=== PATIENT | male | born 1980 | race Caucasian/White ===

== ENCOUNTER 2018-03-14 05:25 | Inpatient (IN) | END 2018-03-17 17:30 | DRG 520 ==

== ENCOUNTER 2018-03-17 17:41 | Inpatient (IN) | END 2018-04-04 14:40 | disposition short-term general hospital (02) | DRG 560 ==

== ENCOUNTER 2018-04-04 14:40 | Inpatient (IN) | END 2018-04-10 18:50 | DRG 520 ==

== ENCOUNTER 2018-04-10 19:15 | Inpatient (IN) | END 2018-04-20 18:25 | disposition home health service (06) | DRG 945 ==

== ENCOUNTER 2018-11-21 05:24 | Inpatient (IN) | payer OTHER, MEDICAID ==
--- NOTE | 2018-11-16 09:45 | PREOPHP ---
DATE OF ADMISSION: 11/21/2018 REASON FOR ADMISSION: The patient is to have surgery with Dr. Jean Claude Gerardo on 11/21/2018. REASON FOR CONSULTATION: Consultation requested by Dr. Jean Claude Gerardo for medical evaluation and cl earance of a 38-year-old gentleman about to undergo surgery. Thank you, Dr. Gerardo, for allowing us to participate in care of this patient. HISTORY OF PRESENT ILLNESS: The patient is a 38-year-old gentleman, issues with his back is currentl y being admitted for correction of the above. The patient had a prior surgery at L5-S1 and currently will be admitted for recurrent L5-S1 as well as L4-L5 with probable fusion. In terms of his past me dical and surgical history, he had one prior surgery on his back as mentioned above. Other surgeries have included left shoulder surgery done for torn biceps and also had surgery on his left great toe for a fracture, which required pinning. He has had no medical hospitalizations, has had no other kush geries, has not broken any bones and he has been relatively healthy. MEDICATIONS: He currently takes the following medications; 1. Amlodipine 10 mg daily. 2. Benazepril 40 mg a day. 3. Gabapentin 600 mg b.i.d. 4. Tylenol with codeine and takes p.r.n. medications for pain and muscle issues. ALLERGIES: HE IS NOT ALLERGIC TO ANY MEDICATIONS. SOCIAL HISTORY: The patient is , has one daughter. He does not smoke or drink alcohol or co ffee, is employed and usually has no difficulty sleeping at night. FAMILY HISTORY: Father at age 57 of brain cancer. Mother is alive in her 60s, has had a mild s troke in the past. He is hypertensive. He has siblings who are in good health. There is a family h istory of hypertension and stroke as well as cancer. REVIEW OF SYSTEMS: HEENT: Denies any significant headaches. CARDIORESPIRATORY: Denies any chest pain or shortness of breath. GASTROINTESTINAL: No melena or hematemesis. GENITOURINARY: No urgency or frequency. MUSCULOSKELETAL: Positive for back pain. NEUROPSYCHIATRIC: Unremarkable. GENERAL HEALTH: As above. PHYSICAL EXAMINATION: VITAL SIGNS: The patient's blood pressure was 150/90, pulse was 76 and regular, respirations were 18 , temperature 98.4. Height 5 feet 11-3/4 inches, weight 256 pounds. GENERAL: The patient was noted to be a well-developed, well-nourished male, alert and cooperative, i n no apparent acute distress, oriented to time, place, and person. HEAD, EARS, EYES, NOSE AND THROAT: Head was atraumatic. Eyes: Pupils were equal, reactive to light and accommodation. Fundi were grossly benign. Tympanic membranes were unremarkable. Nose was nega tive. Mouth was unremarkable. Fair oral hygiene was present. NECK: Supple without any rigidity. Trachea was midline. Thyroid was within normal limits. Neck ve ins were flat. Carotid pulses were equal. No bruits were heard. BACK: Unremarkable, scar from prior surgery. CHEST: Symmetrical. BREASTS AND AXILLARY: Did not reveal any masses. LUNGS: Clear to percussion and auscultation. HEART: PMI was 5th intercostal space at midclavicular line. A regular sinus rhythm was noted. No s ignificant murmurs, rubs, or gallops being elicited. ABDOMEN: Soft, good bowel sounds were noted. No significant organomegaly, masses, or tenderness. GENITALIA: Normal male external genitalia. RECTAL AND PROSTATIC: Per PCP. EXTREMITIES: Did not reveal any clubbing, edema or cyanosis. Peripheral pulses were physiologic. SKIN: Moist and warm without any eruptions. No gross lymphadenopathy was noted. NEUROLOGIC: Grossly intact. IMPRESSION: 1. Lumbar disk disease L4-L5, L5-S1, possible spinal stenosis. 2. Hypertension. 3. Chronic pain syndrome. 4. Stable health. LABORATORY DATA: Review of laboratory and other data revealed the following: The patient's chemistr y panel including electrolytes, glucose, BUN, creatinine, calcium and uric acid were normal. Total p rotein was minimally elevated. Bulk of the elevation being an albumin, alkaline phosphatase and live r function tests were normal. Magnesium was slightly elevated at 2.4. CBC was normal, sed. rate min imally elevated at 33, normal white count. UA, PT, and PTT were normal as well as was his EKG. His c hest x-ray revealed no acute infiltrates nor were there any acute cardiopulmonary changes being noted . DISCUSSION: Dr. Gerardo, I see no contraindications to patient undergoing current proposed surgery under desired form of anesthesia. I feel he is a suitable candidate at this particular point in our community [facility] and will be more than happy to follow him with you during his stay at [facility]. Thank you again, Dr. Gerardo, for allowing us to participate in care of this patient. Dictated By: KEARA LUNA MD SS/NTS Conf#: [id number] DID#: [id number] CC: JEAN CLAUDE GERARDO MD;*EndCC*
[2018-11-16 11:43] VITALS: BMI 32.1
[~2018-11-21] VITALS: Ht 190.5 cm; Wt 115.5 kg
[2018-11-21] VITALS (27 sets, daily range): BP systolic 92–154; BP diastolic 40–89; PULSE 48–109; RESP 16–28; Ht 190.5 cm; Wt 115.5 kg
[~2018-11-21 05:24] MED LIST: ACET1TAB40 PO; AMLO-147 PO; BACL20TA PO; BENA40TA56 PO; GABA300C16 PO
[2018-11-21] MEDS ORDERED: LACTATED RINGER'S 1,000 ML IV* SCH (06:00)
[2018-11-21] MEDS ORDERED: CEFAZOLIN 2 GM/50 ML (PMX) 50 ML IVPB ONE (06:00)
[2018-11-21] MEDS ORDERED: BUPIVACAINE 0.5%/EPI (SDV) 30 ML INJ ONE (06:34)
[2018-11-21] MEDS ORDERED: THROMBIN (BOVINE) 5,000 UNIT VIAL TP ONE (06:34)
[2018-11-21] MEDS ORDERED: HEPARIN 1000 UNITS/ML 10 ML INJ ONE ×3 (06:34→09:31)
[2018-11-21] MEDS ORDERED: CEFAZOLIN 1 GM INJ ONE ×2 (06:34→07:01)
--- NOTE | 2018-11-21 06:56 | HPN ---
Date/Time of Note Date/Time of Note DATE: 11/21/18 TIME: 06:56 Interval H&P Admission Note Pt. seen H&P reviewed: No system changes FAVIOLA GREEN MD Nov 21, 2018 06:56
--- NOTE | 2018-11-21 06:57 | PREAC ---
Date/Time of Note Date/Time of Note DATE: 11/21/18 TIME: 06:55 Anesthesia Eval and Record Evaluation Time Pre-Procedure Interview DATE: 11/21/18 TIME: 06:55 Age 38 Sex male NPO: 8 hrs Preoperative diagnosis Lumbar Radiculopathy Planned procedure Lumbar Decompression and Fusion with instrumentation, L4-5, L5-S1 Past Medical History Past Medical History: Includes Cardio: HTN Pulm: Sleep Apnea, Home CPAP GI: Obesity Surgery & Anesthesia Issues No known issue Meds Anticoagulation: No Beta Alonso within 24 hr: No Reason Beta Alonso not given: Pt. not on B-Alonso Reported Medications Acetaminophen with Codeine (Acetaminophen-Cod #3 Tablet) 1 Each Tablet, 1 TAB PO Q6H, #7 TAB 11/16/18 Gabapentin* (Gabapentin*) 300 Mg Capsule, 300 MG PO BID, #60 CAP 11/16/18 Baclofen* (Baclofen*) 20 Mg Tablet, 20 MG PO TID, TAB 11/16/18 Benazepril Hcl* (Benazepril Hcl*) 40 Mg Tablet, 40 MG PO DAILY, #30 TAB 03/14/18 Amlodipine Besylate* (Amlodipine Besylate*) 10 Mg Tablet, 10 MG PO DAILY, #30 TAB 03/14/18 Discontinued Reported Medications Dhcodeine Bt/Acetaminophn/Caff (Trezix 16-320.5-30 mg Capsule) 1 Each Capsule, 1 EACH PO, CAP 03/14/18 Orphenadrine Citrate (Norflex) 100 Mg Tablet.sa, 100 MG PO BID, TAB.SA 03/14/18 Current Medications Lactated Ringer's 1,000 ml @ 0 mls/hr Q0M IV* ; Start 11/21/18 at 06:00; Stop 11/21/18 at 23:00 Meds reviewed: Yes Allergies Coded Allergies: No Known Allergy (Unverified , 11/21/18) Allergies Reviewed: Yes Labs/Studies Labs Reviewed: Reviewed by anesthesiologist test: N/A Studies: ECG (n/a), CXR (n/a) Pre-procedure Exam Last vitals Vital Signs Date Temp Pulse Resp B/P (MAP) Pulse Ox O2 O2 Flow FiO2 Time Delivery Rate 11/21/18 98.1 71 18 154/89 97 Room Air 06:17 (110) Airway: Adequate mouth opening, Adequate thyromental dist Mallampati: Mallampati II Teeth: Normal Lung: Normal Heart: Normal ASA Physical Status ASA physical status: 2 Emergency: None Planned Anesthetic General/MAC: ETT Planned Pain Management Parenteral pain med Pre-operative Attestations Prior to commencing anesthesia and surgery, the patient was re-evaluated, there was verification of: *The patient's identity *The results of appropriate recent lab work and preoperative vital signs *The above evaluation not changing prior to induction *Anesthetic plan, risk benefits, alternative and complications discussed with patient/family; questions answered; patient/family understands, accepts and wishes to proceed. LILY EAGLE MD Nov 21, 2018 06:57
[2018-11-21] MEDS ORDERED: DIPHENHYDRAMINE 25 MG CAP PO PRN (07:00)
[2018-11-21] MEDS ORDERED: NALOXONE (0.4 MG/ML) INJ IV PRN (07:00)
[2018-11-21] MEDS ORDERED: EPHEDrine SULFATE 50 MG/5 ML SYG ONE (07:00)
[2018-11-21] MEDS ORDERED: DIPHENHYDRAMINE 50 MG INJ IV PRN ×2 (07:00→08:00)
[2018-11-21] MEDS ORDERED: CEPASTAT LOZENGE MT PRN (07:00)
[2018-11-21] MEDS ORDERED: DESFLURANE 15 MIN ONE (07:00)
[2018-11-21] MEDS ORDERED: ACETAMINOPHEN 325 MG TAB PO PRN (07:00)
[2018-11-21] MEDS ORDERED: PROPOFOL 20 ML ONE ×2 (07:01→07:02)
[2018-11-21] MEDS ORDERED: ROCURONIUM 50 MG INJ ONE ×3 (07:01→09:23)
[2018-11-21] MEDS ORDERED: MIDAZOLAM 1 MG/ML 2 ML INJ ONE (07:01)
[2018-11-21] MEDS ORDERED: ONDANSETRON 4 MG INJ ONE ×2 (07:44→12:12)
[2018-11-21] MEDS ORDERED: METOCLOPRAMIDE 10 MG INJ ONE (07:45)
[2018-11-21] MEDS ORDERED: DEXAMETHASONE 4 MG/ML 5 ML INJ ONE (07:45)
[2018-11-21] MEDS ORDERED: PHENYLephrine (100 MCG/ML) 10ML SYG ONE (07:46)
[2018-11-21] MEDS ORDERED: hydrALAzine 20 MG INJ IV PRN (08:00)
[2018-11-21] MEDS ORDERED: HYDROmorphONE 1 MG/5 ML IV SYRINGE IV PRN ×3 (08:00)
[2018-11-21] MEDS: GABAPENTIN 300 MG CAP PO SCH ×3 (08:00→20:32)
[2018-11-21] MEDS ORDERED: FENTAnyl 50 MCG/ML VIAL IV PRN ×3 (08:00)
[2018-11-21] MEDS ORDERED: LABETALOL HCL 20MG INJ IV PRN (08:00)
[2018-11-21] MEDS ORDERED: EPHEDrine SULFATE 50 MG/5 ML SYG IV PRN (08:00)
[2018-11-21] MEDS ORDERED: MEPERIDINE 25 MG INJ IV PRN (08:00)
[2018-11-21] MEDS ORDERED: OXYCODONE/ACETAMINOPHEN (5/325) TAB PO PRN ×2 (08:00)
[2018-11-21] MEDS ORDERED: ONDANSETRON 4 MG INJ IV PRN (08:00)
[2018-11-21] MEDS ORDERED: METOCLOPRAMIDE 10 MG INJ IV PRN (08:00)
[2018-11-21] MEDS ORDERED: CA CHLORIDE 10% 10 ML SYRINGE ONE (08:01)
[2018-11-21] MEDS: SURGIFOAM POWDER 1 GM KIT ONE ×2 (08:02→08:06)
[2018-11-21] MEDS ORDERED: LABETALOL HCL 20MG INJ ONE (10:28)
[2018-11-21] MEDS ORDERED: GLYCOPYRROLATE 0.4 MG INJ ONE (12:11)
[2018-11-21] MEDS ORDERED: NEOSTIGMINE 3 MG/3 ML SYRINGE ONE (12:11)
--- NOTE | 2018-11-21 12:29 | SIPON ---
Date/Time of Note Date/Time of Note DATE: 11/21/18 TIME: 12:29 Operative Report Preoperative Diagnosis Lumbar disc disease and radiculopathy Postoperative Diagnosis Lumbar disc disease and radiculopathy Operation/Procedure Performed Lumbar fusion Surgeon see signature line assistant head cashier Fransisca Mccloud Anesthesia: general Estimated blood loss: 150 - 200 ml's Transfusion Required none Specimen Disc Grafts/Implants Cage and screws Complications none FAVIOLA GREEN MD Nov 21, 2018 12:29
--- NOTE | 2018-11-21 12:40 | PAC ---
Date/Time of Note Date/Time of Note DATE: 11/21/18 TIME: 12:40 Post-Anesthesia Notes Post-Anesthesia Note Last documented vital signs Vital Signs Date Temp Pulse Resp B/P (MAP) Pulse Ox O2 O2 Flow FiO2 Time Delivery Rate 11/21/18 98.1 71 18 154/89 97 Room Air 12:37 (110) Activity: WNL Respiratory function: WNL Cardiovascular function: WNL Mental status: Baseline Pain reasonably controlled: Yes Hydration appropriate: Yes Nausea/Vomiting absent: Yes LILY EAGLE MD Nov 21, 2018 12:40
--- NOTE | 2018-11-21 13:18 | CONS ---
Consult Date/Type/Reason Admit Date/Time Nov 21, 2018 at 05:24 Initial Consult Date 11/10/2018 Type of Consultation: internal medicine Reason for Consultation pre-op medical evaluation and clearance Requesting Provider: FAVIOLA GREEN MD Date/Time of Note DATE: 11/21/18 TIME: 13:13 Subjective in recovery room post op not feeling any pain still lethargic Objective Vitals Vital Signs Date Temp Pulse Resp B/P (MAP) Pulse Ox O2 O2 Flow FiO2 Time Delivery Rate 11/21/18 97.8 12:43 11/21/18 109 16 116/56 98 Mask 10.0 12:35 (76) Intake and Output 11/20/18 11/20/18 11/21/18 1414:59 22:59 06:59 IntakeIntake Total 3000 ml BalanceBalance 3000 ml Exam vital signs stable HEENT negative lungs clear heart regular rhythm Results/Medications Home Meds Reported Medications Acetaminophen with Codeine (Acetaminophen-Cod #3 Tablet) 1 Each Tablet, 1 TAB PO Q6H, #7 TAB 11/16/18 Gabapentin* (Gabapentin*) 300 Mg Capsule, 300 MG PO BID, #60 CAP 11/16/18 Baclofen* (Baclofen*) 20 Mg Tablet, 20 MG PO TID, TAB 11/16/18 Benazepril Hcl* (Benazepril Hcl*) 40 Mg Tablet, 40 MG PO DAILY, #30 TAB 03/14/18 Amlodipine Besylate* (Amlodipine Besylate*) 10 Mg Tablet, 10 MG PO DAILY, #30 TAB 03/14/18 Discontinued Reported Medications Dhcodeine Bt/Acetaminophn/Caff (Trezix 16-320.5-30 mg Capsule) 1 Each Capsule, 1 EACH PO, CAP 03/14/18 Orphenadrine Citrate (Norflex) 100 Mg Tablet.sa, 100 MG PO BID, TAB.SA 03/14/18 Medications Current Medications Lactated Ringer's 1,000 ml @ 0 mls/hr Q0M IV* ; Start 11/21/18 at 06:00; Stop 11/21/18 at 23:00 Potassium Chloride/Dextrose/ Sod Cl 1,000 ml @ 100 mls/hr Q10H IV ; Start 11/21/18 at 06:56 Acetaminophen/ Hydrocodone Bitart (Jasper (10/325)) 1 tab Q4H PRN PO .PAIN 1-5; Start 11/23/18 at 10:00 Acetaminophen/ Hydrocodone Bitart (Jasper (10)) 2 tab ONCE@0930 PO ; Start 11/23/18 at 09:30; Stop 11/23/18 at 13:00 Hydromorphone HCl (Dilaudid) 0.2 mg Q1H PRN IV .BREAKTHROUGH PAIN; Start 11/21/18 at 07:00 Cefazolin Sodium 50 ml @ 100 mls/hr Q8H IVPB ; Start 11/21/18 at 12:00; Stop 11/22/18 at 04:29 Ondansetron HCl (Zofran Inj) 4 mg Q6H PRN IV NAUSEA/VOMITING; Start 11/21/18 at 07:00 Bisacodyl (Dulcolax Supp) 10 mg DAILY PRN UT .CONSTIPATION; Start 11/21/18 at 07:00 Docusate Sodium (Colace) 100 mg BID PO ; Start 11/21/18 at 21:00 Pantoprazole (Protonix Iv) 40 mg DAILY@06 IV ; Start 11/22/18 at 06:00 Magnesium Hydroxide (Milk Of Mag) 30 ml HS PRN PO .CONSTIPATION/DYSPEPSIA; Start 11/21/18 at 07:00 Acetaminophen (Tylenol Tab) 650 mg Q4H PRN PO FARRIS OR TEMP GREATER THAN 101.3F; Start 11/21/18 at 07:00 Phenol (Cepastat Lozenge) 1 lozenge PRN PRN MT .SORE THROAT; Start 11/21/18 at 07:00 Diphenhydramine HCl (Benadryl) 25 mg Q6H PRN PO .ITCHING; Start 11/21/18 at 07:00 Diphenhydramine HCl (Benadryl) 25 mg Q6H PRN IV .ITCHING; Start 11/21/18 at 07:00 Naloxone HCl (Narcan) 0.2 mg Q2M PRN IV .RR 8 BREATHS/MIN OR LESS; Start 11/21/18 at 07:00 Hydromorphone HCl (Dilaudid TOOL ENGINE LATHE SET UP OPERATOR) TOOL ENGINE LATHE SET UP OPERATOR to be started in PACU Q4PCA IV ; Start 11/21/18 at 07:00; Status Future Hold Miscellaneous Information 1. Hold TOOL ENGINE LATHE SET UP OPERATOR at 1,000... TOOL ENGINE LATHE SET UP OPERATOR IV ; Start 11/21/18 at 07:00; Stop 11/23/18 at 12:00 Baclofen (Lioresal) 20 mg TID PO ; Start 11/21/18 at 21:00 Gabapentin (Neurontin) 300 mg BID WITH MEALS PO ; Start 11/21/18 at 08:00 Acetaminophen/ Hydrocodone Bitart (Jasper (10/325)) 2 tab Q4H PRN PO .PAIN 6-10; Start 11/23/18 at 10:00 Hydromorphone HCl (Dilaudid) 0.2 mg PACU PRN IV MILD PAIN 1-3; Start 11/21/18 at 08:00; Stop 11/21/18 at 15:00 Hydromorphone HCl (Dilaudid) 0.4 mg PACU PRN IV MOD PAIN 4-6 Last administered on 11/21/18at 12:49; Admin Dose 0.4 MG; Start 11/21/18 at 08:00; Stop 11/21/18 at 15:00 Hydromorphone HCl (Dilaudid) 0.6 mg PACU PRN IV SEVERE PAIN 7-10; Start 11/21/18 at 08:00; Stop 11/21/18 at 15:00 Fentanyl (Sublimaze) 25 mcg PACU ORDER PRN IV MILD PAIN 1-3; Start 11/21/18 at 08:00; Stop 11/21/18 at 15:00 Fentanyl (Sublimaze) 50 mcg PACU ORDER PRN IV MOD PAIN 4-6; Start 11/21/18 at 08:00; Stop 11/21/18 at 15:00 Fentanyl (Sublimaze) 75 mcg PACU ORDER PRN IV SEVERE PAIN 7-10; Start 11/21/18 at 08:00; Stop 11/21/18 at 15:00 Oxycodone/ Acetaminophen (Percocet (5/ 325)) 1 tab PACU ORDER PRN PO .PAIN 1-5; Start 11/21/18 at 08:00; Stop 11/21/18 at 15:00 Oxycodone/ Acetaminophen (Percocet (5/ 325)) 2 tab PACU ORDER PRN PO .PAIN 6-10; Start 11/21/18 at 08:00; Stop 11/21/18 at 15:00 Ondansetron HCl (Zofran Inj) 4 mg PACU ORDER PRN IV NAUSEA/VOMITING Last administered on 11/21/18at 12:56; Admin Dose 4 MG; Start 11/21/18 at 08:00; Stop 11/21/18 at 15:00 Metoclopramide HCl (Reglan) 10 mg PACU ORDER PRN IV NAUSEA/VOMITING; Start 11/21/18 at 08:00; Stop 11/21/18 at 15:00 Labetalol HCl (Labetalol) 5 mg PACU ORDER PRN IV HIGH BLOOD PRESSURE; Start 11/21/18 at 08:00; Stop 11/21/18 at 15:00 Hydralazine HCl (Apresoline) 5 mg PACU ORDER PRN IV HIGH BLOOD PRESSURE; Start 11/21/18 at 08:00; Stop 11/21/18 at 15:00 Ephedrine Sulfate 5 mg PACU ORDER PRN IV BLOOD PRESSURE SUPPORT; Start 11/21/18 at 08:00; Stop 11/21/18 at 15:00 Meperidine HCl (Demerol) 25 mg PACU ORDER PRN IV .RIGORS; Start 11/21/18 at 08:00; Stop 11/21/18 at 15:00 Diphenhydramine HCl (Benadryl) 25 mg PACU ORDER PRN IV .PRURITUS; Start 11/21/18 at 08:00; Stop 11/21/18 at 15:00 Albuterol (Proventil 0.083% (Neb)) 2.5 mg PACU ORDER PRN HHN .WHEEZING; Start 11/21/18 at 13:30; Stop 11/21/18 at 19:00 Levalbuterol (Xopenex Neb) 1.25 mg PACU ORDER PRN HHN .WHEEZING; Start 11/21/18 at 13:30; Stop 11/21/18 at 19:00 Assessment/Plan Hospital Course (Demo Recall) post-op in recovery room post lumbar spine surgery medically stable Assessment/Plan (Daily) plan will continue pre-op medications and follow with you [facility] MD Nov 21, 2018 13:18
[2018-11-21] MEDS: HYDROmorphONE 0.2 MG/ML PCA IV SCH (13:21)
[2018-11-21] MEDS ORDERED: ALBUTEROL 0.083% (NEB) 2.5 MG/3 ML AMP HHN PRN (13:30)
[2018-11-21] MEDS ORDERED: LEVALBUTEROL (NEB) 1.25 MG/0.5 ML AMP HHN PRN (13:30)
[2018-11-21] MEDS: D5W-0.45 NACL + KCL 20 MEQ 1,000 ML IV SCH ×2 (14:50→16:56)
[2018-11-21] MEDS: CEFAZOLIN 1 GM/50 ML (PMX) 50 ML IVPB SCH ×2 (15:52→20:33)
--- NOTE | 2018-11-21 16:16 | OPR ---
DATE OF OPERATION: 11/21/2018 PREOPERATIVE DIAGNOSES: 1. History of L4 to L5 microdiskectomy. 2. History of L5 to S1 microdiskectomy. 3. Persistent right lumbar radiculopathy with disk disease and stenosis at L4 to L5 and L5 to S1. POSTOPERATIVE DIAGNOSES: 1. History of L4 to L5 microdiskectomy. 2. History of L5 to S1 microdiskectomy. 3. Persistent right lumbar radiculopathy with disk disease and stenosis at L4 to L5 and L5 to S1. PROCEDURES: 1. Right L4 to L5 and L5 to S1 decompression with decompression of L4, L5, S1 nerve roots for stenosis. 2. Pedicle screw placement at L4, L5 and S1 bilaterally. 3. Neurolysis of right L5 and S1 nerve roots with use of microscope. 4. Transforaminal lumbar interbody fusion at L4 to L5 and L5 to S1. 5. Placement of intervertebral mechanical device at L4 to L5 and L5 to S1. 6. Posterolateral fusion at L4 to L5 and L5 to S1. 7. Use of autograft. 8. Use of allograft. 9. Use of C-arm fluoroscopy with interpretation without radiologist present. 10. Intraoperative neuromonitoring. 11. Use of operative microscope. IMPLANTS: 1. Nexxt Matrixx 10 x 10 x 30 mm cage at L4 to L5 and 8 x 10 x 30 mm cage at L5 to S1. 2. NeuroStructures Palladian pedicle screw 6.5 x 45 mm at L4 and L5 bilaterally and 7.5 x 45 mm S1 bilaterally. 3. Biosphere. PRIMARY SURGEON: Jean Claude Gerardo MD SENIOR VICE PRESIDENT & GENERAL COUNSEL: Fransisca Mccloud PA-C NEED FOR SAP DIRECTOR: During this spinal surgical procedure, my certified teacher assistant was used to retract and protect the spinal nerves and dural sac. My certified teacher assistant also employed the suction catheters to evacuate blood from the surgical field to improve visualization of the neural structures. The certified teacher assistant was medically necessary to facilitate the completion of the surgery in a safe and expeditious manner. State of [place] regulations, as well as hospital bylaws, preclude the use of non-licensed health care personnel, such as operating room technicians, to perform these functions. FINDINGS: Neuromonitoring at the start of the case revealed bilateral L2 amplitude down 30%, left L4 down 40%, right L4 down 60%, left L5 down 50%, right L5 down 60%, left S1 down 30%, right S1 down 60%. At the end of the case, nerve signals returned to normal. The patient had alteration of the field due to scar tissue. There is stenosis on the right, requiring a decompression. ESTIMATED BLOOD LOSS: 200 mL. DRAINS: One. SPECIMENS: L4 to L5 and L5 to S1 disk spaces. COMPLICATIONS OF PROCEDURES: None. ANESTHESIOLOGIST: Dion Infante MD TYPE OF ANESTHESIA: General. INDICATIONS FOR PROCEDURE: This is a 38-year-old gentleman who had previously undergone microdiskectomy at L4 to L5 and L5 to S1 on 2 separate occasions. He has persistent back and right leg pain with stenosis. He failed nonoperative measures; therefore, I recommended that he undergo the above procedure. Preoperatively, we discussed risks, benefits and alternatives. He understood and wished to proceed. DESCRIPTION OF PROCEDURE IN DETAIL: The patient was identified in the preoperative holding area, given Ancef antibiotic, taken to the operating room, where he was successfully placed under general anesthesia. Neuromonitoring leads were placed. Sequential compressive devices were applied. Baker catheter was introduced. Remote intraoperative neuromonitoring was performed by Dr. Shin from 6:00 until 12:00 p.m. to include SSEP, MEP and EMG performed by [employer]. The patient was placed on the operating table in prone position over a Mynor frame. All bony prominences were well padded. The injection site was then injected with Marcaine and epinephrine. Incision was then made from L4 to the sacrum. Incision was taken down to dorsal fascia which was incised with Bovie cautery. Scar tissue was encountered. I subperiosteally dissected the L4, L5 and S1 lamina on the left. I exposed on the right side as well, but significant scar tissue with alteration of the field. Overall, the alteration of the field and scar tissue added at least 1 hour to the procedure, particularly making the decompression more difficult. Once I had exposed the area, I placed bilateral pedicle screws at L4, L5 and S1 under C-arm guidance. Once the screws were in place, I took imaging and I was happy with placement of the hardware. I purposely placed the right L4 somewhat laterally as the anatomy of the screw was quite difficult and small and I did not want to breach this medially. I stimulated each of the screws and there was no evidence of cortical breach. Although I was concerned about this right L4 screw, I elected to leave it in place without trying to keep replacing it with the understanding that this may need to be removed in the future. Next, I brought the microscope in and on the right side, I performed a decompression and made a revision hemilaminotomy of L4 and a revision hemilaminectomy of L5. I decompressed the central canal as well as a right L4, L5 and S1 nerve roots. There is quite a bit of scar tissue encountered and therefore under the microscope, neurolysis was performed of the L5 and S1 nerve roots. Under the microscope, I made an annulotomy at the L5 to S1 level. I performed a radical diskectomy. I placed various trials and chose the appropriate graft height. I then took the titanium cage within which I placed allograft and I impacted intervertebral mechanical device into the L5 to S1 level to complete the transforaminal lumbar interbody fusion at this level. I then turned my attention to the L4 to L5 level. Similarly, I made an annulotomy followed by radical diskectomy. I placed various trials and chose the appropriate graft height. I then took the titanium cage within which I placed allograft and I impacted intervertebral mechanical device into the L4 to L5 level to complete the transforaminal lumbar interbody fusion at this level as well. I let down the Mynor frame. I then placed the appropriate size rods bilaterally after removing the microscope off the field. I placed the rods with set screws which I tightened per manufacture's specification. At this point, I took final AP and lateral images and I was happy with placement of hardware and alignment of the spine. The wound was then irrigated. Valsalva was performed and there was no leak of CSF. Hemostasis was achieved. I prepared the posterolateral gutters and the lamina of L4, L5 and S1. I took autograft and allograft and placed this over the lamina left at L4, L5 and S1. In the posterolateral gutters, I placed allograft at L4 to L5 and L5 to S1 for posterolateral fusion at L4 to L5 and L5 to S1. It should be noted that the decompression done at L4 to L5 and L5 to S1 was done in order to alleviate the stenosis with the complete facetectomies and beyond what was required in order to perform an interbody fusion. At this point, all nerve signals remained normal. I placed a deep subfascial drain. I injected PPP and thrombin over the dura for hemostatic purposes. I closed deep fascia with #1 Stratafix and #1 Vicryl sutures. I closed subcutaneous tissue with a 2-0 Vicryl stitch. A 4-0 Monocryl closure was then performed. Dermabond and sterile dressing was then applied. The patient was then awaked from anesthesia and taken to the recovery room in stable condition. Lap, sponge and instrument counts were correct x2. There were no apparent complications during the procedure. The patient will be admitted to the orthopedic [facility] for routine postoperative care to include pain control, neurovascular checks, antibiotics and physical therapy. Dictated By: JEAN CLAUDE GERARDO MD BB/AYLIN Conf#: [id number] DID#: [id number] CC: KEARA LUNA MD;*EndCC* MTDD
[2018-11-21] MEDS: DOCUSATE SODIUM 100 MG CAP PO SCH (20:32)
[2018-11-21] MEDS: BACLOFEN 10 MG TAB PO SCH (20:38)
[2018-11-21] MEDS: ZOLPIDEM 5 MG TAB PO PRN (22:11)
[2018-11-22 00:10] VITALS: BP 112/62; PULSE 52; RESP 17
[2018-11-22] MEDS: D5W-0.45 NACL + KCL 20 MEQ 1,000 ML IV SCH ×3 (01:02→21:28)
[2018-11-22] MEDS: CEFAZOLIN 1 GM/50 ML (PMX) 50 ML IVPB SCH (05:18)
[2018-11-22] MEDS ORDERED: PANTOPRAZOLE 40 MG INJ IV SCH (06:00)
[2018-11-22 07:59] VITALS: BP 140/83; PULSE 80; RESP 18
[2018-11-22] MEDS: GABAPENTIN 300 MG CAP PO SCH ×3 (09:00→21:06)
[2018-11-22] MEDS: DOCUSATE SODIUM 100 MG CAP PO SCH ×2 (09:08→21:06)
[2018-11-22] MEDS: BACLOFEN 10 MG TAB PO SCH ×3 (09:08→21:06)
[2018-11-22] MEDS: AMLODIPINE 10 MG TAB PO SCH (09:09)
[2018-11-22] MEDS: BENAZEPRIL 40 MG TAB PO SCH (09:09)
--- NOTE | 2018-11-22 09:48 | PN ---
Date/Time of Note Date/Time of Note DATE: 11/22/18 TIME: 09:47 Assessment/Plan Lines/Catheters IV Catheter Type (from Nrsg): Saline Lock Baker in Place (from Nrsg): Yes Assessment/Plan Assessment/Plan Postop day #1. The patient is doing very well. His right leg pain has resolved. We will continue with physical therapy and pain management. Subjective 24 Hr Interval Summary Complains of low back pain. Right leg pain resolved. Exam/Review of Systems Vital Signs Vitals Vital Signs Date Temp Pulse Resp B/P (MAP) Pulse Ox O2 O2 Flow FiO2 Time Delivery Rate 11/22/18 97.8 80 18 140/83 99 Room Air 07:59 (102) 11/22/18 2.0 06:26 11/21/18 30 20:37 Intake and Output 11/21/18 11/21/18 11/22/18 1515:00 23:00 07:00 IntakeIntake Total 100 ml 700 ml 1700 ml OutputOutput Total 1040 ml 20 ml 2550 ml BalanceBalance -940 ml 680 ml -850 ml Exam Free Text/Dictation Neuro intact Results Result Diagram: 11/22/18 0425 11/22/18 0425 FAVIOLA GREEN MD Nov 22, 2018 09:48
--- NOTE | 2018-11-22 10:07 | CONS ---
Consult Date/Type/Reason Admit Date/Time Nov 21, 2018 at 05:24 Initial Consult Date 11/10/2018 Type of Consultation: internal medicine Reason for Consultation post-op f/u and medical management Requesting Provider: FAVIOLA GREEN MD Date/Time of Note DATE: 11/22/18 TIME: 10:03 Subjective more comfortable today looking forwar to walking Objective Vitals Vital Signs Date Temp Pulse Resp B/P (MAP) Pulse Ox O2 O2 Flow FiO2 Time Delivery Rate 11/22/18 97.8 80 18 140/83 99 Room Air 07:59 (102) 11/22/18 2.0 06:26 11/21/18 30 20:37 Intake and Output 11/21/18 11/21/18 11/22/18 1515:00 23:00 07:00 IntakeIntake Total 100 ml 700 ml 1700 ml OutputOutput Total 1040 ml 20 ml 2550 ml BalanceBalance -940 ml 680 ml -850 ml Exam vital signs stable HEENT negative lungs clear heart regular rhythm Results/Medications Result Diagram: 11/22/18 0425 11/22/18 0425 Results 24 hrs Laboratory Tests Test 11/22/18 04:25 11/22/18 07:19 White Blood Count 15.1 #H Red Blood Count 4.14 L Hemoglobin 12.1 L Hematocrit 36.5 L Mean Corpuscular Volume 88.2 Mean Corpuscular Hemoglobin 29.2 Mean Corpuscular Hemoglobin Concent 33.2 Red Cell Distribution Width 12.8 Platelet Count 198 # Mean Platelet Volume 10.9 H Immature Granulocytes % 0.500 H Neutrophils % 84.0 H Lymphocytes % 8.6 L Monocytes % 6.7 Eosinophils % 0.1 Basophils % 0.1 Nucleated Red Blood Cells % 0.0 Immature Granulocytes # 0.070 H Neutrophils # 12.7 H Lymphocytes # 1.3 Monocytes # 1.0 H Eosinophils # 0.0 Basophils # 0.0 Nucleated Red Blood Cells # 0.0 Sodium Level 139 Potassium Level 3.9 Chloride Level 106 Carbon Dioxide Level 28 Anion Gap 5 Blood Urea Nitrogen 8 Creatinine 0.83 Est Glomerular Filtrat Rate mL/min > 60 Glucose Level 130 Calcium Level 8.9 Magnesium Level 2.0 Lab Scanned Report REFERENCE [facility] Home Meds Reported Medications Acetaminophen with Codeine (Acetaminophen-Cod #3 Tablet) 1 Each Tablet, 1 TAB PO Q6H, #7 TAB 3/28/19 Gabapentin* (Gabapentin*) 300 Mg Capsule, 300 MG PO BID, #60 CAP 11/16/18 Baclofen* (Baclofen*) 20 Mg Tablet, 20 MG PO TID, TAB 11/16/18 Benazepril Hcl* (Benazepril Hcl*) 40 Mg Tablet, 40 MG PO DAILY, #30 TAB 03/14/18 Amlodipine Besylate* (Amlodipine Besylate*) 10 Mg Tablet, 10 MG PO DAILY, #30 TAB 03/14/18 Discontinued Reported Medications Dhcodeine Bt/Acetaminophn/Caff (Trezix 16-320.5-30 mg Capsule) 1 Each Capsule, 1 EACH PO, CAP 03/14/18 Orphenadrine Citrate (Norflex) 100 Mg Tablet.sa, 100 MG PO BID, TAB.SA 03/14/18 Medications Current Medications Potassium Chloride/Dextrose/ Sod Cl 1,000 ml @ 100 mls/hr Q10H IV Last administered on 11/22/18at 01:02; Admin Dose 100 MLS/HR; Start 11/21/18 at 06:56 Acetaminophen/ Hydrocodone Bitart ([place] (10/325)) 1 tab Q4H PRN PO .PAIN 1-5; Start 11/23/18 at 10:00 Acetaminophen/ Hydrocodone Bitart ([place] (10/325)) 2 tab ONCE@0930 PO ; Start 11/23/18 at 09:30; Stop 11/23/18 at 13:00 Hydromorphone HCl (Dilaudid) 0.2 mg Q1H PRN IV .BREAKTHROUGH PAIN; Start 11/21/18 at 07:00 Ondansetron HCl (Zofran Inj) 4 mg Q6H PRN IV NAUSEA/VOMITING; Start 11/21/18 at 07:00 Bisacodyl (Dulcolax Supp) 10 mg DAILY PRN [place] .CONSTIPATION; Start 11/21/18 at 07:00 Docusate Sodium (Colace) 100 mg BID PO Last administered on 11/22/18at 09:08; Admin Dose 100 MG; Start 11/21/18 at 21:00 Pantoprazole (Protonix Iv) 40 mg DAILY@06 IV Last administered on 11/22/18at 05:18; Admin Dose 40 MG; Start 11/22/18 at 06:00 Magnesium Hydroxide (Milk Of Mag) 30 ml HS PRN PO .CONSTIPATION/DYSPEPSIA; Start 11/21/18 at 07:00 Acetaminophen (Tylenol Tab) 650 mg Q4H PRN PO FARRIS OR TEMP GREATER THAN 101.3F; Start 11/21/18 at 07:00 Phenol (Cepastat Lozenge) 1 lozenge PRN PRN [place] .SORE THROAT; Start 11/21/18 at 07:00 Diphenhydramine HCl (Benadryl) 25 mg Q6H PRN PO .ITCHING; Start 11/21/18 at 07:00 Diphenhydramine HCl (Benadryl) 25 mg Q6H PRN IV .ITCHING; Start 11/21/18 at 07:00 Naloxone HCl (Narcan) 0.2 mg Q2M PRN IV .RR 8 BREATHS/MIN OR LESS; Start 11/21/18 at 07:00 Hydromorphone HCl (Dilaudid BUSINESS INTELLIGENCE MANAGER) BUSINESS INTELLIGENCE MANAGER to be started in PACU Q4PCA IV Last administered on 11/21/18at 13:21; Admin Dose 6 MG; Start 11/21/18 at 07:00; Status Future Hold Miscellaneous Information 1. Hold BUSINESS INTELLIGENCE MANAGER at 1,000... BUSINESS INTELLIGENCE MANAGER IV ; Start 11/21/18 at 07:00; Stop 11/23/18 at 12:00 Baclofen (Lioresal) 20 mg TID PO Last administered on 11/22/18at 09:08; Admin Dose 20 MG; Start 11/21/18 at 21:00 Gabapentin (Neurontin) 300 mg BID WITH MEALS PO Last administered on 11/22/18at 09:08; Admin Dose 300 MG; Start 11/21/18 at 08:00 Acetaminophen/ Hydrocodone Bitart ([place] (10/325)) 2 tab Q4H PRN PO .PAIN 6-10; Start 11/23/18 at 10:00 Amlodipine Besylate (Norvasc) 10 mg DAILY PO Last administered on 11/22/18at 09:09; Admin Dose 10 MG; Start 11/22/18 at 09:00 Benazepril HCl (Lotensin) 40 mg DAILY PO Last administered on 11/22/18at 09:09; Admin Dose 40 MG; Start 11/22/18 at 09:00 Gabapentin (Neurontin) 300 mg BID PO Last administered on 11/21/18at 20:32; Admin Dose 300 MG; Start 11/21/18 at 21:00 Zolpidem Tartrate (Ambien) 5 mg HS PRN PO INSOMNIA Last administered on 11/21/18at 22:11; Admin Dose 5 MG; Start 11/21/18 at 22:00 Assessment/Plan Hospital Course (Demo Recall) post-op in recovery room post lumbar spine surgery medically stable Assessment/Plan (Daily) patient had issue with BiPap mask otherwise doing better today will follow thank you KEARA Zamorano MD Nov 22, 2018 10:07
[2018-11-22] MEDS: HYDROmorphONE 0.2 MG/ML PCA IV SCH ×2 (11:27→21:38)
[2018-11-22 13:34] VITALS: BP 134/83; PULSE 95; RESP 18
[2018-11-22 19:50] VITALS: BP 133/69; PULSE 99; RESP 20
[2018-11-22] MEDS: ZOLPIDEM 5 MG TAB PO PRN (21:05)
[2018-11-23 02:40] VITALS: BP 139/81; PULSE 105; RESP 20
[2018-11-23] MEDS: PANTOPRAZOLE (EC) 40 MG TAB PO SCH (06:00)
--- NOTE | 2018-11-23 07:52 | PN ---
Date/Time of Note Date/Time of Note DATE: 11/23/18 TIME: 07:51 Assessment/Plan Lines/Catheters IV Catheter Type (from Nrsg): Saline Lock Weeks in Place (from Nrsg): Yes Assessment/Plan Assessment/Plan patient continues to do well. 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 continue with PT. Subjective 24 Hr Interval Summary c/o back pain, improved leg pain Exam/Review of Systems Vital Signs Vitals Vital Signs Date Temp Pulse Resp B/P (MAP) Pulse Ox O2 O2 Flow FiO2 Time Delivery Rate 11/23/18 17 05:00 11/23/18 99.4 105 139/81 95 Room Air 02:40 (100) 11/22/18 2.0 20:05 11/21/18 30 20:37 Intake and Output 11/22/18 11/22/18 11/23/18 1515:00 23:00 07:00 IntakeIntake Total 1200 ml 1140 ml 450 ml OutputOutput Total 1995 ml 2740 ml BalanceBalance 1200 ml -855 ml -2290 ml Exam Free Text/Dictation nvi Results Result Diagram: 11/23/18 0427 11/23/18 0427 FAVIOLA GREEN MD Nov 23, 2018 07:52
--- NOTE | 2018-11-23 08:08 | CONS ---
Consult Date/Type/Reason Admit Date/Time Nov 21, 2018 at 05:24 Initial Consult Date 11/10/2018 Type of Consultation: internal medicine Reason for Consultation medical f/u Requesting Provider: FAVIOLA GREEN MD Date/Time of Note DATE: 11/23/18 TIME: 08:05 Subjective trouble with catheter and back pain at surgical site Objective Vitals Vital Signs Date Temp Pulse Resp B/P (MAP) Pulse Ox O2 O2 Flow FiO2 Time Delivery Rate 11/23/18 17 05:00 11/23/18 99.4 105 139/81 95 Room Air 02:40 (100) 11/22/18 2.0 20:05 11/21/18 30 20:37 Intake and Output 11/22/18 11/22/18 11/23/18 1515:00 23:00 07:00 IntakeIntake Total 1200 ml 1140 ml 450 ml OutputOutput Total 1995 ml 2740 ml BalanceBalance 1200 ml -855 ml -2290 ml Exam vital signs stable HEENT negative lungs clear heart regular rhythm Results/Medications Result Diagram: 11/23/18 0427 11/23/18 0427 Results 24 hrs Laboratory Tests Test 11/23/18 04:27 White Blood Count 12.3 H Red Blood Count 4.48 L Hemoglobin 12.8 L Hematocrit 39.1 L Mean Corpuscular Volume 87.3 Mean Corpuscular Hemoglobin 28.6 L Mean Corpuscular Hemoglobin Concent 32.7 Red Cell Distribution Width 12.7 Platelet Count 186 Mean Platelet Volume 11.3 H Immature Granulocytes % 0.600 H Neutrophils % 68.0 Lymphocytes % 20.1 Monocytes % 10.1 Eosinophils % 1.0 Basophils % 0.2 Nucleated Red Blood Cells % 0.0 Immature Granulocytes # 0.070 H Neutrophils # 8.3 H Lymphocytes # 2.5 Monocytes # 1.2 H Eosinophils # 0.1 Basophils # 0.0 Nucleated Red Blood Cells # 0.0 Sodium Level 137 Potassium Level 3.2 L Chloride Level 103 Carbon Dioxide Level 28 Anion Gap 6 Blood Urea Nitrogen 8 Creatinine 0.66 Est Glomerular Filtrat Rate mL/min > 60 Glucose Level 106 Calcium Level 8.3 L Magnesium Level 2.0 Home Meds Reported Medications Acetaminophen with Codeine (Acetaminophen-Cod #3 Tablet) 1 Each Tablet, 1 TAB PO Q6H, #7 TAB 11/16/18 Gabapentin* (Gabapentin*) 300 Mg Capsule, 300 MG PO BID, #60 CAP 11/16/18 Baclofen* (Baclofen*) 20 Mg Tablet, 20 MG PO TID, TAB 11/16/18 Benazepril Hcl* (Benazepril Hcl*) 40 Mg Tablet, 40 MG PO DAILY, #30 TAB 03/14/18 Amlodipine Besylate* (Amlodipine Besylate*) 10 Mg Tablet, 10 MG PO DAILY, #30 TAB 03/14/18 Discontinued Reported Medications Dhcodeine Bt/Acetaminophn/Caff (Trezix 16-320.5-30 mg Capsule) 1 Each Capsule, 1 EACH PO, CAP 03/14/18 Orphenadrine Citrate (Norflex) 100 Mg Tablet.sa, 100 MG PO BID, TAB.SA 03/14/18 Medications Current Medications Potassium Chloride/Dextrose/ Sod Cl 1,000 ml @ 100 mls/hr Q10H IV Last administered on 11/22/18at 12:01; Admin Dose 100 MLS/HR; Start 11/21/18 at 06:56 Acetaminophen/ Hydrocodone Bitart ([place] (10/325)) 1 tab Q4H PRN PO .PAIN 1-5; Start 11/23/18 at 10:00 Acetaminophen/ Hydrocodone Bitart ([place] (10/325)) 2 tab ONCE@0930 PO ; Start 11/23/18 at 09:30; Stop 11/23/18 at 13:00 Hydromorphone HCl (Dilaudid) 0.2 mg Q1H PRN IV .BREAKTHROUGH PAIN; Start 11/21/18 at 07:00 Ondansetron HCl (Zofran Inj) 4 mg Q6H PRN IV NAUSEA/VOMITING; Start 11/21/18 at 07:00 Bisacodyl (Dulcolax Supp) 10 mg DAILY PRN [place] .CONSTIPATION; Start 11/21/18 at 07:00 Docusate Sodium (Colace) 100 mg BID PO Last administered on 11/22/18at 21:06; Admin Dose 100 MG; Start 11/21/18 at 21:00 Magnesium Hydroxide (Milk Of Mag) 30 ml HS PRN PO .CONSTIPATION/DYSPEPSIA; Start 11/21/18 at 07:00 Acetaminophen (Tylenol Tab) 650 mg Q4H PRN PO FARRIS OR TEMP GREATER THAN 101.3F; Start 11/21/18 at 07:00 Phenol (Cepastat Lozenge) 1 lozenge PRN PRN [place] .SORE THROAT; Start 11/21/18 at 07:00 Diphenhydramine HCl (Benadryl) 25 mg Q6H PRN PO .ITCHING; Start 11/21/18 at 07:00 Diphenhydramine HCl (Benadryl) 25 mg Q6H PRN IV .ITCHING; Start 11/21/18 at 07:00 Naloxone HCl (Narcan) 0.2 mg Q2M PRN IV .RR 8 BREATHS/MIN OR LESS; Start 11/21/18 at 07:00 Hydromorphone HCl (Dilaudid MALLET AND DIE CUTTER) MALLET AND DIE CUTTER to be started in PACU Q4PCA IV Last administered on 11/22/18at 21:38; Admin Dose 6 MG; Start 11/21/18 at 07:00; Status Future Hold Miscellaneous Information 1. Hold MALLET AND DIE CUTTER at 1,000... MALLET AND DIE CUTTER IV ; Start 11/21/18 at 0 7:00; Stop 11/23/18 at 12:00 Baclofen (Lioresal) 20 mg TID PO Last administered on 11/22/18 21:06; Admin Dose 20 MG; Start 11/21/18 at 21:00 Acetaminophen/ Hydrocodone Bitart ([place] (10/325)) 2 tab Q4H PRN PO .PAIN 6-10; Start 11/23/18 at 10:00 Amlodipine Besylate (Norvasc) 10 mg DAILY PO Last administered on 11/22/18 09:09; Admin Dose 10 MG; Start 11/22/18 at 09:00 Benazepril HCl (Lotensin) 40 mg DAILY PO Last administered on 11/22/18 09:09; Admin Dose 40 MG; Start 11/22/18 at 09:00 Gabapentin (Neurontin) 300 mg BID PO Last administered on 11/22/18 21:06; Admin Dose 300 MG; Start 11/21/18 at 21:00 Zolpidem Tartrate (Ambien) 5 mg HS PRN PO INSOMNIA Last administered on 11/22/18 21:05; Admin Dose 5 MG; Start 11/21/18 at 22:00 Pantoprazole (Protonix Tab) 40 mg DAILY@06 PO Last administered on 11/23/18at 06:00; Admin Dose 40 MG; Start 11/23/18 at 06:00 Assessment/Plan Hospital Course (Demo Recall) post-op in recovery room post lumbar spine surgery medically stable Assessment/Plan (Daily) patient medically stable if any problems re urination would suggest urology consult KEARA LUNA MD Nov 23, 2018 08:08
[2018-11-23 09:00] VITALS: BP 135/89; PULSE 91; RESP 17
--- NOTE | 2018-11-23 09:18 | EN ---
Date/Time of Note Date/Time of Note DATE: 11/23/18 TIME: 09:15 Event Note Medicine Medicine Event Note COURT MANAGER called for presyncope Patient s/p back surgery. On dilaudid SHIP MATE. Was working with PT. On commode trying to pass urine. Became dizzy and diaphoretic. Put back in bed. On my arrival vital signs are normal. Only complaint is of back pain. EKG in NSR. AM labs are unremarkable. Says he was having a bit of difficulty passing urine. He does appear a bit somnulent likely from narcotics. I believe this was a vasovagal presyncope. Symptoms have resolved. No chest sympotms to suggest an ACS or SOB to suggest a PE. Will continue to monitor. Primary attending has been notified. Time: 20 minutes ANTONIO LE MD Nov 23, 2018 09:18
[2018-11-23] MEDS: D5W-0.45 NACL + KCL 20 MEQ 1,000 ML IV SCH ×3 (09:20→21:11)
[2018-11-23] MEDS ORDERED: HYDROCODONE/APAP (10/325) TAB PO SCH (09:30)
[2018-11-23] MEDS: BACLOFEN 10 MG TAB PO SCH ×3 (13:00→21:09)
--- NOTE | 2018-11-23 13:52 | QN ---
Documentation Comment patient had syncopal episode while on commode probable Vaso-Vagal response patient alert post event negative EKG and other studies. my exam approx. 1230 unremarkable. KEARA LUNA MD Nov 23, 2018 13:52
[2018-11-23] MEDS: AMLODIPINE 10 MG TAB PO SCH (14:22)
[2018-11-23] MEDS: BENAZEPRIL 40 MG TAB PO SCH (14:22)
[2018-11-23] MEDS: DOCUSATE SODIUM 100 MG CAP PO SCH ×2 (14:23→21:09)
[2018-11-23] MEDS: GABAPENTIN 300 MG CAP PO SCH ×2 (14:23→21:10)
[2018-11-23 14:37] VITALS: BP 146/84; PULSE 105; RESP 18
[2018-11-23] MEDS: HYDROCODONE/APAP (10/325) TAB PO PRN (18:26)
[2018-11-23 20:05] VITALS: BP 136/74; PULSE 111; RESP 20
[2018-11-24 01:24] VITALS: BP 132/71; PULSE 100; RESP 17
[2018-11-24] MEDS: HYDROCODONE/APAP (10/325) TAB PO PRN ×3 (04:14→12:42)
[2018-11-24] MEDS: D5W-0.45 NACL + KCL 20 MEQ 1,000 ML IV SCH (04:56)
[2018-11-24] MEDS: PANTOPRAZOLE (EC) 40 MG TAB PO SCH (06:00)
[2018-11-24] MEDS: MAGNESIUM HYDROXIDE 30ML CUP PO PRN (06:47)
[2018-11-24 07:34] VITALS: BP 124/68; PULSE 80; RESP 18
--- NOTE | 2018-11-24 07:57 | PN ---
Date/Time of Note Date/Time of Note DATE: 11/24/18 TIME: 07:57 Assessment/Plan Lines/Catheters IV Catheter Type (from Nrsg): Peripheral IV Baker in Place (from Nrsg): Yes Assessment/Plan Assessment/Plan Patient has low back pain as expected. He had a vasovagal episode yesterday and has recovered. We will transfer to acute rehab today. Subjective 24 Hr Interval Summary Complains of back pain Exam/Review of Systems Vital Signs Vitals Vital Signs Date Temp Pulse Resp B/P (MAP) Pulse Ox O2 O2 Flow FiO2 Time Delivery Rate 11/24/18 98.3 80 18 124/68 97 Room Air 07:34 (86) 11/23/18 2.0 23:34 11/21/18 30 20:37 Intake and Output 11/23/18 11/23/18 11/24/18 1515:00 23:00 07:00 IntakeIntake Total 1000 ml 850 ml OutputOutput Total 1250 ml 575 ml 1050 ml BalanceBalance -1250 ml 425 ml -200 ml Exam Free Text/Dictation Neuro intact Results Result Diagram: 11/24/18 0428 11/24/18 0428 FAVIOLA GREEN MD Nov 24, 2018 07:57
--- NOTE | 2018-11-24 08:05 | CONS ---
Consult Date/Type/Reason Admit Date/Time Nov 21, 2018 at 05:24 Initial Consult Date 11/10/2018 Type of Consultation: internal medicine Reason for Consultation post-op medical f/u Requesting Provider: FAVIOLA GREEN MD Date/Time of Note DATE: 11/24/18 TIME: 08:01 Subjective had trouble sleeping last night pain improving Objective Vitals Vital Signs Date Temp Pulse Resp B/P (MAP) Pulse Ox O2 O2 Flow FiO2 Time Delivery Rate 11/24/18 98.3 80 18 124/68 97 Room Air 07:34 (86) 11/23/18 2.0 23:34 11/21/18 30 20:37 Intake and Output 11/23/18 11/23/18 11/24/18 1515:00 23:00 07:00 IntakeIntake Total 1000 ml 850 ml OutputOutput Total 1250 ml 575 ml 1050 ml BalanceBalance -1250 ml 425 ml -200 ml Exam vital signs stable HEENT negative lungs clear heart regular rhythm Results/Medications Result Diagram: 11/24/18 0428 11/24/18 0428 Results 24 hrs Laboratory Tests Test 11/23/18 09:00 11/23/18 09:09 11/24/18 04:28 Bedside Glucose 144 Blood Gas Specimen Source Blood arterial Arterial Blood Date Drawn 11/23/2018 9:15:03 AM Arterial Blood pH 7.540 H (Temp corrected) Arterial Blood pCO2 30.5 L (Temp correct) Arterial Blood pO2 222.5 H (Temp corrected) Arterial Blood HCO3 25.5 Arterial Blood Base Excess 3.7 H Arterial Blood 99.5 H Oxygen Saturation Jose Francisco Test ACCEPTAB Arterial Blood Gas Left Radial Puncture Site Arterial 0.1 Blood Carboxyhemoglobin Arterial Blood Methemoglobin 0.1 Blood Gas A-a O2 Differential 179.0 H Oxyhemoglobin Percent 99.3 H Blood Gas Temperature 37.0 Blood Gas Modality MASK - SIMPLE FiO2 61.0 Blood Gas Notified Whom RR Blood Gas Notified Time 11/23/2018 9:26:55 AM White Blood Count 12.5 H Red Blood Count 4.48 L Hemoglobin 13.2 L Hematocrit 40.2 L Mean Corpuscular Volume 89.7 Mean Corpuscular Hemoglobin 29.5 Mean Corpuscular 32.8 Hemoglobin Concent Red Cell Distribution Width 12.8 Platelet Count 195 Mean Platelet Volume 11.4 H Immature Granulocytes % 0.600 H Neutrophils % 64.7 Lymphocytes % 23.3 Monocytes % 9.6 Eosinophils % 1.6 Basophils % 0.2 Nucleated Red Blood Cells % 0.0 Immature Granulocytes # 0.070 H Neutrophils # 8.1 H Lymphocytes # 2.9 Monocytes # 1.2 H Eosinophils # 0.2 Basophils # 0.0 Nucleated Red Blood Cells # 0.0 Sodium Level 141 Potassium Level 3.6 Chloride Level 103 Carbon Dioxide Level 34 H Anion Gap 4 L Blood Urea Nitrogen 11 Creatinine 0.80 Est Glomerular Filtrat > 60 Rate mL/min Glucose Level 107 Calcium Level 9.0 Magnesium Level 2.3 Home Meds Reported Medications Acetaminophen with Codeine (Acetaminophen-Cod #3 Tablet) 1 Each Tablet, 1 TAB PO Q6H, #7 TAB 11/16/18 Gabapentin* (Gabapentin*) 300 Mg Capsule, 300 MG PO BID, #60 CAP 11/16/18 Baclofen* (Baclofen*) 20 Mg Tablet, 20 MG PO TID, TAB 11/16/18 Benazepril Hcl* (Benazepril Hcl*) 40 Mg Tablet, 40 MG PO DAILY, #30 TAB 03/14/18 Amlodipine Besylate* (Amlodipine Besylate*) 10 Mg Tablet, 10 MG PO DAILY, #30 TAB 03/14/18 Medications Current Medications Potassium Chloride/Dextrose/ Sod Cl 1,000 ml @ 100 mls/hr Q10H IV Last administered on 11/23/18at 21:11; Admin Dose 100 MLS/HR; Start 11/21/18 at 06:56 Acetaminophen/ Hydrocodone Bitart ([place] (10/325)) 1 tab Q4H PRN PO .PAIN 1-5; Start 11/23/18 at 10:00 Hydromorphone HCl (Dilaudid) 0.2 mg Q1H PRN IV .BREAKTHROUGH PAIN; Start 11/21/18 at 07:00 Ondansetron HCl (Zofran Inj) 4 mg Q6H PRN IV NAUSEA/VOMITING; Start 11/21/18 at 07:00 Bisacodyl (Dulcolax Supp) 10 mg DAILY PRN [place] .CONSTIPATION; Start 11/21/18 at 07:00 Docusate Sodium (Colace) 100 mg BID PO Last administered on 11/23/18at 21:09; Admin Dose 100 MG; Start 11/21/18 at 21:00 Magnesium Hydroxide (Milk Of Mag) 30 ml HS PRN PO .CONSTIPATION/DYSPEPSIA Last administered on 11/24/18 06:47; Admin Dose 30 ML; Start 11/21/18 at 07:00 Acetaminophen (Tylenol Tab) 650 mg Q4H PRN PO FARRIS OR TEMP GREATER THAN 101.3F; Start 11/21/18 at 07:00 Phenol (Cepastat Lozenge) 1 lozenge PRN PRN [place] .SORE THROAT; Start 11/21/18 at 07:00 Diphenhydramine HCl (Benadryl) 25 mg Q6H PRN PO .ITCHING; Start 11/21/18 at 07:00 Diphenhydramine HCl (Benadryl) 25 mg Q6H PRN IV .ITCHING; Start 11/21/18 at 07:00 Naloxone HCl (Narcan) 0.2 mg Q2M PRN IV .RR 8 BREATHS/MIN OR LESS Last administered on 11/23/18 09:14; Admin Dose 0.2 MG; Start 11/21/18 at 07:00 Baclofen (Lioresal) 20 mg TID PO Last administered on 11/23/18 21:09; Admin Dose 20 MG; Start 11/21/18 at 21:00 Acetaminophen/ Hydrocodone Bitart ([place] (10/325)) 2 tab Q4H PRN PO .PAIN 6-10 Last administered on 11/24/18 04:14; Admin Dose 2 TAB; Start 11/23/18 at 10:00 Amlodipine Besylate (Norvasc) 10 mg DAILY PO Last administered on 11/23/18 14:22; Admin Dose 10 MG; Start 11/22/18 at 09:00 Benazepril HCl (Lotensin) 40 mg DAILY PO Last administered on 11/23/18 14:22; Admin Dose 40 MG; Start 11/22/18 at 09:00 Gabapentin (Neurontin) 300 mg BID PO Last administered on 11/23/18 21:10; Admin Dose 300 MG; Start 11/21/18 at 21:00 Zolpidem Tartrate (Ambien) 5 mg HS PRN PO INSOMNIA Last administered on 11/22/18 21:05; Admin Dose 5 MG; Start 11/21/18 at 22:00 Pantoprazole (Protonix Tab) 40 mg DAILY@06 PO Last administered on 11/24/18at 06:00; Admin Dose 40 MG; Start 11/23/18 at 06:00 Assessment/Plan Hospital Course (Demo Recall) post-op in recovery room post lumbar spine surgery medically stable Assessment/Plan (Daily) patient stable medically would be a good candidate for acute rehab thank you KEARA Zamorano MD Nov 24, 2018 08:05
[2018-11-24] MEDS: GABAPENTIN 300 MG CAP PO SCH ×2 (08:30→21:00)
[2018-11-24] MEDS: DOCUSATE SODIUM 100 MG CAP PO SCH ×2 (08:30→21:02)
[2018-11-24] MEDS: BACLOFEN 10 MG TAB PO SCH ×3 (08:32→21:02)
[2018-11-24] MEDS: BENAZEPRIL 40 MG TAB PO SCH (08:32)
[2018-11-24] MEDS: AMLODIPINE 10 MG TAB PO SCH (08:33)
[2018-11-24 14:49] VITALS: BP 139/79; PULSE 89; RESP 18
[2018-11-24] MEDS: ONDANSETRON 4 MG INJ IV PRN (15:22)
[2018-11-24 20:18] VITALS: BP 133/72; PULSE 85; RESP 20
[2018-11-25] MEDS: HYDROCODONE/APAP (10/325) TAB PO PRN ×4 (00:13→15:11)
[2018-11-25 02:45] VITALS: BP 142/82; PULSE 93; RESP 18
[2018-11-25] MEDS: PANTOPRAZOLE (EC) 40 MG TAB PO SCH (06:17)
[2018-11-25 07:33] VITALS: BP 128/71; PULSE 84; RESP 18
[2018-11-25] MEDS: GABAPENTIN 300 MG CAP PO SCH ×2 (10:00→21:00)
[2018-11-25] MEDS: DOCUSATE SODIUM 100 MG CAP PO SCH ×2 (10:00→20:32)
[2018-11-25] MEDS: BACLOFEN 10 MG TAB PO SCH ×3 (10:01→20:32)
[2018-11-25] MEDS: BENAZEPRIL 40 MG TAB PO SCH (10:01)
[2018-11-25] MEDS: AMLODIPINE 10 MG TAB PO SCH (10:02)
--- NOTE | 2018-11-25 10:41 | CONS ---
Assessment/Plan Assessment/Plan Problems: (1) Obstructive sleep apnea Status: Chronic Comment: CPAP O/N (2) Essential (primary) hypertension Status: Chronic Comment: BP controlled. Cont. amlodipine, benazepril (3) Vertigo Status: Acute Comment: Recurrence of significant vertigo following a syncopal episode during valsalva. Will add meclizine 25 mg tid and medrol 20 mg q8 and call neuro consult to eval pt. (4) Lumbar disc herniation Status: Resolved Comment: Per primary team (5) Status post lumbar spinal fusion Status: Acute Comment: Doing fair POD#4. Pain control fair. Cannot due full PT due to vertigo. Unable to be d/c'ed due to vertigo. Cont. treatment and eval of this. Consultation Date/Type/Reason Admit Date/Time Nov 21, 2018 at 05:24 Initial Consult Date 11/21/18 Type of Consult Medicine Reason for Consultation Medical Management Requesting Provider: FAVIOLA GREEN MD Date/Time of Note DATE: 11/25/18 TIME: 10:33 24 HR Interval Summary Constitutional: no complaints Detailed Summary Respiratory: no complaints Cardiovascular: no complaints Gastrointestinal: no complaints Genitourinary: no complaints Musculoskeletal: back pain (he considers this to be standard post-operative pain but it is severe) Neurologic: dizziness (veritiginous; vision "kicks to the left" when he tries to focus on a spot. Worse w/ standing. ) Exam/Review of Systems Exam Vitals VS - Last 72 Hours, by Label Date Temp Pulse Resp B/P (MAP) Pulse Ox O2 O2 Flow FiO2 Time Delivery Rate 11/25/18 98.0 84 18 128/71 99 Room Air 07:33 (90) 11/25/18 98.5 93 18 142/82 96 Room Air 02:45 (102) 11/24/18 Nasal 2.0 23:28 Cannula 11/24/18 98.3 85 20 133/72 95 Room Air 20:18 (92) 11/24/18 2.0 20:09 11/24/18 98.0 89 18 139/79 99 Room Air 14:49 (99) 11/24/18 98.3 80 18 124/68 97 Room Air 07:34 (86) 11/24/18 98.6 100 17 132/71 98 01:24 (91) 11/23/18 Nasal 2.0 23:34 Cannula 11/23/18 99.0 111 20 136/74 96 Room Air 20:05 (94) 11/23/18 99.7 105 18 146/84 99 14:37 (104) 11/23/18 17 11:20 11/23/18 96 09:30 11/23/18 17 09:00 11/23/18 91 17 135/89 99 Mask 09:00 (104) 11/23/18 Nasal 2.0 08:00 Cannula 11/23/18 17 05:00 11/23/18 99.4 105 20 139/81 95 Room Air 02:40 (100) 11/23/18 01:00 11/22/18 17 21:00 11/22/18 2.0 20:05 11/22/18 Nasal 3.0 20:00 Cannula 11/22/18 98.0 99 20 133/69 100 Room Air 19:50 (90) 11/22/18 20 18:34 11/22/18 98.3 95 18 134/83 98 Room Air 13:34 (100) Vital Signs Date Temp Pulse Resp B/P (MAP) Pulse Ox O2 O2 Flow FiO2 Time Delivery Rate 11/25/18 98.0 84 18 128/71 99 Room Air 07:33 (90) 11/24/18 2.0 23:28 11/21/18 30 20:37 Intake and Output 11/24/18 11/24/18 11/25/18 1515:00 23:00 07:00 IntakeIntake Total 1350 ml 1000 ml OutputOutput Total 1300 ml 1550 ml BalanceBalance 50 ml -550 ml Constitutional: alert, oriented, obese Psych: depression Respiratory: clear to auscultation, normal air movement Cardiovascular: regular rate and rhythm, nl pulses; No edema, No murmurs/extra sounds, No rub Gastrointestinal: soft, nl liver, spleen, non-tender, bowel sounds; No mass, No rebound or guarding Musculoskeletal: nl extremities to inspection Extremities: normal pulses; No cyanosis, No clubbing, No edema Neurological: GPS FIELD DATA COLLECTOR II-XII intact, nl mental status, nl speech, nl strength Results Result Diagram: 11/24/1842711/24/18427 Medications Medication Current Medications Acetaminophen/ Hydrocodone Bitart ([place] (10/325)) 1 tab Q4H PRN PO .PAIN 1-5; Start 11/23/18 at 10:00 Hydromorphone HCl (Dilaudid) 0.2 mg Q1H PRN IV .BREAKTHROUGH PAIN; Start 11/21/18 at 07:00 Ondansetron HCl (Zofran Inj) 4 mg Q6H PRN IV NAUSEA/VOMITING Last administered on 11/24/18 15:22; Admin Dose 4 MG; Start 11/21/18 at 07:00 Bisacodyl (Dulcolax Supp) 10 mg DAILY PRN [place] .CONSTIPATION; Start 11/21/18 at 07:00 Docusate Sodium (Colace) 100 mg BID PO Last administered on 11/25/18 10:00; Admin Dose 100 MG; Start 11/21/18 at 21:00 Magnesium Hydroxide (Milk Of Mag) 30 ml HS PRN PO .CONSTIPATION/DYSPEPSIA Last administered on 11/24/18 06:47; Admin Dose 30 ML; Start 11/21/18 at 07:00 Acetaminophen (Tylenol Tab) 650 mg Q4H PRN PO FARRIS OR TEMP GREATER THAN 101.3F; Start 11/21/18 at 07:00 Phenol (Cepastat Lozenge) 1 lozenge PRN PRN [place] .SORE THROAT; Start 11/21/18 at 07:00 Diphenhydramine HCl (Benadryl) 25 mg Q6H PRN PO .ITCHING; Start 11/21/18 at 07:00 Diphenhydramine HCl (Benadryl) 25 mg Q6H PRN IV .ITCHING; Start 11/21/18 at 07:00 Naloxone HCl (Narcan) 0.2 mg Q2M PRN IV .RR 8 BREATHS/MIN OR LESS Last administered on 11/23/18 09:14; Admin Dose 0.2 MG; Start 11/21/18 at 07:00 Baclofen (Lioresal) 20 mg TID PO Last administered on 11/25/18 10:01; Admin Dose 20 MG; Start 11/21/18 at 21:00 Acetaminophen/ Hydrocodone Bitart ([place] (325)) 2 tab Q4H PRN PO .PAIN 6-10 Last administered on 11/25/18 00:13; Admin Dose 2 TAB; Start 11/23/18 at 10:00 Amlodipine Besylate (Norvasc) 10 mg DAILY PO Last administered on 11/25/18at 10:02; Admin Dose 10 MG; Start 11/22/18 at 09:00 Benazepril HCl (Lotensin) 40 mg DAILY PO Last administered on 11/25/18at 10:01; Admin Dose 40 MG; Start 11/22/18 at 09:00 Gabapentin (Neurontin) 300 mg BID PO Last administered on 11/25/18at 10:00; Admin Dose 300 MG; Start 11/21/18 at 21:00 Zolpidem Tartrate (Ambien) 5 mg HS PRN PO INSOMNIA Last administered on 11/22/18at 21:05; Admin Dose 5 MG; Start 11/21/18 at 22:00 Pantoprazole (Protonix Tab) 40 mg DAILY@06 PO Last administered on 11/25/18at 0 6:17; Admin Dose 40 MG; Start 11/23/18 at 06:00 Meclizine HCl (Antivert) 25 mg TID PO ; Start 11/25/18 at 13:00; Status UNV Methylprednisolone Sodium Succinate (Solu-Medrol) 20 mg Q8 IV ; Start 11/25/18 at 14:00; Status UNV ELISA TOLEDO MD Nov 25, 2018 10:41
--- NOTE | 2018-11-25 12:14 | PN ---
Date/Time of Note Date/Time of Note DATE: 11/25/18 TIME: 12:13 Assessment/Plan Lines/Catheters IV Catheter Type (from Nrsg): Saline Lock Baker in Place (from Nrsg): Yes Assessment/Plan Assessment/Plan c/p back pain and nystagmus type symtoms when trying to concentrate. Dizzy upon standing. Sound like Vertigo. Neuro consult pending. Subjective 24 Hr Interval Summary c/o back pain and nustagmus Exam/Review of Systems Vital Signs Vitals Vital Signs Date Temp Pulse Resp B/P (MAP) Pulse Ox O2 O2 Flow FiO2 Time Delivery Rate 11/25/18 98.0 84 18 128/71 99 Room Air 07:33 (90) 11/24/18 2.0 23:28 11/21/18 30 20:37 Intake and Output 11/24/18 11/24/18 11/25/18 1515:00 23:00 07:00 IntakeIntake Total 1350 ml 1000 ml OutputOutput Total 1300 ml 1550 ml BalanceBalance 50 ml -550 ml Exam Free Text/Dictation LE neuro intact Results Result Diagram: 11/24/18 0428 11/24/18 0428 FAVIOLA GREEN MD Nov 25, 2018 12:14
[2018-11-25 14:00] VITALS: BP 135/72; PULSE 80; RESP 18
[2018-11-25] MEDS: MECLIZINE 25 MG TAB PO SCH ×2 (14:01→20:32)
[2018-11-25] MEDS: METHYLPREDNISOLONE 40 MG INJ IV SCH ×2 (14:03→22:20)
[2018-11-25] MEDS: MAGNESIUM HYDROXIDE 30ML CUP PO PRN (15:11)
[2018-11-25 19:58] VITALS: BP 148/75; PULSE 80; RESP 20
[2018-11-25] MEDS: BISACODYL 10 MG SUPP PR PRN (22:47)
[2018-11-26] MEDS: HYDROCODONE/APAP (10/325) TAB PO PRN ×4 (01:36→18:14)
[2018-11-26] MEDS: METHYLPREDNISOLONE 40 MG INJ IV SCH ×3 (06:00→21:44)
[2018-11-26] MEDS: PANTOPRAZOLE (EC) 40 MG TAB PO SCH (06:00)
[2018-11-26 07:29] VITALS: BP 131/69; PULSE 96; RESP 17
--- NOTE | 2018-11-26 07:40 | HKNOTE ---
DATE OF SERVICE: 11/21/2018 Patient is 38 years old. REFERRING PHYSICIAN: Dr. Reza. Thank you, Dr. Reza for asking me to see the patient with you. CHIEF COMPLAINT: Low back ache in which the patient has spine fusion at L4-5 and L5-S1. The patient mentioned to me in August 2018 he had a fall and he is back at his work followed by 2 surgeries of diskectomy in his lower back which was re- herniated again required fusion which he came here for Dr. Green. He did for him the surgery in which the patient has acute onset of dizzy spell today in which he said his eye with to his left side with visual difficulty. He mentioned it happened after urinary catheter. The patient mentioned that he did not have this feeling before and it was new to him. MEDICATIONS: Include: 1. Solu-Medrol 20 mg every 8 hours IV. V 2. Antivert 25 mg 3 times a day. 3. Tylenol No. 3 every 4 hours as needed. 4. [place] 10/325 mg 2 tablet every 4 hours as needed. 5. Protonix 40 mg once a day. 6. Norvasc 10 mg once a day. 7. Lotensin 40 mg once a day. 8. Ambien 5 mg once at night. 9. Colace 100 mg once a day. 10. Lotensin 20 mg once a day. 11. Neurontin 300 mg twice a day. 12. Dilaudid 0.2 mg q. 1 hour p.r.n. 13. Zofran 4 mg every 4 hours as needed. 14. Milk of magnesium 30 mg as needed. 15. Tylenol 650 mg every 4 hours. 16. Phenol 1 p.r.n. 17. Benadryl 25 mg every 6 hours as needed. 18. Narcan 0.2 mg q.2h. p.r.n. 19. Patient was on Baclofen 20 mg prior to admission. PHYSICAL EXAMINATION: GENERAL: Today, the patient is alert, awake, oriented, following simple commands. CRANIAL NERVES: Cranial nerve II: Pupils equal both sides, reactive to light. Cranial nerves III, IV and : Extraocular muscles are intact without nystagmus. Cranial nerve V: Equal sensation to face. Cranial nerve VII: Symmetrical face. Cranial nerve VIII: Equal hearing bilaterally. Cranial IX and X: Elevates palate. Cranial nerve XI: Elevates shoulder 5/5. Cranial nerve XII: With straight tongue. MOTOR: Bilateral upper extremity 5/5. Bilateral lower extremity 4/5 limited by low backache. Sensation equal for light touch and temperature. COORDINATION: [id number] test intact. HEART: Regular rate and rhythm. LUNGS: Equal breath sounds. ABDOMEN: Soft, relaxed, nondistended. No tenderness. ASSESSMENT AND PLAN: 1. The patient is 38 years old status post acute onset of dizzy spell after urinary catheter, possibility of underlying vasovagal attack. 2. The fact that the patient has a lot of pain medication as well as blood pressure medication with the possibility of hypotensive event with watershed infarction, versus space occupying lesion I am going to order for him MRI of his brain for more evaluation and treatment. 3. Possibility of underlying seizure secondary to medication he takes. I am going to follow up the patient with electroencephalogram for more evaluation and treatment. 4. Status post low back ache with lumbosacral fusion with 2 prior diskectomies. 5. Low back ache in which the patient on multiple pain medications and will try to wean off some of the pain medicine. 6. Paresthesia in which the patient is taking Neurontin 300 mg twice a day. 7. Low backache. We will follow up the patient with physical therapy for gait training and evaluation of his balance and to followup the patient with acute rehabilitation. Again, thank you, Dr. Reza for asking me to see the patient with you. Dictated By: DOT MCDANIELS MD NA/NTS Conf#: [id number] DID#: [id number] CC: FAVIOLA GREEN MD;*EndCC* MTDD
[2018-11-26] MEDS: MECLIZINE 25 MG TAB PO SCH ×3 (08:40→21:06)
[2018-11-26] MEDS: DOCUSATE SODIUM 100 MG CAP PO SCH ×2 (08:40→21:06)
[2018-11-26] MEDS: GABAPENTIN 300 MG CAP PO SCH ×2 (08:40→21:06)
[2018-11-26] MEDS: BACLOFEN 10 MG TAB PO SCH ×3 (08:40→21:05)
[2018-11-26] MEDS: AMLODIPINE 10 MG TAB PO SCH (08:41)
[2018-11-26] MEDS: BENAZEPRIL 40 MG TAB PO SCH (08:41)
--- NOTE | 2018-11-26 12:34 | CONS ---
Assessment/Plan Assessment/Plan Problems: (1) Vertigo Status: Acute Comment: Improved w/ meclizine and methylprednisolone. Appreciate neuro consult so will wait for MRI and EEG results. Cont. meclizine and likely will need Rx for prn basis on d/c. Likely d/c w/ steroid dose taper. (2) Obstructive sleep apnea Status: Chronic Comment: Cont. CPAP O/N (3) Essential (primary) hypertension Status: Chronic Comment: Cont. amlodipine and benazepril (4) Status post lumbar spinal fusion Status: Acute Comment: Doing ok POD#5. Now that vertigo improved and pt. can perform PT expect he will improve to point of being able to be d/c'ed in next 48 hours. Defer to PT and primary team as to when pt. will be ready for d/c. Consultation Date/Type/Reason Admit Date/Time Nov 21, 2018 at 05:24 Initial Consult Date 11/21/18 Type of Consult Medicine Reason for Consultation Medical Management Requesting Provider: FAVIOLA GREEN MD Date/Time of Note DATE: 11/26/18 TIME: 12:30 24 HR Interval Summary Constitutional: no complaints, improved (marked) Detailed Summary Respiratory: no complaints Cardiovascular: no complaints Gastrointestinal: no complaints Genitourinary: no complaints Musculoskeletal: no complaints Neurologic: dizziness (however, markedly improved w/ addition of methylpre dnisolone and meclizine. Pt. had brief dizziness on standing today but then it cleared and he was able to perform PT. ) Exam/Review of Systems Exam Vitals VS - Last 72 Hours, by Label Date Temp Pulse Resp B/P (MAP) Pulse Ox O2 O2 Flow FiO2 Time Delivery Rate 11/26/18 Nasal 2.0 08:00 Cannula 11/26/18 97.8 96 17 131/69 96 07:29 (89) 11/25/18 Nasal 2.0 22:12 Cannula 11/25/18 98.3 80 20 148/75 98 Room Air 19:58 (99) 11/25/18 97.8 80 18 135/72 98 Room Air 14:00 (93) 11/25/18 98.0 84 18 128/71 99 Room Air 07:33 (90) 11/25/18 98.5 93 18 142/82 96 Room Air 02:45 (102) 11/24/18 Nasal 2.0 23:28 Cannula 11/24/18 98.3 85 20 133/72 95 Room Air 20:18 (92) 11/24/18 2.0 20:09 11/24/18 98.0 89 18 139/79 99 Room Air 14:49 (99) 11/24/18 98.3 80 18 124/68 97 Room Air 07:34 (86) 11/24/18 98.6 100 17 132/71 98 01:24 (91) 11/23/18 Nasal 2.0 23:34 Cannula 11/23/18 99.0 111 20 136/74 96 Room Air 20:05 (94) 11/23/18 99.7 105 18 146/84 99 14:37 (104) Vital Signs Date Temp Pulse Resp B/P (MAP) Pulse Ox O2 O2 Flow FiO2 Time Delivery Rate 11/26/18 Nasal 2.0 08:00 Cannula 11/26/18 97.8 96 17 131/69 96 07:29 (89) Intake and Output 11/25/18 11/25/18 11/26/18 1515:00 23:00 07:00 IntakeIntake Total 700 ml 800 ml 480 ml OutputOutput Total 400 ml 450 ml 800 ml BalanceBalance 300 ml 350 ml -320 ml Constitutional: alert, oriented, obese Psych: no complaints, nl mood/affect Respiratory: clear to auscultation, normal air movement Cardiovascular: regular rate and rhythm, nl pulses; No edema, No murmurs/extra sounds, No rub Gastrointestinal: soft, nl liver, spleen, non-tender, bowel sounds; No mass, No rebound or guarding Musculoskeletal: nl extremities to inspection Extremities: normal pulses; No cyanosis, No clubbing, No edema Neurological: SWITCH OPERATOR II-XII intact, nl mental status, nl speech, nl strength Results Result Diagram: 11/24/188 11/24/18427 Medications Medication Current Medications Acetaminophen/ Hydrocodone Bitart ([place] ()) 1 tab Q4H PRN PO .PAIN 1-5 Last administered on 11/25/18at 15:11; Admin Dose 1 TAB; Start 11/23/18 at 10:00 Hydromorphone HCl (Dilaudid) 0.2 mg Q1H PRN IV .BREAKTHROUGH PAIN; Start 11/21/18 at 07:00 Ondansetron HCl (Zofran Inj) 4 mg Q6H PRN IV NAUSEA/VOMITING Last administered on 11/24/18 15:22; Admin Dose 4 MG; Start 11/21/18 at 07:00 Bisacodyl (Dulcolax Supp) 10 mg DAILY PRN [place] .CONSTIPATION Last administered on 11/25/18 22:47; Admin Dose 10 MG; Start 11/21/18 at 07:00 Docusate Sodium (Colace) 100 mg BID PO Last administered on 11/26/18 08:40; Admin Dose 100 MG; Start 11/21/18 at 21:00 Magnesium Hydroxide (Milk Of Mag) 30 ml HS PRN PO .CONSTIPATION/DYSPEPSIA Last administered on 11/25/18 15:11; Admin Dose 30 ML; Start 11/21/18 at 07:00 Acetaminophen (Tylenol Tab) 650 mg Q4H PRN PO FARRIS OR TEMP GREATER THAN 101.3F; Start 11/21/18 at 07:00 Phenol (Cepastat Lozenge) 1 lozenge PRN PRN [place] .SORE THROAT; Start 11/21/18 at 07:00 Diphenhydramine HCl (Benadryl) 25 mg Q6H PRN PO .ITCHING; Start 11/21/18 at 07:00 Diphenhydramine HCl (Benadryl) 25 mg Q6H PRN IV .ITCHING; Start 11/21/18 at 07:00 Naloxone HCl (Narcan) 0.2 mg Q2M PRN IV .RR 8 BREATHS/MIN OR LESS Last administered on 11/23/18 09:14; Admin Dose 0.2 MG; Start 11/21/18 at 07:00 Baclofen (Lioresal) 20 mg TID PO Last administered on 11/26/18 08:40; Admin Dose 20 MG; Start 11/21/18 at 21:00 Acetaminophen/ Hydrocodone Bitart ([place] (10/325)) 2 tab Q4H PRN PO .PAIN 6-10 Last administered on 11/26/18 08:48; Admin Dose 2 TAB; Start 11/23/18 at 10:00 Amlodipine Besylate (Norvasc) 10 mg DAILY PO Last administered on 11/26/18 08:41; Admin Dose 10 MG; Start 11/22/18 at 09:00 Benazepril HCl (Lotensin) 40 mg DAILY PO Last administered on 11/26/18 08:41; Admin Dose 40 MG; Start 11/22/18 at 09:00 Gabapentin (Neurontin) 300 mg BID PO Last administered on 11/26/18 08:40; Admin Dose 300 MG; Start 11/21/18 at 21:00 Zolpidem Tartrate (Ambien) 5 mg HS PRN PO INSOMNIA Last administered on 11/22/18 21:05; Admin Dose 5 MG; Start 11/21/18 at 22:00 Pantoprazole (Protonix Tab) 40 mg DAILY@06 PO Last administered on 11/26/18 06:00; Admin Dose 40 MG; Start 11/23/18 at 06:00 Meclizine HCl (Antivert) 25 mg TID PO Last administered on 11/26/18 08:40; Admin Dose 25 MG; Start 11/25/18 at 13:00 Methylprednisolone Sodium Succinate (Solu-Medrol) 20 mg Q8 IV Last administered on 11/26/18 06:00; Admin Dose 20 MG; Start 11/25/18 at 14:00 ELISA TOLEDO MD Nov 26, 2018 12:34
[2018-11-26 14:48] VITALS: BP 137/80; PULSE 111; RESP 18
--- NOTE | 2018-11-26 18:17 | CONS ---
DATE OF ADMISSION: 11/21/2018 DATE OF CONSULTATION: The patient is Dr. Reza's patient. Thank you for asking me to see the patient with you. HISTORY OF PRESENT ILLNESS: The patient is a 38-year-old male who had acute onset of dizzy spells after using his catheter. The patient with multiple medications for his low back ache, status post fusion at L4-L5 and L5-S1, which was done by Dr. Gerardo. The patient had previous history of diskectomy me in his lower back, and we did get a call about him by Dr. Reza for more evaluation and treatment. CURRENT MEDICATIONS: Includes: 1. Antivert 25 mg 3 times a day. 2. Solu-Medrol 20 mg every 8 hours. 3. Tylenol No. 3 four times a day as needed. 4. [place] 10/325 mg 2 tablets every 4 hours as needed. 5. Protonix 40 mg once a day. 6. Norvasc 10 mg once a day. 7. Lotensin 40 mg once a day. 8. Ambien 5 mg once a day. 9. Colace 100 mg once a day. 10. Neurontin 300 mg twice a day. 11. Dilaudid ____ mg every 4 hours as needed. 12. Zofran 4 mg every 4 hours. 13. Milk of Magnesium 30 mg once a day. 14. Tylenol 650 every 4 hours. 15. Benadryl 25 mg every 6 hours as needed. 16. Narcan 0.2 mg every 2 hours as needed. 17. The patient with Baclofen 20 mg once a day. PHYSICAL EXAMINATION: NEUROLOGIC: On exam today, the patient is alert, awake, oriented, following simple commands without difficulty. CRANIAL NERVES: Cranial nerve II: Pupils equal both sides, reactive to light. Cranial nerves III, IV and : Extraocular muscles are intact without nystagmus. Cranial nerve V: Equal sensation to face. Cranial nerve VII: Symmetrical face. Cranial nerve VIII: Equal hearing bilaterally. Cranial IX and X: Elevates palate. Cranial nerve XI: Elevates shoulder 5/5. Cranial nerve XII: With straight tongue. MOTOR: Bilateral upper extremities 5/5. Bilateral lower extremity is 4/5, limited by low back ache secondary to the fusion surgery he just had. SENSATION: Equal for light touch and temperature. COORDINATION: Kkmbga-kk-sdui test intact. HEART: Regular rate and rhythm. LUNGS: Equal breath sounds. ABDOMEN: Soft, relaxed, nondistended. No tenderness. ASSESSMENT AND PLAN: 1. The patient is 38 years old, status post acute onset of dizzy spell with the possibility of underlying vasovagal attack. 2. Possibility of underlying tuomer I am going to follow up the patient with MRI of his brain to evaluate for possible underlying intracranial lesion, and I will follow the patient with electroencephalogram. 3. Follow up the patient's electroencephalogram for possible seizure activity. It is still pending. I might start the patient on Keppra 500 mg for seizure prevention, as well as the Neurontin he takes 300 mg 3 times a day until I get the results of the electroencephalogram. 4. Status post lumbosacral fusion with 2 prior diskectomies and recent fusion. 5. Paresthesia. Continue the patient on Neurontin 300 mg 3 times a day, waiting for the results of MRI to see the reason. 6. Low back ache, in which the patient is followed by physical therapy and acute rehabilitation. Again, thank you, Dr. Reza, for asking me to see the patient with you. Dictated By: DOT MCDANIELS MD NA/NTS Conf#: [id number] DID#: [id number] CC: ELISA REZA MD; FAVIOLA GERARDO MD;*EndCC* MTDD
[2018-11-26 20:00] VITALS: BP 149/84; PULSE 92; RESP 19
[2018-11-26] MEDS: LEVETIRACETAM 500 MG TAB PO SCH (21:05)
[2018-11-27 02:00] VITALS: BP 142/73; PULSE 83; RESP 19
[2018-11-27] MEDS: HYDROCODONE/APAP (10/325) TAB PO PRN ×4 (02:36→20:37)
[2018-11-27] MEDS: PANTOPRAZOLE (EC) 40 MG TAB PO SCH (05:34)
[2018-11-27] MEDS: METHYLPREDNISOLONE 40 MG INJ IV SCH ×3 (05:34→23:59)
[2018-11-27 07:19] VITALS: BP 131/72; PULSE 86; RESP 18
--- NOTE | 2018-11-27 08:25 | CONS ---
Consult Date/Type/Reason Admit Date/Time Nov 21, 2018 at 05:24 Initial Consult Date 11/10/2018 Type of Consultation: internal medicine Reason for Consultation post-op medical f/u Requesting Provider: FAVIOLA GREEN MD Date/Time of Note DATE: 11/27/18 TIME: 08:20 Subjective sleepy awaiting results of MRI Objective Vitals Vital Signs Date Temp Pulse Resp B/P (MAP) Pulse Ox O2 O2 Flow FiO2 Time Delivery Rate 11/27/18 98.2 86 18 131/72 96 07:19 (91) 11/26/18 Nasal 2.0 08:00 Cannula Intake and Output 11/26/18 11/26/18 11/27/18 1515:00 23:00 07:00 IntakeIntake Total 650 ml 500 ml OutputOutput Total 1000 ml 700 ml BalanceBalance -350 ml -200 ml Exam vital signs stable HEENT negative lungs clear heart regular rhythm Results/Medications Result Diagram: 11/24/18 0428 11/24/18 042 Home Meds Reported Medications Acetaminophen with Codeine (Acetaminophen-Cod #3 Tablet) 1 Each Tablet, 1 TAB PO Q6H, #7 TAB 11/16/18 Gabapentin* (Gabapentin*) 300 Mg Capsule, 300 MG PO BID, #60 CAP 11/16/18 Baclofen* (Baclofen*) 20 Mg Tablet, 20 MG PO TID, TAB 11/16/18 Benazepril Hcl* (Benazepril Hcl*) 40 Mg Tablet, 40 MG PO DAILY, #30 TAB 03/14/18 Amlodipine Besylate* (Amlodipine Besylate*) 10 Mg Tablet, 10 MG PO DAILY, #30 TAB 03/14/18 Medications Current Medications Acetaminophen/ Hydrocodone Bitart ([place] (10/325)) 1 tab Q4H PRN PO .PAIN 1-5 Last administered on 11/27/18at 02:36; Admin Dose 1 TAB; Start 11/23/18 at 10:00 Hydromorphone HCl (Dilaudid) 0.2 mg Q1H PRN IV .BREAKTHROUGH PAIN; Start 11/21/18 at 07:00 Ondansetron HCl (Zofran Inj) 4 mg Q6H PRN IV NAUSEA/VOMITING Last administered on 11/24/18at 15:22; Admin Dose 4 MG; Start 11/21/18 at 07:00 Bisacodyl (Dulcolax Supp) 10 mg DAILY PRN [place] .CONSTIPATION Last administered on 11/25/18 22:47; Admin Dose 10 MG; Start 11/21/18 at 07:00 Docusate Sodium (Colace) 100 mg BID PO Last administered on 11/26/18 21:06; Adm in Dose 100 MG; Start 11/21/18 at 21:00 Magnesium Hydroxide (Milk Of Mag) 30 ml HS PRN PO .CONSTIPATION/DYSPEPSIA Last administered on 11/25/18 15:11; Admin Dose 30 ML; Start 11/21/18 at 07:00 Acetaminophen (Tylenol Tab) 650 mg Q4H PRN PO FARRIS OR TEMP GREATER THAN 101.3F; Start 11/21/18 at 07:00 Phenol (Cepastat Lozenge) 1 lozenge PRN PRN [place] .SORE THROAT; Start 11/21/18 at 07:00 Diphenhydramine HCl (Benadryl) 25 mg Q6H PRN PO .ITCHING; Start 11/21/18 at 07:00 Diphenhydramine HCl (Benadryl) 25 mg Q6H PRN IV .ITCHING; Start 11/21/18 at 07:00 Naloxone HCl (Narcan) 0.2 mg Q2M PRN IV .RR 8 BREATHS/MIN OR LESS Last administered on 11/23/18 09:14; Admin Dose 0.2 MG; Start 11/21/18 at 07:00 Baclofen (Lioresal) 20 mg TID PO Last administered on 11/26/18 21:05; Admin Dose 20 MG; Start 11/21/18 at 21:00 Acetaminophen/ Hydrocodone Bitart ([place] (10/325)) 2 tab Q4H PRN PO .PAIN 6-10 Last administered on 11/26/18 18:14; Admin Dose 2 TAB; Start 11/23/18 at 10:00 Amlodipine Besylate (Norvasc) 10 mg DAILY PO Last administered on 11/26/18 08:41; Admin Dose 10 MG; Start 11/22/18 at 09:00 Benazepril HCl (Lotensin) 40 mg DAILY PO Last administered on 11/26/18 08:41; Admin Dose 40 MG; Start 11/22/18 at 09:00 Gabapentin (Neurontin) 300 mg BID PO Last administered on 11/26/18 21:06; Admin Dose 300 MG; Start 11/21/18 at 21:00 Zolpidem Tartrate (Ambien) 5 mg HS PRN PO INSOMNIA Last administered on 11/22/18 t 21:05; Admin Dose 5 MG; Start 11/21/18 at 22:00 Pantoprazole (Protonix Tab) 40 mg DAILY@06 PO Last administered on 11/27/18 05:34; Admin Dose 40 MG; Start 11/23/18 at 06:00 Meclizine HCl (Antivert) 25 mg TID PO Last administered on 11/26/18 21:06; Admin Dose 25 MG; Start 11/25/18 at 13:00 Methylprednisolone Sodium Succinate (Solu-Medrol) 20 mg Q8 IV Last administered on 11/27/18 05:34; Admin Dose 20 MG; Start 11/25/18 at 14:00 Levetiracetam (Keppra) 500 mg BID PO Last administered on 11/26/18 21:05; Admin Dose 500 MG; Start 11/26/18 at 21:00 Imaging MRI shows leasion in left lateral ventrical non obstructing etiology ?? Assessment/Plan Hospital Course (Demo Recall) post-op in recovery room post lumbar spine surgery medically stable episodes of dizziness and brain fog etiology ?? Assessment/Plan (Daily) plan per neurology further Rx and other treatments await evaluation f/u KEARA LUNA MD Nov 27, 2018 08:25
[2018-11-27] MEDS: DOCUSATE SODIUM 100 MG CAP PO SCH ×3 (09:00→20:09)
[2018-11-27] MEDS: BACLOFEN 10 MG TAB PO SCH ×3 (09:11→20:09)
[2018-11-27] MEDS: GABAPENTIN 300 MG CAP PO SCH ×2 (09:11→20:09)
[2018-11-27] MEDS: LEVETIRACETAM 500 MG TAB PO SCH ×2 (09:11→20:09)
[2018-11-27] MEDS: MECLIZINE 25 MG TAB PO SCH ×3 (09:12→20:09)
[2018-11-27] MEDS: AMLODIPINE 10 MG TAB PO SCH (09:14)
[2018-11-27] MEDS: BENAZEPRIL 40 MG TAB PO SCH (09:14)
--- NOTE | 2018-11-27 13:58 | PN ---
Date/Time of Note Date/Time of Note DATE: 11/27/18 TIME: 13:56 Assessment/Plan Lines/Catheters IV Catheter Type (from [facility]): Peripheral IV Baker in Place (from [facility]): No Assessment/Plan Assessment/Plan s/p lumbar fusion contrast MRI brain reveals subependymoma vs. other neurologist consult today pending EEG pending not yet stable for d/c from neuro standpoint Subjective 24 Hr Interval Summary awaiting neuro consult Exam/Review of Systems Vital Signs Vitals Vital Signs Date Temp Pulse Resp B/P (MAP) Pulse Ox O2 O2 Flow FiO2 Time Delivery Rate 11/27/18 98.2 86 18 131/72 96 07:19 (91) 11/26/18 Nasal 2.0 08:00 Cannula Intake and Output 11/26/18 11/26/18 11/27/18 1515:00 23:00 07:00 IntakeIntake Total 650 ml 500 ml OutputOutput Total 1000 ml 700 ml BalanceBalance -350 ml -200 ml Exam Free Text/Dictation AOx3 NAD exam unchanged dressing c/d/i Results Result Diagram: 11/24/18 0428 11/24/18 0428 MAXI CHOUDHARY PA-C Nov 27, 2018 13:58
--- NOTE | 2018-11-27 16:51 | QN ---
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 I spoke with Dr. Gardner, neurosurgeon, by phone. The plan is to order an MRI of the cervical and thoracic spine with and without contrast to rule out any drop lesions. If the lesion is localized to the brain this could potentially be treated as an outpatient but I will speak with again once these MRI studies are completed and request a formal consult either as an inpatient or as an outpatient. FAVIOLA GREEN MD Nov 27, 2018 16:51
[2018-11-27 20:31] VITALS: BP 172/81; PULSE 107; RESP 20
[2018-11-27] MEDS ORDERED: LORAZEPAM 2 MG INJ IV ONE (21:00)
--- NOTE | 2018-11-27 21:10 | CONS ---
DATE OF ADMISSION: 11/21/2018 DATE OF CONSULTATION: HISTORY OF PRESENT ILLNESS: The patient is 38 years old status post dizzy spells, in which the patie nt had a recent surgery for fusion at L4 to L5 and L5 to S1. The patient's dizziness is continuous i n spite of the medication he has, in which I ordered for him MRI which shows some tumor which require d gadolinium, in which I ordered for him which shows tumor consistent with ependymoma, in which I roderick led Dr. Gerardo as well as to evaluate for neurosurgery biopsy as well as oncologist and I ordered for him spine MRI to see any metastasis. CURRENT MEDICATIONS: Include: 1. Antivert 25 mg 3 times a day. 2. Solu-Medrol 20 mg every 8 hours. 3. Tylenol No. 3 as needed. 4. [place] 10/325 mg every 4 hours as needed. 5. Protonix 40 mg once a day. 6. Norvasc 10 mg once daily. 7. Lipitor 40 mg once a day. 8. Ambien 5 mg once at night. 9. Colace 100 mg once a day. 10. Neurontin 300 mg once a day. 11. Dilaudid 0.2 mg every 4 hours as needed. 12. Zofran 4 mg every 4 hours. 13. Milk of Magnesia 30 mg once a day. 14. Tylenol 650 mg once a day. 15. Benadryl 25 mg once a day. 16. Narcan 0.2 mg as needed. 17. Baclofen 20 mg once a day. PHYSICAL EXAMINATION: GENERAL: Today, the patient is alert, awake, oriented, following simple commands. CRANIAL NERVES: Cranial nerve II: Pupils are equal on both sides, reactive to light. Cranial nerve s III, IV and : Extraocular muscles are intact without nystagmus. Cranial nerve V: Equal sensati on to face. Cranial nerve VII: Symmetrical face. Cranial nerve VIII: Equal hearing bilaterally. Cranial nerves IX and X: Elevates palate. Cranial nerve XI: Elevates shoulder 5/5. Cranial nerve XII: Straight tongue. MOTOR: Bilateral upper extremity 5/5, bilateral lower extremity 4+/5, limited by low backache. Sens ation is equal for light touch and temperature. COORDINATION: Sivmei-ss-odws test is intact. HEART: Regular rate and rhythm. LUNGS: Equal breath sounds. ABDOMEN: Soft, relaxed, nondistended. No tenderness. ASSESSMENT AND PLAN: 1. The patient is 38 years old status post dizzy spell. We will continue the patient on meclizine. 2. 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 We will follow up the patient with cervical spine and thoracic spine with and without contrast to see if any metastasis to the spinal cord. 3. We will follow up the patient with neurosurgery as well as oncologist. 4. Keep the patient under seizure precaution in the form of Keppra 500 mg twice a day as well as Lissy rontin 300 mg 3 times a day. 5. Status post lumbosacral fusion with 2 prior diskectomies. 6. Paresthesia. Keep the patient on Neurontin 300 mg 3 times a day. 7. Low backache, status post surgery. Follow up with the physical therapy and acute rehabilitation. Dictated By: DOT MCDANIELS MD NA/NTS Conf#: [id number] DID#: [id number] CC: FAVIOLA GERARDO MD;*EndCC*
[2018-11-28] MEDS: HYDROCODONE/APAP (10/325) TAB PO PRN ×6 (00:55→21:50)
[2018-11-28] MEDS: ZOLPIDEM 5 MG TAB PO PRN (01:34)
[2018-11-28 02:30] VITALS: BP 136/83; PULSE 84; RESP 18
[2018-11-28] MEDS: PANTOPRAZOLE (EC) 40 MG TAB PO SCH (05:03)
[2018-11-28] MEDS: METHYLPREDNISOLONE 40 MG INJ IV SCH ×3 (07:08→21:50)
[2018-11-28 08:03] VITALS: BP 121/62; PULSE 78; RESP 19
--- NOTE | 2018-11-28 08:04 | CONS ---
Consult Date/Type/Reason Admit Date/Time Nov 21, 2018 at 05:24 Initial Consult Date 11/10/2018 Type of Consultation: internal medicine Reason for Consultation medical f/u Requesting Provider: FAVIOLA GREEN MD Date/Time of Note DATE: 11/28/18 TIME: 07:59 Subjective sleepy this am but woke up Objective Vitals Vital Signs Date Temp Pulse Resp B/P (MAP) Pulse Ox O2 O2 Flow FiO2 Time Delivery Rate 11/28/18 97.4 84 18 136/83 97 02:30 (100) 11/26/18 Nasal 2.0 08:00 Cannula Intake and Output 11/27/18 11/27/18 11/28/18 1515:00 23:00 07:00 IntakeIntake Total 1040 ml 400 ml OutputOutput Total 300 ml 650 ml BalanceBalance -300 ml 1040 ml -250 ml Exam Vital signs stable HEENT grossly negative lungs clear heart regular rhythm Results/Medications Result Diagram: 11/24/18 04211/24/18 0428 Home Meds Reported Medications Acetaminophen with Codeine (Acetaminophen-Cod #3 Tablet) 1 Each Tablet, 1 TAB PO Q6H, #7 TAB 11/16/18 Gabapentin* (Gabapentin*) 300 Mg Capsule, 300 MG PO BID, #60 CAP 11/16/18 Baclofen* (Baclofen*) 20 Mg Tablet, 20 MG PO TID, TAB 11/16/18 Benazepril Hcl* (Benazepril Hcl*) 40 Mg Tablet, 40 MG PO DAILY, #30 TAB 03/14/18 Amlodipine Besylate* (Amlodipine Besylate*) 10 Mg Tablet, 10 MG PO DAILY, #30 TAB 03/14/18 Medications Current Medications Acetaminophen/ Hydrocodone Bitart ([place] (10/325)) 1 tab Q4H PRN PO .PAIN 1-5 Last administered on 11/27/18at 02:36; Admin Dose 1 TAB; Start 11/23/18 at 10:00 Hydromorphone HCl (Dilaudid) 0.2 mg Q1H PRN IV .BREAKTHROUGH PAIN; Start 11/21/18 at 07:00 Ondansetron HCl (Zofran Inj) 4 mg Q6H PRN IV NAUSEA/VOMITING Last administered on 11/24/18at 15:22; Admin Dose 4 MG; Start 11/21/18 at 07:00 Bisacodyl (Dulcolax Supp) 10 mg DAILY PRN [place] .CONSTIPATION Last administered on 11/25/18 22:47; Admin Dose 10 MG; Start 11/21/18 at 07:00 Docusate Sodium (Colace) 100 mg BID PO Last administered on 11/27/18 20:09; Admin Dose 100 MG; Start 11/21/18 at 21:00 Magnesium Hydroxide (Milk Of Mag) 30 ml HS PRN PO .CONSTIPATION/DYSPEPSIA Last administered on 11/25/18 15:11; Admin Dose 30 ML; Start 11/21/18 at 07:00 Acetaminophen (Tylenol Tab) 650 mg Q4H PRN PO FARRIS OR TEMP GREATER THAN 101.3F; Start 11/21/18 at 07:00 Phenol (Cepastat Lozenge) 1 lozenge PRN PRN [place] .SORE THROAT; Start 11/21/18 at 07:00 Diphenhydramine HCl (Benadryl) 25 mg Q6H PRN PO .ITCHING; Start 11/21/18 at 07:00 Diphenhydramine HCl (Benadryl) 25 mg Q6H PRN IV .ITCHING; Start 11/21/18 at 07:00 Naloxone HCl (Narcan) 0.2 mg Q2M PRN IV .RR 8 BREATHS/MIN OR LESS Last administered on 11/23/18 09:14; Admin Dose 0.2 MG; Start 11/21/18 at 07:00 Baclofen (Lioresal) 20 mg TID PO Last administered on 11/27/18 20:09; Admin Dose 20 MG; Start 11/21/18 at 21:00 Acetaminophen/ Hydrocodone Bitart ([place] (10/325)) 2 tab Q4H PRN PO .PAIN 6-10 Last administered on 11/28/18 05:03; Admin Dose 2 TAB; Start 11/23/18 at 10:00 Amlodipine Besylate (Norvasc) 10 mg DAILY PO Last administered on 11/27/18 09:14; Admin Dose 10 MG; Start 11/22/18 at 09:00 Benazepril HCl (Lotensin) 40 mg DAILY PO Last administered on 11/27/18 09:14; Admin Dose 40 MG; Start 11/22/18 at 09:00 Gabapentin (Neurontin) 300 mg BID PO Last administered on 11/27/18 20:09; Admin Dose 300 MG; Start 11/21/18 at 21:00 Zolpidem Tartrate (Ambien) 5 mg HS PRN PO INSOMNIA Last administered on 11/28 01:34; Admin Dose 5 MG; Start 11/21/18 at 22:00 Pantoprazole (Protonix Tab) 40 mg DAILY@06 PO Last administered on 11/28/18 05:03; Admin Dose 40 MG; Start 11/23/18 at 06:00 Meclizine HCl (Antivert) 25 mg TID PO Last administered on 11/27/18 20:09; Admin Dose 25 MG; Start 11/25/18 at 13:00 Methylprednisolone Sodium Succinate (Solu-Medrol) 20 mg Q8 IV Last administered on 11/28/18 07:08; Admin Dose 20 MG; Start 11/25/18 at 14:00 Levetiracetam (Keppra) 500 mg BID PO Last administered on 11/27/18 20:09; Admin Dose 500 MG; Start 11/26/18 at 21:00 Assessment/Plan Hospital Course (Demo Recall) post-op in recovery room post lumbar spine surgery medically stable episodes of dizziness and brain fog etiology ?? Assessment/Plan (Daily) neurology note appreciated consider Neurosurgical consultation further w/u in progress.will obtain non contyast CAT scan of chest. will discuss with KEARA Morel MD Nov 28, 2018 08:04
[2018-11-28] MEDS: BACLOFEN 10 MG TAB PO SCH ×3 (09:05→20:30)
[2018-11-28] MEDS: GABAPENTIN 300 MG CAP PO SCH ×2 (09:05→20:30)
[2018-11-28] MEDS: MECLIZINE 25 MG TAB PO SCH ×3 (09:06→20:30)
[2018-11-28] MEDS: DOCUSATE SODIUM 100 MG CAP PO SCH ×2 (09:06→20:30)
[2018-11-28] MEDS: LEVETIRACETAM 500 MG TAB PO SCH ×2 (09:06→20:30)
[2018-11-28] MEDS: AMLODIPINE 10 MG TAB PO SCH (09:08)
[2018-11-28] MEDS: BENAZEPRIL 40 MG TAB PO SCH (09:09)
--- NOTE | 2018-11-28 10:33 | PN ---
Date/Time of Note Date/Time of Note DATE: 11/28/18 TIME: 10:31 Assessment/Plan Lines/Catheters IV Catheter Type (from Nrsg): Peripheral IV Baker in Place (from Nrsg): No Assessment/Plan Assessment/Plan MRI of the cervical and thoracic spine did not show any ependymoma lesions. It appears that the lesion is isolated to the lateral ventricle. This can be managed as an outpatient and he will be provided with the phone number for a neurosurgeon, . At this point he is stable to be transferred to the acute rehab for further rehab prior to discharge to home. Subjective 24 Hr Interval Summary Reports back pain. Dizziness somewhat improved. Exam/Review of Systems Vital Signs Vitals Vital Signs Date Temp Pulse Resp B/P (MAP) Pulse Ox O2 O2 Flow FiO2 Time Delivery Rate 11/28/18 98.2 78 19 121/62 98 Room Air 08:03 (81) 11/26/18 2.0 08:00 Intake and Output 11/27/18 11/27/18 11/28/18 1515:00 23:00 07:00 IntakeIntake Total 1040 ml 400 ml OutputOutput Total 300 ml 650 ml BalanceBalance -300 ml 1040 ml -250 ml Exam Free Text/Dictation Lower extremity neuro intact Results Result Diagram: 11/24/18 0428 11/24/18 0428 FAVIOLA GREEN MD Nov 28, 2018 10:33
[2018-11-28] MEDS: ONDANSETRON 4 MG INJ IV PRN (11:18)
[2018-11-28 14:19] VITALS: BP 136/66; PULSE 72; RESP 18
[2018-11-28 20:38] VITALS: BP_SYST 161; PULSE 94; RESP 18
--- NOTE | 2018-11-28 23:16 | HKNOTE ---
DATE OF SERVICE: 11/28/2018 HISTORY OF PRESENT ILLNESS: The patient is a 38-year-old male who was admitted to the hospital for l ow backache status post lumbar surgery in which he has some dizziness, which I suspect has some brain lesion and ordered for him an MRI. The patient have a 17 x 7 mm, mildly lobulated heterogeneous sub ependymomal signal at the left lateral ventricular trigone with a possible subependymomal signal lesi on in which we ordered cervical and thoracic spine for him, which shows spondylosis, but no tumor is noted. The patient was followed by the primary admitting physician Dr. Gerardo who did the surgery for him. I ordered physical therapy for him and acute rehab for more continuation of his treatment in which the patient will up with the neurosurgeon per Dr. Gerardo Group. PHYSICAL EXAMINATION: GENERAL: The patient is alert, awake, oriented, following simple commands. CRANIAL NERVES: Cranial nerve II: Pupils equal on both sides, reactive to light. Cranial nerves II I, IV, and : Extraocular muscles are intact without nystagmus. Cranial nerve V: Equal sensation to face. Cranial nerve VII: Symmetrical face. Cranial nerve VIII: Equal hearing bilaterally. Coffee Roaster Helper nial nerve IX and X: Elevates palate. Cranial nerve XI: Elevates shoulder 5/5. Cranial nerve XII: With straight tongue. MOTOR: Moving both upper and lower extremities against gravity. Sensation, coordination and gait. Sensation equal for light touch and temperature. COORDINATION: Thhmje-tw-ewlc test intact. CARDIOVASCULAR: Regular rate and rhythm. LUNGS: Equal breath sounds. ABDOMEN: Soft, relaxed, nondistended, no tenderness. ASSESSMENT AND PLAN: The patient is 38 years old, status post dizzy spell with some impending moveme nt in the left lateral ventricle. Continue the patient with the same medication he takes. Follow up the patient with neurosurgeon as well as oncologist. Dr. Gerardo preferred him to choose a surgeo n to help him out as well as the oncologist. 1. Status post lumbosacral fusion with diskectomy in the past. 2. Underlying varices, to give the patient Neurontin 300 mg 3 times a day. 3. Low backache, status post surgical interference. The patient may go at the rehab facility. Dictated By: DOT RODRIGUEZ/NTS Conf#: [id number] [facility]#: [id number] CC: ELISA TOLEDO MD; ANGELA ORR MD; FAVIOLA GERARDO MD; KEARA LUNA MD;*End CC*
[2018-11-29] MEDS: HYDROCODONE/APAP (10/325) TAB PO PRN ×4 (02:21→20:11)
[2018-11-29] MEDS: ZOLPIDEM 5 MG TAB PO PRN (03:23)
[2018-11-29] MEDS: METHYLPREDNISOLONE 40 MG INJ IV SCH ×3 (06:45→22:34)
[2018-11-29] MEDS: PANTOPRAZOLE (EC) 40 MG TAB PO SCH (06:45)
[2018-11-29 07:42] VITALS: BP 138/71; PULSE 75; RESP 19
[2018-11-29] MEDS: HYDROmorphONE 0.5 MG/0.5 ML SYG IV PRN ×2 (08:02→15:43)
[2018-11-29] MEDS: BACLOFEN 10 MG TAB PO SCH ×3 (08:02→20:11)
[2018-11-29] MEDS: GABAPENTIN 300 MG CAP PO SCH ×2 (08:03→20:12)
[2018-11-29] MEDS: DOCUSATE SODIUM 100 MG CAP PO SCH ×2 (08:03→20:12)
[2018-11-29] MEDS: AMLODIPINE 10 MG TAB PO SCH (08:03)
[2018-11-29] MEDS: BENAZEPRIL 40 MG TAB PO SCH (08:03)
--- NOTE | 2018-11-29 09:03 | CONS ---
Consult Date/Type/Reason Admit Date/Time Nov 21, 2018 at 05:24 Initial Consult Date 11/10/2018 Type of Consultation: internal medicine Reason for Consultation medical f/u Requesting Provider: FAVIOLA GREEN MD Date/Time of Note DATE: 11/29/18 TIME: 08:58 Subjective had a better night Objective Vitals Vital Signs Date Temp Pulse Resp B/P (MAP) Pulse Ox O2 O2 Flow FiO2 Time Delivery Rate 11/29/18 98.0 75 19 138/71 91 Room Air 07:42 (93) 11/26/18 2.0 08:00 Intake and Output 11/28/18 11/28/18 11/29/18 1515:00 23:00 07:00 IntakeIntake Total 820 ml OutputOutput Total 725 ml BalanceBalance 820 ml -725 ml Exam vital signs stable HEENT negative lungs clear heart regular rhythm Results/Medications Result Diagram: 11/29/18 0434 11/29/18 0434 Results 24 hrs Laboratory Tests Test 11/29/18 04:34 White Blood Count 18.2 #H Red Blood Count 4.95 Hemoglobin 14.2 Hematocrit 43.4 Mean Corpuscular Volume 87.7 Mean Corpuscular Hemoglobin 28.7 L Mean Corpuscular Hemoglobin Concent 32.7 Red Cell Distribution Width 12.7 Platelet Count 392 # Mean Platelet Volume 10.3 Immature Granulocytes % 2.200 H Neutrophils % 79.8 H Lymphocytes % 9.7 L Monocytes % 8.0 Eosinophils % 0.0 Basophils % 0.3 Nucleated Red Blood Cells % 0.0 Immature Granulocytes # 0.400 H Neutrophils # 14.6 H Lymphocytes # 1.8 Monocytes # 1.5 H Eosinophils # 0.0 Basophils # 0.1 Nucleated Red Blood Cells # 0.0 Sodium Level 139 Potassium Level 4.2 Chloride Level 102 Carbon Dioxide Level 29 Anion Gap 8 Blood Urea Nitrogen 25 H Creatinine 0.81 Est Glomerular Filtrat Rate mL/min > 60 Glucose Level 131 Calcium Level 9.1 Total Bilirubin 0.1 L Direct Bilirubin 0.00 Indirect Bilirubin 0.1 Aspartate Amino Transf (AST/SGOT) 39 Alanine Aminotransferase (ALT/SGPT) 86 H Alkaline Phosphatase 82 Total Protein 7.1 Albumin 3.8 Globulin 3.30 H Albumin/Globulin Ratio 1.15 Home Meds Reported Medications Acetaminophen with Codeine (Acetaminophen-Cod #3 Tablet) 1 Each Tablet, 1 TAB PO Q6H, #7 TAB 11/16/18 Gabapentin* (Gabapentin*) 300 Mg Capsule, 300 MG PO BID, #60 CAP 11/16/18 Baclofen* (Baclofen*) 20 Mg Tablet, 20 MG PO TID, TAB 11/16/18 Benazepril Hcl* (Benazepril Hcl*) 40 Mg Tablet, 40 MG PO DAILY, #30 TAB 03/14/18 Amlodipine Besylate* (Amlodipine Besylate*) 10 Mg Tablet, 10 MG PO DAILY, #30 TAB 03/14/18 Medications Current Medications Acetaminophen/ Hydrocodone Bitart ([place] ()) 1 tab Q4H PRN PO .PAIN 1-5 Last administered on 11/27/18at 02:36; Admin Dose 1 TAB; Start 11/23/18 at 10:00 Hydromorphone HCl (Dilaudid) 0.2 mg Q1H PRN IV .BREAKTHROUGH PAIN Last administered on 11/29/18 08:02; Admin Dose 0.2 MG; Start 11/21/18 at 07:00 Ondansetron HCl (Zofran Inj) 4 mg Q6H PRN IV NAUSEA/VOMITING Last administered on 11/28/18at 11:18; Admin Dose 4 MG; Start 11/21/18 at 07:00 Bisacodyl (Dulcolax Supp) 10 mg DAILY PRN [place] .CONSTIPATION Last administered on 11/25/18 22:47; Admin Dose 10 MG; Start 11/21/18 at 07:00 Docusate Sodium (Colace) 100 mg BID PO Last administered on 11/29/18at 08:03; Admin Dose 100 MG; Start 11/21/18 at 21:00 Magnesium Hydroxide (Milk Of Mag) 30 ml HS PRN PO .CONSTIPATION/DYSPEPSIA Last administered on 11/25/18 15:11; Admin Dose 30 ML; Start 11/21/18 at 07:00 Acetaminophen (Tylenol Tab) 650 mg Q4H PRN PO [place]ARR[place] OR TEMP GREATER THAN 101.3F; Start 11/21/18 at 07:00 Phenol (Cepastat Lozenge) 1 lozenge PRN PRN [place] .SORE THROAT; Start 11/21/18 at 07:00 Diphenhydramine HCl (Benadryl) 25 mg Q6H PRN PO .ITCHING; Start 11/21/18 at 07:00 Diphenhydramine HCl (Benadryl) 25 mg Q6H PRN IV .ITCHING; Start 11/21/18 at 07:00 Naloxone HCl (Narcan) 0.2 mg Q2M PRN IV .RR 8 BREATHS/MIN OR LESS Last administered on 11/23/18 09:14; Admin Dose 0.2 MG; Start 11/21/18 at 07:00 Baclofen (Lioresal) 20 mg TID PO Last administered on 11/29/18 08:02; Admin Dose 20 MG; Start 11/21/18 at 21:00 Acetaminophen/ Hydrocodone Bitart ([place] ()) 2 tab Q4H PRN PO .PAIN 6-10 Last administered on 11/29/18 06:45; Admin Dose 2 TAB; Start 11/23/18 at 10:00 Amlodipine Besylate (Norvasc) 10 mg DAILY PO Last administered on 11/29/18 08:03; Admin Dose 10 MG; Start 11/22/18 at 09:00 Benazepril HCl (Lotensin) 40 mg DAILY PO Last administered on 11/29/18 08:03; Admin Dose 40 MG; Start 11/22/18 at 09:00 Gabapentin (Neurontin) 300 mg BID PO Last administered on 11/29/18 08:03; Ad min Dose 300 MG; Start 11/21/18 at 21:00 Zolpidem Tartrate (Ambien) 5 mg HS PRN PO INSOMNIA Last administered on 11/29/18 03:23; Admin Dose 5 MG; Start 11/21/18 at 22:00 Pantoprazole (Protonix Tab) 40 mg DAILY@06 PO Last administered on 11/29/18 06:45; Admin Dose 40 MG; Start 11/23/18 at 06:00 Meclizine HCl (Antivert) 25 mg TID PO Last administered on 11/28/18 20:30; Admin Dose 25 MG; Start 11/25/18 at 13:00 Methylprednisolone Sodium Succinate (Solu-Medrol) 20 mg Q8 IV Last administered on 11/29/18 06:45; Admin Dose 20 MG; Start 11/25/18 at 14:00 Levetiracetam (Keppra) 500 mg BID PO Last administered on 11/28/18at 20:30; Admin Dose 500 MG; Start 11/26/18 at 21:00 Assessment/Plan Hospital Course (Demo Recall) post-op in recovery room post lumbar spine surgery medically stable episodes of dizziness and brain fog etiology ?? Assessment/Plan (Daily) patient awaiting acute rehab evaluation. CAT scan lungs basically negative nodules have no suspicious characteristics. medically stable agree rest of neuro and other evaluation can be done in non acute setting thank you KEARA Zamorano MD Nov 29, 2018 09:03
[2018-11-29] MEDS: MECLIZINE 25 MG TAB PO SCH ×3 (09:58→20:12)
[2018-11-29] MEDS: LEVETIRACETAM 500 MG TAB PO SCH ×2 (09:59→20:11)
--- NOTE | 2018-11-29 11:46 | PN ---
Date/Time of Note Date/Time of Note DATE: 11/29/18 TIME: 11:45 Assessment/Plan Lines/Catheters IV Catheter Type (from Nrsg): Saline Lock Baker in Place (from Nrsg): No Assessment/Plan Assessment/Plan Patient continuing to improve but physical therapy saw him today and did not feel he was stable to go home and recommended that the patient go to acute rehab. We will wait for acute rehab to accept the patient again. Subjective 24 Hr Interval Summary Complains of back pain Exam/Review of Systems Vital Signs Vitals Vital Signs Date Temp Pulse Resp B/P (MAP) Pulse Ox O2 O2 Flow FiO2 Time Delivery Rate 11/29/18 98.0 75 19 138/71 91 Room Air 07:42 (93) 11/26/18 2.0 08:00 Intake and Output 11/28/18 11/28/18 11/29/18 1515:00 23:00 07:00 IntakeIntake Total 820 ml OutputOutput Total 725 ml BalanceBalance 820 ml -725 ml Exam Free Text/Dictation Neuro intact Results Result Diagram: 11/29/18 0434 11/29/18 0434 FAVIOLA GREEN MD Nov 29, 2018 11:46
[2018-11-29 15:23] VITALS: BP 144/87; PULSE 91; RESP 20
[2018-11-29] MEDS: ONDANSETRON 4 MG INJ IV PRN (15:43)
[2018-11-29 20:09] VITALS: BP 135/75; PULSE 77; RESP 20
[2018-11-30] MEDS: HYDROCODONE/APAP (10/325) TAB PO PRN ×4 (02:49→18:03)
[2018-11-30] MEDS: PANTOPRAZOLE (EC) 40 MG TAB PO SCH (05:39)
[2018-11-30] MEDS: METHYLPREDNISOLONE 40 MG INJ IV SCH ×3 (05:39→21:27)
--- NOTE | 2018-11-30 07:06 | CONS ---
DATE OF ADMISSION: 11/21/2018 DATE OF CONSULTATION: HISTORY OF PRESENT ILLNESS: The patient is 38 years old status post low backache, status post fusion surgery in which the patient had some dizzy spells. MRI shows ependymoma in which we recommend for him to see neurosurgeon as well as oncology. CURRENT MEDICATIONS: 1. Include Keppra 500 mg twice a day. 2. Solu-Medrol 20 mg every 8 hours. 3. Antivert 25 mg. 4. [place] 10/325 every 4 hours. 5. Protonix 40 mg once a day. 6. Norvasc 10 mg once a day. 7. Lotensin 40 mg once a day. 8. Ambien 5 mg once a day. 9. Colace 100 mg twice a day. 10. Neurontin 300 mg twice a day. 11. Dilaudid 0.2 mg every 1 hour. 12. Zofran 4 mg every 4 hours. 13. Benadryl 25 mg every 6 hours. PHYSICAL EXAMINATION: GENERAL: Today, the patient is alert, awake, can follow simple commands. CRANIAL NERVES: Cranial nerve II: Pupils equal on both sides, reactive to light. Cranial nerves II I, IV, and : Extraocular muscles are intact without nystagmus. Cranial nerve V: Equal sensation to face. Cranial nerve VII: Symmetrical face. Cranial nerve VIII: Equal hearing bilaterally. Power Plant Technician nial IX: Elevates palate. Cranial XI: Elevates shoulder 5/5. Cranial nerve XII: With straight to ngue. 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 Bilateral lower extremity is limited by low backache scored as 4/ 5. Sensation decreased for glove and sock area for light touch and temperature. COORDINATION: Dutsiy-pz-lnia test intact. HEART: Regular rate and rhythm. LUNGS: Equal breath sounds. ABDOMEN: Soft, relaxed, nondistended. No tenderness. ASSESSMENT AND PLAN: 1. The patient is 38 years old status post lumbosacral pain. 2. Status post fusion at the lumbosacral area, which is done by Dr. Gerardo followed by pain medic ation. Waiting for acute rehab. 3. 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 Follow up the patient with neurosurgery [facility] Dr. Gerardo as well as oncology service. 4. Keep the patient under physical therapy and rehabilitation from now and follow up the patient wit h the management of his brain tumor, he is still on cortisone. Again, thank you for asking me to see the patient with you. Dictated By: DOT RODRIGUEZ/AYLIN Conf#: [id number] DID#: [id number]
[2018-11-30 07:48] VITALS: BP 143/81; PULSE 74; RESP 18
--- NOTE | 2018-11-30 08:00 | DS ---
Date/Time of Note Date/Time of Note DATE: 11/30/18 TIME: 07:57 Discharge Summary Admission/Discharge Info Admit Date/Time Nov 21, 2018 at 05:24 Discharge Date/Time November 30 Discharge Diagnosis Status post lumbar surgery, brain ependymoma Patient Condition: Fair Procedures Lumbar fusion Hospital Course Patient was admitted to the [facility] after undergoing a lumbar fusion. Initially he was doing well and was being evaluated to go to acute rehab. He had an episode when he became dizzy. This improved but the following day he stated that when he would look at a distance to focus on a spot he would get nystagmus type symptoms. It appears to be vertigo however a neurology consult was obtained. He was prescribed medications which helped. To confirm no other causes a brain MRI was performed which ended up showing an ependymoma in the lateral ventricle. I then ordered an MRI of the cervical and the thoracic spine to make sure that there is no drop lesions. The ependymoma was localized just in the lateral ventricle and the rest of the spine was normal. I spoke with the neurosurgeon who stated that this can be treated as an outpatient. The patient was not accepted to acute rehab and the reason was that the emergency medical technician basic felt that he could be treated in a lower level of care. It was determined that the patient could go home. He is discharged to home with follow-up arranged with the undersigned. We will have the neurology consult make sure that he has the appropriate medications upon discharge. Home Meds Reported Medications Acetaminophen with Codeine (Acetaminophen-Cod #3 Tablet) 1 Each Tablet, 1 TAB PO Q6H, #7 TAB 11/16/18 Gabapentin* (Gabapentin*) 300 Mg Capsule, 300 MG PO BID, #60 CAP 11/16/18 Baclofen* (Baclofen*) 20 Mg Tablet, 20 MG PO TID, TAB 11/16/18 Benazepril Hcl* (Benazepril Hcl*) 40 Mg Tablet, 40 MG PO DAILY, #30 TAB 03/14/18 Amlodipine Besylate* (Amlodipine Besylate*) 10 Mg Tablet, 10 MG PO DAILY, #30 TAB 03/14/18 Primary Care Provider MD PETER Perry BABAK MD Nov 30, 2018 08:00
--- NOTE | 2018-11-30 08:04 | CONS ---
Consult Date/Type/Reason Admit Date/Time Nov 21, 2018 at 05:24 Initial Consult Date 11/10/2018 Type of Consultation: internal medicine Reason for Consultation medical f/u post-op Requesting Provider: FAVIOLA GREEN MD Date/Time of Note DATE: 11/30/18 TIME: 08:01 Subjective still getting dizzy and nauseated periodically Objective Vitals Vital Signs Date Temp Pulse Resp B/P (MAP) Pulse Ox O2 O2 Flow FiO2 Time Delivery Rate 11/30/18 98.0 74 18 143/81 96 Room Air 07:48 (101) 11/26/18 2.0 08:00 Intake and Output 11/29/18 11/29/18 11/30/18 1515:00 23:00 07:00 IntakeIntake Total 800 ml 400 ml 180 ml OutputOutput Total 300 ml 1500 ml 300 ml BalanceBalance 500 ml -1100 ml -120 ml Exam vital signs stable HEENT negative Lungs clear Heart regular rhythm Abdomen soft Results/Medications Result Diagram: 11/29/18 0434 11/29/18 0434 Home Meds Reported Medications Acetaminophen with Codeine (Acetaminophen-Cod #3 Tablet) 1 Each Tablet, 1 TAB PO Q6H, #7 TAB 11/16/18 Gabapentin* (Gabapentin*) 300 Mg Capsule, 300 MG PO BID, #60 CAP 11/16/18 Baclofen* (Baclofen*) 20 Mg Tablet, 20 MG PO TID, TAB 11/16/18 Benazepril Hcl* (Benazepril Hcl*) 40 Mg Tablet, 40 MG PO DAILY, #30 TAB 03/14/18 Amlodipine Besylate* (Amlodipine Besylate*) 10 Mg Tablet, 10 MG PO DAILY, #30 TAB 03/14/18 Medications Current Medications Acetaminophen/ Hydrocodone Bitart ([place] (10/325)) 1 tab Q4H PRN PO .PAIN 1-5 Last administered on 11/27/18at 02:36; Admin Dose 1 TAB; Start 11/23/18 at 10:00 Hydromorphone HCl (Dilaudid) 0.2 mg Q1H PRN IV .BREAKTHROUGH PAIN Last administered on 11/29/18at 15:43; Admin Dose 0.2 MG; Start 11/21/18 at 07:00 Ondansetron HCl (Zofran Inj) 4 mg Q6H PRN IV NAUSEA/VOMITING Last administered on 11/29/18 15:43; Admin Dose 4 MG; Start 11/21/18 at 07:00 Bisacodyl (Dulcolax Supp) 10 mg DAILY PRN [place] .CONSTIPATION Last administered on 11/25/18 22:47; Admin Dose 10 MG; Start 11/21/18 at 07:00 Docusate Sodium (Colace) 100 mg BID PO Last administered on 11/29/18 20:12; Admin Dose 100 MG; Start 11/21/18 at 21:00 Magnesium Hydroxide (Milk Of Mag) 30 ml HS PRN PO .CONSTIPATION/DYSPEPSIA Last administered on 11/25/18 15:11; Admin Dose 30 ML; Start 11/21/18 at 07:00 Acetaminophen (Tylenol Tab) 650 mg Q4H PRN PO FARRIS OR TEMP GREATER THAN 101.3F; Start 11/21/18 at 07:00 Phenol (Cepastat Lozenge) 1 lozenge PRN PRN [place] .SORE THROAT; Start 11/21/18 at 07:00 Diphenhydramine HCl (Benadryl) 25 mg Q6H PRN PO .ITCHING; Start 11/21/18 at 07:00 Diphenhydramine HCl (Benadryl) 25 mg Q6H PRN IV .ITCHING; Start 11/21/18 at 07:00 Naloxone HCl (Narcan) 0.2 mg Q2M PRN IV .RR 8 BREATHS/MIN OR LESS Last administered on 11/23/18 09:14; Admin Dose 0.2 MG; Start 11/21/18 at 07:00 Baclofen (Lioresal) 20 mg TID PO Last administered on 11/29/18 20:11; Admin Dose 20 MG; Start 11/21/18 at 21:00 Acetaminophen/ Hydrocodone Bitart ([place] (10/325)) 2 tab Q4H PRN PO .PAIN 6-10 Last administered on 11/30/18 02:49; Admin Dose 2 TAB; Start 11/23/18 at 10:00 Amlodipine Besylate (Norvasc) 10 mg DAILY PO Last administered on 11/29/18 08:03; Admin Dose 10 MG; Start 11/22/18 at 09:00 Benazepril HCl (Lotensin) 40 mg DAILY PO Last administered on 11/29/18 08:03; Admin Dose 40 MG; Start 11/22/18 at 09:00 Gabapentin (Neurontin) 300 mg BID PO Last administered on 11/29/18 20:12; Admin Dose 300 MG; Start 11/21/18 at 21:00 Zolpidem Tartrate (Ambien) 5 mg HS PRN PO INSOMNIA Last administered on 11/29/18 03:23; Admin Dose 5 MG; Start 11/21/18 at 22:00 Pantoprazole (Protonix Tab) 40 mg DAILY@06 PO Last administered on 11/30/18 05:39; Admin Dose 40 MG; Start 11/23/18 at 06:00 Meclizine HCl (Antivert) 25 mg TID PO Last administered on 11/29/18 20:12; Admin Dose 25 MG; Start 11/25/18 at 13:00 Methylprednisolone Sodium Succinate (Solu-Medrol) 20 mg Q8 IV Last administered on 11/30/18 05:39; Admin Dose 20 MG; Start 11/25/18 at 14:00 Levetiracetam (Keppra) 500 mg BID PO Last administered on 11/29/18 20:11; Admin Dose 500 MG; Start 11/26/18 at 21:00 Assessment/Plan Hospital Course (Demo Recall) post-op in recovery room post lumbar spine surgery medically stable episodes of dizziness and brain fog etiology ?? Assessment/Plan (Daily) patient awaiting acute rehab evaluation medically stable on steroids KEARA LUNA MD Nov 30, 2018 08:04
[2018-11-30] MEDS: GABAPENTIN 300 MG CAP PO SCH ×2 (08:25→20:33)
[2018-11-30] MEDS: DOCUSATE SODIUM 100 MG CAP PO SCH ×2 (08:25→20:33)
[2018-11-30] MEDS: LEVETIRACETAM 500 MG TAB PO SCH ×2 (08:25→20:33)
[2018-11-30] MEDS: MECLIZINE 25 MG TAB PO SCH ×3 (08:26→20:33)
[2018-11-30] MEDS: BACLOFEN 10 MG TAB PO SCH ×3 (08:27→20:33)
[2018-11-30] MEDS: AMLODIPINE 10 MG TAB PO SCH (08:27)
[2018-11-30] MEDS: BENAZEPRIL 40 MG TAB PO SCH (08:27)
--- NOTE | 2018-11-30 13:23 | RADRPT ---
Vent Rate: 98 bpm RR Interval: 0 msec NE Interval: 140 msec QRS Duration: 82 msec QT Interval: 336 msec QTC Interval: 428 msec P-R-T [place]: 41 - 3 - 49 degrees Normal sinus rhythm Normal ECG Electronically Signed By: Jerod Hemphill
[2018-11-30 16:41] VITALS: BP 138/74; PULSE 75; RESP 18
[2018-11-30 19:10] VITALS: BP 136/71; PULSE 82; RESP 20
[2018-11-30] MEDS: BISACODYL 10 MG SUPP PR PRN (20:32)
[2018-12-01] MEDS: HYDROCODONE/APAP (10/325) TAB PO PRN ×5 (00:06→23:50)
[2018-12-01 02:00] VITALS: BP 136/65; PULSE 74; RESP 20
[2018-12-01] MEDS: METHYLPREDNISOLONE 40 MG INJ IV SCH ×3 (05:26→21:38)
[2018-12-01] MEDS: PANTOPRAZOLE (EC) 40 MG TAB PO SCH (05:27)
--- NOTE | 2018-12-01 07:11 | CONS ---
DATE OF ADMISSION: 11/21/2018 DATE OF CONSULTATION: 11/30/2018 HISTORY OF PRESENT ILLNESS: The patient is a 38-year-old male who has fusion at his lower back in ich the patient still under pain medication. He cannot walk by himself. He needs a walker. He is f ollowed by physical therapist who told him he needs acute rehab. 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 The patient is still waiting for neurosurgery to evaluate him as well as oncology service to see what kind of malignancy the patient has, [facility]'s condition today. I recommended for the [facility] to have an evaluation by neurosurgeon and oncologist as well as rehab therapy and will continue the patient on a steroid as well as Keppra. The patient mentioned to me he could not walk by himself except with the assistance of the walker and he could not balance himself. He complained about jerk ing movement of his eyes. The patient is being followed by Dr. Gerardo, an orthopaedic surgeon as well as Dr. Lara, in which the medical staff and nursing staff today asked me about who is the neurosurgeon or who is the oncologist. 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 Moises daniels and Dr. Gerardo in which Dr. Gerardo asked me before that he is going to arrange a neurosu rgeon for the patient to see since Tuesday, but still the consult is pending. CURRENT MEDICATIONS: Include: 1. Keppra 500 mg twice a day. 2. Solu-Medrol 20 mg every 8 hours. 3. Antivert 25 mg 3 times a day. 4. [place] 10/325 mg every 4 hours as needed. 5. Protonix 40 mg once a day as needed. 6. Amlodipine 10 mg once a day. 7. Lotensin 40 mg once a day. 8. Ambien 5 mg once at night as needed. 9. Colace 100 mg twice a day as needed. 10. Baclofen 20 mg 3 times a day as needed. 11. Neurontin 300 mg 2 times a day. 12. Dilaudid 0.2 mg every 4 hours as needed. 13. Zofran 4 mg every 6 hours as needed. 14. Dulcolax 10 mg as needed. 15. Milk of magnesia 30 mg every 4 hours as needed. 16. Tylenol 650 mg every 4 hours as needed. 17. Benadryl 25 mg every 6 hours as needed. PHYSICAL EXAMINATION: GENERAL: Alert, awake and follows simple commands. CRANIAL NERVES: Cranial nerve II: Pupils equal on both sides, reactive to light. Cranial nerves II I, IV, and : Extraocular muscles intact. No nystagmus. Cranial nerve V: Equal sensation to face . Cranial nerve VII: Symmetrical face. Cranial nerve VIII: Equal hearing bilaterally. Cranial n erve IX and X: Elevated palate. Cranial nerve XI: Elevates shoulder 5/5. Cranial nerve XII: With straight tongue. 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 Bilateral lower extremity limited by low backache, 4+/5. Sensati on decreased for glove and sock area for light touch and temperature. COORDINATION: [id number] test intact. CARDIOVASCULAR: Regular rate and rhythm. LUNGS: Equal breath sounds. ABDOMEN: Soft, relaxed, nondistended. No tenderness. ASSESSMENT AND PLAN: 1. 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 The patient is awaiting neurosurger y and oncology consult for more evaluation and treatment and more recommendation. 2. Gait difficulty in which the patient might need a physical therapy and acute rehab. 3. Status post lumbosacral surgery. 4. Status post diskectomy and fusion on this admission, which the patient is still under severe pain with narcotic to help him out to cope with the pain. 5. Keep the patient under fall precaution for now. 6. Paresthesia. Keep the patient Neurontin 300 mg twice a day. 7. History of hypertension in which the patient is on Norvasc and Lotensin. 8. I counseled the patient about his condition and I answered all of his questions. I spoke to Dr. Gerardo as well as the nursing staff at [facility] about his condition. Again, thank you and I appreciate you consulted me. Dictated By: DOT RODRIGUEZ/AYLIN Conf#: [id number] DID#: [id number]
[2018-12-01 07:59] VITALS: BP 143/81; PULSE 72; RESP 18
--- NOTE | 2018-12-01 08:10 | CONS ---
Consult Date/Type/Reason Admit Date/Time Nov 21, 2018 at 05:24 Initial Consult Date 11/10/2018 Type of Consultation: internal medicine Reason for Consultation medical f/u Requesting Provider: FAVIOLA GREEN MD Date/Time of Note DATE: 12/01/18 TIME: 08:05 Subjective still getting dizzy Objective Vitals Vital Signs Date Temp Pulse Resp B/P (MAP) Pulse Ox O2 O2 Flow FiO2 Time Delivery Rate 12/01/18 98.1 72 18 143/81 94 07:59 (101) 12/01/18 Room Air 02:00 Intake and Output 11/30/18 11/30/18 12/01/18 1515:00 23:00 07:00 IntakeIntake Total 800 ml 650 ml OutputOutput Total 1550 ml 950 ml 600 ml BalanceBalance -750 ml -300 ml -600 ml Exam vital signs stable HEENT grossly negative lungs clear heart regular rhythm neuro per neurologist Results/Medications Result Diagram: 11/29/1843311/29/18433 Home Meds Reported Medications Acetaminophen with Codeine (Acetaminophen-Cod #3 Tablet) 1 Each Tablet, 1 TAB PO Q6H, #7 TAB 11/16/18 Gabapentin* (Gabapentin*) 300 Mg Capsule, 300 MG PO BID, #60 CAP 11/16/18 Baclofen* (Baclofen*) 20 Mg Tablet, 20 MG PO TID, TAB 11/16/18 Benazepril Hcl* (Benazepril Hcl*) 40 Mg Tablet, 40 MG PO DAILY, #30 TAB 03/14/18 Amlodipine Besylate* (Amlodipine Besylate*) 10 Mg Tablet, 10 MG PO DAILY, #30 TAB 03/14/18 Medications Current Medications Acetaminophen/ Hydrocodone Bitart ([place] (10/325)) 1 tab Q4H PRN PO .PAIN 1-5 L ast administered on 12/01/18at 05:27; Admin Dose 1 TAB; Start 11/23/18 at 10:00 Hydromorphone HCl (Dilaudid) 0.2 mg Q1H PRN IV .BREAKTHROUGH PAIN Last administered on 11/29/18at 15:43; Admin Dose 0.2 MG; Start 11/21/18 at 07:00 Ondansetron HCl (Zofran Inj) 4 mg Q6H PRN IV NAUSEA/VOMITING Last administered on 11/29/18 15:43; Admin Dose 4 MG; Start 11/21/18 at 07:00 Bisacodyl (Dulcolax Supp) 10 mg DAILY PRN [place] .CONSTIPATION Last administered on 11/30/18 20:32; Admin Dose 10 MG; Start 11/21/18 at 07:00 Docusate Sodium (Colace) 100 mg BID PO Last administered on 11/30/18 20:33; Admin Dose 100 MG; Start 11/21/18 at 21:00 Magnesium Hydroxide (Milk Of Mag) 30 ml HS PRN PO .CONSTIPATION/DYSPEPSIA Last administered on 11/25/18 15:11; Admin Dose 30 ML; Start 11/21/18 at 07:00 Acetaminophen (Tylenol Tab) 650 mg Q4H PRN PO FARRIS OR TEMP GREATER THAN 101.3F; Start 11/21/18 at 07:00 Phenol (Cepastat Lozenge) 1 lozenge PRN PRN MT .SORE THROAT; Start 11/21/18 at 07:00 Diphenhydramine HCl (Benadryl) 25 mg Q6H PRN PO .ITCHING; Start 11/21/18 at 07:00 Diphenhydramine HCl (Benadryl) 25 mg Q6H PRN IV .ITCHING; Start 11/21/18 at 07:00 Naloxone HCl (Narcan) 0.2 mg Q2M PRN IV .RR 8 BREATHS/MIN OR LESS Last administered on 11/23/18 09:14; Admin Dose 0.2 MG; Start 11/21/18 at 07:00 Baclofen (Lioresal) 20 mg TID PO Last administered on 11/30/18 20:33; Admin Dose 20 MG; Start 11/21/18 at 21:00 Acetaminophen/ Hydrocodone Bitart ([place] (10/325)) 2 tab Q4H PRN PO .PAIN 6-10 Last administered on 11/30/18 18:03; Admin Dose 2 TAB; Start 11/23/18 at 10:00 Amlodipine Besylate (Norvasc) 10 mg DAILY PO Last administered on 11/30/18 08:27; Admin Dose 10 MG; Start 11/22/18 at 09:00 Benazepril HCl (Lotensin) 40 mg DAILY PO Last administered on 11/30/18 08:27; Admin Dose 40 MG; Start 11/22/18 at 09:00 Gabapentin (Neurontin) 300 mg BID PO Last administered on 11/30/18 20:33; Admin Dose 300 MG; Start 11/21/18 at 21:00 Zolpidem Tartrate (Ambien) 5 mg HS PRN PO INSOMNIA Last administered on 11/29/18 03:23; Admin Dose 5 MG; Start 11/21/18 at 22:00 Pantoprazole (Protonix Tab) 40 mg DAILY@06 PO Last administered on 12/01/18 05:27; Admin Dose 40 MG; Start 11/23/18 at 06:00 Meclizine HCl (Antivert) 25 mg TID PO Last administered on 11/30/18 20:33; Admin Dose 25 MG; Start 11/25/18 at 13:00 Methylprednisolone Sodium Succinate (Solu-Medrol) 20 mg Q8 IV Last administered on 12/01/18 05:26; Admin Dose 20 MG; Start 11/25/18 at 14:00 Levetiracetam (Keppra) 500 mg BID PO Last administered on 11/30/18 20:33; Admin Dose 500 MG; Start 11/26/18 at 21:00 Assessment/Plan Hospital Course (Demo Recall) post-op in recovery room post lumbar spine surgery medically stable episodes of dizziness and brain fog etiology ?? Assessment/Plan (Daily) plan per neurologist oncology and neurosurgery consult requested patient symptomatic at this point in terms of ability to ambulate ??? 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 KEARA LUNA MD Dec 01, 2018 08:10
--- NOTE | 2018-12-01 08:27 | PN ---
Date/Time of Note Date/Time of Note DATE: 12/01/18 TIME: 08:23 Assessment/Plan Lines/Catheters IV Catheter Type (from Nrsg): Peripheral IV Baker in Place (from Nrsg): No Assessment/Plan Assessment/Plan POD #3 s/p fusion patient was NOT accepted to acute rehab from a surgical standpoint he is stable for D/C with follow up arranged and post-op rx given, may shower, do not need to cover incision, do not soak or scrub incision patient should continue to ambulate with fall precautions, continue pain control not yet cleared for D/C by neurologist for ependymoma - oncology and neurosurgery consultations pending Subjective 24 Hr Interval Summary patient is comfortable reports that dizziness is somewhat improved while on medication but still present ambulating with dizziness Exam/Review of Systems Vital Signs Vitals Vital Signs Date Temp Pulse Resp B/P (MAP) Pulse Ox O2 O2 Flow FiO2 Time Delivery Rate 12/01/18 98.1 72 18 143/81 94 07:59 (101) 12/01/18 Room Air 02:00 Intake and Output 11/30/18 11/30/18 12/01/18 1515:00 23:00 07:00 IntakeIntake Total 800 ml 650 ml OutputOutput Total 1550 ml 950 ml 600 ml BalanceBalance -750 ml -300 ml -600 ml Exam Free Text/Dictation ortho exam unchanged AOx3 incision c/d/i Results Result Diagram: 11/29/18 0434 11/29/18 0434 MAXI CHOUDHARY PA-C Dec 01, 2018 08:27
[2018-12-01] MEDS: DOCUSATE SODIUM 100 MG CAP PO SCH ×2 (09:41→21:38)
[2018-12-01] MEDS: BACLOFEN 10 MG TAB PO SCH ×3 (09:45→21:38)
[2018-12-01] MEDS: MECLIZINE 25 MG TAB PO SCH ×3 (09:46→21:38)
[2018-12-01] MEDS: LEVETIRACETAM 500 MG TAB PO SCH ×2 (09:46→21:37)
[2018-12-01] MEDS: BENAZEPRIL 40 MG TAB PO SCH (09:46)
[2018-12-01] MEDS: GABAPENTIN 300 MG CAP PO SCH ×2 (09:48→21:38)
[2018-12-01] MEDS: AMLODIPINE 10 MG TAB PO SCH (09:48)
[2018-12-01] MEDS: HYDROmorphONE 0.5 MG/0.5 ML SYG IV PRN ×2 (12:29→16:56)
[2018-12-01 14:05] VITALS: BP 141/78; PULSE 75; RESP 18
--- NOTE | 2018-12-01 15:28 | CONS ---
Assessment/Plan Assessment/Plan Hospital Course (Demo Recall) pleasant 38 yo who was s/p lumbar fusion surgery, became dizzy and w/u shows what looks like a localized ependymoma most of these types of tumors appear in young individuals prior to age 40 treatment is surgical resection adjuvant tx may consist of radiation at this point need tissue diagnosis to make definitive tx recommendation will cont to follow and await neurosurgery recs Consultation Date/Type/Reason Admit Date/Time Nov 21, 2018 at 05:24 Date/Time of Note DATE: 12/01/18 TIME: 15:28 38 yo admitted for lumbar spinal fusion. He was to be discharged but was having dizziness so MRI brain done: MRI brain showed: 17.6 x 3.3 mm dependable/some dependable mass posterior left lateral ventricle. 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 Other intraventricular lesions such as ependymoma, meningioma and choroid plexus lesion considered less likely. He has also had MRI Cervical and thoracic and lumbar spine showing no obvious leptomeningeal disease Neurosurgery was called and recommended outpt f/ He continues to be dizzy Constitutional: no complaints, improved Eyes: no complaints ENT: no complaints Respiratory: no complaints Cardiovascular: no complaints Gastrointestinal: no complaints Genitourinary: no complaints Neurologic: dizziness Psychological: no complaints, nl mood/affect Past Medical History Home Meds Reported Medications Acetaminophen with Codeine (Acetaminophen-Cod #3 Tablet) 1 Each Tablet, 1 TAB PO Q6H, #7 TAB 11/16/18 Gabapentin* (Gabapentin*) 300 Mg Capsule, 300 MG PO BID, #60 CAP 11/16/18 Baclofen* (Baclofen*) 20 Mg Tablet, 20 MG PO TID, TAB 11/16/18 Benazepril Hcl* (Benazepril Hcl*) 40 Mg Tablet, 40 MG PO DAILY, #30 TAB 03/14/18 Amlodipine Besylate* (Amlodipine Besylate*) 10 Mg Tablet, 10 MG PO DAILY, #30 TAB 03/14/18 Medications Current Medications Acetaminophen/ Hydrocodone Bitart ([place] (10/325)) 1 tab Q4H PRN PO .PAIN 1-5 Last administered on 12/01/18at 05:27; Admin Dose 1 TAB; Start 11/23/18 at 10:00 Hydromorphone HCl (Dilaudid) 0.2 mg Q1H PRN IV .BREAKTHROUGH PAIN Last administered on 12/01/18 12:29; Admin Dose 0.2 MG; Start 11/21/18 at 07:00 Ondansetron HCl (Zofran Inj) 4 mg Q6H PRN IV NAUSEA/VOMITING Last administered on 11/29/18 15:43; Admin Dose 4 MG; Start 11/21/18 at 07:00 Bisacodyl (Dulcolax Supp) 10 mg DAILY PRN [place] .CONSTIPATION Last administered on 11/30/18 20:32; Admin Dose 10 MG; Start 11/21/18 at 07:00 Docusate Sodium (Colace) 100 mg BID PO Last administered on 12/01/18 09:41; Admin Dose 100 MG; Start 11/21/18 at 21:00 Magnesium Hydroxide (Milk Of Mag) 30 ml HS PRN PO .CONSTIPATION/DYSPEPSIA Last administered on 11/25/18 15:11; Admin Dose 30 ML; Start 11/21/18 at 07:00 Acetaminophen (Tylenol Tab) 650 mg Q4H PRN PO FARRIS OR TEMP GREATER THAN 101.3F; Start 11/21/18 at 07:00 Phenol (Cepastat Lozenge) 1 lozenge PRN PRN MT .SORE THROAT; Start 11/21/18 at 07:00 Diphenhydramine HCl (Benadryl) 25 mg Q6H PRN PO .ITCHING; Start 11/21/18 at 07:00 Diphenhydramine HCl (Benadryl) 25 mg Q6H PRN IV .ITCHING; Start 11/21/18 at 07:00 Naloxone HCl (Narcan) 0.2 mg Q2M PRN IV .RR 8 BREATHS/MIN OR LESS Last administered on 11/23/18 09:14; Admin Dose 0.2 MG; Start 11/21/18 at 07:00 Baclofen (Lioresal) 20 mg TID PO Last administered on 12/01/18 13:53; Admin Dose 20 MG; Start 11/21/18 at 21:00 Acetaminophen/ Hydrocodone Bitart ([place] (10/325)) 2 tab Q4H PRN PO .PAIN 6-10 Last administered on 12/01/18 13:54; Admin Dose 2 TAB; Start 11/23/18 at 10:00 Amlodipine Besylate (Norvasc) 10 mg DAILY PO Last administered on 12/01/18 09:48; Admin Dose 10 MG; Start 11/22/18 at 09:00 Benazepril HCl (Lotensin) 40 mg DAILY PO Last administered on 12/01/18 09:46; Admin Dose 40 MG; Start 11/22/18 at 09:00 Gabapentin (Neurontin) 300 mg BID PO Last administered on 12/01/18 09:48; Admin Dose 300 MG; Start 11/21/18 at 21:00 Zolpidem Tartrate (Ambien) 5 mg HS PRN PO INSOMNIA Last administered on 11/29/18 at 03:23; Admin Dose 5 MG; Start 11/21/18 at 22:00 Pantoprazole (Protonix Tab) 40 mg DAILY@06 PO Last administered on 12/01/18 05:27; Admin Dose 40 MG; Start 11/23/18 at 06:00 Meclizine HCl (Antivert) 25 mg TID PO Last administered on 12/01/18 13:54; Admin Dose 25 MG; Start 11/25/18 at 13:00 Methylprednisolone Sodium Succinate (Solu-Medrol) 20 mg Q8 IV Last administered on 12/01/18 13:52; Admin Dose 20 MG; Start 11/25/18 at 14:00 Levetiracetam (Keppra) 500 mg BID PO Last administered on 12/01/18 09:46; Admin Dose 500 MG; Start 11/26/18 at 21:00 Allergies: Coded Allergies: melon (Verified Allergy, Mild, 12/01/18) NAUSEA/VOMINTING Past Surgical History Past Surgical Hx: other Social History Smoking Status: Never smoker Exam/Review of Systems Exam Vitals Vital Signs Date Temp Pulse Resp B/P (MAP) Pulse Ox O2 O2 Flow FiO2 Time Delivery Rate 12/01/18 98.0 75 18 141/78 95 14:05 (99) 12/01/18 Room Air 02:00 Intake and Output 11/30/18 11/30/18 12/01/18 1414:59 22:59 06:59 IntakeIntake Total 800 ml 650 ml OutputOutput Total 1550 ml 950 ml 600 ml BalanceBalance -750 ml -300 ml -600 ml Constitutional: alert, oriented, well developed, obese Psych: no complaints, nl mood/affect Eyes: nl conjunctiva, EOMI, nl lids, nl sclera, PERRL Neck: supple, non-tender Musculoskeletal: nl extremities to inspection, nl gait and stance Results Result Diagram: 11/29/1843311/29/18433 Medications Medication Current Medications Acetaminophen/ Hydrocodone Bitart ([place] ()) 1 tab Q4H PRN PO .PAIN 1-5 Last administered on 12/01/18 05:27; Admin Dose 1 TAB; Start 11/23/18 at 10:00 Hydromorphone HCl (Dilaudid) 0.2 mg Q1H PRN IV .BREAKTHROUGH PAIN Last administered on 12/01/18 12:29; Admin Dose 0.2 MG; Start 11/21/18 at 07:00 Ondansetron HCl (Zofran Inj) 4 mg Q6H PRN IV NAUSEA/VOMITING Last administered on 11/29/18 15:43; Admin Dose 4 MG; Start 11/21/18 at 07:00 Bisacodyl (Dulcolax Supp) 10 mg DAILY PRN [place] .CONSTIPATION Last administered on 11/30/18 20:32; Admin Dose 10 MG; Start 11/21/18 at 07:00 Docusate Sodium (Colace) 100 mg BID PO Last administered on 12/01/18 09:41; Admin Dose 100 MG; Start 11/21/18 at 21:00 Magnesium Hydroxide (Milk Of Mag) 30 ml HS PRN PO .CONSTIPATION/DYSPEPSIA Last administered on 11/25/18 15:11; Admin Dose 30 ML; Start 11/21/18 at 07:00 Acetaminophen (Tylenol Tab) 650 mg Q4H PRN PO FARRIS OR TEMP GREATER THAN 101.3F; Start 11/21/18 at 07:00 Phenol (Cepastat Lozenge) 1 lozenge PRN PRN [place] .SORE THROAT; Start 11/21/18 at 07:00 Diphenhydramine HCl (Benadryl) 25 mg Q6H PRN PO .ITCHING; Start 11/21/18 at 07:00 Diphenhydramine HCl (Benadryl) 25 mg Q6H PRN IV .ITCHING; Start 11/21/18 at 07:00 Naloxone HCl (Narcan) 0.2 mg Q2M PRN IV .RR 8 BREATHS/MIN OR LESS Last admi nistered on 11/23/18 09:14; Admin Dose 0.2 MG; Start 11/21/18 at 07:00 Baclofen (Lioresal) 20 mg TID PO Last administered on 12/01/18 13:53; Admin Dose 20 MG; Start 11/21/18 at 21:00 Acetaminophen/ Hydrocodone Bitart ([place] (10/325)) 2 tab Q4H PRN PO .PAIN 6-10 Last administered on 12/01/18 13:54; Admin Dose 2 TAB; Start 11/23/18 at 10:00 Amlodipine Besylate (Norvasc) 10 mg DAILY PO Last administered on 12/01/18 09:48; Admin Dose 10 MG; Start 11/22/18 at 09:00 Benazepril HCl (Lotensin) 40 mg DAILY PO Last administered on 12/01/18 09:46; Admin Dose 40 MG; Start 11/22/18 at 09:00 Gabapentin (Neurontin) 300 mg BID PO Last administered on 12/01/18 09:48; Admin Dose 300 MG; Start 11/21/18 at 21:00 Zolpidem Tartrate (Ambien) 5 mg HS PRN PO INSOMNIA Last administered on 11/29/18 03:23; Admin Dose 5 MG; Start 11/21/18 at 22:00 Pantoprazole (Protonix Tab) 40 mg DAILY@06 PO Last administered on 12/01/18 05:27; Admin Dose 40 MG; Start 11/23/18 at 06:00 Meclizine HCl (Antivert) 25 mg TID PO Last administered on 12/01/18 13:54; Admin Dose 25 MG; Start 11/25/18 at 13:00 Methylprednisolone Sodium Succinate (Solu-Medrol) 20 mg Q8 IV Last administered on 12/01/18 13:52; Admin Dose 20 MG; Start 11/25/18 at 14:00 Levetiracetam (Keppra) 500 mg BID PO Last administered on 12/01/18 09:46; Ad min Dose 500 MG; Start 11/26/18 at 21:00 FAYE TESFAYE Dec 01, 2018 15:28
[2018-12-01] MEDS ORDERED: KETOROLAC 30 MG INJ IV STA (17:49)
[2018-12-01 19:30] VITALS: BP 134/65; PULSE 76; RESP 18
[2018-12-02] VITALS (8 sets, daily range): BP systolic 133–185; BP diastolic 68–95; PULSE 85–118; RESP 17–25
[2018-12-02] MEDS: METHYLPREDNISOLONE 40 MG INJ IV SCH ×3 (06:48→22:00)
[2018-12-02] MEDS: PANTOPRAZOLE (EC) 40 MG TAB PO SCH (06:48)
[2018-12-02] MEDS: HYDROCODONE/APAP (10/325) TAB PO PRN ×4 (07:02→22:00)
[2018-12-02] MEDS: BISACODYL 10 MG SUPP PR PRN (07:07)
[2018-12-02] MEDS: HYDROmorphONE 0.5 MG/0.5 ML SYG IV PRN ×2 (08:34→14:29)
[2018-12-02] MEDS: MECLIZINE 25 MG TAB PO SCH ×3 (09:46→20:17)
[2018-12-02] MEDS: LEVETIRACETAM 500 MG TAB PO SCH ×2 (09:46→20:17)
[2018-12-02] MEDS: GABAPENTIN 300 MG CAP PO SCH ×2 (09:47→20:17)
[2018-12-02] MEDS: BENAZEPRIL 40 MG TAB PO SCH (09:48)
[2018-12-02] MEDS: BACLOFEN 10 MG TAB PO SCH ×3 (09:48→20:17)
[2018-12-02] MEDS: AMLODIPINE 10 MG TAB PO SCH (09:48)
[2018-12-02] MEDS: DOCUSATE SODIUM 100 MG CAP PO SCH ×2 (09:49→20:17)
--- NOTE | 2018-12-02 10:25 | HKNOTE ---
DATE OF SERVICE: 12/01/2018 HISTORY OF PRESENT ILLNESS: The patient is a 38-year-old male who was admitted to hospital with low back ache, status post lumbar fusion with two discectomies in the past. 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 The patient i s seen by Dr. Choe, oncologist. We appreciate the consult in which he recommends the patient to have a tissue biopsy and possible surgical resection and an adjacent radiation. PHYSICAL EXAMINATION: GENERAL: The patient is alert, awake, oriented, follows simple commands. CRANIAL NERVES: Cranial nerve II: Pupils equal on both sides, reactive to light. Cranial nerves II I, IV and : Extraocular muscles are intact without nystagmus. Cranial nerve V: Equal sensation t o face. Cranial nerve VII: Symmetrical face. Cranial nerve VIII: Equal hearing bilaterally. Cran ial IX and X: Elevates palate. Cranial nerve XI: Elevates shoulder 5/5. Cranial nerve XII: With straight tongue. MOTOR: Moving both upper and lower extremity. Sensation equal for light touch and temperature. COORDINATION: [id number] test intact. Gait with decreased balance using a walker. ASSESSMENT AND PLAN: 1. The patient is a 38-year-old male status post ependymoma in which awaiting neurosurgery for possi ble tissue biopsy. Consider resection versus plus/minus radiation therapy. 2. Gait difficulty. Follow up the patient with physical therapy and acute rehabilitation. 3. Status post lumbosacral fusion surgery, status post history of discectomy. 4. Keep the patient under fall precaution from now. 5. Paresthesia. Keep the patient on Neurontin 300 mg twice a day. 6. Keep the patient on seizure precaution in the form of Keppra 500 mg twice a day. 7. History of hypertension in which the patient is on Norvasc and Lotensin. Again, thank you for asking me to see the patient with you. Dictated By: DOT MCDANIELS MD NA/NTS Conf#: [id number] DID#: [id number] CC: FAVIOLA GREEN MD; DOT MCDANIELS MD;*EndCC*
--- NOTE | 2018-12-02 10:54 | PN ---
Date/Time of Note Date/Time of Note DATE: 12/02/18 TIME: 10:49 Assessment/Plan Lines/Catheters IV Catheter Type (from Nrsg): Saline Lock Baker in Place (from Nrsg): No Assessment/Plan Assessment/Plan POD #4 s/p lumbar fusion patient remains a fall risk due to dizziness and syncopal episodes - fall precautions necessary dizziness and syncopal episodes - unclear etiology i agree with PT's plan to continue with PT without pushing him too much i still feel that he would be a good candidate for acute rehab HTN management per Dr. Lara awaiting neurosurgery consult with Dr. Abdalla i didn't see Dr. Choe (oncology) note but patient states that he was seen late last night and oncology wants neurosx consult first Subjective 24 Hr Interval Summary patient c/o back pain, leg pain, leg numbness reports continuing dizziness states that he saw oncologist Dr. Choe who wants to await neurosurgery consult has not seen Dr. Abdalla yet Exam/Review of Systems Vital Signs Vitals Vital Signs Date Temp Pulse Resp B/P (MAP) Pulse Ox O2 O2 Flow FiO2 Time Delivery Rate 12/02/18 Nasal 3.0 09:13 Cannula 12/02/18 85 18 150/84 97 08:37 (106) 12/02/18 98.8 08:12 Intake and Output 12/01/18 12/01/18 12/02/18 1515:00 23:00 07:00 IntakeIntake Total 250 ml OutputOutput Total 600 ml 300 ml BalanceBalance -350 ml -300 ml Exam Free Text/Dictation exam unchanged HTN - max BP this morning 185/90 Results Result Diagram: 11/29/18 0434 11/29/18 0434 MAXI CHOUDHARY PA-C Dec 02, 2018 10:54
--- NOTE | 2018-12-02 15:20 | CONS ---
Assessment/Plan Assessment/Plan Problems: (1) Essential (primary) hypertension Status: Chronic Comment: Fair control but do not want to be too aggressive given patient's vertigo/lightheadedness and syncopal episodes. (2) Ependymoma Comment: Appreciate Oncology input. Awaiting Neurosurgical consultation. (3) Vertigo Status: Acute Comment: Etiology undetermined. (4) Status post lumbar spinal fusion Status: Resolved Comment: POD #4 post op and rehab management per Dr. Gerardo. Consultation Date/Type/Reason Admit Date/Time Nov 21, 2018 at 05:24 Initial Consult Date Type of Consult Internal Medicine Reason for Consultation Post op management of non surgical medical issues Requesting Provider: FAVIOLA GERARDO MD Date/Time of Note DATE: 12/02/18 TIME: 15:12 24 HR Interval Summary Free Text/Dictation Another episode of lightheadedness with near syncope. Exam/Review of Systems Exam Vitals Vital Signs Date Temp Pulse Resp B/P (MAP) Pulse Ox O2 O2 Flow FiO2 Time Delivery Rate 12/02/18 98.3 92 18 136/68 97 Room Air 15:06 (90) 12/02/18 3.0 09:13 Intake and Output 12/01/18 12/01/18 12/02/18 1414:59 22:59 06:59 IntakeIntake Total 250 ml OutputOutput Total 600 ml 300 ml BalanceBalance -350 ml -300 ml Constitutional: alert, oriented, obese Neck: supple Respiratory: clear to auscultation Cardiovascular: regular rate and rhythm Gastrointestinal: soft Musculoskeletal: nl extremities to inspection Results Result Diagram: 11/29/18 0434 11/29/18 0434 Medications Medication Current Medications Acetaminophen/ Hydrocodone Bitart ([place] (10/325)) 1 tab Q4H PRN PO .PAIN 1-5 Last administered on 12/01/18at 05:27; Admin Dose 1 TAB; Start 11/23/18 at 10:00 Hydromorphone HCl (Dilaudid) 0.2 mg Q1H PRN IV .BREAKTHROUGH PAIN Last adminis tered on 12/02/18at 14:29; Admin Dose 0.2 MG; Start 11/21/18 at 07:00 Ondansetron HCl (Zofran Inj) 4 mg Q6H PRN IV NAUSEA/VOMITING Last administered on 4/10/19at 15:43; Admin Dose 4 MG; Start 11/21/18 at 07:00 Bisacodyl (Dulcolax Supp) 10 mg DAILY PRN [place] .CONSTIPATION Last administered on 12/02/18 07:07; Admin Dose 10 MG; Start 11/21/18 at 07:00 Docusate Sodium (Colace) 100 mg BID PO Last administered on 12/02/18 09:49; Admin Dose 100 MG; Start 11/21/18 at 21:00 Magnesium Hydroxide (Milk Of Mag) 30 ml HS PRN PO .CONSTIPATION/DYSPEPSIA Last administered on 11/25/18 15:11; Admin Dose 30 ML; Start 11/21/18 at 07:00 Acetaminophen (Tylenol Tab) 650 mg Q4H PRN PO FARRIS OR TEMP GREATER THAN 101.3F; Start 11/21/18 at 07:00 Phenol (Cepastat Lozenge) 1 lozenge PRN PRN [place] .SORE THROAT; Start 11/21/18 at 07:00 Diphenhydramine HCl (Benadryl) 25 mg Q6H PRN PO .ITCHING; Start 11/21/18 at 07:00 Diphenhydramine HCl (Benadryl) 25 mg Q6H PRN IV .ITCHING; Start 11/21/18 at 07:00 Naloxone HCl (Narcan) 0.2 mg Q2M PRN IV .RR 8 BREATHS/MIN OR LESS Last administered on 11/23/18 09:14; Admin Dose 0.2 MG; Start 11/21/18 at 07:00 Baclofen (Lioresal) 20 mg TID PO Last administered on 12/02/18 13:56; Admin Dose 20 MG; Start 11/21/18 at 21:00 Acetaminophen/ Hydrocodone Bitart ([place] (10/325)) 2 tab Q4H PRN PO .PAIN 6-10 Last administered on 12/02/18 11:50; Admin Dose 2 TAB; Start 11/23/18 at 10:00 Amlodipine Besylate (Norvasc) 10 mg DAILY PO Last administered on 12/02/18 09:48; Admin Dose 10 MG; Start 11/22/18 at 09:00 Benazepril HCl (Lotensin) 40 mg DAILY PO Last administered on 12/02/18 09:48; Admin Dose 40 MG; Start 11/22/18 at 09:00 Gabapentin (Neurontin) 300 mg BID PO Last administered on 12/02/18 09:47; Admin Dose 300 MG; Start 11/21/18 at 21:00 Zolpidem Tartrate (Ambien) 5 mg HS PRN PO INSOMNIA Last administered on 11/29/18 03:23; Admin Dose 5 MG; Start 11/21/18 at 22:00 Pantoprazole (Protonix Tab) 40 mg DAILY@06 PO Last administered on 12/02/18 06:48; Admin Dose 40 MG; Start 11/23/18 at 06:00 Meclizine HCl (Antivert) 25 mg TID PO Last administered on 12/02/18 13:55; Admin Dose 25 MG; Start 11/25/18 at 13:00 Methylprednisolone Sodium Succinate (Solu-Medrol) 20 mg Q8 IV Last administered on 12/02/18 13:56; Admin Dose 20 MG; Start 11/25/18 at 14:00 Levetiracetam (Keppra) 500 mg BID PO Last administered on 12/02/18 09:46; Admin Dose 500 MG; Start 11/26/18 at 21:00 NICOLE HARDING MD Dec 02, 2018 15:20
--- NOTE | 2018-12-02 20:51 | CONS ---
Assessment/Plan Assessment/Plan Assessment/Plan MRI brain spectroscopy as out patient. RTC 2 weeks. Lower back management is deferred to Dr. Davis. Consultation Date/Type/Reason Admit Date/Time Nov 21, 2018 at 05:24 Type of Consult Neurosurgery Reason for Consultation Small subependymal lesion Requesting Provider: FAVIOLA GREEN MD Date/Time of Note DATE: 12/02/18 TIME: 20:46 Constitutional: no complaints Eyes: no complaints ENT: no complaints Respiratory: no complaints Cardiovascular: no complaints Gastrointestinal: no complaints Genitourinary: no complaints Musculoskeletal: back pain Skin: no complaints Neurologic: no complaints Exam/Review of Systems Exam Vitals Vital Signs Date Temp Pulse Resp B/P (MAP) Pulse Ox O2 O2 Flow FiO2 Time Delivery Rate 12/02/18 98.0 96 18 162/85 96 19:45 (110) 12/02/18 Room Air 15:06 12/02/18 3.0 09:13 Intake and Output 12/01/18 12/01/18 12/02/18 1515:00 23:00 07:00 IntakeIntake Total 250 ml OutputOutput Total 600 ml 300 ml BalanceBalance -350 ml -300 ml Constitutional: alert, oriented, well developed Head: normocephalic, atraumatic Eyes: EOMI Neck: supple, non-tender Respiratory: clear to auscultation Cardiovascular: regular rate and rhythm Gastrointestinal: soft Extremities: normal pulses Neurological: PROCESSOR SOLID PROPELLANT II-XII intact, nl mental status, nl speech, nl strength Results Result Diagram: 11/29/184 11/29/18 0434 Medications Medication Current Medications Acetaminophen/ Hydrocodone Bitart ([place] (10/325)) 1 tab Q4H PRN PO .PAIN 1-5 Last administered on 12/01/18at 05:27; Admin Dose 1 TAB; Start 11/23/18 at 10:00 Hydromorphone HCl (Dilaudid) 0.2 mg Q1H PRN IV .BREAKTHROUGH PAIN Last administered on 12/02/18at 14:29; Admin Dose 0.2 MG; Start 11/21/18 at 07:00 Ondansetron HCl (Zofran Inj) 4 mg Q6H PRN IV NAUSEA/VOMITING Last administered on 11/29/18at 15:43; Admin Dose 4 MG; Start 11/21/18 at 07:00 Bisacodyl (Dulcolax Supp) 10 mg DAILY PRN [place] .CONSTIPATION Last administered on 12/02/18 07:07; Admin Dose 10 MG; Start 11/21/18 at 07:00 Docusate Sodium (Colace) 100 mg BID PO Last administered on 12/02/18 20:17; Admin Dose 100 MG; Start 11/21/18 at 21:00 Magnesium Hydroxide (Milk Of Mag) 30 ml HS PRN PO .CONSTIPATION/DYSPEPSIA Last administered on 11/25/18 15:11; Admin Dose 30 ML; Start 11/21/18 at 07:00 Acetaminophen (Tylenol Tab) 650 mg Q4H PRN PO FARRIS OR TEMP GREATER THAN 101.3F; Start 11/21/18 at 07:00 Phenol (Cepastat Lozenge) 1 lozenge PRN PRN MT .SORE THROAT; Start 11/21/18 at 07:00 Diphenhydramine HCl (Benadryl) 25 mg Q6H PRN PO .ITCHING; Start 11/21/18 at 07:00 Diphenhydramine HCl (Benadryl) 25 mg Q6H PRN IV .ITCHING; Start 11/21/18 at 07:00 Naloxone HCl (Narcan) 0.2 mg Q2M PRN IV .RR 8 BREATHS/MIN OR LESS Last administered on 11/23/18 09:14; Admin Dose 0.2 MG; Start 11/21/18 at 07:00 Baclofen (Lioresal) 20 mg TID PO Last administered on 12/02/18 20:17; Admin Dose 20 MG; Start 11/21/18 at 21:00 Acetaminophen/ Hydrocodone Bitart ([place] (10/325)) 2 tab Q4H PRN PO .PAIN 6-10 Last administered on 12/02/18 17:57; Admin Dose 2 TAB; Start 11/23/18 at 10:00 Amlodipine Besylate (Norvasc) 10 mg DAILY PO Last administered on 12/02/18 09:48; Admin Dose 10 MG; Start 11/22/18 at 09:00 Benazepril HCl (Lotensin) 40 mg DAILY PO Last administered on 12/02/18 09:48; Admin Dose 40 MG; Start 11/22/18 at 09:00 Gabapentin (Neurontin) 300 mg BID PO Last administered on 12/02/18 20:17; Admin Dose 300 MG; Start 11/21/18 at 21:00 Zolpidem Tartrate (Ambien) 5 mg HS PRN PO INSOMNIA Last administered on 11/29/18 03:23; Admin Dose 5 MG; Start 11/21/18 at 22:00 Pantoprazole (Protonix Tab) 40 mg DAILY@06 PO Last administered on 12/02/18 06:48; Admin Dose 40 MG; Start 11/23/18 at 06:00 Meclizine HCl (Antivert) 25 mg TID PO Last administered on 12/02/18 20:17; Admin Dose 25 MG; Start 11/25/18 at 13:00 Methylprednisolone Sodium Succinate (Solu-Medrol) 20 mg Q8 IV Last administered on 12/02/18 13:56; Admin Dose 20 MG; Start 11/25/18 at 14:00 Levetiracetam (Keppra) 500 mg BID PO Last administered on 12/02/18 20:17; Admin Dose 500 MG; Start 11/26/18 at 21:00 Past Medical History Medical History: no pertinent history Home Meds Reported Medications Acetaminophen with Codeine (Acetaminophen-Cod #3 Tablet) 1 Each Tablet, 1 TAB PO Q6H, #7 TAB 11/16/18 Gabapentin* (Gabapentin*) 300 Mg Capsule, 300 MG PO BID, #60 CAP 11/16/18 Baclofen* (Baclofen*) 20 Mg Tablet, 20 MG PO TID, TAB 11/16/18 Benazepril Hcl* (Benazepril Hcl*) 40 Mg Tablet, 40 MG PO DAILY, #30 TAB 03/14/18 Amlodipine Besylate* (Amlodipine Besylate*) 10 Mg Tablet, 10 MG PO DAILY, #30 TAB 03/14/18 Medications Current Medications Acetaminophen/ Hydrocodone Bitart ([place] (10/325)) 1 tab Q4H PRN PO .PAIN 1-5 Last administered on 12/01/18 05:27; Admin Dose 1 TAB; Start 11/23/18 at 10:00 Hydromorphone HCl (Dilaudid) 0.2 mg Q1H PRN IV .BREAKTHROUGH PAIN Last administered on 12/02/18 14:29; Admin Dose 0.2 MG; Start 11/21/18 at 07:00 Ondansetron HCl (Zofran Inj) 4 mg Q6H PRN IV NAUSEA/VOMITING Last administered on 11/29/18 15:43; Admin Dose 4 MG; Start 11/21/18 at 07:00 Bisacodyl (Dulcolax Supp) 10 mg DAILY PRN [place] .CONSTIPATION Last administered on 12/02/18 07:07; Admin Dose 10 MG; Start 11/21/18 at 07:00 Docusate Sodium (Colace) 100 mg BID PO Last administered on 12/02/18 20:17; Admin Dose 100 MG; Start 11/21/18 at 21:00 Magnesium Hydroxide (Milk Of Mag) 30 ml HS PRN PO .CONSTIPATION/DYSPEPSIA Last administered on 11/25/18 15:11; Admin Dose 30 ML; Start 11/21/18 at 07:00 Acetaminophen (Tylenol Tab) 650 mg Q4H PRN PO FARRIS OR TEMP GREATER THAN 101.3F; Start 11/21/18 at 07:00 Phenol (Cepastat Lozenge) 1 lozenge PRN PRN MT .SORE THROAT; Start 11/21/18 at 07:00 Diphenhydramine HCl (Benadryl) 25 mg Q6H PRN PO .ITCHING; Start 11/21/18 at 07:00 Diphenhydramine HCl (Benadryl) 25 mg Q6H PRN IV .ITCHING; Start 11/21/18 at 07:00 Naloxone HCl (Narcan) 0.2 mg Q2M PRN IV .RR 8 BREATHS/MIN OR LESS Last administered on 11/23/18 09:14; Admin Dose 0.2 MG; Start 11/21/18 at 07:00 Baclofen (Lioresal) 20 mg TID PO Last administered on 12/02/18 20:17; Admin Dose 20 MG; Start 11/21/18 at 21:00 Acetaminophen/ Hydrocodone Bitart ([place] (10/325)) 2 tab Q4H PRN PO .PAIN 6-10 Last administered on 12/02/18 17:57; Admin Dose 2 TAB; Start 11/23/18 at 10:00 Amlodipine Besylate (Norvasc) 10 mg DAILY PO Last administered on 12/02/18 09:48; Admin Dose 10 MG; Start 11/22/18 at 09:00 Benazepril HCl (Lotensin) 40 mg DAILY PO Last administered on 12/02/18 09:48; Admin Dose 40 MG; Start 11/22/18 at 09:00 Gabapentin (Neurontin) 300 mg BID PO Last administered on 12/02/18 20:17; Admin Dose 300 MG; Start 11/21/18 at 21:00 Zolpidem Tartrate (Ambien) 5 mg HS PRN PO INSOMNIA Last administered on 11/29/18 03:23; Admin Dose 5 MG; Start 11/21/18 at 22:00 Pantoprazole (Protonix Tab) 40 mg DAILY@06 PO Last administered on 12/02/18 06:48; Admin Dose 40 MG; Start 11/23/18 at 06:00 Meclizine HCl (Antivert) 25 mg TID PO Last administered on 12/02/18 20:17; Admin Dose 25 MG; Start 11/25/18 at 13:00 Methylprednisolone Sodium Succinate (Solu-Medrol) 20 mg Q8 IV Last administered on 12/02/18 13:56; Admin Dose 20 MG; Start 11/25/18 at 14:00 Levetiracetam (Keppra) 500 mg BID PO Last administered on 12/02/18 20:17; Admin Dose 500 MG; Start 11/26/18 at 21:00 Allergies: Coded Allergies: melon (Verified Allergy, Mild, 12/01/18) NAUSEA/VOMINTING Past Surgical History Past Surgical Hx: other Social History Smoking Status: Never smoker SAVI SUTTON MD Dec 02, 2018 20:51
[2018-12-03] MEDS: HYDROCODONE/APAP (10/325) TAB PO PRN ×6 (01:58→23:07)
[2018-12-03 02:05] VITALS: BP 142/74; PULSE 80; RESP 18
--- NOTE | 2018-12-03 02:41 | HKNOTE ---
DATE OF SERVICE: The patient is 38 years old status post underlying brain tumor. EEG done using [employer] e lectrode system with photic stimulation. Bilateral occipital hemisphere view showed alpha wave 8 to 9 Hz, medium size, low amplitude, asymmetric bilateral. Photic stimulation done , no epileptifo rm discharge or seizure activity is recorded. IMPRESSION: This is normal electroencephalogram. Normal electroencephalogram does not exclude a cli nical history of seizure. Followup EEG may be needed if clinically indicated. Dictated By: DOT MCDANIELS MD NA/NTS Conf#: [id number] DID#: [id number] CC: FAVIOLA GREEN MD;*EndCC*
[2018-12-03] MEDS: PANTOPRAZOLE (EC) 40 MG TAB PO SCH (06:01)
[2018-12-03] MEDS: METHYLPREDNISOLONE 40 MG INJ IV SCH ×3 (06:01→21:35)
--- NOTE | 2018-12-03 06:01 | HKNOTE ---
DATE OF SERVICE: HISTORY OF PRESENT ILLNESS: The patient is a 38-year-old status post lumbosacral fusion with a new o nset of dizzy spell in which the patient had MRI shows ependymoma in which the patient seen by oncanneliese thurman and seen by neurosurgeon, Dr. Abdalla, who ordered for him MRI spectroscopy for more evaluation an d they recommended for him to do it within 2 weeks. PHYSICAL EXAMINATION: GENERAL: The patient is alert, awake, oriented, following simple commands. CRANIAL NERVES: Cranial nerve II: Pupils are equal on both sides, reactive to light. Cranial nerve s III, IV and : Extraocular muscles are intact without nystagmus. Cranial nerve V: Equal sensati on to face. Cranial nerve VII: Symmetrical face. Cranial nerve VIII: Equal hearing bilaterally. Cranial nerves IX and X: Cranial nerve IX and X: Elevates palate. Cranial nerve XI: Elevates shou lder 5/5. Cranial nerve XII: With straight tongue. MOTOR: Equal for both sides. Moving both upper and lower extremity against gravity. SENSATION: Equal for light touch and temperature. COORDINATION: Jyzjuo-hv-umjo test intact. Gait with decreased balance using assistant auditor to go the res troom. ASSESSMENT AND PLAN: 1. The patient is a 38-year-old status post ependymoma. Follow up the patient by neurosurgery, appr eciate the consult with Dr. Abdalla as well as Dr. Choe for oncologist and Dr. Gerardo from neuro surgery. 2. Gait difficulty. Follow up the patient with physical therapy and cute rehabilitation. 3. Status post lumbosacral fusion with a history of 2 diskectomy. 4. Keep the patient under fall precaution. 5. Paresthesia. Continue the patient Neurontin 300 mg twice a day. 6. Muscle spasm. Give the patient Baclofen as needed. 7. Keep the patient under seizure precaution. Give him Keppra 500 mg twice a day. 8. History of hypertension. Give the patient Norvasc and Lotensin. Dictated By: DOT MCDANIELS MD NA/NTS Conf#: [id number] DID#: [id number] CC: FAVIOLA GERARDO MD;*EndCC*
[2018-12-03] MEDS: HYDROmorphONE 0.5 MG/0.5 ML SYG IV PRN (07:40)
[2018-12-03 07:51] VITALS: BP 157/93; PULSE 66; RESP 18
[2018-12-03] MEDS: MECLIZINE 25 MG TAB PO SCH ×3 (09:28→21:35)
[2018-12-03] MEDS: GABAPENTIN 300 MG CAP PO SCH ×2 (09:28→21:35)
[2018-12-03] MEDS: LEVETIRACETAM 500 MG TAB PO SCH ×2 (09:28→21:35)
[2018-12-03] MEDS: BACLOFEN 10 MG TAB PO SCH ×3 (09:28→21:35)
[2018-12-03] MEDS: DOCUSATE SODIUM 100 MG CAP PO SCH ×2 (09:28→21:35)
[2018-12-03] MEDS: AMLODIPINE 10 MG TAB PO SCH (09:29)
[2018-12-03] MEDS: BENAZEPRIL 40 MG TAB PO SCH (09:29)
--- NOTE | 2018-12-03 11:53 | PN ---
Date/Time of Note Date/Time of Note DATE: 12/03/18 TIME: 11:49 Assessment/Plan Lines/Catheters IV C[facility]ter Type (from [facility]): Saline Lock Baker in Place (from Nrs): No Assessment/Plan Assessment/Plan POD #5 s/p lumbar fusion Dr. Abdalla / neurosurgery - MRI brain spectroscopy as out patient, to f/u as outpatient in [address] Choe / oncology - re-eval after neurosurgery consult pending Dr. Medina / neurology - re-eval after neurosurgery and oncology consults pending if oncology and neurology feel that he can be d/c and managed as an outpatient moving forward then he can be d/c from inpatient care PT continues to feel that patient requires ARU patient feels that he requires ARU due to fall risk due to continued dizziness and syncope i would recommend ARU as well - Christel to speak with ARU and case therapist to see if his case can be re-evaluated Subjective 24 Hr Interval Summary pt continues to have dizziness and syncopal episodes concerned that he is a fall risk concerned to be d/c home due to risk of injury as well as 's inability to assist him at this level of care required wishes to go to ARU Exam/Review of Systems Vital Signs Vitals Vital Signs Date Temp Pulse Resp B/P (MAP) Pulse Ox O2 O2 Flow FiO2 Time Delivery Rate 12/03/18 Nasal 08:00 Cannula 12/03/18 98.1 66 18 157/93 96 07:51 (114) 12/02/18 3.0 09:13 Intake and Output 12/02/18 12/02/18 12/03/18 1414:59 22:59 06:59 IntakeIntake Total 1500 ml 600 ml OutputOutput Total 800 ml 1250 ml BalanceBalance 700 ml -650 ml Exam Free Text/Dictation AOx3 comfortable exam unchanged MRI lumbar and CT lumbar reviewed - right L4 and L5 pedicle screws are lateral, cages appropriately placed Results Result Diagram: 11/29/18 0434 11/29/18 043 MAXI CHOUDHARY PA-C Dec 03, 2018 11:53
[2018-12-03 15:02] VITALS: BP 142/77; PULSE 86; RESP 19
--- NOTE | 2018-12-03 20:15 | CONS ---
Assessment/Plan Assessment/Plan Problems: (1) Vertigo Status: Acute Comment: PERSISTS. ETIOLOGY STILL UNDETERMINED (2) Essential (primary) hypertension Status: Chronic Comment: FAIR BP CONTROL. COULD BE BETTER, BUT GIVEN PATIENT'S DIZZINESS IN CREASING BLOOD PRESSURE CONTROL MAY WORSEN HIS SYMPTOMS. (3) Status post lumbar spinal fusion Status: Resolved Comment: POST OP MANAGEMENT, PAIN MANAGEMENT,& PHYSICAL THERAPY PER DR. BRENNAN (4) Ependymoma Comment: PER NEUROSURGERY W/U TO BE DONE AN OUTPATIENT. Consultation Date/Type/Reason Admit Date/Time Nov 21, 2018 at 05:24 Initial Consult Date Type of Consult Internal Medicine Requesting Provider: FAVIOLA GREEN MD Date/Time of Note DATE: 12/03/18 TIME: 20:09 24 HR Interval Summary Free Text/Dictation CONTINUES TO EXPERIENCE EPISODES OF LIGHTHEADEDNESS. NO SYNCOPAL EPISODES PAST 24 HOURS Exam/Review of Systems Exam Vitals Vital Signs Date Temp Pulse Resp B/P (MAP) Pulse Ox O2 O2 Flow FiO2 Time Delivery Rate 12/03/18 97.7 86 19 142/77 96 15:02 (98) 12/03/18 Nasal 08:00 Cannula 12/02/18 3.0 09:13 Intake and Output 12/02/18 12/02/18 12/03/18 1515:00 23:00 07:00 IntakeIntake Total 1500 ml 600 ml OutputOutput Total 800 ml 1250 ml BalanceBalance 700 ml -650 ml Constitutional: alert, oriented Respiratory: clear to auscultation Cardiovascular: regular rate and rhythm Results Result Diagram: 11/29/18 0434 11/29/18 0434 Medications Medication Current Medications Acetaminophen/ Hydrocodone Bitart ([place] (10/325)) 1 tab Q4H PRN PO .PAIN 1-5 Last administered on 12/01/18at 05:27; Admin Dose 1 TAB; Start 11/23/18 at 10:00 Hydromorphone HCl (Dilaudid) 0.2 mg Q1H PRN IV .BREAKTHROUGH PAIN Last administered on 12/03/18at 07:40; Admin Dose 0.2 MG; Start 11/21/18 at 07:00 Ondansetron HCl (Zofran Inj) 4 mg Q6H PRN IV NAUSEA/VOMITING Last administered on 11/29/18at 15:43; Admin Dose 4 MG; Start 11/21/18 at 07:00 Bisacodyl (Dulcolax Supp) 10 mg DAILY PRN [place] .CONSTIPATION Last administered on 12/02/18 07:07; Admin Dose 10 MG; Start 11/21/18 at 07:00 Docusate Sodium (Colace) 100 mg BID PO Last administered on 12/03/18 09:28; Admin Dose 100 MG; Start 11/21/18 at 21:00 Magnesium Hydroxide (Milk Of Mag) 30 ml HS PRN PO .CONSTIPATION/DYSPEPSIA Last administered on 11/25/18 15:11; Admin Dose 30 ML; Start 11/21/18 at 07:00 Acetaminophen (Tylenol Tab) 650 mg Q4H PRN PO FARRIS OR TEMP GREATER THAN 101.3F; Start 11/21/18 at 07:00 Phenol (Cepastat Lozenge) 1 lozenge PRN PRN MT .SORE THROAT; Start 11/21/18 at 07:00 Diphenhydramine HCl (Benadryl) 25 mg Q6H PRN PO .ITCHING; Start 11/21/18 at 07:00 Diphenhydramine HCl (Benadryl) 25 mg Q6H PRN IV .ITCHING; Start 11/21/18 at 07:00 Naloxone HCl (Narcan) 0.2 mg Q2M PRN IV .RR 8 BREATHS/MIN OR LESS Last administered on 11/23/18 09:14; Admin Dose 0.2 MG; Start 11/21/18 at 07:00 Baclofen (Lioresal) 20 mg TID PO Last administered on 12/03/18 13:14; Admin Dose 20 MG; Start 11/21/18 at 21:00 Acetaminophen/ Hydrocodone Bitart ([place] (10/325)) 2 tab Q4H PRN PO .PAIN 6-10 Last administered on 12/03/18 18:38; Admin Dose 2 TAB; Start 11/23/18 at 10:00 Amlodipine Besylate (Norvasc) 10 mg DAILY PO Last administered on 12/03/18 09:29; Admin Dose 10 MG; Start 11/22/18 at 09:00 Benazepril HCl (Lotensin) 40 mg DAILY PO Last administered on 12/03/18 09:29; Admin Dose 40 MG; Start 11/22/18 at 09:00 Gabapentin (Neurontin) 300 mg BID PO Last administered on 12/03/18 09:28; Admin Dose 300 MG; Start 11/21/18 at 21:00 Zolpidem Tartrate (Ambien) 5 mg HS PRN PO INSOMNIA Last administered on 11/29/18 03:23; Admin Dose 5 MG; Start 11/21/18 at 22:00 Pantoprazole (Protonix Tab) 40 mg DAILY@06 PO Last administered on 12/03/18 06:01; Admin Dose 40 MG; Start 11/23/18 at 06:00 Meclizine HCl (Antivert) 25 mg TID PO Last administered on 12/03/18 13:14; Admin Dose 25 MG; Start 11/25/18 at 13:00 Methylprednisolone Sodium Succinate (Solu-Medrol) 20 mg Q8 IV Last administered on 12/03/18 14:46; Admin Dose 20 MG; Start 11/25/18 at 14:00 Levetiracetam (Keppra) 500 mg BID PO Last administered on 12/03/18 09:28; Admin Dose 500 MG; Start 11/26/18 at 21:00 NICOLE HARDING MD Dec 03, 2018 20:15
[2018-12-03 20:27] VITALS: BP 148/79; PULSE 85; RESP 18
[2018-12-03] MEDS: BISACODYL 10 MG SUPP PR PRN (21:35)
[2018-12-04] VITALS (8 sets, daily range): BP systolic 126–175; BP diastolic 73–89; PULSE 74–124; RESP 18–19
[2018-12-04] MEDS: HYDROCODONE/APAP (10/325) TAB PO PRN ×5 (03:21→22:49)
[2018-12-04] MEDS ORDERED: ATENOLOL 50 MG TAB PO ONE (05:30)
[2018-12-04] MEDS ORDERED: LORAZEPAM 1 MG TAB PO ONE (05:30)
[2018-12-04] MEDS: METHYLPREDNISOLONE 40 MG INJ IV SCH ×3 (05:37→21:35)
[2018-12-04] MEDS: PANTOPRAZOLE (EC) 40 MG TAB PO SCH (05:37)
--- NOTE | 2018-12-04 07:06 | CONS ---
DATE OF ADMISSION: 11/21/2018 DATE OF CONSULTATION: HISTORY OF PRESENT ILLNESS: The patient is 38-year-old, status post lumbosacral pain with two discec lópez in the past followed by fusion done by Dr. 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 PHYSICAL EXAMINATION: GENERAL: On exam today, the patient is alert, awake, oriented, following simple commands without dif ficulty. CRANIAL NERVES: Cranial nerve II: Pupils equal both sides, reactive to light. Cranial nerves III, IV, and : Extraocular muscles intact. No nystagmus. Cranial nerve V: Equal sensation to face. Cranial nerve VII: Symmetrical face. Cranial nerve VIII: Equal hearing bilaterally. Cranial nerve X: Elevates palate. Cranial nerve XI: Elevates shoulder 5/5. Cranial nerve XII: Straight tongue . MOTOR: Moving both upper extremities without difficulty. Lower extremity limited by low backache. Gait with employee relations assistant because of the low back ache with decrease in his balance, in which the patient s een by physical therapist. SENSATION: Equal for light touch and temperature. COORDINATION: [id number] test intact. ASSESSMENT AND PLAN: 1. 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 2. Gait difficulty in which the patient has decreased balance ____ by physical therapist and the pat ient might need acute rehabilitation according to the physical therapy evaluation. 3. Status post lumbosacral fusion and two discectomy me in the past. 4. Keep the patient under fall precautions for now. 5. Keep the patient under seizure precaution. Give him Keppra 500 mg twice a day. 6. Underlying paresthesia. Keep the patient on Neurontin 300 mg twice a day. 7. Muscle spasm in which the patient is to take Baclofen as needed. 8. History of hypertension. Keep the blood pressure on Norvasc and Lotensin. Again, thank you for asking me to see the patient with you. Dictated By: DOT RODRIGUEZ/NTS Conf#: [id number] [facility]#: [id number]
--- NOTE | 2018-12-04 08:12 | CONS ---
Consult Date/Type/Reason Admit Date/Time Nov 21, 2018 at 05:24 Initial Consult Date 11/10/2018 Type of Consultation: internal medicine Reason for Consultation medical f/u Requesting Provider: FAVIOLA GREEN MD Date/Time of Note DATE: 12/04/18 TIME: 08:06 Subjective still feeling dizzy at times did walk a little yesterday Objective Vitals Vital Signs Date Temp Pulse Resp B/P (MAP) Pulse Ox O2 O2 Flow FiO2 Time Delivery Rate 12/04/18 98.9 80 18 162/86 96 07:41 (111) 12/04/18 Nasal 06:49 Cannula 12/02/18 3.0 09:13 Intake and Output 12/03/18 12/03/18 12/04/18 1515:00 23:00 07:00 IntakeIntake Total 400 ml OutputOutput Total 300 ml 750 ml 550 ml BalanceBalance 100 ml -750 ml -550 ml Exam vital signs stable HEENT grossly negative lungs clear heart regular rhythm Results/Medications Home Meds Reported Medications Acetaminophen with Codeine (Acetaminophen-Cod #3 Tablet) 1 Each Tablet, 1 TAB PO Q6H, #7 TAB 11/16/18 Gabapentin* (Gabapentin*) 300 Mg Capsule, 300 MG PO BID, #60 CAP 11/16/18 Baclofen* (Baclofen*) 20 Mg Tablet, 20 MG PO TID, TAB 11/16/18 Benazepril Hcl* (Benazepril Hcl*) 40 Mg Tablet, 40 MG PO DAILY, #30 TAB 03/14/18 Amlodipine Besylate* (Amlodipine Besylate*) 10 Mg Tablet, 10 MG PO DAILY, #30 TAB 03/14/18 Medications Current Medications Acetaminophen/ Hydrocodone Bitart ([place] (10/325)) 1 tab Q4H PRN PO .PAIN 1-5 Last administered on 12/01/18at 05:27; Admin Dose 1 TAB; Start 11/23/18 at 10:00 Hydromorphone HCl (Dilaudid) 0.2 mg Q1H PRN IV .BREAKTHROUGH PAIN Last administered on 12/03/18at 07:40; Admin Dose 0.2 MG; Start 11/21/18 at 07:00 Ondansetron HCl (Zofran Inj) 4 mg Q6H PRN IV NAUSEA/VOMITING Last administered on 4/10/19at 15:43; Admin Dose 4 MG; Start 11/21/18 at 07:00 Bisacodyl (Dulcolax Supp) 10 mg DAILY PRN [place] .CONSTIPATION Last administered on 12/03/18 21:35; Admin Dose 10 MG; Start 11/21/18 at 07:00 Docusate Sodium (Colace) 100 mg BID PO Last administered on 12/03/18 21:35; Admin Dose 100 MG; Start 11/21/18 at 21:00 Magnesium Hydroxide (Milk Of Mag) 30 ml HS PRN PO .CONSTIPATION/DYSPEPSIA Last administered on 11/25/18 15:11; Admin Dose 30 ML; Start 11/21/18 at 07:00 Acetaminophen (Tylenol Tab) 650 mg Q4H PRN PO FARRIS OR TEMP GREATER THAN 101.3F; Start 11/21/18 at 07:00 Phenol (Cepastat Lozenge) 1 lozenge PRN PRN [place] .SORE THROAT; Start 11/21/18 at 07:00 Diphenhydramine HCl (Benadryl) 25 mg Q6H PRN PO .ITCHING; Start 11/21/18 at 07:00 Diphenhydramine HCl (Benadryl) 25 mg Q6H PRN IV .ITCHING; Start 11/21/18 at 07:00 Naloxone HCl (Narcan) 0.2 mg Q2M PRN IV .RR 8 BREATHS/MIN OR LESS Last administered on 11/23/18 09:14; Admin Dose 0.2 MG; Start 11/21/18 at 07:00 Baclofen (Lioresal) 20 mg TID PO Last administered on 12/03/18 21:35; Admin Dose 20 MG; Start 11/21/18 at 21:00 Acetaminophen/ Hydrocodone Bitart ([place] (10/325)) 2 tab Q4H PRN PO .PAIN 6-10 Last administered on 12/04/18 03:21; Admin Dose 2 TAB; Start 11/23/18 at 10:00 Amlodipine Besylate (Norvasc) 10 mg DAILY PO Last administered on 12/03/18 09:29; Admin Dose 10 MG; Start 11/22/18 at 09:00 Benazepril HCl (Lotensin) 40 mg DAILY PO Last administered on 12/03/18 09:29; Admin Dose 40 MG; Start 11/22/18 at 09:00 Gabapentin (Neurontin) 300 mg BID PO Last administered on 12/03/18 21:35; Admin Dose 300 MG; Start 11/21/18 at 21:00 Zolpidem Tartrate (Ambien) 5 mg HS PRN PO INSOMNIA Last administered on 11/29/18 03:23; Admin Dose 5 MG; Start 11/21/18 at 22:00 Pantoprazole (Protonix Tab) 40 mg DAILY@06 PO Last administered on 12/04/18 05:37; Admin Dose 40 MG; Start 11/23/18 at 06:00 Meclizine HCl (Antivert) 25 mg TID PO Last administered on 12/03/18 21:35; Admin Dose 25 MG; Start 11/25/18 at 13:00 Methylprednisolone Sodium Succinate (Solu-Medrol) 20 mg Q8 IV Last administered on 12/04/18 05:37; Admin Dose 20 MG; Start 11/25/18 at 14:00 Levetiracetam (Keppra) 500 mg BID PO Last administered on 12/03/18 21:35; Admin Dose 500 MG; Start 11/26/18 at 21:00 Assessment/Plan Hospital Course (Demo Recall) post-op in recovery room post lumbar spine surgery medically stable episodes of dizziness and brain fog etiology ?? Assessment/Plan (Daily) patient awaiting acute rehab evaluation and transfer patient in need of additional intensive physical therapy to be safe when he is discharged.SOD STRIPPER lesion can be evaluated later as outpatient per Neurosurgery and Neurology .medically stable at this point although situation is weighing on him. Cont'd Hospitalization Reason: not safe for home discharge yet. KEARA LUNA MD Dec 04, 2018 08:12
[2018-12-04] MEDS: BACLOFEN 10 MG TAB PO SCH ×3 (08:47→21:34)
[2018-12-04] MEDS: LEVETIRACETAM 500 MG TAB PO SCH ×2 (08:47→21:34)
[2018-12-04] MEDS: DOCUSATE SODIUM 100 MG CAP PO SCH ×2 (08:47→21:34)
[2018-12-04] MEDS: MECLIZINE 25 MG TAB PO SCH ×3 (08:47→21:34)
[2018-12-04] MEDS: GABAPENTIN 300 MG CAP PO SCH ×2 (08:48→21:34)
[2018-12-04] MEDS: BENAZEPRIL 40 MG TAB PO SCH (08:48)
[2018-12-04] MEDS: AMLODIPINE 10 MG TAB PO SCH (08:49)
[2018-12-04] MEDS: HYDROmorphONE 0.5 MG/0.5 ML SYG IV PRN ×2 (12:43→14:13)
--- NOTE | 2018-12-04 15:02 | PN ---
Date/Time of Note Date/Time of Note DATE: 12/04/18 TIME: 15:00 Assessment/Plan Lines/Catheters IV Catheter Type (from [facility]): Saline Lock Baker in Place (from [facility]): No Assessment/Plan Chief Complaint/Hosp Course Patient was admitted to the orthopedic [facility]jas after undergoing a lumbar fusion. Initially he was doing well and was being evaluated to go to acute rehab. He had an episode when he became dizzy. This improved but the following day he stated that when he would look at a distance to focus on a spot he would get nystagmus type symptoms. It appears to be vertigo however a neurology consult was obtained. He was prescribed medications which helped. To confirm no other causes a brain MRI was performed which ended up showing an ependymoma in the l ateral ventricle. I then ordered an MRI of the cervical and the thoracic spine to make sure that there is no drop lesions. The ependymoma was localized just in the lateral ventricle and the rest of the spine was normal. I spoke with the neurosurgeon who stated that this can be treated as an outpatient. The patient was not accepted to acute rehab and the reason was that the district medical examiner felt that he could be treated in a lower level of care. It was determined that the patient could go home. He is discharged to home with follow-up arranged with the undersigned. We will have the neurology consult make sure that he has the appropriate medications upon discharge. Assessment/Plan The patient continues to have dizziness with difficulty with visual concentration. It is not clear what the cause of this is. The neurosurgeon stated that his ependymoma can be worked up as an outpatient. This still does not explain his dizziness which I feel requires further workup. The patient is having right leg pain. I reviewed an MRI and a CT scan and I am concerned about the screw placement on the right side where he is symptomatic. I have recommended taking him to the operating room to remove these pedicle screws and possibly re-instrument at these levels or leave the screws out. Hopefully this will help with his right leg symptoms but this is not the cause of his dizzin ess. Once he undergoes surgery then I recommend that he be reassessed for the acute rehab unit. Subjective 24 Hr Interval Summary Complains of dizziness and right leg pain Exam/Review of Systems Vital Signs Vitals Vital Signs Date Temp Pulse Resp B/P (MAP) Pulse Ox O2 O2 Flow FiO2 Time Delivery Rate 12/04/18 97.5 14:25 12/04/18 74 18 126/78 96 14:20 (94) 12/04/18 Nasal 06:49 Cannula 12/02/18 3.0 09:13 Intake and Output 12/03/18 12/03/18 12/04/18 1515:00 23:00 07:00 IntakeIntake Total 400 ml OutputOutput Total 300 ml 750 ml 550 ml BalanceBalance 100 ml -750 ml -550 ml Exam Free Text/Dictation Right great toe weakness FAVIOLA GREEN MD Dec 04, 2018 15:02
--- NOTE | 2018-12-04 17:06 | PREAC ---
Date/Time of Note Date/Time of Note DATE: 12/04/18 TIME: 17:05 Anesthesia Eval and Record Evaluation Time Pre-Procedure Interview DATE: 12/04/18 TIME: 17:05 Age 38 Sex male NPO: 8 hrs Preoperative diagnosis post lumbosacral pain Planned procedure REMOVAL OF RIGHT LUMBAR L4-5, L5-S1 pedicles Past Medical History Past Medical History: Includes Cardio: HTN Pulm: Sleep Apnea GI: Obesity Surgery & Anesthesia Issues No known issue Meds Anticoagulation: No Beta Alonso within 24 hr: No Reason Beta Alonso not given: Pt. not on B-Alonso Reported Medications Acetaminophen with Codeine (Acetaminophen-Cod #3 Tablet) 1 Each Tablet, 1 TAB PO Q6H, #7 TAB 11/16/18 Gabapentin* (Gabapentin*) 300 Mg Capsule, 300 MG PO BID, #60 CAP 11/16/18 Baclofen* (Baclofen*) 20 Mg Tablet, 20 MG PO TID, TAB 11/16/18 Benazepril Hcl* (Benazepril Hcl*) 40 Mg Tablet, 40 MG PO DAILY, #30 TAB 03/14/18 Amlodipine Besylate* (Amlodipine Besylate*) 10 Mg Tablet, 10 MG PO DAILY, #30 TAB 03/14/18 Current Medications Acetaminophen/ Hydrocodone Bitart ([place] (10/325)) 1 tab Q4H PRN PO .PAIN 1-5 Last administered on 12/01/18at 05:27; Admin Dose 1 TAB; Start 11/23/18 at 10:00 Hydromorphone HCl (Dilaudid) 0.2 mg Q1H PRN IV .BREAKTHROUGH PAIN Last administered on 12/04/18at 14:13; Admin Dose 0.2 MG; Start 11/21/18 at 07:00 Ondansetron HCl (Zofran Inj) 4 mg Q6H PRN IV NAUSEA/VOMITING Last administered on 11/29/18at 15:43; Admin Dose 4 MG; Start 11/21/18 at 07:00 Bisacodyl (Dulcolax Supp) 10 mg DAILY PRN [place] .CONSTIPATION Last administered on 12/03/18at 21:35; Admin Dose 10 MG; Start 11/21/18 at 07:00 Docusate Sodium (Colace) 100 mg BID PO Last administered on 12/04/18at 08:47; Admin Dose 100 MG; Start 11/21/18 at 21:00 Magnesium Hydroxide (Milk Of Mag) 30 ml HS PRN PO .CONSTIPATION/DYSPEPSIA Last administered on 11/25/18 15:11; Admin Dose 30 ML; Start 11/21/18 at 07:00 Acetaminophen (Tylenol Tab) 650 mg Q4H PRN PO FARRIS OR TEMP GREATER THAN 101.3F; Start 11/21/18 at 07:00 Phenol (Cepastat Lozenge) 1 lozenge PRN PRN [place] .SORE THROAT; Start 11/21/18 at 07:00 Diphenhydramine HCl (Benadryl) 25 mg Q6H PRN PO .ITCHING; Start 11/21/18 at 07:00 Diphenhydramine HCl (Benadryl) 25 mg Q6H PRN IV .ITCHING; Start 11/21/18 at 07:00 Naloxone HCl (Narcan) 0.2 mg Q2M PRN IV .RR 8 BREATHS/MIN OR LESS Last administered on 11/23/18 09:14; Admin Dose 0.2 MG; Start 11/21/18 at 07:00 Baclofen (Lioresal) 20 mg TID PO Last administered on 12/04/18 12:43; Admin Dose 20 MG; Start 11/21/18 at 21:00 Acetaminophen/ Hydrocodone Bitart ([place] (10/325)) 2 tab Q4H PRN PO .PAIN 6-10 Last administered on 12/04/18 14:01; Admin Dose 2 TAB; Start 11/23/18 at 10:00 Amlodipine Besylate (Norvasc) 10 mg DAILY PO Last administered on 12/04/18 08:49; Admin Dose 10 MG; Start 11/22/18 at 09:00 Benazepril HCl (Lotensin) 40 mg DAILY PO Last administered on 12/04/18 08:48; Admin Dose 40 MG; Start 11/22/18 at 09:00 Gabapentin (Neurontin) 300 mg BID PO Last administered on 12/04/18 08:48; Admi n Dose 300 MG; Start 11/21/18 at 21:00 Zolpidem Tartrate (Ambien) 5 mg HS PRN PO INSOMNIA Last administered on 11/29/18 03:23; Admin Dose 5 MG; Start 11/21/18 at 22:00 Pantoprazole (Protonix Tab) 40 mg DAILY@06 PO Last administered on 12/04/18at 05:37; Admin Dose 40 MG; Start 11/23/18 at 06:00 Meclizine HCl (Antivert) 25 mg TID PO Last administered on 12/04/18at 12:43; Admin Dose 25 MG; Start 11/25/18 at 13:00 Methylprednisolone Sodium Succinate (Solu-Medrol) 20 mg Q8 IV Last administered on 12/04/18at 14:02; Admin Dose 20 MG; Start 11/25/18 at 14:00 Levetiracetam (Keppra) 500 mg BID PO Last administered on 12/04/18at 08:47; Admin Dose 500 MG; Start 11/26/18 at 21:00 Meds reviewed: Yes Allergies Coded Allergies: melon (Verified Allergy, Mild, 12/01/18) NAUSEA/VOMINTING Allergies Reviewed: Yes Labs/Studies Labs Reviewed: Reviewed by anesthesiologist test: N/A Pre-procedure Exam Last vitals Vital Signs Date Temp Pulse Resp B/P (MAP) Pulse Ox O2 O2 Flow FiO2 Time Delivery Rate 12/04/18 97.5 14:25 12/04/18 74 18 126/78 96 14:20 (94) 12/04/18 Nasal 06:49 Cannula 12/02/18 3.0 09:13 Airway: Adequate mouth opening Mallampati: Mallampati II Teeth: Normal Lung: Normal Heart: Normal ASA Physical Status ASA physical status: 2 Emergency: None Planned Anesthetic General/MAC: ETT Pre-operative Attestations Prior to commencing anesthesia and surgery, the patient was re-evaluated, there was verification of: *The patient's identity *The results of appropriate recent lab work and preoperative vital signs *The above evaluation not changing prior to induction *Anesthetic plan, risk benefits, alternative and complications discussed with patient/family; questions answered; patient/family understands, accepts and wishes to proceed. SHOBHA CASTILLO Dec 04, 2018 17:06
[2018-12-04] MEDS: BISACODYL 10 MG SUPP PR PRN (23:56)
--- NOTE | 2018-12-04 23:58 | CONS ---
DATE OF ADMISSION: 11/21/2018 DATE OF CONSULTATION: HISTORY OF PRESENT ILLNESS: The patient is a 38-year-old male status post acute dizzy spell which MR I showed the patient have ependymoma. Neurosurgery consult as well as oncologic consult was initiate d; however, the patient still has a low backache with gait difficulty in which Dr. Gerardo wants to adjust his screws in his lower back. Acute rehab consult still pending. CURRENT MEDICATIONS: Include: 1. Dilaudid as needed. 2. Keppra 500 mg twice a day. 3. Solu-Medrol 20 mg every 8 hours. 4. Antivert 25 mg 3 times a day. 5. Endeavor 1 tablet every 4 hours. 6. Norvasc 10 mg once a day. 7. Lotensin 40 mg once a day. 8. Ambien 5 mg once at night. 9. Colace 100 mg twice a day as needed. 10. Neurontin 300 mg twice a day. 11. Zofran 4 mg every 6 hours as needed. 12. Tylenol 650 mg every 4 hours as needed. PHYSICAL EXAMINATION: GENERAL: On exam today, the patient is alert, awake, following simple commands. CRANIAL NERVES: Cranial nerve II: Pupils equal on both sides, reactive to light. Cranial nerves II I, IV and : Extraocular muscles are intact without nystagmus. Cranial nerve V: Equal sensation t o face. Cranial nerve VII: Symmetrical face. Cranial nerve VIII: Equal hearing bilaterally. Cran ial nerve IX and X: Elevates palate. Cranial nerve XI: Elevates shoulder 5/5. Cranial nerve XII: With straight tongue. MOTOR: Moving both upper and extremity 5/5, bilateral lower extremity 4+/5, limited by low backache. Gait with infertility medical assistant. CARDIOVASCULAR: Regular rate and rhythm. LUNGS: Equal breath sounds. ABDOMEN: Soft, relaxed, nondistended. No tenderness. ASSESSMENT AND PLAN: 1. The patient is a 38-year-old male status post low back ache in which the patient might have a pro cedure with Dr. Gerardo to adjust his screws. 2. Underlying ependymoma in which the patient is followed by neurosurgery for they might order for h im a SPECT scan. 3. Keep the patient under seizure precaution in the form of Keppra 500 mg twice a day. 4. Underlying paresthesia. Continue the patient Neurontin 300 mg 3 times a day. 5. Muscle spasm. Give the patient Baclofen as needed. 6. History of hypertension. Give the patient Norvasc and Lotensin. 7. The patient going to the procedure for screw adjustment for the fusion surgery . Again, thank you for asking me to see the patient with you. Dictated By: DOT MCDANIELS MD NA/NTS Conf#: [id number] DID#: [id number] CC: FAVIOLA GERARDO MD;*End*
[2018-12-05] VITALS (18 sets, daily range): BP systolic 133–154; BP diastolic 59–88; PULSE 62–88; RESP 12–26
[2018-12-05] MEDS ORDERED: HYDROmorphONE 0.2 MG/ML PCA IV SCH
[2018-12-05] MEDS: PANTOPRAZOLE 40 MG INJ IV SCH (05:39)
[2018-12-05] MEDS: METHYLPREDNISOLONE 40 MG INJ IV SCH ×3 (05:39→20:43)
--- NOTE | 2018-12-05 08:07 | CONS ---
Consult Date/Type/Reason Admit Date/Time Nov 21, 2018 at 05:24 Initial Consult Date 11/10/2018 Type of Consultation: internal medicine Reason for Consultation medical f/u Requesting Provider: FAVIOLA GREEN MD Date/Time of Note DATE: 12/05/18 TIME: 08:03 Subjective having surgery today Objective Vitals Vital Signs Date Temp Pulse Resp B/P (MAP) Pulse Ox O2 O2 Flow FiO2 Time Delivery Rate 12/05/18 97.7 62 18 154/81 94 07:55 (105) 12/05/18 Room Air 02:05 12/02/18 3.0 09:13 Intake and Output 12/04/18 12/04/18 12/05/18 1515:00 23:00 07:00 OutputOutput Total 500 ml BalanceBalance -500 ml Exam Vital signs stable HEENT negative lungs clear heart regular rhythm Results/Medications Result Diagram: 12/04/18 1827 Results 24 hrs Laboratory Tests Test 12/04/18 18:27 Sodium Level 138 Potassium Level 4.8 Chloride Level 103 Carbon Dioxide Level 27 Anion Gap 8 Blood Urea Nitrogen 26 H Creatinine 0.75 Est Glomerular Filtrat Rate mL/min > 60 Glucose Level 131 Calcium Level 8.6 Home Meds Reported Medications Acetaminophen with Codeine (Acetaminophen-Cod #3 Tablet) 1 Each Tablet, 1 TAB PO Q6H, #7 TAB 11/16/18 Gabapentin* (Gabapentin*) 300 Mg Capsule, 300 MG PO BID, #60 CAP 11/16/18 Baclofen* (Baclofen*) 20 Mg Tablet, 20 MG PO TID, TAB 11/16/18 Benazepril Hcl* (Benazepril Hcl*) 40 Mg Tablet, 40 MG PO DAILY, #30 TAB 03/14/18 Amlodipine Besylate* (Amlodipine Besylate*) 10 Mg Tablet, 10 MG PO DAILY, #30 TAB 03/14/18 Medications Current Medications Acetaminophen/ Hydrocodone Bitart ([place] (10/325)) 1 tab Q4H PRN PO .PAIN 1-5 Last administered on 12/01/18at 05:27; Admin Dose 1 TAB; Start 11/23/18 at 10:00; Status Hold Hydromorphone HCl (Dilaudid) 0.2 mg Q1H PRN IV .BREAKTHROUGH PAIN Last administered on 12/04/18at 14:13; Admin Dose 0.2 MG; Start 11/21/18 at 07:00 Ondansetron HCl (Zofran Inj) 4 mg Q6H PRN IV NAUSEA/VOMITING Last administered on 11/29/18 15:43; Admin Dose 4 MG; Start 11/21/18 at 07:00 Bisacodyl (Dulcolax Supp) 10 mg DAILY PRN [place] .CONSTIPATION Last administered on 12/04/18 23:56; Admin Dose 10 MG; Start 11/21/18 at 07:00 Docusate Sodium (Colace) 100 mg BID PO Last administered on 12/04/18 21:34; Admin Dose 100 MG; Start 11/21/18 at 21:00 Magnesium Hydroxide (Milk Of Mag) 30 ml HS PRN PO .CONSTIPATION/DYSPEPSIA Last administered on 11/25/18 15:11; Admin Dose 30 ML; Start 11/21/18 at 07:00 Acetaminophen (Tylenol Tab) 650 mg Q4H PRN PO FARRIS OR TEMP GREATER THAN 101.3F; Start 11/21/18 at 07:00 Phenol (Cepastat Lozenge) 1 lozenge PRN PRN [place] .SORE THROAT; Start 11/21/18 at 07:00 Diphenhydramine HCl (Benadryl) 25 mg Q6H PRN PO .ITCHING; Start 11/21/18 at 07:00 Diphenhydramine HCl (Benadryl) 25 mg Q6H PRN IV .ITCHING; Start 11/21/18 at 07:00 Naloxone HCl (Narcan) 0.2 mg Q2M PRN IV .RR 8 BREATHS/MIN OR LESS Last administered on 11/23/18 09:14; Admin Dose 0.2 MG; Start 11/21/18 at 07:00 Baclofen (Lioresal) 20 mg TID PO Last administered on 12/04/18 21:34; Admin Dose 20 MG; Start 11/21/18 at 21:00 Acetaminophen/ Hydrocodone Bitart ([place] (10/325)) 2 tab Q4H PRN PO .PAIN 6-10 Last administered on 12/04/18 22:49; Admin Dose 2 TAB; Start 11/23/18 at 10:00; Status Hold Amlodipine Besylate (Norvasc) 10 mg DAILY PO Last administered on 12/04/18 08:49; Admin Dose 10 MG; Start 11/22/18 at 09:00 Benazepril HCl (Lotensin) 40 mg DAILY PO Last administered on 12/04/18 08:48; Admin Dose 40 MG; Start 11/22/18 at 09:00 Gabapentin (Neurontin) 300 mg BID PO Last administered on 12/04/18 21:34; Admin Dose 300 MG; Start 11/21/18 at 21:00 Zolpidem Tartrate (Ambien) 5 mg HS PRN PO INSOMNIA Last administered on 11/29/18 03:23; Admin Dose 5 MG; Start 11/21/18 at 22:00 Meclizine HCl (Antivert) 25 mg TID PO Last administered on 12/04/18 21:34; Admin Dose 25 MG; Start 11/25/18 at 13:00 Methylprednisolone Sodium Succinate (Solu-Medrol) 20 mg Q8 IV Last administered on 12/05/18 05:39; Admin Dose 20 MG; Start 11/25/18 at 14:00 Levetiracetam (Keppra) 500 mg BID PO Last administered on 12/04/18 21:34; Admin Dose 500 MG; Start 11/26/18 at 21:00 Hydromorphone HCl (Dilaudid STREET SWEEPER) 0 MG/HR CONTINUOUS RATE ... Q4PCA IV Last administered on 12/05/18 01:21; Admin Dose 6 MG; Start 12/05/18 at 00:00 Pantoprazole (Protonix Iv) 40 mg DAILY@06 IV Last administered on 12/05/18 05:39; Admin Dose 40 MG; Start 12/05/18 at 06:00 Assessment/Plan Hospital Course (Demo Recall) post-op in recovery room post lumbar spine surgery medically stable episodes of dizziness and brain fog etiology ?? Assessment/Plan (Daily) patient schedule for surgery for removal and replacement of hardware apparently out of place possibly causing increased pain medically stable KEARA LUNA MD Dec 05, 2018 08:07
[2018-12-05] MEDS: LEVETIRACETAM 500 MG TAB PO SCH ×2 (08:12→20:43)
[2018-12-05] MEDS: BACLOFEN 10 MG TAB PO SCH ×3 (08:12→20:43)
[2018-12-05] MEDS: GABAPENTIN 300 MG CAP PO SCH ×2 (08:12→20:43)
[2018-12-05] MEDS: AMLODIPINE 10 MG TAB PO SCH (08:13)
[2018-12-05] MEDS: BENAZEPRIL 40 MG TAB PO SCH (08:13)
[2018-12-05] MEDS: MECLIZINE 25 MG TAB PO SCH ×3 (08:20→20:43)
[2018-12-05] MEDS: DOCUSATE SODIUM 100 MG CAP PO SCH ×2 (08:20→20:43)
--- NOTE | 2018-12-05 09:06 | PN ---
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 2g ancef urologic surgeon to OR as ordered yesterday Subjective 24 Hr Interval Summary c/o dizziness c/o radiating pain down right leg Exam/Review of Systems Vital Signs Vitals Vital Signs Date Temp Pulse Resp B/P (MAP) Pulse Ox O2 O2 Flow FiO2 Time Delivery Rate 12/05/18 18 08:00 12/05/18 97.7 62 154/81 94 07:55 (105) 12/05/18 Room Air 02:05 12/02/18 3.0 09:13 Intake and Output 12/04/18 12/04/18 12/05/18 1414:59 22:59 06:59 OutputOutput Total 500 ml BalanceBalance -500 ml Exam Free Text/Dictation AOx3 NAD vitals reviewed exam unchanged Results Result Diagram: 12/04/18 1827 MAXI CHOUDHARY PA-C Dec 05, 2018 09:06
[2018-12-05] MEDS ORDERED: THROMBIN (BOVINE) 5,000 UNIT VIAL TP ONE (14:20)
[2018-12-05] MEDS ORDERED: SURGIFOAM POWDER 1 GM KIT ONE (14:20)
[2018-12-05] MEDS ORDERED: POLYMYXIN/BACITRACIN 1L IRRIG ONE ×2 (14:20→14:48)
[2018-12-05] MEDS ORDERED: BUPIVACAINE 0.25%/EPI (SDV) 30 ML INJ ONE (14:20)
--- NOTE | 2018-12-05 15:11 | PREAC ---
Date/Time of Note Date/Time of Note DATE: 12/05/18 TIME: 15:07 Anesthesia Eval and Record Evaluation Time Pre-Procedure Interview DATE: 12/05/18 TIME: 15:07 Age 38 Sex male NPO: 8 hrs Preoperative diagnosis LUMBAR DISC DISEASE, PREVIOUS INSTRUMENTATION Planned procedure REMOVAL SCREW L4-L5 AND L5-S1 WITH REINSTRUMENTATION FUSION L4-S1 Past Medical History Past Medical History: Includes Cardio: HTN Pulm: Sleep Apnea GI: Obesity Surgery & Anesthesia Issues No known issue Meds Anticoagulation: No Beta Alonso within 24 hr: No Reason Beta Alonso not given: Pt. not on B-Alonso Reported Medications Acetaminophen with Codeine (Acetaminophen-Cod #3 Tablet) 1 Each Tablet, 1 TAB PO Q6H, #7 TAB 11/16/18 Gabapentin* (Gabapentin*) 300 Mg Capsule, 300 MG PO BID, #60 CAP 11/16/18 Baclofen* (Baclofen*) 20 Mg Tablet, 20 MG PO TID, TAB 11/16/18 Benazepril Hcl* (Benazepril Hcl*) 40 Mg Tablet, 40 MG PO DAILY, #30 TAB 03/14/18 Amlodipine Besylate* (Amlodipine Besylate*) 10 Mg Tablet, 10 MG PO DAILY, #30 TAB 03/14/18 Current Medications Acetaminophen/ Hydrocodone Bitart ([place] (10/325)) 1 tab Q4H PRN PO .PAIN 1-5 Last administered on 12/01/18at 05:27; Admin Dose 1 TAB; Start 11/23/18 at 10:00; Status Hold Hydromorphone HCl (Dilaudid) 0.2 mg Q1H PRN IV .BREAKTHROUGH PAIN Last admi nistered on 12/04/18at 14:13; Admin Dose 0.2 MG; Start 11/21/18 at 07:00 Ondansetron HCl (Zofran Inj) 4 mg Q6H PRN IV NAUSEA/VOMITING Last administered on 11/29/18at 15:43; Admin Dose 4 MG; Start 11/21/18 at 07:00 Bisacodyl (Dulcolax Supp) 10 mg DAILY PRN [place] .CONSTIPATION Last administered on 12/04/18at 23:56; Admin Dose 10 MG; Start 11/21/18 at 07:00 Docusate Sodium (Colace) 100 mg BID PO Last administered on 12/04/18 21:34; Admin Dose 100 MG; Start 11/21/18 at 21:00 Magnesium Hydroxide (Milk Of Mag) 30 ml HS PRN PO .CONSTIPATION/DYSPEPSIA Last administered on 11/25/18 15:11; Admin Dose 30 ML; Start 11/21/18 at 07:00 Acetaminophen (Tylenol Tab) 650 mg Q4H PRN PO FARRIS OR TEMP GREATER THAN 101.3F; Start 11/21/18 at 07:00 Phenol (Cepastat Lozenge) 1 lozenge PRN PRN [place] .SORE THROAT; Start 11/21/18 at 07:00 Diphenhydramine HCl (Benadryl) 25 mg Q6H PRN PO .ITCHING; Start 11/21/18 at 07:00 Diphenhydramine HCl (Benadryl) 25 mg Q6H PRN IV .ITCHING; Start 11/21/18 at 07:00 Naloxone HCl (Narcan) 0.2 mg Q2M PRN IV .RR 8 BREATHS/MIN OR LESS Last administered on 11/23/18 09:14; Admin Dose 0.2 MG; Start 11/21/18 at 07:00 Baclofen (Lioresal) 20 mg TID PO Last administered on 12/05/18 08:12; Admin Do se 20 MG; Start 11/21/18 at 21:00 Acetaminophen/ Hydrocodone Bitart ([place] (10/325)) 2 tab Q4H PRN PO .PAIN 6-10 Last administered on 12/04/18 22:49; Admin Dose 2 TAB; Start 11/23/18 at 10:00; Status Hold Amlodipine Besylate (Norvasc) 10 mg DAILY PO Last administered on 12/05/18 08:13; Admin Dose 10 MG; Start 11/22/18 at 09:00 Benazepril HCl (Lotensin) 40 mg DAILY PO Last administered on 12/05/18 08:13; Admin Dose 40 MG; Start 11/22/18 at 09:00 Gabapentin (Neurontin) 300 mg BID PO Last administered on 12/05/18 08:12; Admin Dose 300 MG; Start 11/21/18 at 21:00 Zolpidem Tartrate (Ambien) 5 mg HS PRN PO INSOMNIA Last administered on 11/29/18 03:23; Admin Dose 5 MG; Start 11/21/18 at 22:00 Meclizine HCl (Antivert) 25 mg TID PO Last administered on 12/05/18 08:20; Admin Dose 25 MG; Start 11/25/18 at 13:00 Methylprednisolone Sodium Succinate (Solu-Medrol) 20 mg Q8 IV Last administered on 12/05/18 05:39; Admin Dose 20 MG; Start 11/25/18 at 14:00 Levetiracetam (Keppra) 500 mg BID PO Last administered on 12/05/18 08:12; Admin Dose 500 MG; Start 11/26/18 at 21:00 Hydromorphone HCl (Dilaudid CLINICAL EDUCATION SPECIALIST) 0 MG/HR CONTINUOUS RATE ... Q4PCA IV Last administered on 12/05/18 01:21; Admin Dose 6 MG; Start 12/05/18 at 00:00 Pantoprazole (Protonix Iv) 40 mg DAILY@06 IV Last administered on 12/05/18 05:39; Admin Dose 40 MG; Start 12/05/18 at 06:00 Meds reviewed: Yes Allergies Coded Allergies: melon (Verified Allergy, Mild, 12/01/18) NAUSEA/VOMINTING Allergies Reviewed: Yes Labs/Studies Labs Reviewed: Reviewed by anesthesiologist Result Diagram: 12/04/18 1827 Laboratory Tests 12/04/18 18:27 test: N/A Studies: ECG Pre-procedure Exam Last vitals Vital Signs Date Temp Pulse Resp B/P (MAP) Pulse Ox O2 O2 Flow FiO2 Time Delivery Rate 12/05/18 98.4 64 18 135/88 96 14:05 (104) 12/05/18 Room Air 02:05 12/02/18 3.0 09:13 Airway: Adequate mouth opening, Adequate thyromental dist Mallampati: Mallampati II Teeth: Normal Lung: Normal Heart: Normal ASA Physical Status ASA physical status: 2 Emergency: None Planned Anesthetic General/MAC: ETT Planned Pain Management Parenteral pain med Pre-operative Attestations Prior to commencing anesthesia and surgery, the patient was re-evaluated, there was verification of: *The patient's identity *The results of appropriate recent lab work and preoperative vital signs *The above evaluation not changing prior to induction *Anesthetic plan, risk benefits, alternative and complications discussed with patient/family; questions answered; patient/family understands, accepts and wishes to proceed. NADIRA NESBITT Dec 05, 2018 15:11
[2018-12-05] MEDS ORDERED: PROPOFOL 20 ML ONE (15:16)
--- NOTE | 2018-12-05 15:51 | HPN ---
Date/Time of Note Date/Time of Note DATE: 12/05/18 TIME: 15:51 Interval H&P Admission Note Pt. seen H&P reviewed: No system changes MAXI CHOUDHARY PA-C Dec 05, 2018 15:51
[2018-12-05] MEDS: D5W-0.45 NACL + KCL 20 MEQ 1,000 ML IV SCH ×2 (15:58→20:36)
[2018-12-05] MEDS ORDERED: DIPHENHYDRAMINE 25 MG CAP PO PRN (16:00)
[2018-12-05] MEDS ORDERED: CEPASTAT LOZENGE MT PRN (16:00)
[2018-12-05] MEDS ORDERED: DIPHENHYDRAMINE 50 MG INJ IV PRN ×2 (16:00→18:30)
[2018-12-05] MEDS ORDERED: NALOXONE (0.4 MG/ML) INJ IV PRN (16:00)
[2018-12-05] MEDS ORDERED: ROCURONIUM 50 MG INJ ONE (16:25)
[2018-12-05] MEDS ORDERED: LIDOCAINE 2% (SDV) 5 ML INJ ONE (16:26)
[2018-12-05] MEDS ORDERED: CEFAZOLIN 1 GM INJ ONE (16:26)
[2018-12-05] MEDS ORDERED: morphine 10 MG INJ ONE (16:26)
[2018-12-05] MEDS ORDERED: BUPIVACAINE 0.25% (MPF) 30 ML INJ ONE (17:26)
[2018-12-05] MEDS ORDERED: DEXAMETHASONE 4 MG/ML 5 ML INJ ONE (17:30)
[2018-12-05] MEDS ORDERED: ONDANSETRON 4 MG INJ ONE (17:30)
[2018-12-05] MEDS ORDERED: SUGAMMADEX SODIUM 200 MG/2 ML VIAL IV ONE (17:50)
--- NOTE | 2018-12-05 18:09 | SIPON ---
Date/Time of Note Date/Time of Note DATE: 12/05/18 TIME: 18:08 Operative Report Preoperative Diagnosis RETAINED PAINFUL HARDWARE ON THE RIGHT Postoperative Diagnosis RETAINED PAINFUL HARDWARE ON THE RIGHT Operation/Procedure Performed REMOVAL AND RE-INSTRUMENTATION L4-S1 ON THE RIGHT Surgeon see signature line post production assistant KENRICK Anesthesia: general Estimated blood loss: 10 - 50 ml's Transfusion Required none Specimen HARDWARE Grafts/Implants none Complications none FAVIOLA GREEN MD Dec 05, 2018 18:09
--- NOTE | 2018-12-05 18:18 | PAC ---
Date/Time of Note Date/Time of Note DATE: 12/05/18 TIME: 18:18 Post-Anesthesia Notes Post-Anesthesia Note Last documented vital signs Vital Signs Date Temp Pulse Resp B/P (MAP) Pulse Ox O2 O2 Flow FiO2 Time Delivery Rate 12/05/18 98.4 64 18 135/88 96 1812 (104) 12/05/18 Room Air 02:05 12/02/18 3.0 09:13 Activity: WNL Respiratory function: WNL Cardiovascular function: WNL Mental status: Baseline Pain reasonably controlled: Yes Hydration appropriate: Yes Nausea/Vomiting absent: Yes NADIRA NESBITT Dec 05, 2018 18:18
[2018-12-05] MEDS ORDERED: HYDROmorphONE 1 MG/5 ML IV SYRINGE IV ONE (18:22)
[2018-12-05] MEDS: HYDROmorphONE 0.2 MG/ML PCA IV SCH (18:25)
[2018-12-05] MEDS ORDERED: hydrALAzine 20 MG INJ IV PRN (18:30)
[2018-12-05] MEDS ORDERED: ONDANSETRON 4 MG INJ IV PRN (18:30)
[2018-12-05] MEDS ORDERED: ALBUTEROL 0.083% (NEB) 2.5 MG/3 ML AMP HHN PRN (18:30)
[2018-12-05] MEDS ORDERED: HYDROmorphONE 1 MG/5 ML IV SYRINGE IV PRN ×3 (18:30)
[2018-12-05] MEDS ORDERED: MEPERIDINE 25 MG INJ IV PRN (18:30)
[2018-12-05] MEDS ORDERED: KETOROLAC 30 MG INJ IV PRN (18:30)
[2018-12-05] MEDS ORDERED: EPHEDrine SULFATE 50 MG/5 ML SYG IV PRN (18:30)
[2018-12-05] MEDS ORDERED: METOCLOPRAMIDE 10 MG INJ IV PRN (18:30)
[2018-12-05] MEDS ORDERED: LABETALOL HCL 20MG INJ IV PRN (18:30)
[2018-12-05] MEDS: CEFAZOLIN 1 GM/50 ML (PMX) 50 ML IVPB SCH ×2 (18:43→23:42)
--- NOTE | 2018-12-05 19:16 | OPR ---
DATE OF OPERATION: 12/05/2018 PREOPERATIVE DIAGNOSES: Retained painful pedicle screws on the right at L4, L5 and S1 with radiculopathy. POSTOPERATIVE DIAGNOSES: Retained painful pedicle screws on the right at L4, L5 and S1 with radiculopathy. PROCEDURES: 1. Removal of right L4, L5 and S1 pedicle screws. 2. Placement of new right L4, L5 and S1 pedicle screws with new trajectory. 3. Use of C-arm fluoroscopy with interpretation without radiologist present. 4. Intraoperative neuromonitoring. IMPLANTS: Neurostructure [place] pedicle screws 6.5 x 40 mm at L4 on the right, 7.5 x 40 mm at L5 on the right, 8.5 x 40 mm S1 on the right. PRIMARY SURGEON: Jean Claude Gerardo MD RECREATIONAL THERAPY TECHNICIAN: Fransisca Mccloud PA-C NEED FOR STRUCTURED CABLING TECHNICIAN: During this spinal surgical procedure, my night assistant was used to retract and protect the spinal nerves and dural sac. My night assistant also employed the suction catheters to evacuate blood from the surgical field to improve visualization of the neural structures. The night assistant was medically necessary to facilitate the completion of the surgery in a safe and expeditious manner. State of [place] regulations, as well as hospital bylaws, preclude the use of non-licensed health care personnel, such as operating room technicians, to perform these functions. FINDINGS: Neuromonitoring at start and end of the case were normal, but there was some irritation of the L5 nerve root on the right which improved after reinstrumentation. ESTIMATED BLOOD LOSS: Less than 30 mL. DRAINS: None. SPECIMENS REMOVED: Hardware was sent to pathology. COMPLICATIONS OF PROCEDURES: None. ANESTHESIOLOGIST: Dr. Fleming TYPE OF ANESTHESIA: General. INDICATIONS FOR PROCEDURE: This is a 38-year-old gentleman who had previously undergone instrumented fusion. The screws on the right side were causing pain and slightly laterally placed and therefore it was recommended to remove them and replace the screws. The risks and benefits of surgery were discussed with the patient preoperatively and he wished to proceed. DESCRIPTION OF PROCEDURE IN DETAIL: The patient was identified in the holding area, given Ancef antibiotic, taken to the operating room, where he was successfully placed under general anesthesia. Neuromonitoring were placed. Sequential devices were applied. Remote intraoperative neuromonitoring was performed by Dr. Shin surgery from 14:44 until 17:47 to include SSEP, MEP and EMG performed by [employer]. The patient was placed in the operative table in prone position over a Mynor frame. All bony prominences were well padded. The back was then prepped and draped in usual sterile fashion. I injected Marcaine and epinephrine. I utilized the patient's previous skin incision. I took this down to dorsal fascia. I then went laterally to the right and made a separate fascial incision and finger dissected through the muscles onto the pedicle screws of L4, L5 and S1. I placed self-retaining retractors and removed the set screws followed by removal of the jaimee and followed by removal of the L4, L5 and S1 pedicles. I then under C-arm visualization to confirm the trajectories and placed new pedicle screws at L4, L5 and S1 on the right with sizes as noted above. I stimulated each of the screws and there was no evidence of cortical breach. I took AP and lateral images and I was happy with placement of the hardware. I placed a jaimee with set screws and tightened the set screws per security sme's specifications. I then irrigated the wound and closed the wound in layers with #1 Vicryl, 2-0 Vicryl and 4-0 Monocryl sutures. Dermabond was then applied followed by sterile dressings. The patient was then awakened from anesthesia and taken to the recovery room in stable condition. Lap, sponge and needle counts were correct x2. There were no apparent complications during the procedure. The patient was admitted to the orthopedic [facility]jas for routine postoperative care to include pain control, neurovascular checks, antibiotics and physical therapy. Dictated By: JEAN CLAUDE SINGH/AYLIN Conf#: [id number] DID#: [id number] CC: DOT MCDANIELS MD;*EndCC* MTDD
[2018-12-05] MEDS ORDERED: DOCUSATE SODIUM 100 MG CAP PO ONE (21:30)
[2018-12-06 00:30] VITALS: BP 145/84; PULSE 100; RESP 20
[2018-12-06] MEDS: ZOLPIDEM 5 MG TAB PO PRN (01:30)
[2018-12-06] MEDS: HYDROmorphONE 0.5 MG/0.5 ML SYG IV PRN (03:25)
--- NOTE | 2018-12-06 03:29 | CONS ---
DATE OF ADMISSION: 11/21/2018 DATE OF CONSULTATION: HISTORY OF PRESENT ILLNESS: The patient is 38 years old status post low backache, lumbosacral radicu lopathy, in which the patient is status post surgical fusion done by Dr. Gerardo in which screws sh ifted in which need to have removal of medical screws at L4, L5, S1 at right side and placement of th e new right L4, L5, S1 pedicle screws with new trajectory using fluoroscopy and intraoperative monito r. PHYSICAL EXAMINATION: GENERAL: The patient is alert, awake, oriented, following simple commands. CRANIAL NERVES: Cranial nerve II: Pupils are equal both sides, reactive to light. Cranial nerves I II, IV and : Extraocular muscles are intact. Cranial nerve V and VII: Intact corneal reflex. Cr anial nerves VIII: Equal hearing bilaterally. Cranial IX and X: Elevates palate. Cranial nerve XI : Elevates shoulder 5/5. Cranial nerve XII: With straight tongue. MOTOR: Moving both upper extremities against gravity without difficulty. Bilateral lower extremity is limited by the low backache and the surgery interference. ASSESSMENT AND PLAN: 1. The patient is 38 years old male status post lumbosacral radiculopathy with adjustment of his scr ews in his lower back. 2. 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 3. The patient has a gait difficulty. Follow up the patient with physical therapy and occupational therapy will be ordered for him as well as acute rehab for continuation of his treatment. 4. Keep the patient under seizure precaution and keep him on Keppra 500 mg twice a day. 5. Underlying paraesthesias secondary radiculopathy. Continue the patient on Neurontin 300 mg 3 dionisio es a day. 6. Status post muscle spasm in which the patient is under baclofen. Again thank you, Dr. Gerardo, for asking me to see the patient with you. Dictated By: DOT MCDANIELS MD NA/NTS Conf#: [id number] DID#: [id number] CC: FAVIOLA GERARDO MD;*EndCC*
[2018-12-06] MEDS: HYDROmorphONE 0.2 MG/ML PCA IV SCH ×2 (04:22→15:28)
[2018-12-06] MEDS: PANTOPRAZOLE 40 MG INJ IV SCH (06:09)
[2018-12-06] MEDS: METHYLPREDNISOLONE 40 MG INJ IV SCH ×3 (06:09→21:16)
[2018-12-06] MEDS: CEFAZOLIN 1 GM/50 ML (PMX) 50 ML IVPB SCH (08:03)
[2018-12-06] MEDS: LEVETIRACETAM 500 MG TAB PO SCH ×2 (08:03→21:14)
[2018-12-06] MEDS: GABAPENTIN 300 MG CAP PO SCH ×2 (08:03→21:14)
[2018-12-06] MEDS: AMLODIPINE 10 MG TAB PO SCH (08:04)
[2018-12-06] MEDS: BENAZEPRIL 40 MG TAB PO SCH (08:04)
[2018-12-06 08:05] VITALS: BP 154/80; PULSE 89; RESP 20
[2018-12-06] MEDS: BACLOFEN 10 MG TAB PO SCH ×3 (08:05→21:15)
[2018-12-06] MEDS: MECLIZINE 25 MG TAB PO SCH ×3 (08:05→21:14)
--- NOTE | 2018-12-06 08:20 | CONS ---
Consult Date/Type/Reason Admit Date/Time Nov 21, 2018 at 05:24 Initial Consult Date 11/10/2018 Type of Consultation: internal medicine Reason for Consultation medical f/u post-op Requesting Provider: FAVIOLA GREEN MD Date/Time of Note DATE: 12/06/18 TIME: 08:16 Subjective complaining of back pain post-op Objective Vitals Vital Signs Date Temp Pulse Resp B/P (MAP) Pulse Ox O2 O2 Flow FiO2 Time Delivery Rate 12/06/18 98.4 89 20 154/80 96 Room Air 08:05 (104) 12/02/18 3.0 09:13 Intake and Output 12/05/18 12/05/18 12/06/18 1515:00 23:00 07:00 IntakeIntake Total 2260 ml 1650 ml OutputOutput Total 320 ml 1500 ml BalanceBalance 1940 ml 150 ml Exam vital signs stable HEENT negative lungs clear heart regular rhythm Results/Medications Result Diagram: 12/06/180 12/06/18 0440 Results 24 hrs Laboratory Tests Test 12/06/18 04:40 White Blood Count 19.9 H Red Blood Count 4.84 Hemoglobin 14.0 Hematocrit 42.7 Mean Corpuscular Volume 88.2 Mean Corpuscular Hemoglobin 28.9 L Mean Corpuscular Hemoglobin Concent 32.8 Red Cell Distribution Width 13.2 Platelet Count 329 Mean Platelet Volume 10.3 Immature Granulocytes % 2.000 H Neutrophils % 86.2 H Lymphocytes % 5.4 L Monocytes % 6.1 Eosinophils % 0.0 Basophils % 0.3 Nucleated Red Blood Cells % 0.0 Immature Granulocytes # 0.390 H Neutrophils # 17.2 H Lymphocytes # 1.1 Monocytes # 1.2 H Eosinophils # 0.0 Basophils # 0.1 Nucleated Red Blood Cells # 0.0 Sodium Level 138 Potassium Level 4.4 Chloride Level 103 Carbon Dioxide Level 24 Anion Gap 11 Blood Urea Nitrogen 30 H Creatinine 0.66 Est Glomerular Filtrat Rate mL/min > 60 Glucose Level 144 Calcium Level 8.6 Magnesium Level 2.3 Home Meds Reported Medications Acetaminophen with Codeine (Acetaminophen-Cod #3 Tablet) 1 Each Tablet, 1 TAB PO Q6H, #7 TAB 11/16/18 Gabapentin* (Gabapentin*) 300 Mg Capsule, 300 MG PO BID, #60 CAP 11/16/18 Baclofen* (Baclofen*) 20 Mg Tablet, 20 MG PO TID, TAB 11/16/18 Benazepril Hcl* (Benazepril Hcl*) 40 Mg Tablet, 40 MG PO DAILY, #30 TAB 03/14/18 Amlodipine Besylate* (Amlodipine Besylate*) 10 Mg Tablet, 10 MG PO DAILY, #30 TAB 03/14/18 Medications Current Medications Amlodipine Besylate (Norvasc) 10 mg DAILY PO Last administered on 12/06/18at 08:04; Admin Dose 10 MG; Start 11/22/18 at 09:00 Benazepril HCl (Lotensin) 40 mg DAILY PO Last administered on 12/06/18at 08:04; Admin Dose 40 MG; Start 11/22/18 at 09:00 Gabapentin (Neurontin) 300 mg BID PO Last administered on 12/06/18at 08:03; Admin Dose 300 MG; Start 11/21/18 at 21:00 Zolpidem Tartrate (Ambien) 5 mg HS PRN PO INSOMNIA Last administered on 12/06/18at 01:30; Admin Dose 5 MG; Start 11/21/18 at 22:00 Meclizine HCl (Antivert) 25 mg TID PO Last administered on 12/06/18at 08:05; Admin Dose 25 MG; Start 11/25/18 at 13:00 Methylprednisolone Sodium Succinate (Solu-Medrol) 20 mg Q8 IV Last administered on 12/06/18at 06:09; Admin Dose 20 MG; Start 11/25/18 at 14:00 Levetiracetam (Keppra) 500 mg BID PO Last administered on 12/06/18at 08:03; Admin Dose 500 MG; Start 11/26/18 at 21:00 Pantoprazole (Protonix Iv) 40 mg DAILY@06 IV Last administered on 12/06/18at 06:09; Admin Dose 40 MG; Start 12/05/18 at 06:00 Potassium Chloride/Dextrose/ Sod Cl 1,000 ml @ 100 mls/hr Q10H IV Last administered on 12/05/18at 20:36; Admin Dose 100 MLS/HR; Start 12/05/18 at 15:58 Acetaminophen/ Hydrocodone Bitart ([place] (10/325)) 1 tab Q4H PRN PO .PAIN 1-5; Start 12/05/18 at 16:00 Acetaminophen/ Hydrocodone Bitart ([place] (10/)) 2 tab Q4H PRN PO .PAIN 6-10; Start 12/05/18 at 16:00 Hydromorphone HCl (Dilaudid) 0.2 mg Q1H PRN IV .BREAKTHROUGH PAIN Last administered on 12/06/18at 03:25; Admin Dose 0.2 MG; Start 12/05/18 at 16:00 Cefazolin Sodium 50 ml @ 100 mls/hr Q8H IVPB Last administered on 12/06/18at 08:03; Admin Dose 100 MLS/HR; Start 12/05/18 at 16:00; Stop 12/06/18 at 08:29 Ondansetron HCl (Zofran Inj) 4 mg Q6H PRN IV NAUSEA/VOMITING; Start 12/05/18 at 16:00 Bisacodyl (Dulcolax Supp) 10 mg DAILY PRN [place] .CONSTIPATION; Start 12/05/18 at 16:00 Docusate Sodium (Colace) 100 mg BID PO Last administered on 12/05/18at 20:43; Admin Dose 100 MG; Start 12/05/18 at 21:00 Al Hydrox/Mg Hydrox/Simethicone (Mag-Al Plus) 15 ml Q6H PRN PO .CONSTIPATION/DYSPEPSIA; Start 12/05/18 at 16:00 Acetaminophen (Tylenol Tab) 650 mg Q4H PRN PO FARRIS OR TEMP GREATER THAN 101.3F; Start 12/05/18 at 16:00 Phenol (Cepastat Lozenge) 1 lozenge PRN PRN MT .SORE THROAT; Start 12/05/18 at 16:00 Diphenhydramine HCl (Benadryl) 25 mg Q6H PRN PO .ITCHING; Start 12/05/18 at 16:00 Diphenhydramine HCl (Benadryl) 25 mg Q6H PRN IV .ITCHING; Start 12/05/18 at 16:00 Naloxone HCl (Narcan) 0.2 mg Q2M PRN IV .RR 8 BREATHS/MIN OR LESS; Start 12/05/18 at 16:00 Hydromorphone HCl (Dilaudid CORPORATE WELLNESS COORDINATOR) CORPORATE WELLNESS COORDINATOR to be started in PACU Q4PCA IV Last administered on 12/06/18at 04:22; Admin Dose 6 MG; Start 12/05/18 at 16:00 Miscellaneous Information 1. Hold CORPORATE WELLNESS COORDINATOR at 1,000... CORPORATE WELLNESS COORDINATOR IV ; Start 12/05/18 at 16:00 Baclofen (Lioresal) 20 mg TID PO Last administered on 12/06/18at 08:05; Admin Dose 20 MG; Start 12/05/18 at 21:00 Assessment/Plan Hospital Course (Demo Recall) post-op in recovery room post lumbar spine surgery medically stable episodes of dizziness and brain fog etiology ?? complaining of back pain post 2nd procedure Assessment/Plan (Daily) per will try to get into acute rehab.Further neuro W/u on hold till patient stabilizes with his back KEARA LUNA MD Dec 06, 2018 08:20
[2018-12-06] MEDS: DOCUSATE SODIUM 100 MG CAP PO SCH ×2 (10:52→21:14)
[2018-12-06] MEDS: D5W-0.45 NACL + KCL 20 MEQ 1,000 ML IV SCH ×2 (10:52→21:58)
--- NOTE | 2018-12-06 12:56 | PN ---
Date/Time of Note Date/Time of Note DATE: 12/06/18 TIME: 12:55 Assessment/Plan Lines/Catheters IV Catheter Type (from [facility]): Peripheral IV Baker in Place (from [facility]): No Assessment/Plan Chief Complaint/Hosp Course Patient was admitted to the orthopedic [facility] after undergoing a lumbar fusion. Initially he was doing well and was being evaluated to go to acute rehab. He had an episode when he became dizzy. This improved but the following day he stated that when he would look at a distance to focus on a spot he would get nystagmus type symptoms. It appears to be vertigo however a neurology consult was obtained. He was prescribed medications which helped. To confirm no other causes a brain MRI was performed which ended up showing an ependymoma in the lat eral ventricle. I then ordered an MRI of the cervical and the thoracic spine to make sure that there is no drop lesions. The ependymoma was localized just in the lateral ventricle and the rest of the spine was normal. I spoke with the neurosurgeon who stated that this can be treated as an outpatient. The patient was not accepted to acute rehab and the reason was that the medical staff director felt that he could be treated in a lower level of care. It was determined that the patient could go home. He is discharged to home with follow-up arranged with the undersigned. We will have the neurology consult make sure that he has the appropriate medications upon discharge. Assessment/Plan Patient's right leg pain significantly improved after hardware exchange. It is still not clear why he has the fogginess and dizziness. Will request acute rehab consultation again. Subjective 24 Hr Interval Summary Right leg pain improved after hardware revision Exam/Review of Systems Vital Signs Vitals Vital Signs Date Temp Pulse Resp B/P (MAP) Pulse Ox O2 O2 Flow FiO2 Time Delivery Rate 12/06/18 18 09:00 12/06/18 98.4 89 154/80 96 Room Air 08:05 (104) 12/02/18 3.0 09:13 Intake and Output 12/05/18 12/05/18 12/06/18 1515:00 23:00 07:00 IntakeIntake Total 2260 ml 1650 ml OutputOutput Total 320 ml 1500 ml BalanceBalance 1940 ml 150 ml Exam Free Text/Dictation Mild right EHL weakness Results Result Diagram: 12/06/18 0440 12/06/18 0440 FAVIOLA GREEN MD Dec 06, 2018 12:56
[2018-12-06 15:03] VITALS: BP 130/77; PULSE 104; RESP 18
--- NOTE | 2018-12-06 17:17 | CONS ---
Assessment/Plan Assessment/Plan Assessment/Plan (Daily) Onychocryptosis L hallux Pain in limb L Lumbar stenosis s/p lumbar fusion Chronic pain syndrome HTN Plan Discussed with the patient that due to the recurring ingrown toe nails and continuous pain, a partial nail avulsion was recommended. Patient was amenable to the procedure. Consent was obtained and performed medial border left hallux partial nail avulsion. The area was locally prepared for local anesthesia, which was administered to the left hallux. A tourniquet was applied to the left hallux, and the left hallux was prepped in sterile fashion. Once successful anesthesia was obtained. The medial border of the left hallux nail plate was freed from the nail bed and using a nail nipper a partial nail avulsion was performed. The offending nail was removed using a hemostat. Remnant spicules were removed along with hyperkeratotic tissue. Copious irrigation was used and triple antibiotic ointment was applied to the toe with dry sterile dressings. Patient will keep dressings clean dry and intact. Reinforce if strikethrough drainage is noted. Consultation Date/Type/Reason Admit Date/Time Nov 21, 2018 at 05:24 Date/Time of Note DATE: 12/06/18 TIME: 17:12 Hx of Present Illness 38 y/o M patient who was admitted to the hospital for lumbar spinal fusion presents to the floor with complaint of left great toe nail that's ingrowing and causing pain. Patient states in the past he had trimmed the nail himself but due to his recent surgery he has difficulty bending and reaching the toe nail. Patient states he's had recurring ingrown toe nails in the past and has always managed them himself. Patient denies constitutional symptoms. ROS negative except for HPI Past Medical History 1. Lumbar disk disease L4-L5, L5-S1, possible spinal stenosis. 2. Hypertension. 3. Chronic pain syndrome. Home Meds Reported Medications Acetaminophen with Codeine (Acetaminophen-Cod #3 Tablet) 1 Each Tablet, 1 TAB PO Q6H, #7 TAB 11/16/18 Gabapentin* (Gabapentin*) 300 Mg Capsule, 300 MG PO BID, #60 CAP 11/16/18 Baclofen* (Baclofen*) 20 Mg Tablet, 20 MG PO TID, TAB 11/16/18 Benazepril Hcl* (Benazepril Hcl*) 40 Mg Tablet, 40 MG PO DAILY, #30 TAB 03/14/18 Amlodipine Besylate* (Amlodipine Besylate*) 10 Mg Tablet, 10 MG PO DAILY, #30 TAB 03/14/18 Medications Current Medications Amlodipine Besylate (Norvasc) 10 mg DAILY PO Last administered on 12/06/18 08:04; Admin Dose 10 MG; Start 11/22/18 at 09:00 Benazepril HCl (Lotensin) 40 mg DAILY PO Last administered on 12/06/18 08:04; Admin Dose 40 MG; Start 11/22/18 at 09:00 Gabapentin (Neurontin) 300 mg BID PO Last administered on 12/06/18 08:03; Admin Dose 300 MG; Start 11/21/18 at 21:00 Zolpidem Tartrate (Ambien) 5 mg HS PRN PO INSOMNIA Last administered on 12/06/18 01:30; Admin Dose 5 MG; Start 11/21/18 at 22:00 Meclizine HCl (Antivert) 25 mg TID PO Last administered on 12/06/18 14:46; Admin Dose 25 MG; Start 11/25/18 at 13:00 Methylprednisolone Sodium Succinate (Solu-Medrol) 20 mg Q8 IV Last administered on 12/06/18 14:39; Admin Dose 20 MG; Start 11/25/18 at 14:00 Levetiracetam (Keppra) 500 mg BID PO Last administered on 12/06/18 08:03; Admin Dose 500 MG; Start 11/26/18 at 21:00 Pantoprazole (Protonix Iv) 40 mg DAILY@06 IV Last administered on 12/06/18 06:09; Admin Dose 40 MG; Start 12/05/18 at 06:00 Potassium Chloride/Dextrose/ Sod Cl 1,000 ml @ 100 mls/hr Q10H IV Last administered on 12/06/18 10:52; Admin Dose 100 MLS/HR; Start 12/05/18 at 15:58 Acetaminophen/ Hydrocodone Bitart (Alfred (10/325)) 1 tab Q4H PRN PO .PAIN 1-5; Start 12/05/18 at 16:00 Acetaminophen/ Hydrocodone Bitart ([place]fred (10/325)) 2 tab Q4H PRN PO .PAIN 6-10; Start 12/05/18 at 16:00 Hydromorphone HCl (Dilaudid) 0.2 mg Q1H PRN IV .BREAKTHROUGH PAIN Last administered on 12/06/18at 03:25; Admin Dose 0.2 MG; Start 12/05/18 at 16:00 Ondansetron HCl (Zofran Inj) 4 mg Q6H PRN IV NAUSEA/VOMITING; Start 12/05/18 at 16:00 Bisacodyl (Dulcolax Supp) 10 mg DAILY PRN [place] .CONSTIPATION; Start 12/05/18 at 16:00 Docusate Sodium (Colace) 100 mg BID PO Last administered on 12/06/18at 10:52; Admin Dose 100 MG; Start 12/05/18 at 21:00 Al Hydrox/Mg Hydrox/Simethicone (Mag-Al Plus) 15 ml Q6H PRN PO .CONSTIPATION/DYSPEPSIA; Start 12/05/18 at 16:00 Acetaminophen (Tylenol Tab) 650 mg Q4H PRN PO FARRIS OR TEMP GREATER THAN 101.3F; Start 12/05/18 at 16:00 Phenol (Cepastat Lozenge) 1 lozenge PRN PRN [place] .SORE THROAT; Start 12/05/18 at 16:00 Diphenhydramine HCl (Benadryl) 25 mg Q6H PRN PO .ITCHING; Start 12/05/18 at 16:00 Diphenhydramine HCl (Benadryl) 25 mg Q6H PRN IV .ITCHING; Start 12/05/18 at 16:00 Naloxone HCl (Narcan) 0.2 mg Q2M PRN IV .RR 8 BREATHS/MIN OR LESS; Start 12/05/18 at 16:00 Hydromorphone HCl (Dilaudid ARMATURE WINDER REPAIR) ARMATURE WINDER REPAIR to be started in PACU Q4PCA IV Last administered on 12/06/18at 15:28; Admin Dose 6 MG; Start 12/05/18 at 16:00 Miscellaneous Information 1. Hold ARMATURE WINDER REPAIR at 1,000... ARMATURE WINDER REPAIR IV ; Start 12/05/18 at 16:00 Baclofen (Lioresal) 20 mg TID PO Last administered on 12/06/18at 14:39; Admin Dose 20 MG; Start 12/05/18 at 21:00 Polyethylene Glycol (Miralax) 17 gm DAILY PRN PO constipation; Start 12/06/18 at 15:30 Allergies: Coded Allergies: melon (Verified Allergy, Mild, 12/01/18) NAUSEA/VOMINTING Past Surgical History lumbar fusion Past Surgical Hx: other Social History Smoking Status: Never smoker Exam/Review of Systems Exam Vitals Vital Signs Date Temp Pulse Resp B/P (MAP) Pulse Ox O2 O2 Flow FiO2 Time Delivery Rate 12/06/18 97.6 104 18 130/77 97 Room Air 15:03 (94) 12/02/18 3.0 09:13 Intake and Output 12/05/18 12/05/18 12/06/18 1515:00 23:00 07:00 IntakeIntake Total 2260 ml 1650 ml OutputOutput Total 320 ml 1500 ml BalanceBalance 1940 ml 150 ml Exam DP/PT pulses palpable Protective sensations intact pain to the medial border of the left hallux, there is an incurvated nail appreciated with no signs of erythema or drainage Muscle strength 5/5 in all compartments of the foot Skin temperature gradient warm to warm from proximal leg to distal foot. Results Result Diagram: 12/06/18 0440 12/06/18 0440 Results 24hrs Laboratory Tests Test 12/06/18 04:40 White Blood Count 19.9 H Red Blood Count 4.84 Hemoglobin 14.0 Hematocrit 42.7 Mean Corpuscular Volume 88.2 Mean Corpuscular Hemoglobin 28.9 L Mean Corpuscular Hemoglobin Concent 32.8 Red Cell Distribution Width 13.2 Platelet Count 329 Mean Platelet Volume 10.3 Immature Granulocytes % 2.000 H Neutrophils % 86.2 H Lymphocytes % 5.4 L Monocytes % 6.1 Eosinophils % 0.0 Basophils % 0.3 Nucleated Red Blood Cells % 0.0 Immature Granulocytes # 0.390 H Neutrophils # 17.2 H Lymphocytes # 1.1 Monocytes # 1.2 H Eosinophils # 0.0 Basophils # 0.1 Nucleated Red Blood Cells # 0.0 Sodium Level 138 Potassium Level 4.4 Chloride Level 103 Carbon Dioxide Level 24 Anion Gap 11 Blood Urea Nitrogen 30 H Creatinine 0.66 Est Glomerular Filtrat Rate mL/min > 60 Glucose Level 144 Calcium Level 8.6 Magnesium Level 2.3 Medications Medication Current Medications Amlodipine Besylate (Norvasc) 10 mg DAILY PO Last administered on 12/06/18at 08:04; Admin Dose 10 MG; Start 11/22/18 at 09:00 Benazepril HCl (Lotensin) 40 mg DAILY PO Last administered on 12/06/18 08:04; Admin Dose 40 MG; Start 11/22/18 at 09:00 Gabapentin (Neurontin) 300 mg BID PO Last administered on 12/06/18 08:03; Adm in Dose 300 MG; Start 11/21/18 at 21:00 Zolpidem Tartrate (Ambien) 5 mg HS PRN PO INSOMNIA Last administered on 12/06/18 01:30; Admin Dose 5 MG; Start 11/21/18 at 22:00 Meclizine HCl (Antivert) 25 mg TID PO Last administered on 12/06/18 14:46; Admin Dose 25 MG; Start 11/25/18 at 13:00 Methylprednisolone Sodium Succinate (Solu-Medrol) 20 mg Q8 IV Last administered on 12/06/18 14:39; Admin Dose 20 MG; Start 11/25/18 at 14:00 Levetiracetam (Keppra) 500 mg BID PO Last administered on 12/06/18 08:03; Admin Dose 500 MG; Start 11/26/18 at 21:00 Pantoprazole (Protonix Iv) 40 mg DAILY@06 IV Last administered on 12/06/18 06:09; Admin Dose 40 MG; Start 12/05/18 at 06:00 Potassium Chloride/Dextrose/ Sod Cl 1,000 ml @ 100 mls/hr Q10H IV Last administered on 12/06/18 10:52; Admin Dose 100 MLS/HR; Start 12/05/18 at 15:58 Acetaminophen/ Hydrocodone Bitart (Alfred (10/325)) 1 tab Q4H PRN PO .PAIN 1-5; Start 12/05/18 at 16:00 Acetaminophen/ Hydrocodone Bitart ([place]fred (10/325)) 2 tab Q4H PRN PO .PAIN 6-10; Start 12/05/18 at 16:00 Hydromorphone HCl (Dilaudid) 0.2 mg Q1H PRN IV .BREAKTHROUGH PAIN Last administered on 12/06/18 03:25; Admin Dose 0.2 MG; Start 12/05/18 at 16:00 Ondansetron HCl (Zofran Inj) 4 mg Q6H PRN IV NAUSEA/VOMITING; Start 12/05/18 at 16:00 Bisacodyl (Dulcolax Supp) 10 mg DAILY PRN [place] .CONSTIPATION; Start 12/05/18 at 16:00 Docusate Sodium (Colace) 100 mg BID PO Last administered on 12/06/18at 10:52; Admin Dose 100 MG; Start 12/05/18 at 21:00 Al Hydrox/Mg Hydrox/Simethicone (Mag-Al Plus) 15 ml Q6H PRN PO .CONSTIPATION/DYSPEPSIA; Start 12/05/18 at 16:00 Acetaminophen (Tylenol Tab) 650 mg Q4H PRN PO FARRIS OR TEMP GREATER THAN 101.3F; Start 12/05/18 at 16:00 Phenol (Cepastat Lozenge) 1 lozenge PRN PRN [place] .SORE THROAT; Start 12/05/18 at 16:00 Diphenhydramine HCl (Benadryl) 25 mg Q6H PRN PO .ITCHING; Start 12/05/18 at 16:00 Diphenhydramine HCl (Benadryl) 25 mg Q6H PRN IV .ITCHING; Start 12/05/18 at 16:00 Naloxone HCl (Narcan) 0.2 mg Q2M PRN IV .RR 8 BREATHS/MIN OR LESS; Start 12/05/18 at 16:00 Hydromorphone HCl (Dilaudid ARMATURE WINDER REPAIR) ARMATURE WINDER REPAIR to be started in PACU Q4PCA IV Last administered on 12/06/18at 15:28; Admin Dose 6 MG; Start 12/05/18 at 16:00 Miscellaneous Information 1. Hold ARMATURE WINDER REPAIR at 1,000... ARMATURE WINDER REPAIR IV ; Start 12/05/18 at 16:00 Baclofen (Lioresal) 20 mg TID PO Last administered on 12/06/18at 14:39; Admin Dose 20 MG; Start 12/05/18 at 21:00 Polyethylene Glycol (Miralax) 17 gm DAILY PRN PO constipation; Start 12/06/18 at 15:30 SHEILA MALIN DPZurdo Dec 06, 2018 17:17
[2018-12-06] MEDS ORDERED: LIDOCAINE 1% (MPF) 30 ML INJ INJ PRN (17:30)
[2018-12-06] MEDS ORDERED: NEOMYC/POLYMYX/BACIT 30 GM OINT TOP ONE (17:30)
[2018-12-06] MEDS: POLYETHYLENE GLYCOL 17 GM PACKET PO PRN (18:35)
[2018-12-06] MEDS: HYDROCODONE/APAP (10/325) TAB PO PRN (19:58)
[2018-12-06 20:06] VITALS: BP 152/83; PULSE 96; RESP 20
[2018-12-07] MEDS: HYDROCODONE/APAP (10/325) TAB PO PRN ×6 (00:56→21:34)
[2018-12-07 02:00] VITALS: BP 148/80; PULSE 95; RESP 20
[2018-12-07] MEDS: PANTOPRAZOLE 40 MG INJ IV SCH (05:12)
[2018-12-07] MEDS: HYDROmorphONE 0.5 MG/0.5 ML SYG IV PRN ×2 (07:18→14:54)
[2018-12-07 07:29] VITALS: BP 168/80; PULSE 70; RESP 18
--- NOTE | 2018-12-07 07:56 | PN ---
Date/Time of Note Date/Time of Note DATE: 12/07/18 TIME: 07:54 Assessment/Plan Lines/Catheters IV Catheter Type (from Nrsg): Peripheral IV Baker in Place (from Nrsg): No Assessment/Plan Assessment/Plan patient continues to report low back pain. The physical therapist feel he is a good candidate for acute rehab. the patient has dizziness and the neurologist also feels that it would be safer for him to go to acute rehab. Will wait to hear if he is accepted to acute rehab. Subjective 24 Hr Interval Summary patient slept on ice and now reports low back pain but states that it was the first night he was able to sleep Exam/Review of Systems Vital Signs Vitals Vital Signs Date Temp Pulse Resp B/P (MAP) Pulse Ox O2 O2 Flow FiO2 Time Delivery Rate 12/07/18 98.3 70 18 168/80 99 Room Air 07:29 (109) Intake and Output 12/06/18 12/06/18 12/07/18 1515:00 23:00 07:00 IntakeIntake Total 660 ml 635 ml OutputOutput Total 850 ml 675 ml 450 ml BalanceBalance -190 ml -40 ml -450 ml Exam Free Text/Dictation Moveri inc d/c/i Results Result Diagram: 12/07/18 0446 12/07/18 0446 FAVIOLA GREEN MD Dec 07, 2018 07:56
[2018-12-07] MEDS: MECLIZINE 25 MG TAB PO SCH ×3 (09:20→20:33)
[2018-12-07] MEDS: DOCUSATE SODIUM 100 MG CAP PO SCH ×2 (09:21→20:32)
[2018-12-07] MEDS: GABAPENTIN 300 MG CAP PO SCH ×2 (09:24→20:34)
[2018-12-07] MEDS: BACLOFEN 10 MG TAB PO SCH ×3 (09:24→20:33)
[2018-12-07] MEDS: BENAZEPRIL 40 MG TAB PO SCH (09:25)
[2018-12-07] MEDS: LEVETIRACETAM 500 MG TAB PO SCH ×2 (09:25→20:33)
[2018-12-07] MEDS: AMLODIPINE 10 MG TAB PO SCH (09:25)
[2018-12-07] MEDS: POLYETHYLENE GLYCOL 17 GM PACKET PO PRN (09:25)
[2018-12-07] MEDS: METHYLPREDNISOLONE 40 MG INJ IV SCH ×2 (09:27→20:31)
--- NOTE | 2018-12-07 10:05 | CONS ---
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 No intervention at this time. (2) Obstructive sleep apnea Status: Chronic Comment: Cont. CPAP O/N (3) Essential (primary) hypertension Status: Chronic Comment: BP OOC on amlodipine/benazepril. Will add triamterene-HCTZ. (4) Vertigo Status: Acute Comment: Markedly improved. Will wean medrol. Was 20 mg IV q8. Will decrease 10 mg IV q12. Cont. to wean until off. Cont. meclizine (5) Lumbar disc herniation Status: Resolved Comment: Now s/p second surgery. Pt. will need ongoing PT and rehab per primary team. (6) Status post lumbar spinal fusion Status: Resolved Comment: POD#2 from second pedicle screw surgery. Needs ongoing PT. Likely needs to go to ARU or outside rehab facility. Consultation Date/Type/Reason Admit Date/Time Nov 21, 2018 at 05:24 Initial Consult Date 11/21/18 Type of Consult Medicine Reason for Consultation Medical Management Requesting Provider: FAVIOLA GREEN MD Date/Time of Note DATE: 12/07/18 TIME: 09:58 24 HR Interval Summary Constitutional: no complaints, improved Detailed Summary Respiratory: no complaints Cardiovascular: no complaints Gastrointestinal: no complaints Genitourinary: no complaints Musculoskeletal: back pain (s/p second pedical screw placement, POD#2. (+) pain. Difficult to get out of bed.), bone/joint pain (L great toe pain s/p removal of part of toenail for ingrown) Neurologic: dizziness (markedly improved w/ meclizine and medrol) Exam/Review of Systems Exam Vitals VS - Last 72 Hours, by Label Date Temp Pulse Resp B/P (MAP) Pulse Ox O2 O2 Flow FiO2 Time Delivery Rate 12/07/18 98.3 70 18 168/80 99 Room Air 07:29 (109) 12/07/18 98.6 95 20 148/80 97 Room Air 02:00 (102) 12/06/18 98.7 96 20 152/83 96 Room Air 20:06 (106) 12/06/18 18 19:00 12/06/18 18 15:28 12/06/18 97.6 104 18 130/77 97 Room Air 15:03 (94) 12/06/18 18 09:00 12/06/18 98.4 89 20 154/80 96 Room Air 08:05 (104) 12/06/18 18 05:00 12/06/18 20 01:10 12/06/18 98.6 100 20 145/84 97 Room Air 00:30 (104) 12/05/18 98.4 75 19 144/71 99 Room Air 22:30 (95) 12/05/18 98.3 80 19 140/69 98 Room Air 21:30 (92) 12/05/18 98.1 74 17 149/87 98 Room Air 21:00 (107) 12/05/18 17 21:00 12/05/18 98.0 70 18 141/85 99 Room Air 20:30 (103) 12/05/18 98.0 70 18 144/88 99 Room Air 20:15 (106) 12/05/18 98.3 68 18 136/80 100 Room Air 19:59 (98) 12/05/18 82 22 139/59 98 Room Air 19:36 (85) 12/05/18 18 19:04 12/05/18 80 14 140/64 97 Room Air 18:56 (89) 12/05/18 85 13 144/77 97 Room Air 18:51 (99) 12/05/18 68 12 133/64 94 Room Air 18:46 (87) 12/05/18 78 16 138/66 98 Room Air 18:40 (90) 12/05/18 86 24 140/71 97 Room Air 18:34 (94) 12/05/18 84 26 140/69 98 Room Air 18:29 (92) 12/05/18 84 21 138/72 98 Mask 18:24 (94) 12/05/18 98.8 18:22 12/05/18 98.8 88 19 140/67 100 Mask 18:19 (91) 12/05/18 98.4 64 18 135/88 96 14:05 (104) 12/05/18 18 12:00 12/05/18 18 09:00 12/05/18 18 08:00 12/05/18 97.7 62 18 154/81 94 07:55 (105) 12/05/18 18 05:00 12/05/18 98.2 77 18 146/71 95 Room Air 02:05 (96) 12/04/18 97.4 75 18 143/73 93 20:05 (96) 12/04/18 97.5 14:25 12/04/18 74 18 126/78 96 14:20 (94) 12/04/18 87 18 136/78 96 10:05 (97) Vital Signs Date Temp Pulse Resp B/P (MAP) Pulse Ox O2 O2 Flow FiO2 Time Delivery Rate 12/07/18 98.3 70 18 168/80 99 Room Air 07:29 (109) Intake and Output 12/06/18 12/06/18 12/07/18 1515:00 23:00 07:00 IntakeIntake Total 660 ml 635 ml OutputOutput Total 850 ml 675 ml 450 ml BalanceBalance -190 ml -40 ml -450 ml Constitutional: alert, oriented, obese Psych: no complaints, nl mood/affect Respiratory: clear to auscultation, normal air movement Cardiovascular: regular rate and rhythm, nl pulses; No edema, No murmurs/extra sounds, No rub Gastrointestinal: soft, nl liver, spleen, non-tender, bowel sounds; No mass, No rebound or guarding Musculoskeletal: No nl extremities to inspection (L great toe wrapped) Extremities: normal pulses; No cyanosis, No clubbing, No edema Neurological: MECHANICAL INSPECTOR II-XII intact, nl mental status, nl speech, nl strength Results Result Diagram: 12/07/186 12/07/18445 Results 24hrs Laboratory Tests Test 12/07/18 04:46 White Blood Count 16.3 H Red Blood Count 4.59 L Hemoglobin 13.3 L Hematocrit 40.3 L Mean Corpuscular Volume 87.8 Mean Corpuscular Hemoglobin 29.0 Mean Corpuscular Hemoglobin Concent 33.0 Red Cell Distribution Width 13.2 Platelet Count 294 Mean Platelet Volume 10.5 H Immature Granulocytes % 2.000 H Neutrophils % 76.8 Lymphocytes % 9.2 L Monocytes % 11.7 H Eosinophils % 0.1 Basophils % 0.2 Nucleated Red Blood Cells % 0.0 Immature Granulocytes # 0.320 H Neutrophils # 12.5 H Lymphocytes # 1.5 Monocytes # 1.9 H Eosinophils # 0.0 Basophils # 0.0 Nucleated Red Blood Cells # 0.0 Sodium Level 138 Potassium Level 4.4 Chloride Level 105 Carbon Dioxide Level 29 Anion Gap 4 L Blood Urea Nitrogen 23 H Creatinine 0.63 Est Glomerular Filtrat Rate mL/min > 60 Glucose Level 129 Calcium Level 8.8 Magnesium Level 2.3 Medications Medication Current Medications Amlodipine Besylate (Norvasc) 10 mg DAILY PO Last administered on 12/07/18 09:25; Admin Dose 10 MG; Start 11/22/18 at 09:00 Benazepril HCl (Lotensin) 40 mg DAILY PO Last administered on 12/07/18 09:25; Admin Dose 40 MG; Start 11/22/18 at 09:00 Gabapentin (Neurontin) 300 mg BID PO Last administered on 12/07/18 09:24; Admin Dose 300 MG; Start 11/21/18 at 21:00 Zolpidem Tartrate (Ambien) 5 mg HS PRN PO INSOMNIA Last administered on 12/06/18 01:30; Admin Dose 5 MG; Start 11/21/18 at 22:00 Meclizine HCl (Antivert) 25 mg TID PO Last administered on 12/07/18 09:20; Admin Dose 25 MG; Start 11/25/18 at 13:00 Levetiracetam (Keppra) 500 mg BID PO Last administered on 12/07/18 09:25; Admin Dose 500 MG; Start 11/26/18 at 21:00 Pantoprazole (Protonix Iv) 40 mg DAILY@06 IV Last administered on 12/07/18 05:12; Admin Dose 40 MG; Start 12/05/18 at 06:00 Acetaminophen/ Hydrocodone Bitart ([place] (10/325)) 1 tab Q4H PRN PO .PAIN 1-5; Start 12/05/18 at 16:00 Acetaminophen/ Hydrocodone Bitart ([place] (10/325)) 2 tab Q4H PRN PO .PAIN 6-10 Last administered on 12/07/18 09:24; Admin Dose 2 TAB; Start 12/05/18 at 16:00 Hydromorphone HCl (Dilaudid) 0.2 mg Q1H PRN IV .BREAKTHROUGH PAIN Last administered on 12/07/18 07:18; Admin Dose 0.2 MG; Start 12/05/18 at 16:00 Ondansetron HCl (Zofran Inj) 4 mg Q6H PRN IV NAUSEA/VOMITING; Start 12/05/18 at 16:00 Bisacodyl (Dulcolax Supp) [address] .CONSTIPATION; Start 12/05/18 at 16:00 Docusate Sodium (Colace) 100 mg BID PO Last administered on 12/07/18at 09:21; Admin Dose 100 MG; Start 12/05/18 at 21:00 Al Hydrox/Mg Hydrox/Simethicone (Mag-Al Plus) 15 ml Q6H PRN PO .CONSTI PATION/DYSPEPSIA; Start 12/05/18 at 16:00 Acetaminophen (Tylenol Tab) 650 mg Q4H PRN PO FARRIS OR TEMP GREATER THAN 101.3F; Start 12/05/18 at 16:00 Phenol (Cepastat Lozenge) 1 lozenge PRN PRN [place] .SORE THROAT; Start 12/05/18 at 16:00 Diphenhydramine HCl (Benadryl) 25 mg Q6H PRN PO .ITCHING; Start 12/05/18 at 16:00 Diphenhydramine HCl (Benadryl) 25 mg Q6H PRN IV .ITCHING; Start 12/05/18 at 16:00 Naloxone HCl (Narcan) 0.2 mg Q2M PRN IV .RR 8 BREATHS/MIN OR LESS; Start 12/05/18 at 16:00 Miscellaneous Information 1. Hold SOLDERING MACHINE TENDER at 1,000... SOLDERING MACHINE TENDER IV ; Start 12/05/18 at 16:00 Baclofen (Lioresal) 20 mg TID PO Last administered on 12/07/18at 09:24; Admin Dose 20 MG; Start 12/05/18 at 21:00 Polyethylene Glycol (Miralax) 17 gm DAILY PRN PO constipation Last administered on 12/07/18at 09:25; Admin Dose 17 GM; Start 12/06/18 at 15:30 Lidocaine (Xylocaine 1% (Mpf)) 30 ml ONCE PRN INJ pain Last administered on 12/06/18at 18:01; Admin Dose 30 ML; Start 12/06/18 at 17:30 Methylprednisolone Sodium Succinate (Solu-Medrol) 10 mg Q12 IV Last administered on 12/07/18at 09:27; Admin Dose 10 MG; Start 12/06/18 at 21:00 ELISA TOLEDO MD Dec 07, 2018 10:05
[2018-12-07] MEDS: BISACODYL 10 MG SUPP PR PRN (13:41)
[2018-12-07] MEDS ORDERED: TRIAMTERENE/HCTZ (37.5-25) CAP PO SCH (15:00)
[2018-12-07 15:47] VITALS: BP 151/74; PULSE 102; RESP 18
[2018-12-07] MEDS ORDERED: KETOROLAC 30 MG INJ IV STA (16:35)
[2018-12-07] MEDS ORDERED: TRIAMTERENE/HCTZ (37.5/25) TAB PO SCH (17:51)
[2018-12-07] MEDS: TRIAMTERENE/HCTZ (37.5/25) TAB PO SCH (17:58)
[2018-12-07 20:00] VITALS: BP 138/78; PULSE 99; RESP 18
--- NOTE | 2018-12-07 21:29 | HKNOTE ---
DATE OF SERVICE: 12/07/2018 HISTORY OF PRESENT ILLNESS: The patient is 38 years old male, status post lumbosacral radiculopathy, low back ache, status post 3 surgeries in the past in the form of Disectomy twice, fusion then adjust maintenance of his hardware in his lower back. The patient has acute dizzy spell in which I evaluated him and ordered for him MRI, showed the patient has ependymoma. The patient followed by oncologist as well as neurosurgery consult in which the patient evaluated for acute rehab and to follow up with neurosurgery as well as oncology. PHYSICAL EXAMINATION: GENERAL: The patient is alert, awake, oriented, follow simple commands. CRANIAL NERVES: Cranial nerve II: Pupils equal on both sides, reactive to light. Cranial nerves III, IV and : Extraocular muscles are intact without nystagmus. Cranial nerve V: Equal sensation to face. Cranial nerve VII: Symmetrical face. Cranial nerve VIII: Decreased equal hearing bilaterally. Cranial nerve IX and X: Elevates palate. Cranial nerve XI: Elevates shoulder 5/5. Cranial nerve XII: With straight tongue. MOTOR: Moving both upper extremities without difficulty. Lower extremity with pain in his lower back. Sensation equal on both sides for light touch and temperature. COORDINATION: [id number] test intact. HEART: Regular rate and rhythm. LUNGS: Equal breath sounds. ABDOMEN: Soft, relaxed, nondistended, no tenderness. ASSESSMENT AND PLAN: 1. The patient is 38 years old status post ependymoma. We will follow up the patient with neurosurgery for more evaluation and treatment with the possible SPECT scan versus biopsy. The patient is seen also by oncologist. MRI of his spine showed no metastasis. 2. Status post low back ache, in which the patient have surgical adjustment of his hardware in his back after the fusion surgery. 3. Gait difficulty secondary to low back ache in which the patient is followed up by physical therapy, which we recommend for him an acute rehab with the patient is still waiting for approval. 4. Keep the patient under seizure precaution in the form of Keppra 500 mg twice a day. 5. Underlying paresthesia in which probably secondary to radiculopathy. Continue the patient Neurontin 300 mg 3 times a day as needed. 6. Underlying muscle spasm. Follow up the patient with muscle relaxant as needed. He is off since the surgery. Again, thank you for asking me to see the patient with you. Dictated By: DOT MCDANIELS MD NA/NTS Conf#: [id number] DID#: [id number] CC: DOT MCDANIELS MD; FAVIOLA GREEN MD;*EndCC* MTDD
[2018-12-07] MEDS: ZOLPIDEM 5 MG TAB PO PRN (23:27)
[2018-12-08 02:30] VITALS: BP 159/81; PULSE 94; RESP 18
[2018-12-08] MEDS: HYDROCODONE/APAP (10/325) TAB PO PRN ×5 (02:39→23:21)
[2018-12-08] MEDS: PANTOPRAZOLE (EC) 40 MG TAB PO SCH (05:39)
--- NOTE | 2018-12-08 08:20 | PN ---
Date/Time of Note Date/Time of Note DATE: 12/08/18 TIME: 08:16 Assessment/Plan Lines/Catheters IV Catheter Type (from Nrsg): Saline Lock Baker in Place (from Nrsg): No Assessment/Plan Assessment/Plan s/p lumbar fusion L4-S1 with subsequent replacement of right-sided pedicle screws L4-S1 [facility] ARU denied CM working on transfer to ARU at other facility patient has not yet been walking since surgery - continue PT/ambulate, fall precautions patient underwent procedure for left ingrown toe with DPM HTN - meds to be adjusted per Dr. Reza Subjective 24 Hr Interval Summary notes improvement in right leg pain but still has numbness had a pain attack during BM on commode yesterday reports right low back spasms Exam/Review of Systems Vital Signs Vitals Vital Signs Date Temp Pulse Resp B/P (MAP) Pulse Ox O2 O2 Flow FiO2 Time Delivery Rate 12/08/18 98.0 94 18 159/81 98 02:30 (107) 12/07/18 Room Air 15:47 Intake and Output 12/07/18 12/07/18 12/08/18 1515:00 23:00 07:00 IntakeIntake Total 400 ml 200 ml 250 ml OutputOutput Total 500 ml 400 ml 500 ml BalanceBalance -100 ml -200 ml -250 ml Exam Free Text/Dictation AOx3 comfortable exam unchanged incision c/d/i Results Result Diagram: 12/07/18 0446 12/07/18 0446 MAXI CHOUDHARY PA-C Dec 08, 2018 08:20
[2018-12-08] MEDS: AMLODIPINE 10 MG TAB PO SCH (09:08)
[2018-12-08] MEDS: LEVETIRACETAM 500 MG TAB PO SCH ×2 (09:08→20:35)
[2018-12-08] MEDS: GABAPENTIN 300 MG CAP PO SCH ×2 (09:08→20:36)
[2018-12-08] MEDS: DOCUSATE SODIUM 100 MG CAP PO SCH ×2 (09:08→20:36)
[2018-12-08] MEDS: MECLIZINE 25 MG TAB PO SCH ×3 (09:08→20:36)
[2018-12-08] MEDS: BACLOFEN 10 MG TAB PO SCH ×3 (09:08→20:36)
[2018-12-08] MEDS: TRIAMTERENE/HCTZ (37.5/25) TAB PO SCH (09:09)
[2018-12-08] MEDS: METHYLPREDNISOLONE 40 MG INJ IV SCH ×2 (09:09→20:36)
[2018-12-08] MEDS: BENAZEPRIL 40 MG TAB PO SCH (09:09)
[2018-12-08 14:09] VITALS: BP 138/74; PULSE 110; RESP 18
--- NOTE | 2018-12-08 17:31 | CONS ---
Assessment/Plan Assessment/Plan Problems: (1) Vertigo Status: Acute Comment: Pt. continues to have some vertigo but improved since steroid and meclizine therapy. Will cont. to wean solu-medrol until d/c'ed next week (2) Essential (primary) hypertension Status: Chronic Comment: Added triamterene-HCTZ yesterday as amlodipine and benazepril were ineffective. BP improved today. Will monitor and titrate meds. (3) Obstructive sleep apnea Status: Chronic Comment: Cont. CPAP O/N (4) Status post lumbar spinal fusion Status: Resolved Comment: Pt. wants to shower but needs to be cleared by PT for this. At high risk of falls. Progressing slowly. Attempting to transfer to a rehab facility but case management does not anticipate an acceptance before next week. Pt. will remain for the next 96 hours minimum. In that time cont. PT and pain control. Consultation Date/Type/Reason Admit Date/Time Nov 21, 2018 at 05:24 Initial Consult Date 11/21/18 Type of Consult Medicine Reason for Consultation Medical Management Requesting Provider: FAVIOLA GREEN MD Date/Time of Note DATE: 12/08/18 TIME: 17:25 24 HR Interval Summary Constitutional: no complaints, improved Detailed Summary Respiratory: no complaints Cardiovascular: no complaints Gastrointestinal: no complaints Genitourinary: no complaints Musculoskeletal: back pain (wants to shower but has not been cleared by PT) Neurologic: no complaints Exam/Review of Systems Exam Vitals VS - Last 72 Hours, by Label Date Temp Pulse Resp B/P (MAP) Pulse Ox O2 O2 Flow FiO2 Time Delivery Rate 12/08/18 98.3 110 18 138/74 93 Room Air 14:09 (95) 12/08/18 98.0 94 18 159/81 98 02:30 (107) 12/07/18 98.3 99 18 138/78 90 20:00 (98) 12/07/18 98.3 102 18 151/74 99 Room Air 15:47 (99) 12/07/18 98.3 70 18 168/80 99 Room Air 07:29 (109) 12/07/18 98.6 95 20 148/80 97 Room Air 02:00 (102) 12/06/18 98.7 96 20 152/83 96 Room Air 20:06 (106) 12/06/18 18 19:00 12/06/18 18 15:28 12/06/18 97.6 104 18 130/77 97 Room Air 15:03 (94) 12/06/18 18 09:00 12/06/18 98.4 89 20 154/80 96 Room Air 08:05 (104) 12/06/18 18 05:00 12/06/18 20 01:10 12/06/18 98.6 100 20 145/84 97 Room Air 00:30 (104) 12/05/18 98.4 75 19 144/71 99 Room Air 22:30 (95) 12/05/18 98.3 80 19 140/69 98 Room Air 21:30 (92) 12/05/18 98.1 74 17 149/87 98 Room Air 21:00 (107) 12/05/18 17 21:00 12/05/18 98.0 70 18 141/85 99 Room Air 20:30 (103) 12/05/18 98.0 70 18 144/88 99 Room Air 20:15 (106) 12/05/18 98.3 68 18 136/80 100 Room Air 19:59 (98) 12/05/18 82 22 139/59 98 Room Air 19:36 (85) 12/05/18 18 19:04 12/05/18 80 14 140/64 97 Room Air 18:56 (89) 12/05/18 85 13 144/77 97 Room Air 18:51 (99) 12/05/18 68 12 133/64 94 Room Air 18:46 (87) 12/05/18 78 16 138/66 98 Room Air 18:40 (90) 12/05/18 86 24 140/71 97 Room Air 18:34 (94) 12/05/18 84 26 140/69 98 Room Air 18:29 (92) 12/05/18 84 21 138/72 98 Mask 18:24 (94) 12/05/18 98.8 18:22 12/05/18 98.8 88 19 140/67 100 Mask 18:19 (91) Vital Signs Date Temp Pulse Resp B/P (MAP) Pulse Ox O2 O2 Flow FiO2 Time Delivery Rate 12/08/18 98.3 110 18 138/74 93 Room Air 14:09 (95) Intake and Output 12/07/18 12/07/18 12/08/18 1515:00 23:00 07:00 IntakeIntake Total 400 ml 200 ml 250 ml OutputOutput Total 500 ml 400 ml 500 ml BalanceBalance -100 ml -200 ml -250 ml Constitutional: alert, oriented, obese Psych: no complaints, nl mood/affect Respiratory: clear to auscultation, normal air movement Cardiovascular: regular rate and rhythm, nl pulses; No edema, No murmurs/extra sounds, No rub Gastrointestinal: soft, nl liver, spleen, non-tender, bowel sounds; No mass, No rebound or guarding Musculoskeletal: nl extremities to inspection Extremities: normal pulses; No cyanosis, No clubbing, No edema Neurological: CARRY ALL DRIVER II-XII intact, nl mental status, nl speech, nl strength Results Result Diagram: 12/08/18 1012 12/08/18 1012 Results 24hrs Laboratory Tests Test 12/08/18 10:12 White Blood Count 14.5 H Red Blood Count 5.18 Hemoglobin 14.8 Hematocrit 45.9 Mean Corpuscular Volume 88.6 Mean Corpuscular Hemoglobin 28.6 L Mean Corpuscular Hemoglobin Concent 32.2 Red Cell Distribution Width 13.4 Platelet Count 300 Mean Platelet Volume 10.0 Immature Granulocytes % 2.000 H Neutrophils % 70.6 Lymphocytes % 19.8 Monocytes % 7.2 Eosinophils % 0.2 Basophils % 0.2 Nucleated Red Blood Cells % 0.0 Immature Granulocytes # 0.290 H Neutrophils # 10.2 H Lymphocytes # 2.9 Monocytes # 1.0 H Eosinophils # 0.0 Basophils # 0.0 Nucleated Red Blood Cells # 0.0 Sodium Level 137 Potassium Level 4.1 Chloride Level 96 L Carbon Dioxide Level 33 H Anion Gap 8 Blood Urea Nitrogen 24 H Creatinine 0.73 Est Glomerular Filtrat Rate mL/min > 60 Glucose Level 127 Calcium Level 9.1 Magnesium Level 2.2 Medications Medication Current Medications Amlodipine Besylate (Norvasc) 10 mg DAILY PO Last administered on 12/08/18at 09:08; Admin Dose 10 MG; Start 11/22/18 at 09:00 Benazepril HCl (Lotensin) 40 mg DAILY PO Last administered on 12/08/18at 09:09; Admin Dose 40 MG; Start 11/22/18 at 09:00 Gabapentin (Neurontin) 300 mg BID PO Last administered on 12/08/18at 09:08; Admin Dose 300 MG; Start 11/21/18 at 21:00 Zolpidem Tartrate (Ambien) 5 mg HS PRN PO INSOMNIA Last administered on 12/07/18 23:27; Admin Dose 5 MG; Start 11/21/18 at 22:00 Meclizine HCl (Antivert) 25 mg TID PO Last administered on 12/08/18 13:14; Admin Dose 25 MG; Start 11/25/18 at 13:00 Levetiracetam (Keppra) 500 mg BID PO Last administered on 12/08/18 09:08; Admin Dose 500 MG; Start 11/26/18 at 21:00 Acetaminophen/ Hydrocodone Bitart ([place] (10/325)) 1 tab Q4H PRN PO .PAIN 1-5; Start 12/05/18 at 16:00 Acetaminophen/ Hydrocodone Bitart ([place] (10/325)) 2 tab Q4H PRN PO .PAIN 6-10 Last administered on 12/08/18 13:14; Admin Dose 2 TAB; Start 12/05/18 at 16:00 Hydromorphone HCl (Dilaudid) 0.2 mg Q1H PRN IV .BREAKTHROUGH PAIN Last administered on 12/07/18 14:54; Admin Dose 0.2 MG; Start 12/05/18 at 16:00 Ondansetron HCl (Zofran Inj) 4 mg Q6H PRN IV NAUSEA/VOMITING; Start 12/05/18 at 16:00 Bisacodyl (Dulcolax Supp) 10 mg DAILY PRN [place] .CONSTIPATION Last administered on 12/07/18 13:41; Admin Dose 10 MG; Start 12/05/18 at 16:00 Docusate Sodium (Colace) 100 mg BID PO Last administered on 12/08/18 09:08; Admin Dose 100 MG; Start 12/05/18 at 21:00 Al Hydrox/Mg Hydrox/Simethicone (Mag-Al Plus) 15 ml Q6H PRN PO .CONSTIPATION/DYSPEPSIA; Start 12/05/18 at 16:00 Acetaminophen (Tylenol Tab) 650 mg Q4H PRN PO FARRIS OR TEMP GREATER THAN 101.3F; Start 12/05/18 at 16:00 Phenol (Cepastat Lozenge) 1 lozenge PRN PRN [place] .SORE THROAT; Start 12/05/18 at 16:00 Diphenhydramine HCl (Benadryl) 25 mg Q6H PRN PO .ITCHING; Start 12/05/18 at 16:00 Diphenhydramine HCl (Benadryl) 25 mg Q6H PRN IV .ITCHING; Start 12/05/18 at 16:00 Naloxone HCl (Narcan) 0.2 mg Q2M PRN IV .RR 8 BREATHS/MIN OR LESS; Start 12/05/18 at 16:00 Miscellaneous Information 1. Hold IMAGING CLERK at 1,000... IMAGING CLERK IV ; Start 12/05/18 at 16:00 Baclofen (Lioresal) 20 mg TID PO Last administered on 12/08/18 13:14; Admin Dose 20 MG; Start 12/05/18 at 21:00 Polyethylene Glycol (Miralax) 17 gm DAILY PRN PO constipation Last administered on 12/07/18 09:25; Admin Dose 17 GM; Start 12/06/18 at 15:30 Lidocaine (Xylocaine 1% (Mpf)) 30 ml ONCE PRN INJ pain Last administered on 12/06/18 18:01; Admin Dose 30 ML; Start 12/06/18 at 17:30 Methylprednisolone Sodium Succinate (Solu-Medrol) 10 mg Q12 IV Last administered on 12/08/18 09:09; Admin Dose 10 MG; Start 12/06/18 at 21:00 Triamterene/HCTZ (Maxzide-25) 1 tab DAILY PO Last administered on 12/08/18 09:09; Admin Dose 1 TAB; Start 12/07/18 at 17:55 Pantoprazole (Protonix Tab) 40 mg DAILY@06 PO Last administered on 12/08/18 05:39; Admin Dose 40 MG; Start 12/08/18 at 06:00 ELISA TOLEDO MD Dec 08, 2018 17:31
--- NOTE | 2018-12-08 19:57 | CONS ---
Assessment/Plan Assessment/Plan Assessment/Plan (Daily) Onychocryptosis L hallux Pain in limb L Lumbar stenosis s/p lumbar fusion Chronic pain syndrome HTN Plan Dressings were changed to the left hallux partial nail avulsion site and site was irrigated copiously with saline. Educated patient on s/s of infection. Patient may weight bear as tolerated and may participate with physical therapy scheduled sessions. Encouraged patient to keep hallux dressing sites clean dry and intact. Consultation Date/Type/Reason Admit Date/Time Nov 21, 2018 at 05:24 Initial Consult Date Requesting Provider: FAVIOLA GREEN MD Date/Time of Note DATE: 12/08/18 TIME: 19:57 24 HR Interval Summary Free Text/Dictation No acute changes overnight. Exam/Review of Systems Exam Vitals Vital Signs Date Temp Pulse Resp B/P (MAP) Pulse Ox O2 O2 Flow FiO2 Time Delivery Rate 12/08/18 98.3 110 18 138/74 93 Room Air 14:09 (95) Intake and Output 12/07/18 12/07/18 12/08/18 1515:00 23:00 07:00 IntakeIntake Total 400 ml 200 ml 250 ml OutputOutput Total 500 ml 400 ml 500 ml BalanceBalance -100 ml -200 ml -250 ml Exam DP/PT pulses palpable Protective sensations intact No pain to the medial border of the left hallux, no purulence or erythema to the partially avulsed nail site. Skin temperature gradient warm to warm from proximal leg to distal foot. Results Result Diagram: 12/08/18 1012 12/08/18 1012 Results 24hrs Laboratory Tests Test 12/08/18 10:12 White Blood Count 14.5 H Red Blood Count 5.18 Hemoglobin 14.8 Hematocrit 45.9 Mean Corpuscular Volume 88.6 Mean Corpuscular Hemoglobin 28.6 L Mean Corpuscular Hemoglobin Concent 32.2 Red Cell Distribution Width 13.4 Platelet Count 300 Mean Platelet Volume 10.0 Immature Granulocytes % 2.000 H Neutrophils % 70.6 Lymphocytes % 19.8 Monocytes % 7.2 Eosinophils % 0.2 Basophils % 0.2 Nucleated Red Blood Cells % 0.0 Immature Granulocytes # 0.290 H Neutrophils # 10.2 H Lymphocytes # 2.9 Monocytes # 1.0 H Eosinophils # 0.0 Basophils # 0.0 Nucleated Red Blood Cells # 0.0 Sodium Level 137 Potassium Level 4.1 Chloride Level 96 L Carbon Dioxide Level 33 H Anion Gap 8 Blood Urea Nitrogen 24 H Creatinine 0.73 Est Glomerular Filtrat Rate mL/min > 60 Glucose Level 127 Calcium Level 9.1 Magnesium Level 2.2 Medications Medication Current Medications Amlodipine Besylate (Norvasc) 10 mg DAILY PO Last administered on 12/08/18 09:08; Admin Dose 10 MG; Start 11/22/18 at 09:00 Benazepril HCl (Lotensin) 40 mg DAILY PO Last administered on 12/08/18 09:09; Admin Dose 40 MG; Start 11/22/18 at 09:00 Gabapentin (Neurontin) 300 mg BID PO Last administered on 12/08/18 09:08; Admin Dose 300 MG; Start 11/21/18 at 21:00 Zolpidem Tartrate (Ambien) 5 mg HS PRN PO INSOMNIA Last administered on 12/07/18 23:27; Admin Dose 5 MG; Start 11/21/18 at 22:00 Meclizine HCl (Antivert) 25 mg TID PO Last administered on 12/08/18 13:14; Admin Dose 25 MG; Start 11/25/18 at 13:00 Levetiracetam (Keppra) 500 mg BID PO Last administered on 12/08/18 09:08; Admin Dose 500 MG; Start 11/26/18 at 21:00 Acetaminophen/ Hydrocodone Bitart ([place] (10/325)) 1 tab Q4H PRN PO .PAIN 1-5; Start 12/05/18 at 16:00 Acetaminophen/ Hydrocodone Bitart ([place] (10/325)) 2 tab Q4H PRN PO .PAIN 6-10 Last administered on 12/08/18 17:27; Admin Dose 2 TAB; Start 12/05/18 at 16:00 Hydromorphone HCl (Dilaudid) 0.2 mg Q1H PRN IV .BREAKTHROUGH PAIN Last administered on 12/07/18 14:54; Admin Dose 0.2 MG; Start 12/05/18 at 16:00 Ondansetron HCl (Zofran Inj) 4 mg Q6H PRN IV NAUSEA/VOMITING; Start 12/05/18 at 16:00 Bisacodyl (Dulcolax Supp) 10 mg DAILY PRN [place] .CONSTIPATION Last administered on 12/07/18at 13:41; Admin Dose 10 MG; Start 12/05/18 at 16:00 Docusate Sodium (Colace) 100 mg BID PO Last administered on 12/08/18 09:08; Ad min Dose 100 MG; Start 12/05/18 at 21:00 Al Hydrox/Mg Hydrox/Simethicone (Mag-Al Plus) 15 ml Q6H PRN PO .CONSTIPATION/DYSPEPSIA; Start 12/05/18 at 16:00 Acetaminophen (Tylenol Tab) 650 mg Q4H PRN PO FARRIS OR TEMP GREATER THAN 101.3F; Start 12/05/18 at 16:00 Phenol (Cepastat Lozenge) 1 lozenge PRN PRN [place] .SORE THROAT; Start 12/05/18 at 16:00 Diphenhydramine HCl (Benadryl) 25 mg Q6H PRN PO .ITCHING; Start 12/05/18 at 16:00 Diphenhydramine HCl (Benadryl) 25 mg Q6H PRN IV .ITCHING; Start 12/05/18 at 16:00 Naloxone HCl (Narcan) 0.2 mg Q2M PRN IV .RR 8 BREATHS/MIN OR LESS; Start 12/05/18 at 16:00 Miscellaneous Information 1. Hold RENEWABLE ENERGY TRADER at 1,000... RENEWABLE ENERGY TRADER IV ; Start 12/05/18 at 16:00 Baclofen (Lioresal) 20 mg TID PO Last administered on 12/08/18at 13:14; Admin Dose 20 MG; Start 12/05/18 at 21:00 Polyethylene Glycol (Miralax) 17 gm DAILY PRN PO constipation Last administered on 12/07/18 09:25; Admin Dose 17 GM; Start 12/06/18 at 15:30 Lidocaine (Xylocaine 1% (Mpf)) 30 ml ONCE PRN INJ pain Last administered on 12/06/18at 18:01; Admin Dose 30 ML; Start 12/06/18 at 17:30 Methylprednisolone Sodium Succinate (Solu-Medrol) 10 mg Q12 IV Last administered on 12/08/18 09:09; Admin Dose 10 MG; Start 12/06/18 at 21:00 Triamterene/HCTZ (Maxzide-25) 1 tab DAILY PO Last administered on 12/08/18at 09: 09; Admin Dose 1 TAB; Start 12/07/18 at 17:55 Pantoprazole (Protonix Tab) 40 mg DAILY@06 PO Last administered on 12/08/18at 05:39; Admin Dose 40 MG; Start 12/08/18 at 06:00 SHEILA MALIN DPM Dec 08, 2018 19:57
[2018-12-08 20:34] VITALS: BP 134/93; PULSE 114; RESP 18
[2018-12-09 02:39] VITALS: BP 136/84; PULSE 95; RESP 18
[2018-12-09] MEDS: HYDROCODONE/APAP (10/325) TAB PO PRN ×4 (05:12→21:21)
[2018-12-09] MEDS: PANTOPRAZOLE (EC) 40 MG TAB PO SCH (05:13)
[2018-12-09] MEDS: HYDROmorphONE 0.5 MG/0.5 ML SYG IV PRN ×3 (07:24→16:08)
--- NOTE | 2018-12-09 08:15 | PN ---
Date/Time of Note Date/Time of Note DATE: 12/09/18 TIME: 08:13 Assessment/Plan Lines/Catheters IV Catheter Type (from Nrsg): Saline Lock Baker in Place (from Nrsg): No Assessment/Plan Assessment/Plan s/p L4-S1 fusion with subsequent replacement of right pedicle screws L4-S1 ambulate with fall precautions i will defer to 4w nursing to determine whether we can safely accomodate patient's request to shower awaiting to see if he is accepted to ARU - notes say CM at other facilities not to return until tuesday-tuesday at the earliest Subjective 24 Hr Interval Summary patient motivated to ambulate but concerned for pain attacks wants a shower has difficulty toileting without pain attacks understands that we are awaiting CM at other ARU facilities - Tuesday at the earliest Exam/Review of Systems Vital Signs Vitals Vital Signs Date Temp Pulse Resp B/P (MAP) Pulse Ox O2 O2 Flow FiO2 Time Delivery Rate 12/09/18 98.1 95 18 136/84 96 02:39 (101) 12/08/18 Room Air 14:09 Intake and Output 12/08/18 12/08/18 12/09/18 1414:59 22:59 06:59 IntakeIntake Total 480 ml 1200 ml OutputOutput Total 670 ml 1020 ml 1300 ml BalanceBalance -190 ml 180 ml -1300 ml Exam Free Text/Dictation exam unchanged incision c/d/i [id number] comfortable Results Result Diagram: 12/08/18 1012 12/08/18 1012 MAXI CHOUDHARY PA-C Dec 09, 2018 08:15
[2018-12-09 08:22] VITALS: BP 185/99; PULSE 111; RESP 18
[2018-12-09] MEDS: GABAPENTIN 300 MG CAP PO SCH ×2 (09:22→21:17)
[2018-12-09] MEDS: LEVETIRACETAM 500 MG TAB PO SCH ×2 (09:22→21:14)
[2018-12-09] MEDS: DOCUSATE SODIUM 100 MG CAP PO SCH ×2 (09:22→21:13)
[2018-12-09] MEDS: MECLIZINE 25 MG TAB PO SCH ×3 (09:22→21:17)
[2018-12-09] MEDS: AMLODIPINE 10 MG TAB PO SCH (09:23)
[2018-12-09] MEDS: BENAZEPRIL 40 MG TAB PO SCH (09:23)
[2018-12-09] MEDS: TRIAMTERENE/HCTZ (37.5/25) TAB PO SCH (09:23)
[2018-12-09] MEDS: BACLOFEN 10 MG TAB PO SCH ×3 (09:23→21:17)
[2018-12-09] MEDS: METHYLPREDNISOLONE 40 MG INJ IV SCH (09:24)
[2018-12-09] MEDS: BISACODYL 10 MG SUPP PR PRN (12:21)
--- NOTE | 2018-12-09 13:59 | CONS ---
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 - Other intraventricular lesions such as ependymoma, meningioma and choroid plexus lesion considered less likely. # MRI Cervical and thoracic and lumbar spine shows no obvious leptomeningeal disease # Acute Dizziness -Neurosurgery was called and recommended outpt f/U Patient has concerns 2/2 to his diagnoses. Will ask caseworker/respite worker to discuss with patient regarding his concerns. Consultation Date/Type/Reason Admit Date/Time Nov 21, 2018 at 05:24 Initial Consult Date Type of Consult oncology Reason for Consultation Brain Mass Requesting Provider: FAVIOLA GREEN MD Date/Time of Note DATE: 12/09/18 TIME: 13:55 24 HR Interval Summary Free Text/Dictation -resting in bed; seem comfortable - c/o dizziness earlier when he was trying to get up and to stand up- none at present. No fall/injury reported - no new issues reported by staff Detailed Summary Eyes: other (visual changes-cant focus his eyes at sanme time.) Respiratory: no complaints Cardiovascular: no complaints Gastrointestinal: no complaints Genitourinary: no complaints Musculoskeletal: back pain Skin: no complaints Neurologic: dizziness Endocrine: no complaints Lymphatic: no complaints Psychological: nl mood/affect Immunologic: no complaints Exam/Review of Systems Exam Vitals Vital Signs Date Temp Pulse Resp B/P (MAP) Pulse Ox O2 O2 Flow FiO2 Time Delivery Rate 12/09/18 99.0 111 18 185/99 96 Room Air 08:22 (127) Intake and Output 12/08/18 12/08/18 12/09/18 1515:00 23:00 07:00 IntakeIntake Total 480 ml 1200 ml OutputOutput Total 670 ml 1020 ml 1300 ml BalanceBalance -190 ml 180 ml -1300 ml Constitutional: alert, well developed Psych: nl mood/affect Eyes: nl lids, nl sclera ENMT: nl external ears & nose Neck: non-tender Respiratory: clear to auscultation Cardiovascular: nl pulses, other (s1s2) Gastrointestinal: soft, non-tender Musculoskeletal: nl extremities to inspection Extremities: normal pulses Neurological: nl speech, other (alert/responsive) Skin: nl turgor Lymph: nontender Results Result Diagram: 12/08/18 1012 12/08/18 1012 Medications Medication Current Medications Amlodipine Besylate (Norvasc) 10 mg DAILY PO Last administered on 12/09/18 09:23; Admin Dose 10 MG; Start 11/22/18 at 09:00 Benazepril HCl (Lotensin) 40 mg DAILY PO Last administered on 12/09/18 09:23; Admin Dose 40 MG; Start 11/22/18 at 09:00 Gabapentin (Neurontin) 300 mg BID PO Last administered on 12/09/18 09:22; Admin Dose 300 MG; Start 11/21/18 at 21:00 Zolpidem Tartrate (Ambien) 5 mg HS PRN PO INSOMNIA Last administered on 12/07/18 23:27; Admin Dose 5 MG; Start 11/21/18 at 22:00 Meclizine HCl (Antivert) 25 mg TID PO Last administered on 12/09/18 12:21; Admin Dose 25 MG; Start 11/25/18 at 13:00 Levetiracetam (Keppra) 500 mg BID PO Last administered on 12/09/18 09:22; Admin Dose 500 MG; Start 11/26/18 at 21:00 Acetaminophen/ Hydrocodone Bitart ([place] (10/325)) 1 tab Q4H PRN PO .PAIN 1-5; Start 12/05/18 at 16:00 Acetaminophen/ Hydrocodone Bitart ([place] (10/325)) 2 tab Q4H PRN PO .PAIN 6-10 Last administered on 12/09/18 13:48; Admin Dose 2 TAB; Start 12/05/18 at 16:00 Hydromorphone HCl (Dilaudid) 0.2 mg Q1H PRN IV .BREAKTHROUGH PAIN Last administered on 12/09/18 12:21; Admin Dose 0.2 MG; Start 12/05/18 at 16:00 Ondansetron HCl (Zofran Inj) 4 mg Q6H PRN IV NAUSEA/VOMITING; Start 12/05/18 at 16:00 Bisacodyl (Dulcolax Supp) 10 mg DAILY PRN [place] .CONSTIPATION Last administered on 12/09/18at 12:21; Admin Dose 10 MG; Start 12/05/18 at 16:00 Docusate Sodium (Colace) 100 mg BID PO Last administered on 12/09/18at 09:22; Admin Dose 100 MG; Start 12/05/18 at 21:00 Al Hydrox/Mg Hydrox/Simethicone (Mag-Al Plus) 15 ml Q6H PRN PO .CONSTIPAT ION/DYSPEPSIA; Start 12/05/18 at 16:00 Acetaminophen (Tylenol Tab) 650 mg Q4H PRN PO FARRIS OR TEMP GREATER THAN 101.3F; Start 12/05/18 at 16:00 Phenol (Cepastat Lozenge) 1 lozenge PRN PRN [place] .SORE THROAT; Start 12/05/18 at 16:00 Diphenhydramine HCl (Benadryl) 25 mg Q6H PRN PO .ITCHING; Start 12/05/18 at 16:00 Diphenhydramine HCl (Benadryl) 25 mg Q6H PRN IV .ITCHING Last administered on 12/09/18at 01:55; Admin Dose 25 MG; Start 12/05/18 at 16:00 Naloxone HCl (Narcan) 0.2 mg Q2M PRN IV .RR 8 BREATHS/MIN OR LESS; Start 12/05/18 at 16:00 Miscellaneous Information 1. Hold INFORMATION TECHNOLOGY ASSISTANT at 1,000... INFORMATION TECHNOLOGY ASSISTANT IV ; Start 12/05/18 at 16:00 Baclofen (Lioresal) 20 mg TID PO Last administered on 12/09/18at 12:21; Admin Dose 20 MG; Start 12/05/18 at 21:00 Polyethylene Glycol (Miralax) 17 gm DAILY PRN PO constipation Last administered on 12/07/18at 09:25; Admin Dose 17 GM; Start 12/06/18 at 15:30 Lidocaine (Xylocaine 1% (Mpf)) 30 ml ONCE PRN INJ pain Last administered on 12/06/18at 18:01; Admin Dose 30 ML; Start 12/06/18 at 17:30 Methylprednisolone Sodium Succinate (Solu-Medrol) 10 mg Q12 IV Last administered on 12/09/18at 09:24; Admin Dose 10 MG; Start 12/06/18 at 21:00 Triamterene/HCTZ (Maxzide-25) 1 tab DAILY PO Last administered on 12/09/18 09:23; Admin Dose 1 TAB; Start 12/07/18 at 17:55 Pantoprazole (Protonix Tab) 40 mg DAILY@06 PO Last administered on 12/09/18at 05:13; Admin Dose 40 MG; Start 12/08/18 at 06:00 DARIAN PEOPLES Dec 09, 2018 13:59
--- NOTE | 2018-12-09 14:01 | CONS ---
Assessment/Plan Assessment/Plan Hospital Course (Demo Recall) Essential Hypertension -BP remains high on Triamterene/HCTZ, amlodipine and benazepril -will start hydralazine 50mg po BID -monitor BP Vertigo -Improved, will taper solumedrol from 10mg IV Q12H to daily -continue meclizine Obstructive sleep apnea -continue CPAP at night s/p lumbar spinal fusion -progressing with PT slowly -continue pain control Consultation Date/Type/Reason Admit Date/Time Nov 21, 2018 at 05:24 Initial Consult Date Requesting Provider: FAVIOLA GREEN MD Date/Time of Note DATE: 12/09/18 TIME: 13:51 24 HR Interval Summary Free Text/Dictation Patient seen and examined at bedside. No acute events overnight. He is passing gas and pain is under control. But aggressive of PT limited by sedation due to pain control. He stated that his vertigo is under control with solumedrol and meclizine. Exam/Review of Systems Exam Vitals Vital Signs Date Temp Pulse Resp B/P (MAP) Pulse Ox O2 O2 Flow FiO2 Time Delivery Rate 12/09/18 99.0 111 18 185/99 96 Room Air 08:22 (127) Intake and Output 12/08/18 12/08/18 12/09/18 1515:00 23:00 07:00 IntakeIntake Total 480 ml 1200 ml OutputOutput Total 670 ml 1020 ml 1300 ml BalanceBalance -190 ml 180 ml -1300 ml Exam General: Comfortable in appearance, not in acute distress. Skin appropriate for ethnicity Eye: Extraocular movements are intact, Normal conjunctiva. HENT: Normocephalic, atraumatic. Respiratory: Respirations are non-labored, Breath sounds are equal, Symmetrical chest wall expansion. Cardiovascular: S1, S2. No murmur. No LE edema Gastrointestinal: Soft, Non-tender, Non-distended, Normal bowel sounds. Integumentary: Warm to touch. Neurologic: Alert, Oriented. Cognition and Speech: Speech clear and coherent, Functional cognition intact. Psychiatric: Cooperative, Appropriate mood & affect. Results Result Diagram: 12/08/18 1012 12/08/18 1012 Medications Medication Current Medications Amlodipine Besylate (Norvasc) 10 mg DAILY PO Last administered on 12/09/18at 09:23; Admin Dose 10 MG; Start 11/22/18 at 09:00 Benazepril HCl (Lotensin) 40 mg DAILY PO Last administered on 12/09/18 09:23; Admin Dose 40 MG; Start 11/22/18 at 09:00 Gabapentin (Neurontin) 300 mg BID PO Last administered on 12/09/18 09:22; Admin Dose 300 MG; Start 11/21/18 at 21:00 Zolpidem Tartrate (Ambien) 5 mg HS PRN PO INSOMNIA Last administered on 12/07/18 23:27; Admin Dose 5 MG; Start 11/21/18 at 22:00 Meclizine HCl (Antivert) 25 mg TID PO Last administered on 12/09/18 12:21; Admin Dose 25 MG; Start 11/25/18 at 13:00 Levetiracetam (Keppra) 500 mg BID PO Last administered on 12/09/18 09:22; Admin Dose 500 MG; Start 11/26/18 at 21:00 Acetaminophen/ Hydrocodone Bitart ([place] (10/325)) 1 tab Q4H PRN PO .PAIN 1-5; Start 12/05/18 at 16:00 Acetaminophen/ Hydrocodone Bitart ([place] (10/325)) 2 tab Q4H PRN PO .PAIN 6-10 Last administered on 12/09/18 13:48; Admin Dose 2 TAB; Start 12/05/18 at 16:00 Hydromorphone HCl (Dilaudid) 0.2 mg Q1H PRN IV .BREAKTHROUGH PAIN Last administered on 12/09/18 12:21; Admin Dose 0.2 MG; Start 12/05/18 at 16:00 Ondansetron HCl (Zofran Inj) 4 mg Q6H PRN IV NAUSEA/VOMITING; Start 12/05/18 at 16:00 Bisacodyl (Dulcolax Supp) 10 mg DAILY PRN SD .CONSTIPATION Last administered on 12/09/18 12:21; Admin Dose 10 MG; Start 12/05/18 at 16:00 Docusate Sodium (Colace) 100 mg BID PO Last administered on 12/09/18 09:22; Admin Dose 100 MG; Start 12/05/18 at 21:00 Al Hydrox/Mg Hydrox/Simethicone (Mag-Al Plus) 15 ml Q6H PRN PO .CONSTIPATION/DYSPEPSIA; Start 12/05/18 at 16:00 Acetaminophen (Tylenol Tab) 650 mg Q4H PRN PO FARRIS OR TEMP GREATER THAN 101.3F; Start 12/05/18 at 16:00 Phenol (Cepastat Lozenge) 1 lozenge PRN PRN MT .SORE THROAT; Start 12/05/18 at 16:00 Diphenhydramine HCl (Benadryl) 25 mg Q6H PRN PO .ITCHING; Start 12/05/18 at 16:00 Diphenhydramine HCl (Benadryl) 25 mg Q6H PRN IV .ITCHING Last administered on 12/09/18at 01:55; Admin Dose 25 MG; Start 12/05/18 at 16:00 Naloxone HCl (Narcan) 0.2 mg Q2M PRN IV .RR 8 BREATHS/MIN OR LESS; Start 12/05/18 at 16:00 Miscellaneous Information 1. Hold BOTANY TEACHER at 1,000... BOTANY TEACHER IV ; Start 12/05/18 at 1 6:00 Baclofen (Lioresal) 20 mg TID PO Last administered on 12/09/18at 12:21; Admin Dose 20 MG; Start 12/05/18 at 21:00 Polyethylene Glycol (Miralax) 17 gm DAILY PRN PO constipation Last administered on 12/07/18at 09:25; Admin Dose 17 GM; Start 12/06/18 at 15:30 Lidocaine (Xylocaine 1% (Mpf)) 30 ml ONCE PRN INJ pain Last administered on 12/06/18at 18:01; Admin Dose 30 ML; Start 12/06/18 at 17:30 Methylprednisolone Sodium Succinate (Solu-Medrol) 10 mg Q12 IV Last administered on 12/09/18at 09:24; Admin Dose 10 MG; Start 12/06/18 at 21:00 Triamterene/HCTZ (Maxzide-25) 1 tab DAILY PO Last administered on 12/09/18at 09:23; Admin Dose 1 TAB; Start 12/07/18 at 17:55 Pantoprazole (Protonix Tab) 40 mg DAILY@06 PO Last administered on 12/09/18at 05:13; Admin Dose 40 MG; Start 4/19/19 at 06:00 MAYI PAL MD Dec 09, 2018 14:01
[2018-12-09 14:22] VITALS: BP 120/78; RESP 18
[2018-12-09 20:00] VITALS: BP 127/73; PULSE 119; RESP 18
--- NOTE | 2018-12-09 21:30 | HKNOTE ---
DATE OF SERVICE: 12/09/2018 HISTORY OF PRESENT ILLNESS: The patient is a 38-year-old status post low back ache, two surgery of discectomy, followed by fusion surgery and adjustment of his hardware, moving his screws. 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 The patient is on meclizine as well as steroid, awaiting for rehab facility for continuation of his treatment as well as to follow with neurosurgery. CURRENT MEDICATIONS: 1. Protonix 40 mg once a day. 2. Solu-Medrol 10 mg q.12h. 3. Lidocaine 30 mL once p.r.n. 4. Colace 100 mg twice a day. 5. Baclofen 20 mg 3 times a day. 6. [place] 10/325 mg every 4 hours as needed. 7. Zofran 4 mg every 6 hours. 8. Dulcolax 10 mg p.r.n. 9. Tylenol 650 mg every 4 hours as needed. 10. Benadryl 25 mg every 4 hours as needed. 11. Keppra 500 mg twice a day. 12. Meclizine 25 mg 3 times a day. 13. Norvasc 10 mg once a day. 14. Lotensin 40 mg once a day. 15. Ambien 5 mg once at night as needed. 16. Gabapentin 300 mg twice a day. 17. Maxzide 25 mg once a day. 18. Dilaudid 0.2 mg q. 1 hour as needed. PHYSICAL EXAMINATION: NEUROLOGIC: The patient is alert, awake, oriented, following simple commands. CRANIAL NERVES: Cranial nerve II: Pupils equal on both sides, reactive to light. Cranial nerves III, IV, and : Extraocular muscles intact. Cranial V: Equal sensation to face. Cranial nerve VII: Symmetrical face. Cranial nerve VIII: equal hearing bilaterally. Cranial nerve IX and X: Elevates palate. Cranial nerve XI: Elevates shoulder 5/5. Cranial nerve XII: With straight tongue. MOTOR: Bilateral upper extremity 5/5, bilateral lower extremity is 4/5 limited by the low backache. GAIT: Gait with a walker and assist. COORDINATION: Yiwkaj-uw-yzme test intact. CARDIOVASCULAR: Regular rate and rhythm. LUNGS: Equal breath sounds. ABDOMEN: Soft, relaxed, nondistended. No tenderness. IMPRESSION AND PLAN: 1. 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 2. Status post low back ache in which the patient has multiple surgeries in his back with pain treatment. 3. Muscle spasm. Continue the patient on Baclofen as needed. 4. Paresthesia. Continue the patient on Neurontin 300 mg twice a day. 5. Seizure precaution and increase Keppra to 750 mg twice a day. 6. The patient is awaiting acute rehabilitation. Thank you for asking me to see the patient with you. Dictated By: DOT MCDANIELS MD NA/NTS Conf#: [id number] DID#: [id number] CC: DOT MCDANIELS MD; FAVIOLA GREEN MD;*EndCC* MTDD
[2018-12-10 02:04] VITALS: BP 153/81; PULSE 108; RESP 20
[2018-12-10] MEDS: HYDROCODONE/APAP (10/325) TAB PO PRN ×6 (02:20→22:25)
[2018-12-10] MEDS: PANTOPRAZOLE (EC) 40 MG TAB PO SCH (05:35)
[2018-12-10 07:00] VITALS: BP 110/72; PULSE 88; RESP 18
[2018-12-10] MEDS: MECLIZINE 25 MG TAB PO SCH ×3 (09:12→22:13)
[2018-12-10] MEDS: AMLODIPINE 10 MG TAB PO SCH (09:12)
[2018-12-10] MEDS: LEVETIRACETAM 500 MG TAB PO SCH ×2 (09:13→22:13)
[2018-12-10] MEDS: BENAZEPRIL 40 MG TAB PO SCH (09:13)
[2018-12-10] MEDS: DOCUSATE SODIUM 100 MG CAP PO SCH ×2 (09:13→22:13)
[2018-12-10] MEDS: TRIAMTERENE/HCTZ (37.5/25) TAB PO SCH (09:13)
[2018-12-10] MEDS: BACLOFEN 10 MG TAB PO SCH ×3 (09:13→22:12)
[2018-12-10] MEDS: GABAPENTIN 300 MG CAP PO SCH ×2 (09:13→22:13)
[2018-12-10] MEDS: METHYLPREDNISOLONE 40 MG INJ IV SCH (09:16)
--- NOTE | 2018-12-10 12:12 | PN ---
Date/Time of Note Date/Time of Note DATE: 12/10/18 TIME: 12:10 Assessment/Plan Lines/Catheters IV Catheter Type (from Nrsg): Peripheral IV Baker in Place (from Nrsg): No Assessment/Plan Assessment/Plan improved leg pain but still has occasional discomfort with cold sensation. Complains of persistent dizziness. Unclear etiology of dizziness. will defer to neurology and internal medicine. possible positional hypotension. Subjective 24 Hr Interval Summary improved leg pain but still has occasional discomfort with cold sensation. Complains of persistent dizziness. Exam/Review of Systems Vital Signs Vitals Vital Signs Date Temp Pulse Resp B/P (MAP) Pulse Ox O2 O2 Flow FiO2 Time Delivery Rate 12/10/18 97.9 88 18 110/72 97 Room Air 07:00 (85) Intake and Output 12/09/18 12/09/18 12/10/18 1515:00 23:00 07:00 IntakeIntake Total 1100 ml 400 ml 400 ml OutputOutput Total 1300 ml 500 ml 350 ml BalanceBalance -200 ml -100 ml 50 ml Exam Free Text/Dictation LE strength and pulses intact Results Result Diagram: 12/08/18 1012 12/08/18 1012 FAVIOLA GREEN MD Dec 10, 2018 12:12
--- NOTE | 2018-12-10 13:58 | CONS ---
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 - Other intraventricular lesions such as ependymoma, meningioma and choroid plexus lesion considered less likely. # MRI Cervical and thoracic and lumbar spine shows no obvious leptomeningeal disease # Acute Dizziness -Neurosurgery was called and recommended outpt f/U Patient has concerns 2/2 to his diagnoses. Will ask case aide/sawmill or timber yard worker to discuss with patient regarding his concerns. Consultation Date/Type/Reason Admit Date/Time Nov 21, 2018 at 05:24 Initial Consult Date Type of Consult oncology Reason for Consultation BRAIN MASS Requesting Provider: FAVIOLA GREEN MD Date/Time of Note DATE: 12/10/18 TIME: 13:58 24 HR Interval Summary Free Text/Dictation -resting in bed; seem comfortable - c/o dizziness today when he was trying to get up and to stand up- none at present. No fall/injury reported - feels better now - family at bed side - no new issues reported overnight by staff Detailed Summary Eyes: no complaints ENT: no complaints Respiratory: no complaints Cardiovascular: no complaints Gastrointestinal: no complaints Genitourinary: no complaints Musculoskeletal: back pain Skin: no complaints Neurologic: no complaints, dizziness Endocrine: no complaints Lymphatic: no complaints Psychological: no complaints Immunologic: no complaints Exam/Review of Systems Exam Vitals Vital Signs Date Temp Pulse Resp B/P (MAP) Pulse Ox O2 O2 Flow FiO2 Time Delivery Rate 12/10/18 97.9 88 18 110/72 97 Room Air 07:00 (85) Intake and Output 12/09/18 12/09/18 12/10/18 1515:00 23:00 07:00 IntakeIntake Total 1100 ml 400 ml 400 ml OutputOutput Total 1300 ml 500 ml 350 ml BalanceBalance -200 ml -100 ml 50 ml Constitutional: alert Psych: no complaints Eyes: nl lids, nl sclera ENMT: nl external ears & nose Neck: non-tender Respiratory: clear to auscultation Cardiovascular: nl pulses, other (s1s2) Gastrointestinal: soft Musculoskeletal: nl extremities to inspection Extremities: normal pulses Neurological: nl mental status, nl speech, other (s/p lumbar fusion surgery) Lymph: nontender Results Result Diagram: 12/08/18 1012 12/08/18 1012 Medications Medication Current Medications Amlodipine Besylate (Norvasc) 10 mg DAILY PO Last administered on 12/10/18 09:12; Admin Dose 10 MG; Start 11/22/18 at 09:00 Benazepril HCl (Lotensin) 40 mg DAILY PO Last administered on 12/10/18 09:13; Admin Dose 40 MG; Start 11/22/18 at 09:00 Gabapentin (Neurontin) 300 mg BID PO Last administered on 12/10/18 09:13; Admin Dose 300 MG; Start 11/21/18 at 21:00 Zolpidem Tartrate (Ambien) 5 mg HS PRN PO INSOMNIA Last administered on 12/07/18 23:27; Admin Dose 5 MG; Start 11/21/18 at 22:00 Meclizine HCl (Antivert) 25 mg TID PO Last administered on 12/10/18 13:50; Admin Dose 25 MG; Start 11/25/18 at 13:00 Levetiracetam (Keppra) 500 mg BID PO Last administered on 12/10/18 09:13; Admin Dose 500 MG; Start 11/26/18 at 21:00 Acetaminophen/ Hydrocodone Bitart ([place] (10/325)) 1 tab Q4H PRN PO .PAIN 1-5; Start 12/05/18 at 16:00 Acetaminophen/ Hydrocodone Bitart ([place] (10/325)) 2 tab Q4H PRN PO .PAIN 6-10 Last administered on 12/10/18 10:26; Admin Dose 2 TAB; Start 12/05/18 at 16:00 Hydromorphone HCl (Dilaudid) 0.2 mg Q1H PRN IV .BREAKTHROUGH PAIN Last administered on 12/09/18 16:08; Admin Dose 0.2 MG; Start 12/05/18 at 16:00 Ondansetron HCl (Zofran Inj) 4 mg Q6H PRN IV NAUSEA/VOMITING; Start 12/05/18 at 16:00 Bisacodyl (Dulcolax Supp) 10 mg DAILY PRN [place] .CONSTIPATION Last administered on 12/09/18at 12:21; Admin Dose 10 MG; Start 12/05/18 at 16:00 Docusate Sodium (Colace) 100 mg BID PO Last administered on 12/10/18at 09:13; Admin Dose 100 MG; Start 12/05/18 at 21:00 Al Hydrox/Mg Hydrox/Simethicone (Mag-Al Plus) 15 ml Q6H PRN PO .CONSTIPATION/DYSPEPSIA; Start 12/05/18 at 16:00 Acetaminophen (Tylenol Tab) 650 mg Q4H PRN PO FARRIS OR TEMP GREATER THAN 101.3F; Start 12/05/18 at 16:00 Phenol (Cepastat Lozenge) 1 lozenge PRN PRN MT .SORE THROAT; Start 12/05/18 at 16:00 Diphenhydramine HCl (Benadryl) 25 mg Q6H PRN PO .ITCHING; Start 12/05/18 at 16:00 Diphenhydramine HCl (Benadryl) 25 mg Q6H PRN IV .ITCHING Last administered on 12/09/18at 01:55; Admin Dose 25 MG; Start 12/05/18 at 16:00 Naloxone HCl (Narcan) 0.2 mg Q2M PRN IV .RR 8 BREATHS/MIN OR LESS; Start 12/05/18 at 16:00 Miscellaneous Information 1. Hold GLUER MACHINE OPERATOR at 1,000... GLUER MACHINE OPERATOR IV ; Start 12/05/18 at 16:00 Baclofen (Lioresal) 20 mg TID PO Last administered on 12/10/18at 13:50; Admin Dose 20 MG; Start 12/05/18 at 21:00 Polyethylene Glycol (Miralax) 17 gm DAILY PRN PO constipation Last administered on 12/07/18at 09:25; Admin Dose 17 GM; Start 12/06/18 at 15:30 Lidocaine (Xylocaine 1% (Mpf)) 30 ml ONCE PRN INJ pain Last administered on 12/06/18at 18:01; Admin Dose 30 ML; Start 12/06/18 at 17:30 Triamterene/HCTZ (Maxzide-25) 1 tab DAILY PO Last administered on 12/10/18at 09:13; Admin Dose 1 TAB; Start 12/07/18 at 17:55 Pantoprazole (Protonix Tab) 40 mg DAILY@06 PO Last administered on 12/10/18at 05:35; Admin Dose 40 MG; Start 12/08/18 at 06:00 Methylprednisolone Sodium Succinate (Solu-Medrol) 10 mg QAM IV Last administered on 12/10/18at 09:16; Admin Dose 10 MG; Start 12/10/18 at 09:00 Hydralazine HCl (Apresoline) 50 mg BID PO Last administered on 12/10/18at 09:12; Admin Dose 50 MG; Start 12/09/18 at 14:00 DARIAN PEOPLES Dec 10, 2018 13:58
[2018-12-10 14:00] VITALS: BP 110/66; PULSE 124; RESP 18
--- NOTE | 2018-12-10 15:18 | CONS ---
Assessment/Plan Assessment/Plan Hospital Course (Demo Recall) Essential Hypertension -BP is in normal range but clinically does not feel well with BP on lower end -given that he is used to high BP chronically, will decrease hydralazine to 25mg po BID to keep pressure readings near normal but slightly on higher end. -continue Triamterene/HCTZ, amlodipine and benazepril -monitor BP Vertigo -Improved, continue solumedrol 10mg IV daily -taper off prior to discharge -continue meclizine Obstructive sleep apnea -continue CPAP at night s/p lumbar spinal fusion -continue PT as tolerated -continue pain control Consultation Date/Type/Reason Admit Date/Time Nov 21, 2018 at 05:24 Initial Consult Date Requesting Provider: FAVIOLA GREEN MD Date/Time of Note DATE: 12/10/18 TIME: 15:13 24 HR Interval Summary Free Text/Dictation Patient seen and examined at bedside. He states vertigo is under control even on lower dose of solumedrol. He is not advancing well with PT as he almost passes out during PT yesterday and today. At home his SBP is almost around 150's. Exam/Review of Systems Exam Vitals Vital Signs Date Temp Pulse Resp B/P (MAP) Pulse Ox O2 O2 Flow FiO2 Time Delivery Rate 12/10/18 98.0 124 18 110/66 92 Room Air 14:00 (81) Intake and Output 12/09/18 12/09/18 12/10/18 1515:00 23:00 07:00 IntakeIntake Total 1100 ml 400 ml 400 ml OutputOutput Total 1300 ml 500 ml 350 ml BalanceBalance -200 ml -100 ml 50 ml Exam General: Comfortable in appearance, not in acute distress. Skin appropriate for ethnicity Eye: Extraocular movements are intact, Normal conjunctiva. HENT: Normocephalic, atraumatic. Respiratory: Respirations are non-labored, Breath sounds are equal, Symmetrical chest wall expansion. Cardiovascular: S1, S2. No murmur. No LE edema Gastrointestinal: Soft, Non-tender, Non-distended, Normal bowel sounds. Integumentary: Warm to touch. Neurologic: Alert, Oriented. Cognition and Speech: Speech clear and coherent, Functional cognition intact. Psychiatric: Cooperative, Appropriate mood & affect. Results Result Diagram: 12/08/18 1012 12/08/18 1012 Medications Medication Current Medications Amlodipine Besylate (Norvasc) 10 mg DAILY PO Last administered on 12/10/18 09:12; Admin Dose 10 MG; Start 11/22/18 at 09:00 Benazepril HCl (Lotensin) 40 mg DAILY PO Last administered on 12/10/18 09:13; Admin Dose 40 MG; Start 11/22/18 at 09:00 Gabapentin (Neurontin) 300 mg BID PO Last administered on 12/10/18 09:13; Admin Dose 300 MG; Start 11/21/18 at 21:00 Zolpidem Tartrate (Ambien) 5 mg HS PRN PO INSOMNIA Last administered on 12/07/18 23:27; Admin Dose 5 MG; Start 11/21/18 at 22:00 Meclizine HCl (Antivert) 25 mg TID PO Last administered on 12/10/18 13:50; Admin Dose 25 MG; Start 11/25/18 at 13:00 Levetiracetam (Keppra) 500 mg BID PO Last administered on 12/10/18 09:13; Admin Dose 500 MG; Start 11/26/18 at 21:00 Acetaminophen/ Hydrocodone Bitart ([place] (10/325)) 1 tab Q4H PRN PO .PAIN 1-5; Start 12/05/18 at 16:00 Acetaminophen/ Hydrocodone Bitart ([place] (10/325)) 2 tab Q4H PRN PO .PAIN 6-10 Last administered on 12/10/18 14:26; Admin Dose 2 TAB; Start 12/05/18 at 16:00 Hydromorphone HCl (Dilaudid) 0.2 mg Q1H PRN IV .BREAKTHROUGH PAIN Last administered on 12/09/18 16:08; Admin Dose 0.2 MG; Start 12/05/18 at 16:00 Ondansetron HCl (Zofran Inj) 4 mg Q6H PRN IV NAUSEA/VOMITING; Start 12/05/18 at 16:00 Bisacodyl (Dulcolax Supp) 10 mg DAILY PRN ME .CONSTIPATION Last administered on 12/09/18 12:21; Admin Dose 10 MG; Start 12/05/18 at 16:00 Docusate Sodium (Colace) 100 mg BID PO Last administered on 12/10/18 09:13; Admin Dose 100 MG; Start 12/05/18 at 21:00 Al Hydrox/Mg Hydrox/Simethicone (Mag-Al Plus) 15 ml Q6H PRN PO .CONSTIPATION/DYSPEPSIA; Start 12/05/18 at 16:00 Acetaminophen (Tylenol Tab) 650 mg Q4H PRN PO FARRIS OR TEMP GREATER THAN 101.3F; Start 12/05/18 at 16:00 Phenol (Cepastat Lozenge) 1 lozenge PRN PRN MT .SORE THROAT; Start 12/05/18 at 16:00 Diphenhydramine HCl (Benadryl) 25 mg Q6H PRN PO .ITCHING; Start 12/05/18 at 16:00 Diphenhydramine HCl (Benadryl) 25 mg Q6H PRN IV .ITCHING Last administered on 12/09/18at 01:55; Admin Dose 25 MG; Start 12/05/18 at 16:00 Naloxone HCl (Narcan) 0.2 mg Q2M PRN IV .RR 8 BREATHS/MIN OR LESS; Start at 16:00 Miscellaneous Information 1. Hold SALES SERVICE REPRESENTATIVE at 1,000... SALES SERVICE REPRESENTATIVE IV ; Start 12/05/18 at 16:00 Baclofen (Lioresal) 20 mg TID PO Last administered on 12/10/18at 13:50; Admin Dose 20 MG; Start 12/05/18 at 21:00 Polyethylene Glycol (Miralax) 17 gm DAILY PRN PO constipation Last administered on 12/07/18 09:25; Admin Dose 17 GM; Start 12/06/18 at 15:30 Lidocaine (Xylocaine 1% (Mpf)) 30 ml ONCE PRN INJ pain Last administered on 12/06/18 18:01; Admin Dose 30 ML; Start 12/06/18 at 17:30 Triamterene/HCTZ (Maxzide-25) 1 tab DAILY PO Last administered on 12/10/18 09:13; Admin Dose 1 TAB; Start 12/07/18 at 17:55 Pantoprazole (Protonix Tab) 40 mg DAILY@06 PO Last administered on 12/10/18 05:35; Admin Dose 40 MG; Start 12/08/18 at 06:00 Methylprednisolone Sodium Succinate (Solu-Medrol) 10 mg QAM IV Last administered on 12/10/18at 09:16; Admin Dose 10 MG; Start 12/10/18 at 09:00 Hydralazine HCl (Apresoline) 50 mg BID PO Last administered on 12/10/18at 09:12; Admin Dose 50 MG; Start 12/09/18 at 14:00 MAYI PAL MD Dec 10, 2018 15:17
--- NOTE | 2018-12-10 16:55 | CONS ---
DATE OF ADMISSION: 11/21/2018 DATE OF CONSULTATION: HISTORY OF PRESENT ILLNESS: The patient is 38 years old status post low backache with diskectomy fol lowed by fusion surgery on hardware adjustment. The patient still had low backache with gait difficu lty. The patient has a dizzy spell, in which MRI showed ependymoma, seen by neurosurgeon as well as oncologist. PHYSICAL EXAMINATION: NEUROLOGIC: Today, the patient is alert, awake, following simple commands. CRANIAL NERVES: Cranial nerve II: Pupils are equal on both sides, reactive to light. Cranial nerve s III, IV and : Extraocular muscles are intact without nystagmus. Cranial nerve V: Equal sensati on to face. Cranial nerve VII: Symmetrical face. Cranial nerve VIII: Equal hearing bilaterally. Cranial IX and X: Elevates palate. Cranial nerve XI: Elevates shoulder 5/5. Cranial nerve XII: W ith straight tongue. MOTOR: Bilateral upper extremity is 5/5. Bilateral lower extremity is 4/5 limited by low back ache. Gait with assistance and walker. COORDINATION: Aiafhl-[id number] test intact. HEART: Regular rate and rhythm. LUNGS: Equal breath sounds. ABDOMEN: Soft, relaxed, nondistended, no tenderness. ASSESSMENT AND PLAN: 1. The patient is 38 years male with ependymoma, followed by neurosurgery and oncologist. 2. Status post low backache with radiculopathy, in which the patient has multiple surgeries. 3. Muscle spasm, in which the patient is on baclofen. 4. Paresthesia. Keep the patient on Neurontin 300 mg twice a day. 5. Seizure precaution. We will give the patient Keppra 500 mg twice a day. 6. Continue the patient under physical therapy until approved by acute rehabilitation facility. Dictated By: DOT MCDANIELS MD NA/NTS Conf#: [id number] DID#: [id number] CC: FAVIOLA GREEN MD;*EndCC*
[2018-12-10 20:20] VITALS: BP 125/76; PULSE 115; RESP 19
[2018-12-10] MEDS: AL HYDROX/MG HYDROX/SIMETH 30 ML CUP PO PRN (23:24)
[2018-12-11] VITALS (7 sets, daily range): BP systolic 114–148; BP diastolic 64–75; PULSE 109–138; RESP 18
[2018-12-11] MEDS: HYDROCODONE/APAP (10/325) TAB PO PRN ×4 (02:39→18:18)
[2018-12-11] MEDS: PANTOPRAZOLE (EC) 40 MG TAB PO SCH (05:55)
--- NOTE | 2018-12-11 07:16 | CONS ---
DATE OF ADMISSION: 11/21/2018 DATE OF CONSULTATION: HISTORY OF PRESENT ILLNESS: The patient is 38 years old status post lumbosacral radiculopathy with low backache status post diskectomy x 2 as well as fusion therapy followed by hardware adjustment. The patient had an acute dizzy spell in which the MRI showed the patient have ependymoma. The patient was seen by oncologist and neurosurgeon. Awaiting for acute rehab and follow up with the neurosurgery for possible biopsy versus SPECT scan. PHYSICAL EXAMINATION: NEUROLOGIC: Patient is alert, awake, following simple commands. CRANIAL NERVES: Cranial nerve II: Pupils equal on both sides, reactive to light. Cranial nerves III, IV, and : Extraocular muscles are intact without nystagmus. Cranial nerve V: Equal sensation to face. Cranial nerve VII: Symmetrical face. Cranial nerve VIII: Decreased hearing bilaterally. Cranial nerves IX and X: Elevates palate. Cranial nerve XI: Elevates shoulder 5/5. Cranial nerve XII: Straight tongue. MOTOR: Moving both upper and lower extremities against gravity. Lower extremity with limited by low backache. He scored 3/5. SENSATION: Equal for light touch and temperature. COORDINATION: Hnoxkb-ln-[id number] test intact. HEART: Regular rate and rhythm. LUNGS: Equal breath sounds. ABDOMEN: Soft, relaxed, nondistended, no tenderness. ASSESSMENT AND PLAN: 1. The patient is 38 years old status post ependymoma awaiting SPECT scan versus biopsy per neurosurgery. The patient was also seen by oncologist. 2. Status post low backache with adjustment of hardware and the screws. 3. Gait difficulty in which the patient is followed by physical therapy. Awaiting for acute rehabilitation. 4. Seizure precaution. Keep the patient under Keppra 500 mg twice a day. 5. Keep the patient under fall precaution for now. Dictated By: DOT RODRIGUEZ/AYLIN Conf#: [id number] DID#: [id number] MTDD
[2018-12-11] MEDS: LEVETIRACETAM 500 MG TAB PO SCH (08:17)
[2018-12-11] MEDS: DOCUSATE SODIUM 100 MG CAP PO SCH ×2 (08:17→21:14)
[2018-12-11] MEDS: BACLOFEN 10 MG TAB PO SCH ×3 (08:18→21:14)
[2018-12-11] MEDS: GABAPENTIN 300 MG CAP PO SCH (08:18)
[2018-12-11] MEDS: METHYLPREDNISOLONE 40 MG INJ IV SCH (08:19)
[2018-12-11] MEDS: MECLIZINE 25 MG TAB PO SCH ×3 (08:19→21:13)
[2018-12-11] MEDS: TRIAMTERENE/HCTZ (37.5/25) TAB PO SCH (08:24)
[2018-12-11] MEDS: AMLODIPINE 10 MG TAB PO SCH (08:24)
[2018-12-11] MEDS: BENAZEPRIL 40 MG TAB PO SCH (08:24)
[2018-12-11] MEDS: ONDANSETRON 4 MG INJ IV PRN (12:15)
[2018-12-11] MEDS: BISACODYL 10 MG SUPP PR PRN (14:36)
--- NOTE | 2018-12-11 15:05 | PN ---
Date/Time of Note Date/Time of Note DATE: 12/11/18 TIME: 15:03 Assessment/Plan Lines/Catheters IV Catheter Type (from Nrsg): Saline Lock Baker in Place (from Nrsg): No Assessment/Plan Assessment/Plan s/p L4-S1 fusion with subsequent replacement of L4-S1 right pedicle screws ambulate with fall precautions encourage IS pain control awaiting CM at outside ARU to see if he is accepted and can be transferred, o/w consider d/c home when cleared by PT with home health Subjective 24 Hr Interval Summary continues with dizziness Exam/Review of Systems Vital Signs Vitals Vital Signs Date Temp Pulse Resp B/P (MAP) Pulse Ox O2 O2 Flow FiO2 Time Delivery Rate 12/11/18 97.3 117 18 118/73 100 08:00 (88) 12/10/18 Room Air 14:00 Intake and Output 12/10/18 12/10/18 12/11/18 1515:00 23:00 07:00 IntakeIntake Total 1800 ml 600 ml OutputOutput Total 1050 ml 1380 ml 200 ml BalanceBalance -1050 ml 420 ml 400 ml Exam Free Text/Dictation exam unchanged Results Result Diagram: 12/08/18 1012 12/08/18 1012 MAXI CHOUDHARY PA-C Dec 11, 2018 15:05
--- NOTE | 2018-12-11 17:19 | PN ---
Date/Time of Note Date/Time of Note DATE: 12/11/18 TIME: 17:14 Assessment/Plan VTE Prophylaxis Risk score (from Ns)>0 risk: 3 SCD applied (from Ns): Yes Pharmacological prophylaxis: heparin Lines/Catheters [facility] Peripheral IV Urinary Cath still in place: No Assessment/Plan Problems: (1) Lumbar disc herniation Status: Resolved Comment: She is status post surgery and attempting to go through rehab. Case management is working with us to try and find an appropriate place for him to go through his rehabilitation. Please note the patient is modestly agitated about not having a place to go to (2) Status post lumbar surgery Onset Date: ~ 11/21/2018 Status: Acute Comment: No apparent significant complications (3) Obstructive sleep apnea Status: Chronic Comment: Noted. (4) Vertigo Status: Acute Comment: As per neurology consult (5) Essential (primary) hypertension Status: Chronic Comment: Adequate control. Need to check to make sure he is not orthostatic since he has been on steroids and I want to check his cortisol tomorrow morning. 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 Please note no evidence of obstructive hydrocephalus Result Diagram: 12/08/18 1012 12/08/18 1012 Subjective 24 Hr Interval Summary Free Text/Dictation Patient reports he is still having some dizziness and standing and some w eakness. He is working with physical therapy. Constitutional: no complaints (Denies fevers chills or sweats) Eyes: no complaints ENT: no complaints Respiratory: no complaints Cardiovascular: other (Orthostatic symptoms) Gastrointestinal: no complaints Genitourinary: no complaints Musculoskeletal: no complaints Skin: no complaints Neurologic: dizziness Exam/Review of Systems Exam Vitals Vital Signs Date Temp Pulse Resp B/P (MAP) Pulse Ox O2 O2 Flow FiO2 Time Delivery Rate 12/11/18 98.4 120 18 119/64 92 14:00 (82) 12/10/18 Room Air 14:00 Intake and Output 12/10/18 12/10/18 12/11/18 1515:00 23:00 07:00 IntakeIntake Total 1800 ml 600 ml OutputOutput Total 1050 ml 1380 ml 200 ml BalanceBalance -1050 ml 420 ml 400 ml Constitutional: alert, oriented Respiratory: clear to auscultation, normal air movement Cardiovascular: regular rate and rhythm, nl pulses Gastrointestinal: soft, nl liver, spleen, non-tender Medications Medication Current Medications Amlodipine Besylate (Norvasc) 10 mg DAILY PO Last administered on 12/11/18 08:24; Admin Dose 10 MG; Start 11/22/18 at 09:00 Benazepril HCl (Lotensin) 40 mg DAILY PO Last administered on 12/11/18 08:24; Admin Dose 40 MG; Start 11/22/18 at 09:00 Zolpidem Tartrate (Ambien) 5 mg HS PRN PO INSOMNIA Last administered on 12/07/18 23:27; Admin Dose 5 MG; Start 11/21/18 at 22:00 Meclizine HCl (Antivert) 25 mg TID PO Last administered on 12/11/18 12:09; Admin Dose 25 MG; Start 11/25/18 at 13:00 Acetaminophen/ Hydrocodone Bitart ([place] (10/325)) 1 tab Q4H PRN PO .PAIN 1-5; Start 12/05/18 at 16:00 Acetaminophen/ Hydrocodone Bitart ([place] (10/325)) 2 tab Q4H PRN PO .PAIN 6-10 Last administered on 12/11/18 12:09; Admin Dose 2 TAB; Start 12/05/18 at 16:00 Hydromorphone HCl (Dilaudid) 0.2 mg Q1H PRN IV .BREAKTHROUGH PAIN Last administered on 12/09/18 16:08; Admin Dose 0.2 MG; Start 12/05/18 at 16:00 Ondansetron HCl (Zofran Inj) 4 mg Q6H PRN IV NAUSEA/VOMITING Last administered on 12/11/18 12:15; Admin Dose 4 MG; Start 12/05/18 at 16:00 Bisacodyl (Dulcolax Supp) 10 mg DAILY PRN [place] .CONSTIPATION Last administered on 12/11/18 14:36; Admin Dose 10 MG; Start 12/05/18 at 16:00 Docusate Sodium (Colace) 100 mg BID PO Last administered on 12/11/18 08:17; Admin Dose 100 MG; Start 12/05/18 at 21:00 Al Hydrox/Mg Hydrox/Simethicone (Mag-Al Plus) 15 ml Q6H PRN PO .CONSTIPATION/DYSPEPSIA Last administered on 12/10/18at 23:24; Admin Dose 15 ML; Start 12/05/18 at 16:00 Acetaminophen (Tylenol Tab) 650 mg Q4H PRN PO FARRIS OR TEMP GREATER THAN 101.3F; Start 12/05/18 at 16:00 Phenol (Cepastat Lozenge) 1 lozenge PRN PRN [place] .SORE THROAT; Start 12/05/18 at 16:00 Diphenhydramine HCl (Benadryl) 25 mg Q6H PRN PO .ITCHING; Start 12/05/18 at 16:00 Diphenhydramine HCl (Benadryl) 25 mg Q6H PRN IV .ITCHING Last administered on 12/09/18at 01:55; Admin Dose 25 MG; Start 12/05/18 at 16:00 Naloxone HCl (Narcan) 0.2 mg Q2M PRN IV .RR 8 BREATHS/MIN OR LESS; Start 12/05/18 at 16:00 Miscellaneous Information 1. Hold CUSTOMER SOLUTIONS COORDINATOR at 1,000... CUSTOMER SOLUTIONS COORDINATOR IV ; Start 12/05/18 at 16:00 Baclofen (Lioresal) 20 mg TID PO Last administered on 12/11/18at 12:09; Admin Dose 20 MG; Start 12/05/18 at 21:00 Polyethylene Glycol (Miralax) 17 gm DAILY PRN PO constipation Last administered on 12/07/18at 09:25; Admin Dose 17 GM; Start 12/06/18 at 15:30 Lidocaine (Xylocaine 1% (Mpf)) 30 ml ONCE PRN INJ pain Last administered on 12/06/18at 18:01; Admin Dose 30 ML; Start 12/06/18 at 17:30 Triamterene/HCTZ (Maxzide-25) 1 tab DAILY PO Last administered on 12/10/18at 09:13; Admin Dose 1 TAB; Start 12/07/18 at 17:55 Pantoprazole (Protonix Tab) 40 mg DAILY@06 PO Last administered on 12/11/18at 05:55; Admin Dose 40 MG; Start 4/19/19 at 06:00 Methylprednisolone Sodium Succinate (Solu-Medrol) 10 mg QAM IV Last administered on 12/11/18at 08:19; Admin Dose 10 MG; Start 12/10/18 at 09:00 Hydralazine HCl (Apresoline) 25 mg BID PO Last administered on 12/10/18at 22:13; Admin Dose 25 MG; Start 12/10/18 at 21:00 Levetiracetam (Keppra) 750 mg BID PO ; Start 12/11/18 at 21:00 Gabapentin (Neurontin) 400 mg BID PO ; Start 12/11/18 at 21:00 Terbinafine HCl (Lamisil) 250 mg BID PO ; Start 12/11/18 at 21:00; Stop 12/18/18 at 20:59 DONNA TIDWELL MD Dec 11, 2018 17:19
[2018-12-11] MEDS: LEVETIRACETAM 750 MG TAB PO SCH (21:14)
[2018-12-11] MEDS: TERBINAFINE 250 MG TAB PO SCH (21:14)
[2018-12-11] MEDS: GABAPENTIN 400 MG CAP PO SCH (21:15)
[2018-12-11] MEDS: HYDROmorphONE 0.5 MG/0.5 ML SYG IV PRN (21:54)
--- NOTE | 2018-12-11 23:22 | HKNOTE ---
DATE OF SERVICE: HISTORY OF PRESENT ILLNESS: The patient is a 38-year-old male with multiple medical problems in the form of low backache status post two surgeries of diskectomy and one of fusion then another surgery f or hardware adjustment. The patient is still complaining about dizziness in which he feels nauseated , lack of concentration, and near syncope. The patient had an MRI of his brain which showed ependymo ma in which neurosurgery consult as well as oncology consult was initiated and the patient seen. The patient is accompanied by his in the room. He feels frustrated. MEDICATIONS: The patient's current medications include: 1. Keppra 500 mg twice a day. 2. Protonix 40 mg once a day. 3. Colace 100 mg twice a day. 4. Baclofen 20 mg 3 times a day. 5. [place] 10/325 mg every 4 hours as needed. 6. Dilaudid 0.2 mg every 1 hour as needed. 7. Zofran 4 mg every 4 hours. 8. Benadryl 25 mg every 6 hours. 9. Narcan 0.2 mg once a day. 10. Antivert 25 mg 3 times a day. 11. Norvasc 10 mg once a day. 12. Lotensin 40 mg once a day. 13. Ambien 5 mg once at night. 14. Neurontin 300 mg twice a day. PHYSICAL EXAMINATION: GENERAL: On exam today, the patient is alert and awake, oriented for time, place and person, normal speech and normal language. CRANIAL NERVES: Cranial nerve II: Pupils equal on both sides, reactive to light. Cranial nerves II I, IV, and : Extraocular muscles intact. There is no nystagmus. Cranial nerve V: Equal sensatio n to face. Cranial nerve VII: Symmetrical face. Cranial nerve VIII: Equal hearing bilaterally. C ranial nerve IX and X: Elevates palate. Cranial nerve XI: Elevates shoulder 5/5. Cranial nerve XI I: With straight tongue. MOTOR: Moving both upper extremities against gravity without difficulty, scored 5/5. Bilateral lowe r extremity scored 4/5 limited by low backache and the recent surgery in his back. GAIT: With miner assistant in which the patient has a walker and assist by physical therapy. COORDINATION: [id number] test intact. HEART: Regular rate and rhythm. LUNGS: Equal breath sounds. ABDOMEN: Soft, relaxed, nondistended. No tenderness. ASSESSMENT AND PLAN: 1. The patient is a 38-year-old status post more dizzy spell. 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 I am going to increase his Keppra to 750 mg twice a day and I will follow up the patient with anot her EEG for more evaluation and treatment. 2. Underlying ependymoma. The patient is waiting for SPECT scan versus biopsy. 3. Gait difficulty in which the patient ambulate by physical therapy. Awaiting acute rehabilitation facility. 4. Underlying insomnia in which the patient is on Ambien 5 mg. I might increase it to 10 mg and see how the patient responds for that. 5. Underlying low backache in which the patient is under pain management status post four surgery in his lower back. 6. Muscle spasm in which the patient is on Baclofen. 7. Paresthesia. Keep the patient on Neurontin 300 mg. Dictated By: DOT MCDANIELS MD NA/NTS Conf#: [id number] DID#: [id number] CC: FAVIOLA GREEN MD;*End*
[2018-12-12] MEDS: HYDROmorphONE 0.5 MG/0.5 ML SYG IV PRN ×3 (02:00→21:54)
[2018-12-12 02:17] VITALS: BP 144/71; PULSE 88; RESP 18
[2018-12-12] MEDS: PANTOPRAZOLE (EC) 40 MG TAB PO SCH (05:42)
[2018-12-12 07:43] VITALS: BP 135/77; PULSE 94; RESP 19
[2018-12-12] MEDS: LEVETIRACETAM 750 MG TAB PO SCH ×2 (08:39→22:27)
[2018-12-12] MEDS: TERBINAFINE 250 MG TAB PO SCH ×2 (08:39→22:28)
[2018-12-12] MEDS: GABAPENTIN 400 MG CAP PO SCH ×2 (08:39→22:28)
[2018-12-12] MEDS: DOCUSATE SODIUM 100 MG CAP PO SCH ×2 (08:39→22:28)
[2018-12-12] MEDS: AMLODIPINE 10 MG TAB PO SCH (08:39)
[2018-12-12] MEDS: BENAZEPRIL 40 MG TAB PO SCH (08:40)
[2018-12-12] MEDS: TRIAMTERENE/HCTZ (37.5/25) TAB PO SCH (08:40)
[2018-12-12] MEDS: BACLOFEN 10 MG TAB PO SCH ×3 (08:40→22:28)
[2018-12-12] MEDS: MECLIZINE 25 MG TAB PO SCH (09:52)
[2018-12-12] MEDS: HYDROCODONE/APAP (10/325) TAB PO PRN ×2 (09:52→13:55)
--- NOTE | 2018-12-12 12:49 | PN ---
Date/Time of Note Date/Time of Note DATE: 12/12/18 TIME: 12:48 Assessment/Plan Lines/Catheters IV Catheter Type (from Nrs): Peripheral IV Baker in Place (from Nrs): No Assessment/Plan Assessment/Plan awaiting dispo from outside Subjective 24 Hr Interval Summary c/o dizziness Exam/Review of Systems Vital Signs Vitals Vital Signs Date Temp Pulse Resp B/P (MAP) Pulse Ox O2 O2 Flow FiO2 Time Delivery Rate 12/12/18 98.4 94 19 135/77 98 Room Air 07:43 (96) Intake and Output 12/11/18 12/11/18 12/12/18 1515:00 23:00 07:00 IntakeIntake Total 960 ml 200 ml 580 ml OutputOutput Total 300 ml 1450 ml BalanceBalance 660 ml 200 ml -870 ml Exam Free Text/Dictation exam unchanged Results Result Diagram: 12/08/18 1012 12/08/18 1012 FAVIOLA GREEN MD Dec 12, 2018 12:49
--- NOTE | 2018-12-12 13:54 | PN ---
Date/Time of Note Date/Time of Note DATE: 12/12/18 TIME: 13:51 Assessment/Plan VTE Prophylaxis Risk score (from Ns)>0 risk: 3 SCD applied (from Ns): Yes SCD contraindicated: low risk/ambulating Pharmacological prophylaxis: heparin Lines/Catheters IV Catheter Type (from Nrs): Peripheral IV Urinary Cath still in place: No Assessment/Plan Problems: (1) Status post lumbar surgery Onset Date: ~ 11/21/2018 Status: Acute Comment: Continues to try and work with rehabilitation. Please note he is using the oral narcotics on an absolutely rhythmic regular basis. And then try and give him MS Contin so he can back off on the oral dosing. (2) Dizziness Status: Acute Comment: Continues to complain of this. He does have some mild orthostatic changes and I will go ahead and give him some fluids and stop using diuretics. Believe that the usage of YONI hose would actually be of benefit here and would allow us to get a little bit farther with him (3) Obstructive sleep apnea Status: Chronic Comment: Noted. (4) Essential (primary) hypertension Status: Chronic Comment: Fair control. Check for postvoid residual may give us more options to in which direction to go (5) Subependymoma Onset Date: ~ 11/26/2018 Status: Acute Comment: Noted. Need to get his Medi-Giovany completed Result Diagram: 12/08/18 1012 12/08/18 1012 Subjective 24 Hr Interval Summary Free Text/Dictation Patient reports he still gets some unsteadiness when he arises. No appreciable improvement with the usage of meclizine. No changes with the holding of the steroids. Constitutional: no complaints Respiratory: no complaints Cardiovascular: no complaints Gastrointestinal: no complaints Musculoskeletal: back pain Neurologic: dizziness Exam/Review of Systems Exam Vitals Vital Signs Date Temp Pulse Resp B/P (MAP) Pulse Ox O2 O2 Flow FiO2 Time Delivery Rate 12/12/18 98.4 94 19 135/77 98 Room Air 07:43 (96) Intake and Output 12/11/18 12/11/18 12/12/18 1515:00 23:00 07:00 IntakeIntake Total 960 ml 200 ml 580 ml OutputOutput Total 300 ml 1450 ml BalanceBalance 660 ml 200 ml -870 ml Constitutional: alert, oriented Respiratory: clear to auscultation, normal air movement Cardiovascular: regular rate and rhythm, nl pulses Gastrointestinal: soft, nl liver, spleen, non-tender Medications Medication Current Medications Amlodipine Besylate (Norvasc) 10 mg DAILY PO Last administered on 12/12/18 08: 39; Admin Dose 10 MG; Start 11/22/18 at 09:00 Benazepril HCl (Lotensin) 40 mg DAILY PO Last administered on 12/12/18 08:40; Admin Dose 40 MG; Start 11/22/18 at 09:00 Zolpidem Tartrate (Ambien) 5 mg HS PRN PO INSOMNIA Last administered on 12/07/18 23:27; Admin Dose 5 MG; Start 11/21/18 at 22:00 Meclizine HCl (Antivert) 25 mg TID PO Last administered on 12/12/18 09:52; Admin Dose 25 MG; Start 11/25/18 at 13:00 Acetaminophen/ Hydrocodone Bitart ([place] (10/325)) 1 tab Q4H PRN PO .PAIN 1-5; Start 12/05/18 at 16:00 Acetaminophen/ Hydrocodone Bitart ([place] (10/325)) 2 tab Q4H PRN PO .PAIN 6-10 Last administered on 12/12/18 09:52; Admin Dose 2 TAB; Start 12/05/18 at 16:00 Hydromorphone HCl (Dilaudid) 0.2 mg Q1H PRN IV .BREAKTHROUGH PAIN Last administered on 12/12/18 05:42; Admin Dose 0.2 MG; Start 12/05/18 at 16:00 Ondansetron HCl (Zofran Inj) 4 mg Q6H PRN IV NAUSEA/VOMITING Last administered on 12/11/18 12:15; Admin Dose 4 MG; Start 12/05/18 at 16:00 Bisacodyl (Dulcolax Supp) 10 mg DAILY PRN [place] .CONSTIPATION Last administered on 12/11/18 14:36; Admin Dose 10 MG; Start 12/05/18 at 16:00 Docusate Sodium (Colace) 100 mg BID PO Last administered on 12/12/18 08:39; Admin Dose 100 MG; Start 12/05/18 at 21:00 Al Hydrox/Mg Hydrox/Simethicone (Mag-Al Plus) 15 ml Q6H PRN PO .CONSTIP ATION/DYSPEPSIA Last administered on 12/10/18 23:24; Admin Dose 15 ML; Start 12/05/18 at 16:00 Acetaminophen (Tylenol Tab) 650 mg Q4H PRN PO FARRIS OR TEMP GREATER THAN 101.3F; Start 12/05/18 at 16:00 Phenol (Cepastat Lozenge) 1 lozenge PRN PRN [place] .SORE THROAT Last administered on 12/12/18 03:27; Admin Dose 1 LOZENGE; Start 12/05/18 at 16:00 Diphenhydramine HCl (Benadryl) 25 mg Q6H PRN PO .ITCHING; Start 12/05/18 at 16:00 Diphenhydramine HCl (Benadryl) 25 mg Q6H PRN IV .ITCHING Last administered on 12/09/18 01:55; Admin Dose 25 MG; Start 12/05/18 at 16:00 Naloxone HCl (Narcan) 0.2 mg Q2M PRN IV .RR 8 BREATHS/MIN OR LESS; Start 12/05/18 at 16:00 Miscellaneous Information 1. Hold POLISHER EYEGLASS FRAMES at 1,000... POLISHER EYEGLASS FRAMES IV ; Start 12/05/18 at 16:00 Baclofen (Lioresal) 20 mg TID PO Last administered on 12/12/18 08:40; Admin Dose 20 MG; Start 12/05/18 at 21:00 Polyethylene Glycol (Miralax) 17 gm DAILY PRN PO constipation Last administered on 12/07/18 09:25; Admin Dose 17 GM; Start 12/06/18 at 15:30 Lidocaine (Xylocaine 1% (Mpf)) 30 ml ONCE PRN INJ pain Last administered on 12/06/18 18:01; Admin Dose 30 ML; Start 12/06/18 at 17:30 Triamterene/HCTZ (Maxzide-25) 1 tab DAILY PO Last administered on 12/10/18 09:13; Admin Dose 1 TAB; Start 12/07/18 at 17:55 Pantoprazole (Protonix Tab) 40 mg DAILY@06 PO Last administered on 12/12/18 05:42; Admin Dose 40 MG; Start 12/08/18 at 06:00 Methylprednisolone Sodium Succinate (Solu-Medrol) 10 mg QAM IV Last administered on 12/11/18 08:19; Admin Dose 10 MG; Start 12/10/18 at 09:00; Status Hold Hydralazine HCl (Apresoline) 25 mg BID PO Last administered on 12/11/18at 21:14; Admin Dose 25 MG; Start 12/10/18 at 21:00 Levetiracetam (Keppra) 750 mg BID PO Last administered on 12/12/18 08:39; Admin Dose 750 MG; Start 12/11/18 at 21:00 Gabapentin (Neurontin) 400 mg BID PO Last administered on 12/12/18 08:39; Admin Dose 400 MG; Start 12/11/18 at 21:00 Terbinafine HCl (Lamisil) 250 mg BID PO Last administered on 12/12/18 08:39; Admin Dose 250 MG; Start 12/11/18 at 21:00; Stop 12/18/18 at 20:59 DONNA TIDWELL MD Dec 12, 2018 13:54
[2018-12-12] MEDS ORDERED: LACTATED RINGER'S 500 ML IV ONE (14:00)
[2018-12-12 14:32] VITALS: BP 132/68; PULSE 82; RESP 18
[2018-12-12 15:48] VITALS: BP 113/58; PULSE 109; RESP 18
--- NOTE | 2018-12-12 17:27 | CONS ---
DATE OF ADMISSION: 11/21/2018 DATE OF CONSULTATION: HISTORY OF PRESENT ILLNESS: The patient is 38 years male who has multiple medical problems, in which the patient has back surgery 4 times with gait difficulty, in which I got consulted about his dizzin ess, in which the patient has MRI which shows ependymoma followed by neurosurgeon and oncologist, who recommended to follow up with him in outpatient. The patient . He mentioned he has nausea, la ck of focus, dizzy spells, in which I increased his Keppra to 750 and I ordered for him EEG for possi ble underlying seizure activity. PHYSICAL EXAMINATION: GENERAL: Today, the patient is alert, awake, oriented, following simple commands. CRANIAL NERVES: Cranial III, IV and : Extraocular movements are intact without nystagmus. Crania l nerve V: Equal sensation to face. Cranial VII: Symmetrical face. Cranial nerve VIII: Equal hea ring bilaterally. Cranial nerve IX and X: Elevates palate. Cranial nerve XI: Elevates shoulder is 5/5. Cranial nerve XII: With straight tongue. MOTOR: Moving both extremities without difficulty. Bilateral lower extremity is limited by low back ache. Sensation is equal for light touch and temperature. COORDINATION: [id number] test is intact. CARDIOVASCULAR: Regular rate and rhythm. LUNGS: Equal breath sounds. ABDOMEN: Soft, relaxed, nondistended, no tenderness. ASSESSMENT AND PLAN: 1. The patient is 38 years old status post ependymoma with the possibility of underlying seizure in which we increased his Keppra 750 and follow up the patient with electroencephalogram to follow up fr om the previous one. 2. Status post low back ache with 4 surgeries, 2 diskectomies, 1 fusion and another 1 for hardware a djustment. 3. Gait difficulty, in which the patient is followed by physical therapy, awaiting for acute rehab p lacement. 4. Keep the patient under fall precaution and seizure precaution. Again, thank you for asking me to see the patient with you. Dictated By: DOT MCDANIELS MD NA/NTS Conf#: [id number] DID#: [id number] CC: FAVIOLA GREEN MD;*EndCC*
[2018-12-12 20:12] VITALS: BP 119/66; PULSE 120; RESP 18
[2018-12-12] MEDS: BISACODYL 10 MG SUPP PR PRN (21:07)
[2018-12-12] MEDS: MECLIZINE 12.5 MG TAB PO SCH (22:27)
[2018-12-12] MEDS: morphine (ER) 15 MG TAB PO SCH (22:28)
[2018-12-13] VITALS (7 sets, daily range): BP systolic 127–171; BP diastolic 64–75; PULSE 95–157; RESP 16–18
[2018-12-13] MEDS: HYDROCODONE/APAP (10/325) TAB PO PRN ×4 (01:54→20:24)
[2018-12-13] MEDS: PANTOPRAZOLE (EC) 40 MG TAB PO SCH (06:01)
[2018-12-13] MEDS: BACLOFEN 10 MG TAB PO SCH ×3 (08:36→20:24)
[2018-12-13] MEDS: GABAPENTIN 400 MG CAP PO SCH ×2 (08:36→20:24)
[2018-12-13] MEDS: morphine (ER) 15 MG TAB PO SCH (08:36)
[2018-12-13] MEDS: MECLIZINE 12.5 MG TAB PO SCH ×3 (08:37→20:25)
[2018-12-13] MEDS: DOCUSATE SODIUM 100 MG CAP PO SCH ×2 (08:37→20:25)
[2018-12-13] MEDS: LEVETIRACETAM 750 MG TAB PO SCH ×2 (08:37→20:24)
[2018-12-13] MEDS: BENAZEPRIL 40 MG TAB PO SCH (08:38)
[2018-12-13] MEDS: AMLODIPINE 10 MG TAB PO SCH (08:39)
[2018-12-13] MEDS: TERBINAFINE 250 MG TAB PO SCH ×2 (08:49→20:24)
--- NOTE | 2018-12-13 12:18 | PN ---
Date/Time of Note Date/Time of Note DATE: 12/13/18 TIME: 12:17 Assessment/Plan Lines/Catheters IV Catheter Type (from Nrsg): Peripheral IV Baker in Place (from Nrsg): No Assessment/Plan Assessment/Plan waiting for auth for rehab right calf pain - stat [place] ordered to r/o dvt Subjective 24 Hr Interval Summary c/o right calf pain Exam/Review of Systems Vital Signs Vitals Vital Signs Date Temp Pulse Resp B/P (MAP) Pulse Ox O2 O2 Flow FiO2 Time Delivery Rate 12/13/18 98.0 95 18 142/75 100 07:51 (97) 12/12/18 Room Air 15:48 Intake and Output 12/12/18 12/12/18 12/13/18 1515:00 23:00 07:00 IntakeIntake Total 940 ml 1520 ml 1200 ml OutputOutput Total 200 ml 0 ml BalanceBalance 740 ml 1520 ml 1200 ml Exam Free Text/Dictation right calf pain. neuro intact FAVIOLA GREEN MD Dec 13, 2018 12:18
--- NOTE | 2018-12-13 14:05 | PN ---
Date/Time of Note Date/Time of Note DATE: 12/13/18 TIME: 14:02 Assessment/Plan VTE Prophylaxis Risk score (from Ns)>0 risk: 4 SCD applied (from Ns): Yes Pharmacological prophylaxis: heparin Lines/Catheters IV C[facility]ter Type (from [facility]): Peripheral IV Urinary Cath still in place: No Assessment/Plan Problems: (1) Status post lumbar surgery Onset Date: ~ 11/21/2018 Status: Acute Comment: Progressing very slowly after surgery. This is aggravated by the vertigo. I am going to have him start doing Radha exercises to deal with this so we can use less medications. (2) Dizziness Status: Acute Comment: To self exercises to reduce the sense of vertiginous (3) Essential (primary) hypertension Status: Chronic Comment: Adequate control (4) Subependymoma Onset Date: ~ 11/26/2018 Status: Acute Comment: Again trying to get the paperwork taken care of so and get him on Medi-Giovany so this can then be referred out as an outpatient (5) Obstipation Status: Acute Comment: Adjust stool softeners Results 24hrs Laboratory Tests Test 12/13/18 08:33 D-Dimer 425.72 D-Dimer Comment Random Cortisol 1.0 Subjective 24 Hr Interval Summary Free Text/Dictation Patient reports yesterday after very difficult bowel movement had an episode where he passed out into the bed. No injuries Constitutional: no complaints Respiratory: no complaints Cardiovascular: no complaints Gastrointestinal: no complaints Genitourinary: no complaints Exam/Review of Systems Exam Vitals Vital Signs Date Temp Pulse Resp B/P (MAP) Pulse Ox O2 O2 Flow FiO2 Time Delivery Rate 12/13/18 98.0 95 18 142/75 100 07:51 (97) 12/12/18 Room Air 15:48 Intake and Output 12/12/18 12/12/18 12/13/18 1515:00 23:00 07:00 IntakeIntake Total 940 ml 1520 ml 1200 ml OutputOutput Total 200 ml 0 ml BalanceBalance 740 ml 1520 ml 1200 ml Constitutional: alert, oriented Respiratory: clear to auscultation, normal air movement Cardiovascular: regular rate and rhythm, nl pulses Gastrointestinal: soft, nl liver, spleen, non-tender Results Results 24hrs Laboratory Tests Test 12/13/18 08:33 D-Dimer 425.72 D-Dimer Comment Random Cortisol 1.0 Medications Medication Current Medications Amlodipine Besylate (Norvasc) 10 mg DAILY PO Last administered on 12/13/18 08:39; Admin Dose 10 MG; Start 11/22/18 at 09:00 Benazepril HCl (Lotensin) 40 mg DAILY PO Last administered on 12/13/18 08:38; Admin Dose 40 MG; Start 11/22/18 at 09:00 Zolpidem Tartrate (Ambien) 5 mg HS PRN PO INSOMNIA Last administered on 12/07/18 23:27; Admin Dose 5 MG; Start 11/21/18 at 22:00 Acetaminophen/ Hydrocodone Bitart ([place] (10/325)) 1 tab Q4H PRN PO .PAIN 1-5 Last administered on 12/13/18 11:37; Admin Dose 1 TAB; Start 12/05/18 at 16:00 Acetaminophen/ Hydrocodone Bitart ([place] (10/325)) 2 tab Q4H PRN PO .PAIN 6-10 Last administered on 12/13/18 01:54; Admin Dose 2 TAB; Start 12/05/18 at 16:00 Hydromorphone HCl (Dilaudid) 0.2 mg Q1H PRN IV .BREAKTHROUGH PAIN Last administered on 12/12/18 21:54; Admin Dose 0.2 MG; Start 12/05/18 at 16:00 Ondansetron HCl (Zofran Inj) 4 mg Q6H PRN IV NAUSEA/VOMITING Last administered on 12/11/18 12:15; Admin Dose 4 MG; Start 12/05/18 at 16:00 Bisacodyl (Dulcolax Supp) 10 mg DAILY PRN [place] .CONSTIPATION Last administered on 12/12/18 21:07; Admin Dose 10 MG; Start 12/05/18 at 16:00 Docusate Sodium (Colace) 100 mg BID PO Last administered on 12/12/18 22:28; Admin Dose 100 MG; Start 12/05/18 at 21:00 Al Hydrox/Mg Hydrox/Simethicone (Mag-Al Plus) 15 ml Q6H PRN PO .CONSTIPATION/DYSPEPSIA Last administered on 12/10/18 23:24; Admin Dose 15 ML; Start 12/05/18 at 16:00 Acetaminophen (Tylenol Tab) 650 mg Q4H PRN PO FARRIS OR TEMP GREATER THAN 101.3F; Start 12/05/18 at 16:00 Phenol (Cepastat Lozenge) 1 lozenge PRN PRN [place] .SORE THROAT Last administered on 12/12/18 03:27; Admin Dose 1 LOZENGE; Start 12/05/18 at 16:00 Diphenhydramine HCl (Benadryl) 25 mg Q6H PRN PO .ITCHING; Start 12/05/18 at 16: 00 Diphenhydramine HCl (Benadryl) 25 mg Q6H PRN IV .ITCHING Last administered on 12/09/18 01:55; Admin Dose 25 MG; Start 12/05/18 at 16:00 Naloxone HCl (Narcan) 0.2 mg Q2M PRN IV .RR 8 BREATHS/MIN OR LESS; Start 12/05/18 at 16:00 Baclofen (Lioresal) 20 mg TID PO Last administered on 12/13/18 12:06; Admin Dose 20 MG; Start 12/05/18 at 21:00 Polyethylene Glycol (Miralax) 17 gm DAILY PRN PO constipation Last administered on 12/07/18 09:25; Admin Dose 17 GM; Start 12/06/18 at 15:30 Lidocaine (Xylocaine 1% (Mpf)) 30 ml ONCE PRN INJ pain Last administered on 12/06/18 18:01; Admin Dose 30 ML; Start 12/06/18 at 17:30 Pantoprazole (Protonix Tab) 40 mg DAILY@06 PO Last administered on 12/13/18 06:01; Admin Dose 40 MG; Start 12/08/18 at 06:00 Methylprednisolone Sodium Succinate (Solu-Medrol) 10 mg QAM IV Last administered on 12/11/18 08:19; Admin Dose 10 MG; Start 12/10/18 at 09:00; Status Hold Levetiracetam (Keppra) 750 mg BID PO Last administered on 12/13/18 08:37; Admin Dose 750 MG; Start 12/11/18 at 21:00 Gabapentin (Neurontin) 400 mg BID PO Last administered on 12/13/18 08:36; Admin Dose 400 MG; Start 12/11/18 at 21:00 Terbinafine HCl (Lamisil) 250 mg BID PO Last administered on 12/13/18 08:49; Admin Dose 250 MG; Start 12/11/18 at 21:00; Stop 12/18/18 at 20:59 Meclizine HCl (Antivert) 12.5 mg TID PO Last administered on 12/13/18 12:05; Admin Dose 12.5 MG; Start 12/12/18 at 21:00 Morphine Sulfate (Ms Contin (Er)) 15 mg BID PO Last administered on 12/13/18at 08:36; Admin Dose 15 MG; Start 12/12/18 at 21:00 DONNA TIDWELL MD Dec 13, 2018 14:05
[2018-12-13] MEDS: HYDROmorphONE 0.5 MG/0.5 ML SYG IV PRN ×3 (15:05→18:19)
[2018-12-13] MEDS ORDERED: SOD CHLORIDE 0.9% 100 ML ONE (15:55)
[2018-12-13] MEDS ORDERED: IOHEXOL 350MG/ML 50 ML BTL ONE (15:55)
[2018-12-13] MEDS ORDERED: IOHEXOL 100 ML ONE (15:55)
--- NOTE | 2018-12-13 19:53 | CONS ---
Assessment/Plan Assessment/Plan Assessment/Plan (Daily) Onychocryptosis L hallux Pain in limb L Lumbar stenosis s/p lumbar fusion Chronic pain syndrome HTN Plan Dressings were changed to the left hallux partial nail avulsion site and site was irrigated copiously with saline, avulsion site dried, then dry bandages applied. Educated patient on s/s of infection. Encouraged patient to keep hallux dressing sites clean dry and intact. Dressing recommendations updated to nursing staff. Consultation Date/Type/Reason Admit Date/Time Nov 21, 2018 at 05:24 Initial Consult Date Requesting Provider: FAVIOLA GREEN MD Date/Time of Note DATE: 12/13/18 TIME: 19:52 24 HR Interval Summary Free Text/Dictation Patient stated he had a fainting episode during physical therapy and was transferred for closer monitoring. Exam/Review of Systems Exam Vitals Vital Signs Date Temp Pulse Resp B/P (MAP) Pulse Ox O2 O2 Flow FiO2 Time Delivery Rate 12/13/18 165 17:27 12/13/18 98.5 18 150/74 99 16:53 (99) 12/12/18 Room Air 15:48 Intake and Output 12/12/18 12/12/18 12/13/18 1515:00 23:00 07:00 IntakeIntake Total 940 ml 1520 ml 1200 ml OutputOutput Total 200 ml 0 ml BalanceBalance 740 ml 1520 ml 1200 ml Exam DP/PT pulses palpable Protective sensations intact No pain to the medial border of the left hallux, no purulence or erythema to the partially avulsed nail site. Mild maceration appreciated to avulsion site. Skin temperature gradient warm to warm from proximal leg to distal foot. Results Result Diagram: 12/13/18 1725 12/13/18 1725 Results 24hrs Laboratory Tests Test 12/13/18 08:33 12/13/18 14:57 12/13/18 17:25 D-Dimer 425.72 D-Dimer Comment Random Cortisol 1.0 Bedside Glucose 127 White Blood Count 13.8 H Red Blood Count 4.62 L Hemoglobin 13.5 L Hematocrit 41.2 L Mean Corpuscular Volume 89.2 Mean Corpuscular Hemoglobin 29.2 Mean Corpuscular Hemoglobin Concent 32.8 Red Cell Distribution Width 13.8 Platelet Count 243 Mean Platelet Volume 9.8 Immature Granulocytes % 1.200 H Neutrophils % 72.0 Lymphocytes % 18.2 Monocytes % 7.1 Eosinophils % 1.3 Basophils % 0.2 Nucleated Red Blood Cells % 0.0 Immature Granulocytes # 0.170 H Neutrophils # 10.0 H Lymphocytes # 2.5 Monocytes # 1.0 H Eosinophils # 0.2 Basophils # 0.0 Nucleated Red Blood Cells # 0.0 Sodium Level 139 Potassium Level 4.0 Chloride Level 105 Carbon Dioxide Level 28 Anion Gap 6 Blood Urea Nitrogen 19 Creatinine 0.82 Est Glomerular Filtrat Rate mL/min > 60 Glucose Level 116 Calcium Level 8.9 Troponin I < 0.012 Medications Medication Current Medications Amlodipine Besylate (Norvasc) 10 mg DAILY PO Last administered on 12/13/18 08:39; Admin Dose 10 MG; Start 11/22/18 at 09:00 Benazepril HCl (Lotensin) 40 mg DAILY PO Last administered on 12/13/18 08:38; Admin Dose 40 MG; Start 11/22/18 at 09:00 Zolpidem Tartrate (Ambien) 5 mg HS PRN PO INSOMNIA Last administered on 12/07/18 23:27; Admin Dose 5 MG; Start 11/21/18 at 22:00 Acetaminophen/ Hydrocodone Bitart ([place] (10/325)) 1 tab Q4H PRN PO .PAIN 1-5 Last administered on 12/13/18 11:37; Admin Dose 1 TAB; Start 12/05/18 at 16:00 Acetaminophen/ Hydrocodone Bitart ([place] (10/325)) 2 tab Q4H PRN PO .PAIN 6-10 Last administered on 12/13/18 01:54; Admin Dose 2 TAB; Start 12/05/18 at 16:00 Hydromorphone HCl (Dilaudid) 0.2 mg Q1H PRN IV .BREAKTHROUGH PAIN Last administered on 12/13/18 15:26; Admin Dose 0.2 MG; Start 12/05/18 at 16:00 Ondansetron HCl (Zofran Inj) 4 mg Q6H PRN IV NAUSEA/VOMITING Last administered on 12/11/18 12:15; Admin Dose 4 MG; Start 12/05/18 at 16:00 Bisacodyl (Dulcolax Supp) 10 mg DAILY PRN [place] .CONSTIPATION Last administered on 4/23/19at 21:07; Admin Dose 10 MG; Start 12/05/18 at 16:00 Docusate Sodium (Colace) 100 mg BID PO Last administered on 12/12/18at 22:28; Admin Dose 100 MG; Start 12/05/18 at 21:00 Al Hydrox/Mg Hydrox/Simethicone (Mag-Al Plus) 15 ml Q6H PRN PO .CONSTIPATION/DYSPEPSIA Last administered on 12/10/18at 23:24; Admin Dose 15 ML; Start 12/05/18 at 16:00 Acetaminophen (Tylenol Tab) 650 mg Q4H PRN PO FARRIS OR TEMP GREATER THAN 101.3F; Start 12/05/18 at 16:00 Phenol (Cepastat Lozenge) 1 lozenge PRN PRN [place] .SORE THROAT Last administered on 12/12/18at 03:27; Admin Dose 1 LOZENGE; Start 12/05/18 at 16:00 Diphenhydramine HCl (Benadryl) 25 mg Q6H PRN PO .ITCHING; Start 12/05/18 at 16:00 Diphenhydramine HCl (Benadryl) 25 mg Q6H PRN IV .ITCHING Last administered on 12/09/18at 01:55; Admin Dose 25 MG; Start 12/05/18 at 16:00 Naloxone HCl (Narcan) 0.2 mg Q2M PRN IV .RR 8 BREATHS/MIN OR LESS; Start 12/05/18 at 16:00 Baclofen (Lioresal) 20 mg TID PO Last administered on 12/13/18at 12:06; Admin Dose 20 MG; Start 12/05/18 at 21:00 Lidocaine (Xylocaine 1% (Mpf)) 30 ml ONCE PRN INJ pain Last administered on 12/06/18at 18:01; Admin Dose 30 ML; Start 12/06/18 at 17:30 Pantoprazole (Protonix Tab) 40 mg DAILY@06 PO Last administered on 12/13/18at 06:01; Admin Dose 40 MG; Start 12/08/18 at 06:00 Methylprednisolone Sodium Succinate (Solu-Medrol) 10 mg QAM IV Last administered on 12/11/18at 08:19; Admin Dose 10 MG; Start 12/10/18 at 09:00; Status Hold Levetiracetam (Keppra) 750 mg BID PO Last administered on 12/13/18 08:37; Adm in Dose 750 MG; Start 12/11/18 at 21:00 Gabapentin (Neurontin) 400 mg BID PO Last administered on 12/13/18 08:36; Admin Dose 400 MG; Start 12/11/18 at 21:00 Terbinafine HCl (Lamisil) 250 mg BID PO Last administered on 12/13/18 08:49; Admin Dose 250 MG; Start 12/11/18 at 21:00; Stop 12/18/18 at 20:59 Meclizine HCl (Antivert) 12.5 mg TID PO Last administered on 12/13/18 12:05; Admin Dose 12.5 MG; Start 12/12/18 at 21:00 Morphine Sulfate (Ms Contin (Er)) 15 mg BID PO Last administered on 12/13/18 08:36; Admin Dose 15 MG; Start 12/12/18 at 21:00; Status Hold Polyethylene Glycol (Miralax) 17 gm DAILY PO ; Start 12/14/18 at 09:00 SHEILA MALIN DPM Dec 13, 2018 19:53
[2018-12-14] VITALS (11 sets, daily range): BP systolic 118–139; BP diastolic 65–79; PULSE 85–109; RESP 18–20
[2018-12-14] MEDS: HYDROCODONE/APAP (10/325) TAB PO PRN ×5 (00:02→22:04)
[2018-12-14] MEDS: HYDROmorphONE 0.5 MG/0.5 ML SYG IV PRN ×2 (04:11→17:51)
[2018-12-14] MEDS: PANTOPRAZOLE (EC) 40 MG TAB PO SCH (06:46)
--- NOTE | 2018-12-14 08:07 | PN ---
Date/Time of Note Date/Time of Note DATE: 12/14/18 TIME: 08:05 Assessment/Plan Lines/Catheters IV Catheter Type (from Nrsg): Saline Lock Baker in Place (from Nrsg): No Assessment/Plan Assessment/Plan Patient had another episode yesterday where he passed out and fell to the floor. CT scans were obtained. There is no evidence of blood clots. The hardware in the lumbar spine is visualized and the revised hardware is perfectly placed. Fractures are not identified. Lung nodules were identified and I will defer to the internal medicine team to see if this needs to be worked up further. It is still not clear why he is dizzy and passing out. It is likely related to blood pressure rather than a seizure but I would defer to the neurologist to further evaluate this. Subjective 24 Hr Interval Summary Complains of back pain Exam/Review of Systems Vital Signs Vitals Vital Signs Date Temp Pulse Resp B/P (MAP) Pulse Ox O2 O2 Flow FiO2 Time Delivery Rate 12/14/18 98.0 85 18 134/65 97 Room Air 07:50 (88) 12/14/18 3.0 06:08 Intake and Output 12/13/18 12/13/18 12/14/18 1515:00 23:00 07:00 IntakeIntake Total 200 ml 480 ml 500 ml OutputOutput Total 400 ml 550 ml 800 ml BalanceBalance -200 ml -70 ml -300 ml Exam Free Text/Dictation Neuro intact. Incision clean and dry Results Result Diagram: 12/13/18 1725 12/13/18 1725 FAVIOLA GREEN MD Dec 14, 2018 08:07
[2018-12-14] MEDS: BACLOFEN 10 MG TAB PO SCH ×3 (08:15→21:09)
[2018-12-14] MEDS: POLYETHYLENE GLYCOL 17 GM PACKET PO SCH (08:16)
[2018-12-14] MEDS: GABAPENTIN 400 MG CAP PO SCH ×2 (08:16→21:10)
[2018-12-14] MEDS: LEVETIRACETAM 750 MG TAB PO SCH ×2 (08:16→21:09)
[2018-12-14] MEDS: DOCUSATE SODIUM 100 MG CAP PO SCH ×2 (08:16→21:10)
[2018-12-14] MEDS: MECLIZINE 12.5 MG TAB PO SCH ×3 (08:16→21:09)
[2018-12-14] MEDS: BENAZEPRIL 40 MG TAB PO SCH (08:17)
[2018-12-14] MEDS: AMLODIPINE 10 MG TAB PO SCH (08:17)
[2018-12-14] MEDS: TERBINAFINE 250 MG TAB PO SCH ×2 (08:17→21:09)
--- NOTE | 2018-12-14 15:53 | RADRPT ---
Vent Rate: 150 bpm RR Interval: 400 msec NE Interval: 118 msec QRS Duration: 72 msec QT Interval: 275 msec QTC Interval: 435 msec P-R-T [place]: 84 - 8 - 73 degrees Sinus tachycardia...rate> 99 Electronically Signed By: Jerod Hemphill
--- NOTE | 2018-12-14 18:54 | PN ---
Date/Time of Note Date/Time of Note DATE: 12/14/18 TIME: 18:51 Assessment/Plan VTE Prophylaxis Risk score (from Ns)>0 risk: 8 SCD applied (from Ns): Yes Pharmacological prophylaxis: heparin Lines/Catheters IV Catheter Type (from Nrs): Mid Line Urinary Cath still in place: No Assessment/Plan Problems: (1) Status post lumbar surgery Onset Date: ~ 11/21/2018 Status: Acute Comment: Repeat imaging studies demonstrates no disruption of the surgical repair. Continue with physical therapy and rehabilitation. (2) Obstipation Status: Acute Comment: Noted and on treatment. (3) Obstructive sleep apnea Status: Chronic Comment: Noted. (4) Essential (primary) hypertension Status: Chronic Comment: Adequate control. (5) Dizziness Status: Acute Comment: This may also be viewed as intermittent syncope. He has had a couple of vasovagal reactions. In repeating his history he had been on steroids as an outpatient prior to having steroids here. 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 I can place him on basic replacement hydrocortisone and follow him. Please note there is been no abnormalities in his cardiac monitoring to suggest a cardiac etiology, and this does not make sense to be a primary seizure disorder or an effect of the ependymoma. (6) Subependymoma Onset Date: ~ 11/26/2018 Status: Acute Comment: Neurosurgery is seen and wants. We may be forced to get this done through work comp since we can complete the Worker's Comp. unless we get this dealt with. I do not believe the nodules on chest CT I represents any type of tumor spread. Result Diagram: 12/13/18 1725 12/13/18 1725 Results 24hrs Laboratory Tests Test 12/14/18 10:50 Urine Color YELLOW Urine Clarity SLIGHTLY CLOUDY A Urine pH 5.0 Urine Specific [place] 1.026 Urine Ketones NEGATIVE Urine Nitrite NEGATIVE Urine Bilirubin NEGATIVE Urine Urobilinogen NEGATIVE Urine Leukocyte Esterase 1+ H Urine Microscopic RBC 3 Urine Microscopic WBC 50 H Urine Mucus FEW A Urine Hemoglobin NEGATIVE Urine Glucose NEGATIVE Urine Total Protein NEGATIVE Subjective 24 Hr Interval Summary Free Text/Dictation Patient reports that this time he is doing relatively the same, still with similar somatic pain complaints. Please note however he reports that the pain control he is having using the long-acting opiates has improved his overall pain levels Constitutional: no complaints Respiratory: no complaints Cardiovascular: no complaints Gastrointestinal: no complaints Genitourinary: no complaints Musculoskeletal: no complaints Exam/Review of Systems Exam Vitals Vital Signs Date Temp Pulse Resp B/P (MAP) Pulse Ox O2 O2 Flow FiO2 Time Delivery Rate 12/14/18 102 16:23 12/14/18 98.5 18 118/68 97 Nasal 16:09 (85) Cannula 12/14/18 3.0 13:54 Intake and Output 12/13/18 12/13/18 12/14/18 1515:00 23:00 07:00 IntakeIntake Total 200 ml 480 ml 500 ml OutputOutput Total 400 ml 550 ml 800 ml BalanceBalance -200 ml -70 ml -300 ml Constitutional: alert, oriented Respiratory: clear to auscultation, normal air movement Cardiovascular: regular rate and rhythm, nl pulses Gastrointestinal: soft, nl liver, spleen, non-tender Results Results 24hrs Laboratory Tests Test 12/14/18 10:50 Urine Color YELLOW Urine Clarity SLIGHTLY CLOUDY A Urine pH 5.0 Urine Specific [place] 1.026 Urine Ketones NEGATIVE Urine Nitrite NEGATIVE Urine Bilirubin NEGATIVE Urine Urobilinogen NEGATIVE Urine Leukocyte Esterase 1+ H Urine Microscopic RBC 3 Urine Microscopic WBC 50 H Urine Mucus FEW A Urine Hemoglobin NEGATIVE Urine Glucose NEGATIVE Urine Total Protein NEGATIVE Medications Medication Current Medications Amlodipine Besylate (Norvasc) 10 mg DAILY PO Last administered on 12/14/18 08:17; Admin Dose 10 MG; Start 11/22/18 at 09:00 Benazepril HCl (Lotensin) 40 mg DAILY PO Last administered on 12/14/18 08:17; Admin Dose 40 MG; Start 11/22/18 at 09:00 Zolpidem Tartrate (Ambien) 5 mg HS PRN PO INSOMNIA Last administered on 12/07/18 23:27; Admin Dose 5 MG; Start 11/21/18 at 22:00 Acetaminophen/ Hydrocodone Bitart ([place] (10/325)) 1 tab Q4H PRN PO .PAIN 1-5 Last administered on 12/14/18 00:02; Admin Dose 1 TAB; Start 12/05/18 at 16:00 Acetaminophen/ Hydrocodone Bitart ([place] (10/325)) 2 tab Q4H PRN PO .PAIN 6-10 Last administered on 12/14/18 13:02; Admin Dose 2 TAB; Start 12/05/18 at 16:00 Hydromorphone HCl (Dilaudid) 0.2 mg Q1H PRN IV .BREAKTHROUGH PAIN Last administered on 12/14/18 17:51; Admin Dose 0.2 MG; Start 12/05/18 at 16:00 Ondansetron HCl (Zofran Inj) 4 mg Q6H PRN IV NAUSEA/VOMITING Last administered on 12/11/18 12:15; Admin Dose 4 MG; Start 12/05/18 at 16:00 Bisacodyl (Dulcolax Supp) 10 mg DAILY PRN [place] .CONSTIPATION Last administered on 12/12/18 21:07; Admin Dose 10 MG; Start 12/05/18 at 16:00 Docusate Sodium (Colace) 100 mg BID PO Last administered on 12/14/18 08:16; Admin Dose 100 MG; Start 12/05/18 at 21:00 Al Hydrox/Mg Hydrox/Simethicone (Mag-Al Plus) 15 ml Q6H PRN PO .CONSTIPATION/DYSPEPSIA Last administered on 12/10/18 23:24; Admin Dose 15 ML; Start 12/05/18 at 16:00 Acetaminophen (Tylenol Tab) 650 mg Q4H PRN PO FARRIS OR TEMP GREATER THAN 101.3F; Start 12/05/18 at 16:00 Phenol (Cepastat Lozenge) 1 lozenge PRN PRN [place] .SORE THROAT Last administered on 12/12/18 03:27; Admin Dose 1 LOZENGE; Start 12/05/18 at 16:00 Diphenhydramine HCl (Benadryl) 25 mg Q6H PRN PO .ITCHING; Start 12/05/18 at 16:00 Diphenhydramine HCl (Benadryl) 25 mg Q6H PRN IV .ITCHING Last administered on 12/09/18 01:55; Admin Dose 25 MG; Start 12/05/18 at 16:00 Naloxone HCl (Narcan) 0.2 mg Q2M PRN IV .RR 8 BREATHS/MIN OR LESS; Start 12/05/18 at 16:00 Baclofen (Lioresal) 20 mg TID PO Last administered on 12/14/18 12:14; Admin Dose 20 MG; Start 12/05/18 at 21:00 Lidocaine (Xylocaine 1% (Mpf)) 30 ml ONCE PRN INJ pain Last administered on 12/06/18 18:01; Admin Dose 30 ML; Start 12/06/18 at 17:30 Pantoprazole (Protonix Tab) 40 mg DAILY@06 PO Last administered on 12/14/18 06:46; Admin Dose 40 MG; Start 12/08/18 at 06:00 Levetiracetam (Keppra) 750 mg BID PO Last administered on 12/14/18 08:16; Admin Dose 750 MG; Start 12/11/18 at 21:00 Gabapentin (Neurontin) 400 mg BID PO Last administered on 12/14/18 08:16; Admin Dose 400 MG; Start 12/11/18 at 21:00 Terbinafine HCl (Lamisil) 250 mg BID PO Last administered on 12/14/18 08:17; Admin Dose 250 MG; Start 12/11/18 at 21:00; Stop 12/18/18 at 20:59 Meclizine HCl (Antivert) 12.5 mg TID PO Last administered on 12/14/18 12:14; Admin Dose 12.5 MG; Start 12/12/18 at 21:00 Morphine Sulfate (Ms Contin (Er)) 15 mg BID PO Last administered on 12/13/18 08:36; Admin Dose 15 MG; Start 12/12/18 at 21:00; Status Hold Polyethylene Glycol (Miralax) 17 gm DAILY PO Last administered on 12/14/18 08:16; Admin Dose 17 GM; Start 12/14/18 at 09:00 Hydrocortisone (Cortef) 15 mg ONCE ONCE PO ; Start 12/14/18 at 19:30; Stop 12/14/18 at 19:31 Hydrocortisone (Cortef) 12.5 mg QAM PO ; Start 12/15/18 at 09:00 Hydrocortisone (Cortef) 5 mg PC LUNCH PO ; Start 12/15/18 at 13:00 Hydrocortisone (Cortef) 2.5 mg QHS PO ; Start 12/14/18 at 21:00 DONNA TIDWELL MD Dec 14, 2018 18:54
[2018-12-14] MEDS ORDERED: HYDROCORTISONE 5 MG TAB PO ONE (19:30)
[2018-12-14] MEDS: HYDROCORTISONE 5 MG TAB PO SCH (21:10)
[2018-12-15] VITALS (12 sets, daily range): BP systolic 124–162; BP diastolic 75–83; PULSE 82–109; RESP 18–20
[2018-12-15] MEDS: HYDROmorphONE 0.5 MG/0.5 ML SYG IV PRN ×4 (00:11→23:14)
[2018-12-15] MEDS: HYDROCODONE/APAP (10/325) TAB PO PRN ×4 (06:05→19:13)
[2018-12-15] MEDS: PANTOPRAZOLE (EC) 40 MG TAB PO SCH (06:05)
[2018-12-15] MEDS: BACLOFEN 10 MG TAB PO SCH ×3 (09:23→21:19)
[2018-12-15] MEDS: LEVETIRACETAM 750 MG TAB PO SCH (09:23)
[2018-12-15] MEDS: AMLODIPINE 10 MG TAB PO SCH (09:23)
[2018-12-15] MEDS: MECLIZINE 12.5 MG TAB PO SCH ×3 (09:23→21:20)
[2018-12-15] MEDS: GABAPENTIN 400 MG CAP PO SCH ×3 (09:24→21:19)
[2018-12-15] MEDS: POLYETHYLENE GLYCOL 17 GM PACKET PO SCH (09:24)
[2018-12-15] MEDS: HYDROCORTISONE 5 MG TAB PO SCH ×3 (09:24→21:19)
[2018-12-15] MEDS: DOCUSATE SODIUM 100 MG CAP PO SCH ×2 (09:24→21:20)
[2018-12-15] MEDS: TERBINAFINE 250 MG TAB PO SCH ×2 (09:24→21:19)
--- NOTE | 2018-12-15 11:53 | PN ---
Date/Time of Note Date/Time of Note DATE: 12/15/18 TIME: 11:52 Assessment/Plan Lines/Catheters IV Catheter Type (from Nrs): Mid Line Baker in Place (from Nrs): No Assessment/Plan Assessment/Plan Patient is being worked up by Dr. Baron for cortisol levels. Continue physical therapy with fall precautions. Patient may shower Subjective 24 Hr Interval Summary Complains of dizziness Exam/Review of Systems Vital Signs Vitals Vital Signs Date Temp Pulse Resp B/P (MAP) Pulse Ox O2 O2 Flow FiO2 Time Delivery Rate 12/15/18 97.5 86 18 145/83 100 Room Air 09:19 (103) 12/15/18 3.0 04:45 Intake and Output 12/14/18 12/14/18 12/15/18 1515:00 23:00 07:00 IntakeIntake Total 810 ml 500 ml OutputOutput Total 550 ml 800 ml BalanceBalance 260 ml -300 ml Exam Free Text/Dictation Exam unchanged Results Result Diagram: 12/13/18 1725 12/13/18 1725 FAVIOLA GREEN MD Dec 15, 2018 11:53
--- NOTE | 2018-12-15 15:26 | PN ---
Date/Time of Note Date/Time of Note DATE: 12/15/18 TIME: 15:24 Assessment/Plan VTE Prophylaxis Risk score (from Ns)>0 risk: 3 SCD applied (from Nsg): Yes Pharmacological prophylaxis: heparin Lines/Catheters IV Catheter Type (from Nrsg): Mid Line Urinary Cath still in place: No Assessment/Plan Problems: (1) Status post lumbar surgery Onset Date: ~ 11/21/2018 Status: Acute Comment: He continues to work with physical therapy although is been a little bit reticent due to fear of falling. 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 I am somewhat worried that there might be a subtle seizure disorder such as a petit mall or absence seizure disorder. If that is the case and the medication adjustment would be appreciated with input from neurology (3) Essential (primary) hypertension Status: Chronic Comment: Adequate control. Please note he is under treatment for adrenal insufficiency at the moment which is a presumptive diagnosis (4) Obstructive sleep apnea Status: Chronic Comment: Noted. (5) Dizziness Status: Acute Comment: As above. Result Diagram: 12/13/18 1725 12/13/18 1725 Results 24hrs Laboratory Tests Test 12/14/18 20:00 12/14/18 20:02 Thyroid Stimulating Hormone (TSH) 2.460 Free Thyroxine 1.41 Free Triiodothyronine (T3) pg/mL 5.18 Hepatitis A Antibody Total NEGATIVE Hepatitis B Surface Antigen NEGATIVE Hepatitis B Surface Antibody NEGATIVE Hepatitis C Antibody NEGATIVE Subjective 24 Hr Interval Summary Free Text/Dictation Patient reports he still has back pain and is having these intermittent episodes of loss of consciousness. As he describes that these are essentially episodes where he loses consciousness and awakens to find that something else has happened. This is in regards to his cell phone and texting. He reports this is happening fairly frequently. Constitutional: no complaints Cardiovascular: no complaints Gastrointestinal: no complaints Genitourinary: no complaints Musculoskeletal: no complaints Exam/Review of Systems Exam Vitals Vital Signs Date Temp Pulse Resp B/P (MAP) Pulse Ox O2 O2 Flow FiO2 Time Delivery Rate 12/15/18 98.0 104 18 142/75 98 15:08 (97) 12/15/18 Room Air 09:19 12/15/18 3.0 04:45 Intake and Output 12/14/18 12/14/18 12/15/18 1515:00 23:00 07:00 IntakeIntake Total 810 ml 500 ml OutputOutput Total 550 ml 800 ml BalanceBalance 260 ml -300 ml Constitutional: alert, oriented Neck: supple, non-tender Respiratory: clear to auscultation, normal air movement Cardiovascular: regular rate and rhythm, nl pulses Gastrointestinal: soft, nl liver, spleen, non-tender Results Results 24hrs Laboratory Tests Test 12/14/18 20:00 12/14/18 20:02 Thyroid Stimulating Hormone (TSH) 2.460 Free Thyroxine 1.41 Free Triiodothyronine (T3) pg/mL 5.18 Hepatitis A Antibody Total NEGATIVE Hepatitis B Surface Antigen NEGATIVE Hepatitis B Surface Antibody NEGATIVE Hepatitis C Antibody NEGATIVE Medications Medication Current Medications Amlodipine Besylate (Norvasc) 10 mg DAILY PO Last administered on 12/15/18 09:23; Admin Dose 10 MG; Start 11/22/18 at 09:00 Zolpidem Tartrate (Ambien) 5 mg HS PRN PO INSOMNIA Last administered on 12/07/18 23:27; Admin Dose 5 MG; Start 11/21/18 at 22:00 Acetaminophen/ Hydrocodone Bitart ([place] (10/325)) 1 tab Q4H PRN PO .PAIN 1-5 Last administered on 12/14/18 00:02; Admin Dose 1 TAB; Start 12/05/18 at 16:00 Acetaminophen/ Hydrocodone Bitart ([place] (10/325)) 2 tab Q4H PRN PO .PAIN 6-10 Last administered on 12/15/18 11:04; Admin Dose 2 TAB; Start 12/05/18 at 16:00 Hydromorphone HCl (Dilaudid) 0.2 mg Q1H PRN IV .BREAKTHROUGH PAIN Last administered on 12/15/18 04:29; Admin Dose 0.2 MG; Start 12/05/18 at 16:00 Ondansetron HCl (Zofran Inj) 4 mg Q6H PRN IV NAUSEA/VOMITING Last administered on 12/11/18 12:15; Admin Dose 4 MG; Start 12/05/18 at 16:00 Bisacodyl (Dulcolax Supp) 10 mg DAILY PRN [place] .CONSTIPATION Last administered on 12/12/18 21:07; Admin Dose 10 MG; Start 12/05/18 at 16:00 Docusate Sodium (Colace) 100 mg BID PO Last administered on 12/15/18 09:24; Admin Dose 100 MG; Start 12/05/18 at 21:00 Al Hydrox/Mg Hydrox/Simethicone (Mag-Al Plus) 15 ml Q6H PRN PO .CONSTIPATION/DYSPEPSIA Last administered on 12/10/18 23:24; Admin Dose 15 ML; Start 12/05/18 at 16:00 Acetaminophen (Tylenol Tab) 650 mg Q4H PRN PO FARRIS OR TEMP GREATER THAN 101.3F; Start 12/05/18 at 16:00 Phenol (Cepastat Lozenge) 1 lozenge PRN PRN [place] .SORE THROAT Last administered on 12/12/18 03:27; Admin Dose 1 LOZENGE; Start 12/05/18 at 16:00 Diphenhydramine HCl (Benadryl) 25 mg Q6H PRN PO .ITCHING; Start 12/05/18 at 16:00 Diphenhydramine HCl (Benadryl) 25 mg Q6H PRN IV .ITCHING Last administered on 12/09/18 01:55; Admin Dose 25 MG; Start 12/05/18 at 16:00 Naloxone HCl (Narcan) 0.2 mg Q2M PRN IV .RR 8 BREATHS/MIN OR LESS; Start 12/05/18 at 16:00 Baclofen (Lioresal) 20 mg TID PO Last administered on 12/15/18 14:14; Admin Dose 20 MG; Start 12/05/18 at 21:00 Lidocaine (Xylocaine 1% (Mpf)) 30 ml ONCE PRN INJ pain Last administered on 12/06/18 18:01; Admin Dose 30 ML; Start 12/06/18 at 17:30 Pantoprazole (Protonix Tab) 40 mg DAILY@06 PO Last administered on 12/15/18 06:05; Admin Dose 40 MG; Start 12/08/18 at 06:00 Levetiracetam (Keppra) 750 mg BID PO Last administered on 12/15/18 09:23; Admin Dose 750 MG; Start 12/11/18 at 21:00 Terbinafine HCl (Lamisil) 250 mg BID PO Last administered on 12/15/18 09:24; Admin Dose 250 MG; Start 12/11/18 at 21:00; Stop 12/18/18 at 20:59 Meclizine HCl (Antivert) 12.5 mg TID PO Last administered on 12/15/18 14:15; Admin Dose 12.5 MG; Start 12/12/18 at 21:00 Morphine Sulfate (Ms Contin (Er)) 15 mg BID PO Last administered on 12/13/18 08:36; Admin Dose 15 MG; Start 12/12/18 at 21:00; Status Hold Polyethylene Glycol (Miralax) 17 gm DAILY PO Last administered on 12/15/18 09:24; Admin Dose 17 GM; Start 12/14/18 at 09:00 Hydrocortisone (Cortef) 12.5 mg QAM PO Last administered on 12/15/18 09:24; Admin Dose 12.5 MG; Start 12/15/18 at 09:00 Hydrocortisone (Cortef) 5 mg PC LUNCH PO Last administered on 12/15/18 14:15; Admin Dose 5 MG; Start 12/15/18 at 13:00 Hydrocortisone (Cortef) 2.5 mg QHS PO Last administered on 12/14/18 21:10; Admin Dose 2.5 MG; Start 12/14/18 at 21:00 Gabapentin (Neurontin) 400 mg TID PO Last administered on 12/15/18 14:14; Admin Dose 400 MG; Start 12/14/18 at 21:00 Benazepril HCl (Lotensin) 40 mg QPM PO ; Start 12/15/18 at 21:00 DONNA TIDWELL MD Dec 15, 2018 15:26
[2018-12-15] MEDS: morphine (ER) 15 MG TAB PO SCH (19:16)
--- NOTE | 2018-12-15 20:05 | NEURPT ---
DATE: TECHNIQUE: EEG was done using 10-20 International electrode system with photic stimulation. FINDINGS: Bilateral occipital hemisphere view showed alpha wave 8 to 9 Hz, medium sized, low amplitu de, asymmetric bilateral. Photic stimulation done did not elicit a drive. No epileptiform discharge or seizure activity is recorded. Some electromyogram artifact is recorded. Eye movement artifact i s recorded. IMPRESSION: This is normal electroencephalogram. Normal electroencephalogram does not exclude the c linical history of seizure. Followup electroencephalogram may be needed if clinically indicated. Dictated By: DOT MCDANIELS MD NA/NTS Conf#: [id number] DID#: [id number] CC: FAVIOLA GREEN MD;*End*
--- NOTE | 2018-12-15 20:39 | CONS ---
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 The patient had a seizure-lik e activity, had an EEG today in which the EEG looks okay; however, the patient mentions this episode interferes with physical therapy and he cannot perform with them and he has multiple episodes of that , in which I increased his Keppra from 500 to 750 around 4 days ago. I am going to increase it to 10 00 twice a day today to try to help him out for prevention of possible seizure activity; however the patient cannot do physical therapy when he has these spells, so I hope with increasing the medication , it might help him out. CURRENT MEDICATIONS: In the form of: 1. Keppra 750 mg twice a day. 2. Protonix 40 mg once a day. 3. Colace 100 mg once a day. 4. Lotensin 40 mg once a day. 5. Cortef 5 mg . 6. Cortef 12.5 mg at a.m. 7. Cortef 2.5 mg at night. 8. Neurontin 400 mg 3 times a day. 9. Antivert 12.5 mg 3 times a day. 10. Lamisil 250 mg twice a day. 11. Protonix 40 mg once a day. 12. Colace 100 mg twice a day. 13. Baclofen 20 mg 3 times a day. 14. [place] 10/325 mg every 4 hours. 15. Dilaudid 0.2 mg every 1 hour. 16. Zofran 4 mg every 4 hours as needed. 17. Dulcolax suppository as needed. 18. Tylenol 650 mg every 4 hours as needed. 19. Benadryl 25 mg every 6 hours as needed. 20. Narcan 0.2 mg every 8 hours as needed. 21 Norvasc 10 mg once a day. 22. Ambien 5 mg at night. PHYSICAL EXAMINATION: GENERAL: Today, the patient is alert, awake, oriented, following simple commands. CRANIAL NERVES: Cranial nerve II: Pupils are equal on both sides, reactive to light. Cranial nerve s III, IV and : Extraocular muscles are intact without nystagmus. Cranial nerve V: Equal sensati on to face. Cranial nerve VII: Symmetrical face. Cranial nerve VIII: Equal hearing bilaterally. Cranial nerve IX and X: Elevates palate. Cranial nerve XI: Elevates shoulder 5/5. Cranial nerve X II: With straight tongue. MOTOR: Bilateral upper extremities, 5/5, bilateral lower extremity 4/5, limited by low back ache wit h the surgery. COORDINATION: [id number] test intact. Gait with assistance with the physical therapy. HEART: Regular rate and rhythm. LUNGS: Equal breath sounds. ABDOMEN: Soft, relaxed. ASSESSMENT AND PLAN: 1. The patient is a 38-year-old male status post acute dizzy spells. The patient has ependymoma, aw aiting for neurosurgery evaluation. 2. Underlying seizure. EEG looks okay today. However, I am going to increase his Keppra to 1000 tw ice a day. 3. Status post ependymoma, awaiting SPECT scan versus biopsy by neurosurgery. 4. Gait difficulty. Follow up the patient with physical therapy and rehabilitation facility. 5. Insomnia, in which the patient is on Ambien 5 mg. 6. History of low backache, in which the patient is under pain management. 7. Muscle spasm, in which the patient is under baclofen. 8. Paresthesia. The patient is on Neurontin 300. Dictated By: DOT RODRIGUEZ/AYLIN Conf#: [id number] DID#: [id number] CC: FAVIOLA GREEN MD;*End*
[2018-12-15] MEDS ORDERED: LEVETIRACETAM 750 MG TAB PO SCH (21:00)
[2018-12-15] MEDS: LEVETIRACETAM 500 MG TAB PO SCH (21:19)
[2018-12-15] MEDS: BENAZEPRIL 40 MG TAB PO SCH (21:21)
[2018-12-15] MEDS: ZOLPIDEM 5 MG TAB PO PRN (22:13)
[2018-12-16] VITALS (16 sets, daily range): BP systolic 119–154; BP diastolic 61–80; PULSE 68–140; RESP 14–22
[2018-12-16] MEDS: HYDROCODONE/APAP (10/325) TAB PO PRN ×6 (00:10→17:23)
[2018-12-16] MEDS: PANTOPRAZOLE (EC) 40 MG TAB PO SCH (05:34)
[2018-12-16] MEDS: POLYETHYLENE GLYCOL 17 GM PACKET PO SCH (09:14)
[2018-12-16] MEDS: DOCUSATE SODIUM 100 MG CAP PO SCH ×2 (09:15→21:10)
[2018-12-16] MEDS: LEVETIRACETAM 500 MG TAB PO SCH ×2 (09:15→21:10)
[2018-12-16] MEDS: TERBINAFINE 250 MG TAB PO SCH ×2 (09:15→21:11)
[2018-12-16] MEDS: AMLODIPINE 10 MG TAB PO SCH (09:15)
[2018-12-16] MEDS: HYDROCORTISONE 5 MG TAB PO SCH ×2 (09:15→13:22)
[2018-12-16] MEDS: MECLIZINE 12.5 MG TAB PO SCH ×3 (09:15→21:10)
[2018-12-16] MEDS: GABAPENTIN 400 MG CAP PO SCH ×2 (09:16→13:23)
[2018-12-16] MEDS: BACLOFEN 10 MG TAB PO SCH ×3 (09:16→21:11)
[2018-12-16] MEDS: morphine (ER) 15 MG TAB PO SCH ×3 (09:16→21:10)
[2018-12-16] MEDS: AL HYDROX/MG HYDROX/SIMETH 30 ML CUP PO PRN (09:17)
--- NOTE | 2018-12-16 13:45 | PN ---
Date/Time of Note Date/Time of Note DATE: 12/16/18 TIME: 13:41 Assessment/Plan Lines/Catheters IV Catheter Type (from Nrs): Peripheral IV Baker in Place (from Nrsg): No Assessment/Plan Assessment/Plan from ortho standpoint - continue PT as tolerated and d/c planning endocrine - cortisol [facility] - unclear etiology of syncopal episodes. Vasovagal vs seizure? Keppra being increased - would like to see if this helps. Subjective 24 Hr Interval Summary still c/o dizziness Exam/Review of Systems Vital Signs Vitals Vital Signs Date Temp Pulse Resp B/P (MAP) Pulse Ox O2 O2 Flow FiO2 Time Delivery Rate 12/16/18 95 12:23 12/16/18 97.3 18 122/80 98 11:46 (94) 12/16/18 30 01:10 12/15/18 Room Air 09:19 12/15/18 3.0 04:45 Exam Free Text/Dictation exam unchanged Results Result Diagram: 12/13/18 1725 12/13/18 1725 FAVIOLA GREEN MD Dec 16, 2018 13:45
--- NOTE | 2018-12-16 14:47 | PN ---
Date/Time of Note Date/Time of Note DATE: 12/16/18 TIME: 14:44 Assessment/Plan VTE Prophylaxis Risk score (from Ns)>0 risk: 8 SCD applied (from Ns): Yes Pharmacological prophylaxis: heparin Lines/Catheters IV Catheter Type (from Nrs): Peripheral IV Urinary Cath still in place: No Assessment/Plan Problems: (1) Status post lumbar surgery Onset Date: ~ 11/21/2018 Status: Acute Comment: Again trying to progress with physical therapy although we have had some intermittent difficulties. Please see the neurology consultation. (2) Dizziness Status: Acute Comment: Neurology has been very helpful and although we have not seen any significant abnormalities differently in the repeat scanning sore on the repeat EEG they have adjusted the dosing on his medications. Continue to try and hope for the best. Please note I am not absolutely convinced that he truly has adrenal insufficiency but I cannot disregard this. And try and do a Cortrosyn stimulation test tomorrow to delineate that a little bit better. (3) Subependymoma Onset Date: ~ 11/26/2018 Status: Acute Comment: Noted and present. Processes now in place and ongoing to get him [employer] so that he will be able to get this dealt with outside of the Worker's Compensation system if the Worker's Compensation system stops their toes (4) Essential (primary) hypertension Status: Chronic Comment: Adequate control (5) Obstructive sleep apnea Status: Chronic Comment: Noted. Result Diagram: 12/13/18 1725 12/13/18 1725 Subjective 24 Hr Interval Summary Free Text/Dictation Patient reports he is still a bit frustrated about these episodes he has been having. He reports his pain is better however on careful questioning it is still fairly significant Constitutional: no complaints Respiratory: no complaints Cardiovascular: no complaints Gastrointestinal: no complaints Exam/Review of Systems Exam Vitals Vital Signs Date Temp Pulse Resp B/P (MAP) Pulse Ox O2 O2 Flow FiO2 Time Delivery Rate 12/16/18 95 12:23 12/16/18 97.3 18 122/80 98 11:46 (94) 12/16/18 30 01:10 12/15/18 Room Air 09:19 12/15/18 3.0 04:45 Constitutional: alert, oriented Respiratory: clear to auscultation, normal air movement Cardiovascular: regular rate and rhythm, nl pulses Gastrointestinal: soft, nl liver, spleen, non-tender Medications Medication Current Medications Amlodipine Besylate (Norvasc) 10 mg DAILY PO Last administered on 12/16/18 09:15; Admin Dose 10 MG; Start 11/22/18 at 09:00 Zolpidem Tartrate (Ambien) 5 mg HS PRN PO INSOMNIA Last administered on 12/15/18 22:13; Admin Dose 5 MG; Start 11/21/18 at 22:00 Acetaminophen/ Hydrocodone Bitart ([place] (10/325)) 1 tab Q4H PRN PO .PAIN 1-5 Last administered on 12/16/18 13:22; Admin Dose 1 TAB; Start 12/05/18 at 16:00 Acetaminophen/ Hydrocodone Bitart ([place] (10/325)) 2 tab Q4H PRN PO .PAIN 6-10 Last administered on 12/16/18 04:59; Admin Dose 2 TAB; Start 12/05/18 at 16:00 Hydromorphone HCl (Dilaudid) 0.2 mg Q1H PRN IV .BREAKTHROUGH PAIN Last administered on 12/15/18 23:14; Admin Dose 0.2 MG; Start 12/05/18 at 16:00 Ondansetron HCl (Zofran Inj) 4 mg Q6H PRN IV NAUSEA/VOMITING Last administered on 12/11/18 12:15; Admin Dose 4 MG; Start 12/05/18 at 16:00 Bisacodyl (Dulcolax Supp) 10 mg DAILY PRN [place] .CONSTIPATION Last administered on 12/12/18 21:07; Admin Dose 10 MG; Start 12/05/18 at 16:00 Docusate Sodium (Colace) 100 mg BID PO Last administered on 12/16/18 09:15; Admin Dose 100 MG; Start 12/05/18 at 21:00 Al Hydrox/Mg Hydrox/Simethicone (Mag-Al Plus) 15 ml Q6H PRN PO .CONSTIPATION/DYSPEPSIA Last administered on 12/16/18 09:17; Admin Dose 15 ML; Start 12/05/18 at 16:00 Acetaminophen (Tylenol Tab) 650 mg Q4H PRN PO FARRIS OR TEMP GREATER THAN 101.3F; Start 12/05/18 at 16:00 Phenol (Cepastat Lozenge) 1 lozenge PRN PRN [place] .SORE THROAT Last administered on 12/12/18 03:27; Admin Dose 1 LOZENGE; Start 12/05/18 at 16:00 Diphenhydramine HCl (Benadryl) 25 mg Q6H PRN PO .ITCHING Last administered on 12/15/18 22:13; Admin Dose 25 MG; Start 12/05/18 at 16:00 Diphenhydramine HCl (Benadryl) 25 mg Q6H PRN IV .ITCHING Last administered on 12/09/18 01:55; Admin Dose 25 MG; Start 12/05/18 at 16:00 Naloxone HCl (Narcan) 0.2 mg Q2M PRN IV .RR 8 BREATHS/MIN OR LESS; Start 12/05/18 at 16:00 Baclofen (Lioresal) 20 mg TID PO Last administered on 12/16/18 13:22; Admin Dose 20 MG; Start 12/05/18 at 21:00 Lidocaine (Xylocaine 1% (Mpf)) 30 ml ONCE PRN INJ pain Last administered on 12/06/18 18:01; Admin Dose 30 ML; Start 12/06/18 at 17:30 Pantoprazole (Protonix Tab) 40 mg DAILY@06 PO Last administered on 12/16/18 05:34; Admin Dose 40 MG; Start 12/08/18 at 06:00 Terbinafine HCl (Lamisil) 250 mg BID PO Last administered on 12/16/18 09:15; Admin Dose 250 MG; Start 12/11/18 at 21:00; Stop 12/18/18 at 20:59 Meclizine HCl (Antivert) 12.5 mg TID PO Last administered on 12/16/18 13:22; Admin Dose 12.5 MG; Start 12/12/18 at 21:00 Morphine Sulfate (Ms Contin (Er)) 15 mg BID PO Last administered on 12/16/18 09:16; Admin Dose 15 MG; Start 12/12/18 at 21:00 Polyethylene Glycol (Miralax) 17 gm DAILY PO Last administered on 12/16/18 09:14; Admin Dose 17 GM; Start 12/14/18 at 09:00 Hydrocortisone (Cortef) 12.5 mg QAM PO Last administered on 12/16/18 09:15; Admin Dose 12.5 MG; Start 12/15/18 at 09:00; Status Hold Hydrocortisone (Cortef) 5 mg PC LUNCH PO Last administered on 12/16/18 13:22; Admin Dose 5 MG; Start 12/15/18 at 13:00 Hydrocortisone (Cortef) 2.5 mg QHS PO Last administered on 12/15/18 21:19; Admin Dose 2.5 MG; Start 12/14/18 at 21:00; Status Hold Gabapentin (Neurontin) 400 mg TID PO Last administered on 12/16/18 13:23; Admin Dose 400 MG; Start 12/14/18 at 21:00 Benazepril HCl (Lotensin) 40 mg QPM PO Last administered on 12/15/18 21:21; Admin Dose 40 MG; Start 12/15/18 at 21:00 Levetiracetam (Keppra) 1,000 mg BID PO Last administered on 12/16/18 09:15; Admin Dose 1,000 MG; Start 12/15/18 at 21:00 Cosyntropin (Cortrosyn) 0.25 mg ONCE ONCE IV ; Start 12/17/18 at 08:00; Stop 12/17/18 at 08:01 DONNA TIDWELL MD Dec 16, 2018 14:47
[2018-12-16] MEDS: GABAPENTIN 300 MG CAP PO SCH (21:11)
[2018-12-16] MEDS: BENAZEPRIL 40 MG TAB PO SCH (21:15)
[2018-12-16] MEDS: BISACODYL 10 MG SUPP PR PRN (22:19)
[2018-12-16] MEDS: HYDROmorphONE 0.5 MG/0.5 ML SYG IV PRN (23:21)
[2018-12-17] VITALS (15 sets, daily range): BP systolic 107–141; BP diastolic 56–80; PULSE 80–125; RESP 18–22
[2018-12-17] MEDS: HYDROmorphONE 0.5 MG/0.5 ML SYG IV PRN ×5 (00:14→16:20)
[2018-12-17] MEDS ORDERED: NA PHOSPHATE/BIPHOS 133 ML ENEMA PR ONE (01:00)
[2018-12-17] MEDS: HYDROCODONE/APAP (10/325) TAB PO PRN ×4 (03:42→21:24)
[2018-12-17] MEDS: PANTOPRAZOLE (EC) 40 MG TAB PO SCH (05:20)
[2018-12-17] MEDS: morphine (ER) 15 MG TAB PO SCH ×2 (05:21→12:59)
[2018-12-17] MEDS ORDERED: COSYNTROPIN 0.25 MG INJ IV ONE (08:00)
[2018-12-17] MEDS: DOCUSATE SODIUM 100 MG CAP PO SCH ×2 (08:57→21:27)
[2018-12-17] MEDS: LEVETIRACETAM 500 MG TAB PO SCH ×2 (08:57→21:24)
[2018-12-17] MEDS: MECLIZINE 12.5 MG TAB PO SCH ×3 (08:57→21:28)
[2018-12-17] MEDS: GABAPENTIN 300 MG CAP PO SCH ×3 (08:57→21:27)
[2018-12-17] MEDS: POLYETHYLENE GLYCOL 17 GM PACKET PO SCH (08:57)
[2018-12-17] MEDS: AMLODIPINE 10 MG TAB PO SCH (08:58)
[2018-12-17] MEDS: BACLOFEN 10 MG TAB PO SCH ×2 (08:58→12:59)
[2018-12-17] MEDS: TERBINAFINE 250 MG TAB PO SCH ×2 (08:58→21:28)
[2018-12-17] MEDS ORDERED: ATENOLOL 25 MG TAB PO SCH (09:00)
[2018-12-17] MEDS: HYDROCORTISONE 5 MG TAB PO SCH ×2 (12:59→21:27)
[2018-12-17] MEDS ORDERED: LACTULOSE 30ML CUP PO ONE (14:00)
[2018-12-17] MEDS ORDERED: morphine (ER) 30 MG TAB PO SCH (14:00)
--- NOTE | 2018-12-17 14:07 | PN ---
Date/Time of Note Date/Time of Note DATE: 12/17/18 TIME: 14:03 Assessment/Plan VTE Prophylaxis Risk score (from Ns)>0 risk: 12 SCD applied (from Ns): Yes Pharmacological prophylaxis: heparin Lines/Catheters IV [facility]from [facility] [place] Urinary Cath still in place: No Assessment/Plan Problems: (1) Syncope and collapse Status: Acute Comment: Patient reports is been going on for some time. Neurology has been evaluating him. I do not believe that cardiac issues are legitimate concern here but in case the sinus tachycardia is being an issue and since he already has hypertension can use a beta-christiano to control the pulse. He has never had bradycardia dysrhythmia. I am still concerned this may be a side effect of some of the medications I am going to change his muscle relaxants around (2) Status post lumbar surgery Onset Date: ~ 11/21/2018 Status: Acute Comment: Complains of pain still. I am going to go ahead and adjust his long- acting opiate therapy. (3) Subependymoma Onset Date: ~ 11/26/2018 Status: Acute Comment: Noted. I do not believe that this is the source of the issues. We will working on getting the insurance straightened out so this can be followed up as an outpatient. (4) Essential (primary) hypertension Status: Chronic Comment: Lower the amlodipine and increase beta-blockade (5) Obstructive sleep apnea Status: Chronic Comment: Noted. (6) Obstipation Status: Acute Comment: Relieving Result Diagram: 12/13/18 1725 12/13/18 1725 Subjective 24 Hr Interval Summary Free Text/Dictation Patient reports that after moving around for portable chest x-ray in the bed he is having some back pain that radiates down his leg. He reportedly had another episode of syncope. He was in the bed when he syncopized and had no specific injury related to that. gambling monitor was on at the time and demonstrated sinus tachycardia not a bradycardia dysrhythmia not a ventricular tachycardia. Constitutional: no complaints (No fevers chills or sweats) Respiratory: no complaints Cardiovascular: no complaints Gastrointestinal: no complaints Musculoskeletal: back pain Exam/Review of Systems Exam Vitals Vital Signs Date Temp Pulse Resp B/P (MAP) Pulse Ox O2 O2 Flow FiO2 Time Delivery Rate 12/17/18 82 12:24 12/17/18 98.5 20 107/64 98 11:36 (78) 12/17/18 3.0 30 09:20 12/17/18 Nasal 00:00 Cannula Intake and Output 12/16/18 12/16/18 12/17/18 1414:59 22:59 06:59 IntakeIntake Total 800 ml OutputOutput Total 1000 ml BalanceBalance -200 ml Exam Worried and somewhat angry male in bed Constitutional: alert, oriented Neck: supple, non-tender Respiratory: clear to auscultation, normal air movement Cardiovascular: regular rate and rhythm, nl pulses Gastrointestinal: soft, nl liver, spleen, non-tender Medications Medication Current Medications Amlodipine Besylate (Norvasc) 10 mg DAILY PO Last administered on 12/17/18 08:58; Admin Dose 10 MG; Start 11/22/18 at 09:00 Zolpidem Tartrate (Ambien) 5 mg HS PRN PO INSOMNIA Last administered on 12/15/18 22:13; Admin Dose 5 MG; Start 11/21/18 at 22:00 Acetaminophen/ Hydrocodone Bitart ([place] (10/325)) 1 tab Q4H PRN PO .PAIN 1-5 Last administered on 12/17/18 08:58; Admin Dose 1 TAB; Start 12/05/18 at 16:00 Acetaminophen/ Hydrocodone Bitart ([place] (10/325)) 2 tab Q4H PRN PO .PAIN 6-10 Last administered on 12/17/18 03:42; Admin Dose 2 TAB; Start 12/05/18 at 16:00 Hydromorphone HCl (Dilaudid) 0.2 mg Q1H PRN IV .BREAKTHROUGH PAIN Last administered on 12/17/18 10:42; Admin Dose 0.2 MG; Start 12/05/18 at 16:00 Ondansetron HCl (Zofran Inj) 4 mg Q6H PRN IV NAUSEA/VOMITING Last administered on 12/11/18 12:15; Admin Dose 4 MG; Start 12/05/18 at 16:00 Bisacodyl (Dulcolax Supp) 10 mg DAILY PRN [place] .CONSTIPATION Last administered on 12/16/18 22:19; Admin Dose 10 MG; Start 12/05/18 at 16:00 Docusate Sodium (Colace) 100 mg BID PO Last administered on 12/17/18 08:57; Admin Dose 100 MG; Start 12/05/18 at 21:00 Al Hydrox/Mg Hydrox/Simethicone (Mag-Al Plus) 15 ml Q6H PRN PO .[place] NSTIPATION/DYSPEPSIA Last administered on 12/16/18 09:17; Admin Dose 15 ML; Start 12/05/18 at 16:00 Acetaminophen (Tylenol Tab) 650 mg Q4H PRN PO FARRIS OR TEMP GREATER THAN 101.3F; Start 12/05/18 at 16:00 Phenol (Cepastat Lozenge) 1 lozenge PRN PRN [place] .SORE THROAT Last administered on 12/12/18 03:27; Admin Dose 1 LOZENGE; Start 12/05/18 at 16:00 Diphenhydramine HCl (Benadryl) 25 mg Q6H PRN PO .ITCHING Last administered on 12/15/18 22:13; Admin Dose 25 MG; Start 12/05/18 at 16:00 Diphenhydramine HCl (Benadryl) 25 mg Q6H PRN IV .ITCHING Last administered on 12/09/18 01:55; Admin Dose 25 MG; Start 12/05/18 at 16:00 Naloxone HCl (Narcan) 0.2 mg Q2M PRN IV .RR 8 BREATHS/MIN OR LESS; Start 12/05/18 at 16:00 Baclofen (Lioresal) 20 mg TID PO Last administered on 12/17/18 12:59; Admin Dose 20 MG; Start 12/05/18 at 21:00 Lidocaine (Xylocaine 1% (Mpf)) 30 ml ONCE PRN INJ pain Last administered on 12/06/18 18:01; Admin Dose 30 ML; Start 12/06/18 at 17:30 Pantoprazole (Protonix Tab) 40 mg DAILY@06 PO Last administered on 12/17/18 05:20; Admin Dose 40 MG; Start 12/08/18 at 06:00 Terbinafine HCl (Lamisil) 250 mg BID PO Last administered on 12/17/18 08:58; Admin Dose 250 MG; Start 12/11/18 at 21:00; Stop 12/18/18 at 20:59 Meclizine HCl (Antivert) 12.5 mg TID PO Last administered on 12/17/18 12:59; Admin Dose 12.5 MG; Start 12/12/18 at 21:00 Polyethylene Glycol (Miralax) 17 gm DAILY PO Last administered on 12/16/18 09:14; Admin Dose 17 GM; Start 12/14/18 at 09:00 Hydrocortisone (Cortef) 12.5 mg QAM PO Last administered on 12/16/18 09:15; Admin Dose 12.5 MG; Start 12/15/18 at 09:00 Hydrocortisone (Cortef) 5 mg PC LUNCH PO Last administered on 12/17/18 12:59; Admin Dose 5 MG; Start 12/15/18 at 13:00 Hydrocortisone (Cortef) 2.5 mg QHS PO Last administered on 12/15/18 21:19; Admin Dose 2.5 MG; Start 12/14/18 at 21:00 Benazepril HCl (Lotensin) 40 mg QPM PO Last administered on 12/16/18 21:15; Admin Dose 40 MG; Start 12/15/18 at 21:00 Levetiracetam (Keppra) 1,000 mg BID PO Last administered on 12/17/18 08:57; Admin Dose 1,000 MG; Start 12/15/18 at 21:00 Morphine Sulfate (Ms Contin (Er)) 15 mg Q8 PO Last administered on 12/17/18 12:59; Admin Dose 15 MG; Start 12/16/18 at 15:00 Gabapentin (Neurontin) 600 mg TID PO Last administered on 12/17/18 12:59; Ad min Dose 600 MG; Start 12/16/18 at 21:00 Atenolol (Tenormin) 25 mg DAILY PO Last administered on 12/17/18 08:58; Admin Dose 25 MG; Start 12/17/18 at 09:00 DONNA TIDWELL MD Dec 17, 2018 14:06
[2018-12-17] MEDS ORDERED: morphine (ER) 15 MG TAB PO ONE (15:30)
[2018-12-17] MEDS: NYSTATIN SUSP 5 ML CUP PO SCH ×3 (15:46→21:28)
--- NOTE | 2018-12-17 18:41 | PN ---
Date/Time of Note Date/Time of Note DATE: 12/17/18 TIME: 18:40 Assessment/Plan Lines/Catheters IV Catheter Type (from Nrsg): Saline Lock Baker in Place (from Nrsg): No Subjective 24 Hr Interval Summary Patient reports increased back and leg pain bilaterally after medical laboratory technician try to take an x-ray yesterday. I obtained an MRI this morning which showed no new acute injuries. The adjacent levels do not show any herniations. Postoperative fluid collection on the right side is consistent with a seroma. This does not require any surgical intervention. I am aware that the screws on the left side are somewhat long but these were not bothering him and therefore were not revised. I do not believe that these screws started causing pain after undergoing an x-ray. In the future the screws could be revised if necessary but I do not recommend that at this time. We will continue work-up per Dr. Baron. Exam/Review of Systems Vital Signs Vitals Vital Signs Date Temp Pulse Resp B/P (MAP) Pulse Ox O2 O2 Flow FiO2 Time Delivery Rate 12/17/18 80 16:12 12/17/18 98.6 18 125/80 97 15:28 (95) 12/17/18 3.0 30 09:20 12/17/18 Nasal 00:00 Cannula Intake and Output 12/16/18 12/16/18 12/17/18 1515:00 23:00 07:00 IntakeIntake Total 800 ml 900 ml OutputOutput Total 1000 ml 900 ml BalanceBalance -200 ml 0 ml Results Result Diagram: 12/13/18 1725 12/13/18 1725 FAVIOLA GREEN MD Dec 17, 2018 18:41
[2018-12-17] MEDS: morphine (ER) 30 MG TAB PO SCH (21:26)
[2018-12-17] MEDS: TIZANIDINE 4 MG TAB PO SCH (21:27)
[2018-12-17] MEDS: BENAZEPRIL 40 MG TAB PO SCH (21:28)
[2018-12-18] VITALS (13 sets, daily range): BP systolic 116–146; BP diastolic 57–73; PULSE 61–114; RESP 18–20
[2018-12-18] MEDS: HYDROCODONE/APAP (10/325) TAB PO PRN ×2 (01:08→05:08)
[2018-12-18] MEDS: PANTOPRAZOLE (EC) 40 MG TAB PO SCH (05:08)
[2018-12-18] MEDS: morphine (ER) 30 MG TAB PO SCH ×3 (05:09→22:14)
[2018-12-18] MEDS: HYDROmorphONE 0.5 MG/0.5 ML SYG IV PRN ×2 (08:17→17:26)
[2018-12-18] MEDS: POLYETHYLENE GLYCOL 17 GM PACKET PO SCH (08:19)
[2018-12-18] MEDS: NYSTATIN SUSP 5 ML CUP PO SCH ×4 (08:19→20:39)
[2018-12-18] MEDS: LEVETIRACETAM 500 MG TAB PO SCH ×2 (08:20→20:40)
[2018-12-18] MEDS: HYDROCORTISONE 5 MG TAB PO SCH ×3 (08:20→20:40)
[2018-12-18] MEDS: DOCUSATE SODIUM 100 MG CAP PO SCH ×2 (08:20→20:41)
[2018-12-18] MEDS: TIZANIDINE 4 MG TAB PO SCH ×3 (08:20→20:40)
[2018-12-18] MEDS: TERBINAFINE 250 MG TAB PO SCH (08:20)
[2018-12-18] MEDS: GABAPENTIN 300 MG CAP PO SCH ×3 (08:21→20:40)
[2018-12-18] MEDS: ATENOLOL 50 MG TAB PO SCH (08:22)
[2018-12-18] MEDS: MECLIZINE 12.5 MG TAB PO SCH ×2 (08:22→20:40)
[2018-12-18] MEDS ORDERED: AMLODIPINE 5 MG TAB PO SCH (09:00)
[2018-12-18] MEDS: ONDANSETRON 4 MG INJ IV PRN (11:47)
--- NOTE | 2018-12-18 15:49 | PN ---
Date/Time of Note Date/Time of Note DATE: 12/18/18 TIME: 15:48 Assessment/Plan Lines/Catheters IV Catheter Type (from Nrsg): Mid Line Baker in Place (from Nrsg): No Assessment/Plan Assessment/Plan continue plan per Dr. Baron. ortho - continue PT and pain control as well as d/c planning Subjective 24 Hr Interval Summary continued pain Exam/Review of Systems Vital Signs Vitals Vital Signs Date Temp Pulse Resp B/P (MAP) Pulse Ox O2 O2 Flow FiO2 Time Delivery Rate 12/18/18 3.0 15:44 12/18/18 61 12:01 12/18/18 98.6 20 123/67 97 11:39 (85) 12/17/18 21 20:00 12/17/18 Nasal 00:00 Cannula Intake and Output 12/17/18 12/17/18 12/18/18 1515:00 23:00 07:00 IntakeIntake Total 2500 ml 480 ml OutputOutput Total 1500 ml 500 ml BalanceBalance 1000 ml -20 ml Exam Free Text/Dictation unchanged FAVIOLA GREEN MD Dec 18, 2018 15:48
--- NOTE | 2018-12-18 17:49 | PN ---
Date/Time of Note Date/Time of Note DATE: 12/18/18 TIME: 17:14 Assessment/Plan VTE Prophylaxis Risk score [place]from [facility] [place] risk: 8 SCD applied (from [facility] [place] Yes Pharmacological prophylaxis: heparin Lines/Catheters IV Catheter Type (from [facility]): Mid Line Urinary Cath still in place: No Assessment/Plan Problems: (1) Adrenal insufficiency due to corticosteroid withdrawal Status: Acute Comment: Patient is now on replacement therapy. Continue treatment. (2) Essential (primary) hypertension Status: Chronic Comment: Adjust medications more so he does not get hypotensive (3) Status post lumbar surgery Onset Date: ~ 11/21/2018 Status: Acute Comment: Very slow progress to the patient's reticence to take the chance on passing out (4) Syncope and collapse Status: Acute Comment: Neurology is assisting in this evaluation. Please note he has been on a rn cardiac rehab while he is had these episodes has not had bradycardia dysrhythmia or significant tachydysrhythmia. In addition he passes out while in the bed. 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 (6) Obstructive sleep apnea Status: Chronic Comment: Re-counseled to wear his CPAP device at night Subjective 24 Hr Interval Summary Free Text/Dictation Patient reports he still having his spells. He reports this had not been present prior to coming to the hospital for the surgery and has actually accelerated. He is having some muscular pain and back pain. Constitutional: no complaints (No fevers chills or sweats) Respiratory: no complaints Cardiovascular: no complaints Gastrointestinal: no complaints Genitourinary: no complaints Musculoskeletal: no complaints Skin: no complaints Exam/Review of Systems Exam Vitals Vital Signs Date Temp Pulse Resp B/P (MAP) Pulse Ox O2 O2 Flow FiO2 Time Delivery Rate 12/18/18 98.5 74 20 117/59 99 16:57 (78) 12/18/18 3.0 15:44 12/17/18 21 20:00 12/17/18 Nasal 00:00 Cannula Intake and Output 12/17/18 12/17/18 12/18/18 1515:00 23:00 07:00 IntakeIntake Total 2500 ml 480 ml OutputOutput Total 1500 ml 500 ml BalanceBalance 1000 ml -20 ml Constitutional: alert, oriented Respiratory: clear to auscultation, normal air movement Cardiovascular: regular rate and rhythm, nl pulses Gastrointestinal: soft, nl liver, spleen, non-tender Medications Medication Current Medications Zolpidem Tartrate (Ambien) 5 mg HS PRN PO INSOMNIA Last administered on 12/15/18 22:13; Admin Dose 5 MG; Start 11/21/18 at 22:00 Acetaminophen/ Hydrocodone Bitart ([place] (10/325)) 1 tab Q4H PRN PO .PAIN 1-5 Last administered on 12/18/18 05:08; Admin Dose 1 TAB; Start 12/05/18 at 16:00 Acetaminophen/ Hydrocodone Bitart ([place] (10/325)) 2 tab Q4H PRN PO .PAIN 6-10 Last administered on 12/17/18 17:05; Admin Dose 2 TAB; Start 12/05/18 at 16:00 Hydromorphone HCl (Dilaudid) 0.2 mg Q1H PRN IV .BREAKTHROUGH PAIN Last administered on 12/18/18 08:17; Admin Dose 0.2 MG; Start 12/05/18 at 16:00 Ondansetron HCl (Zofran Inj) 4 mg Q6H PRN IV NAUSEA/VOMITING Last administered on 12/18/18 11:47; Admin Dose 4 MG; Start 12/05/18 at 16:00 Bisacodyl (Dulcolax Supp) 10 mg DAILY PRN [place] .CONSTIPATION Last administered on 12/16/18 22:19; Admin Dose 10 MG; Start 12/05/18 at 16:00 Docusate Sodium (Colace) 100 mg BID PO Last administered on 12/18/18 08:20; Admin Dose 100 MG; Start 12/05/18 at 21:00 Al Hydrox/Mg Hydrox/Simethicone (Mag-Al Plus) 15 ml Q6H PRN PO . CONSTIPATION/DYSPEPSIA Last administered on 12/16/18 09:17; Admin Dose 15 ML; Start 12/05/18 at 16:00 Acetaminophen (Tylenol Tab) 650 mg Q4H PRN PO FARRIS OR TEMP GREATER THAN 101.3F; Start 12/05/18 at 16:00 Phenol (Cepastat Lozenge) 1 lozenge PRN PRN MT .SORE THROAT Last administered on 12/12/18 03:27; Admin Dose 1 LOZENGE; Start 12/05/18 at 16:00 Diphenhydramine HCl (Benadryl) 25 mg Q6H PRN PO .ITCHING Last administered on 12/15/18 22:13; Admin Dose 25 MG; Start 12/05/18 at 16:00 Diphenhydramine HCl (Benadryl) 25 mg Q6H PRN IV .ITCHING Last administered on 12/09/18 01:55; Admin Dose 25 MG; Start 12/05/18 at 16:00 Naloxone HCl (Narcan) 0.2 mg Q2M PRN IV .RR 8 BREATHS/MIN OR LESS; Start 12/05/18 at 16:00 Lidocaine (Xylocaine 1% (Mpf)) 30 ml ONCE PRN INJ pain Last administered on 12/06/18 18:01; Admin Dose 30 ML; Start 12/06/18 at 17:30 Pantoprazole (Protonix Tab) 40 mg DAILY@06 PO Last administered on 12/18/18 05:08; Admin Dose 40 MG; Start 12/08/18 at 06:00 Terbinafine HCl (Lamisil) 250 mg BID PO Last administered on 12/18/18 08:20; Admin Dose 250 MG; Start 12/11/18 at 21:00; Stop 12/18/18 at 20:59 Polyethylene Glycol (Miralax) 17 gm DAILY PO Last administered on 12/18/18 08:19; Admin Dose 17 GM; Start 12/14/18 at 09:00 Hydrocortisone (Cortef) 12.5 mg QAM PO Last administered on 12/18/18 08:20; Admin Dose 12.5 MG; Start 12/15/18 at 09:00 Hydrocortisone (Cortef) 5 mg PC LUNCH PO Last administered on 12/18/18 14:06; Admin Dose 5 MG; Start 12/15/18 at 13:00 Hydrocortisone (Cortef) 2.5 mg QHS PO Last administered on 12/17/18 21:27; Admin Dose 2.5 MG; Start 12/14/18 at 21:00 Benazepril HCl (Lotensin) 40 mg QPM PO Last administered on 12/17/18 21:28; Admin Dose 40 MG; Start 12/15/18 at 21:00 Levetiracetam (Keppra) 1,000 mg BID PO Last administered on 12/18/18 08:20; Admin Dose 1,000 MG; Start 12/15/18 at 21:00 Gabapentin (Neurontin) 600 mg TID PO Last administered on 12/18/18 14:05; Admin Dose 600 MG; Start 12/16/18 at 21:00 Amlodipine Besylate (Norvasc) 5 mg DAILY PO Last administered on 12/18/18 08:22; Admin Dose 5 MG; Start 12/18/18 at 09:00 Atenolol (Tenormin) 50 mg DAILY PO Last administered on 12/18/18 08:22; Admin Dose 50 MG; Start 12/18/18 at 09:00 Meclizine HCl (Antivert) 12.5 mg BID PO Last administered on 12/18/18 08:22; Admin Dose 12.5 MG; Start 12/17/18 at 21:00 Tizanidine HCl (Zanaflex) 4 mg TID PO Last administered on 12/18/18 14:06; Admin Dose 4 MG; Start 12/17/18 at 21:00 Nystatin (Nystatin Susp) 5 ml QID PO Last administered on 12/18/18 14:06; Admin Dose 5 ML; Start 12/17/18 at 14:30 Morphine Sulfate (Ms Contin (Er)) 30 mg Q8 PO Last administered on 12/18/18 14:15; Admin Dose 30 MG; Start 12/17/18 at 22:00 DONNA TIDWELL MD Dec 18, 2018 17:49
[2018-12-18] MEDS ORDERED: LACTATED RINGER'S 500 ML IV ONE (18:00)
--- NOTE | 2018-12-18 19:13 | CONS ---
Assessment/Plan Assessment/Plan Assessment/Plan (Daily) Onychocryptosis L hallux Pain in limb L Lumbar stenosis s/p lumbar fusion Chronic pain syndrome HTN Plan Band-aids provided to the patient. Permitted to leave the left hallux open to air. Educated patient on s/s of infection. Consultation Date/Type/Reason Admit Date/Time Nov 21, 2018 at 05:24 Initial Consult Date Requesting Provider: FAVIOLA GREEN MD Date/Time of Note DATE: 12/18/18 TIME: 19:12 24 HR Interval Summary Free Text/Dictation No acute events overnight. Exam/Review of Systems Exam Vitals Vital Signs Date Temp Pulse Resp B/P (MAP) Pulse Ox O2 O2 Flow FiO2 Time Delivery Rate 12/18/18 98.5 74 20 117/59 99 16:57 (78) 12/18/18 3.0 15:44 12/17/18 21 20:00 12/17/18 Nasal 00:00 Cannula Intake and Output 12/17/18 12/17/18 12/18/18 1515:00 23:00 07:00 IntakeIntake Total 2500 ml 480 ml OutputOutput Total 1500 ml 500 ml BalanceBalance 1000 ml -20 ml Exam DP/PT pulses palpable Protective sensations intact No pain to the medial border of the left hallux, no purulence or erythema to the partially avulsed nail site. No maceration appreciated to avulsion site. Skin temperature gradient warm to warm from proximal leg to distal foot. Medications Medication Current Medications Zolpidem Tartrate (Ambien) 5 mg HS PRN PO INSOMNIA Last administered on 12/15/18at 22:13; Admin Dose 5 MG; Start 11/21/18 at 22:00 Acetaminophen/ Hydrocodone Bitart ([place] (10/325)) 1 tab Q4H PRN PO .PAIN 1-5 Last administered on 12/18/18at 05:08; Admin Dose 1 TAB; Start 12/05/18 at 16:00 Acetaminophen/ Hydrocodone Bitart ([place] (10/325)) 2 tab Q4H PRN PO .PAIN 6-10 Last administered on 12/17/18at 17:05; Admin Dose 2 TAB; Start 12/05/18 at 16:00 Hydromorphone HCl (Dilaudid) 0.2 mg Q1H PRN IV .BREAKTHROUGH PAIN Last administered on 12/18/18 17:26; Admin Dose 0.2 MG; Start 12/05/18 at 16:00 Ondansetron HCl (Zofran Inj) 4 mg Q6H PRN IV NAUSEA/VOMITING Last administered on 12/18/18 11:47; Admin Dose 4 MG; Start 12/05/18 at 16:00 Bisacodyl (Dulcolax Supp) 10 mg DAILY PRN [place] .CONSTIPATION Last administered on 12/16/18 22:19; Admin Dose 10 MG; Start 12/05/18 at 16:00 Docusate Sodium (Colace) 100 mg BID PO Last administered on 12/18/18 08:20; Admin Dose 100 MG; Start 12/05/18 at 21:00 Al Hydrox/Mg Hydrox/Simethicone (Mag-Al Plus) 15 ml Q6H PRN PO .CONSTIPATION/DYSPEPSIA Last administered on 12/16/18 09:17; Admin Dose 15 ML; Start 12/05/18 at 16:00 Acetaminophen (Tylenol Tab) 650 mg Q4H PRN PO FARRIS OR TEMP GREATER THAN 101.3F; Start 12/05/18 at 16:00 Phenol (Cepastat Lozenge) 1 lozenge PRN PRN MT .SORE THROAT Last administered on 12/12/18 03:27; Admin Dose 1 LOZENGE; Start 12/05/18 at 16:00 Diphenhydramine HCl (Benadryl) 25 mg Q6H PRN PO .ITCHING Last administered on 12/15/18 22:13; Admin Dose 25 MG; Start 12/05/18 at 16:00 Diphenhydramine HCl (Benadryl) 25 mg Q6H PRN IV .ITCHING Last administered on 12/09/18 01:55; Admin Dose 25 MG; Start 12/05/18 at 16:00 Naloxone HCl (Narcan) 0.2 mg Q2M PRN IV .RR 8 BREATHS/MIN OR LESS; Start 12/05/18 at 16:00 Lidocaine (Xylocaine 1% (Mpf)) 30 ml ONCE PRN INJ pain Last administered on 12/06/18 18:01; Admin Dose 30 ML; Start 12/06/18 at 17:30 Pantoprazole (Protonix Tab) 40 mg DAILY@06 PO Last administered on 12/18/18 05:08; Admin Dose 40 MG; Start 12/08/18 at 06:00 Terbinafine HCl (Lamisil) 250 mg BID PO Last administered on 12/18/18 08:20; Admin Dose 250 MG; Start 12/11/18 at 21:00; Stop 12/18/18 at 20:59 Polyethylene Glycol (Miralax) 17 gm DAILY PO Last administered on 12/18/18 08:19; Admin Dose 17 GM; Start 12/14/18 at 09:00 Benazepril HCl (Lotensin) 40 mg QPM PO Last administered on 12/17/18 21:28; Admin Dose 40 MG; Start 12/15/18 at 21:00 Levetiracetam (Keppra) 1,000 mg BID PO Last administered on 12/18/18 08:20; Admin Dose 1,000 MG; Start 12/15/18 at 21:00 Gabapentin (Neurontin) 600 mg TID PO Last administered on 12/18/18 14:05; Admin Dose 600 MG; Start 12/16/18 at 21:00 Atenolol (Tenormin) 50 mg DAILY PO Last administered on 12/18/18 08:22; Admin Dose 50 MG; Start 12/18/18 at 09:00 Meclizine HCl (Antivert) 12.5 mg BID PO Last administered on 12/18/18 08:22; Admin Dose 12.5 MG; Start 12/17/18 at 21:00 Tizanidine HCl (Zanaflex) 4 mg TID PO Last administered on 12/18/18 14:06; Admin Dose 4 MG; Start 12/17/18 at 21:00 Nystatin (Nystatin Susp) 5 ml QID PO Last administered on 12/18/18 17:26; Admin Dose 5 ML; Start 12/17/18 at 14:30 Morphine Sulfate (Ms Contin (Er)) 30 mg Q8 PO Last administered on 12/18/18 14:15; Admin Dose 30 MG; Start 12/17/18 at 22:00 Hydrocortisone (Cortef) 5 mg QHS PO ; Start 12/18/18 at 21:00 Hydrocortisone (Cortef) 15 mg QAM PO ; Start 12/19/18 at 09:00 Hydrocortisone (Cortef) 7.5 mg PC LUNCH PO ; Start 12/19/18 at 13:00 Amlodipine Besylate (Norvasc) 2.5 mg DAILY PO ; Start 12/19/18 at 09:00 SHEILA MALIN DPM Dec 18, 2018 19:13
[2018-12-18] MEDS: BENAZEPRIL 40 MG TAB PO SCH (20:56)
--- NOTE | 2018-12-18 22:38 | HKNOTE ---
DATE OF SERVICE: HISTORY OF PRESENT ILLNESS: The patient is 38 years old status post syncopal attack, seizure-like ac tivity; however, the patient described he was with the physical therapy when he had a black out spell s and another time when he is lying down and using the phone talking to his , he had episodes of black out spell with the patient did not give me an exact description; however, he felt better after that. The patient had an EEG which shows no seizure activity. The patient will increase his medicat ion to cover the seizure. He is on Keppra 1000 twice a day. The patient with episodes of adrenal in sufficiency in which he was treated with Cortef with hypotension followed by Dr. Vazquez. MEDICATIONS: The patient's current medications which include: 1. Cortef 7.5 mg at lunchtime 15 mg at a.m. 5 mg at night. 2. Amlodipine 2.5 mg once a day. 3. Tenormin 50 mg once a day. 4. Morphine sulfate 30 mg every 8 hours. 5. Antivert 12.5 mg twice a day. 6. Tizanidine 4 mg 4 times a day. 7. Neurontin 600 mg 3 times a day. 8. Lotensin 40 mg once a day. 9. Keppra 1000 twice a day. 10. Protonix 40 mg once a day. 11. Colace 100 mg twice a day. 12. Dilaudid 4 mg every 6 hours. 13. Ambien 5 mg at night. PHYSICAL EXAMINATION: GENERAL: The patient is alert, awake, oriented, following simple commands. CRANIAL NERVES: Cranial nerve II: Pupils equal on both sides, reactive to light. Cranial nerves II I, IV, and : Extraocular muscles are intact without nystagmus. Cranial nerve V: Equal sensation to face. Cranial nerve VII: Symmetrical face. Cranial nerve VIII: Equal hearing bilaterally. Security And Compliance Analyst nial nerves IX and X: Elevates palate. Cranial nerve XI: Elevates shoulder 5/5. Cranial nerve XII : With straight tongue. MOTOR: Bilateral upper extremities 5/5, bilateral lower extremity is limited by low backache with ga it difficulty supported by physical therapy. COORDINATION: [id number] test intact. CARDIOVASCULAR: Regular rate and rhythm. LUNGS: Equal breath sounds. ABDOMEN: Soft, relaxed. ASSESSMENT AND PLAN: 1. This patient is 38 years old status post episodes of loss of consciousness in which his EEG shows no seizure activity. We will continue the patient on Keppra 1000 twice a day for seizure precaution . The patient may need an EEG monitor to correlate his activities with seizure with electroencephalo gram recording and might need a higher level of care for that. 2. 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 3. Underlying acute renal insufficiency in which the patient is followed by Dr. Vazquez. He will ijeoma nue him in Cort and adjusted his dose. 3. Underlying insomnia. Keep the patient Ambien 5 mg. 4. Status post low back ache and 4 surgeries done for him. The patient is still under multiple pain medications, might need a pain management plan. 5. Gait difficulty. We will follow up the patient with physical therapy. Acute rehabilitation faci lity still pending. 6. Status post paresthesia with the Neurontin 600 mg 3 times a day. Dictated By: DOT MCDANIELS MD NA/NTS Conf#: [id number] DID#: [id number] CC: FAVIOLA GREEN MD;*EndCC*
[2018-12-18] MEDS ORDERED: morphine 2 MG INJ ONE (23:59)
[2018-12-19] VITALS (10 sets, daily range): BP systolic 115–135; BP diastolic 59–74; PULSE 70–109; RESP 19–22
[2018-12-19] MEDS ORDERED: HYDROmorphONE 1 MG/ML SYG IV ONE ×3 (00:05→00:30)
[2018-12-19] MEDS ORDERED: HYDROmorphONE 1 MG/ML SYG ONE ×2 (00:10)
[2018-12-19] MEDS ORDERED: DEXAMETHASONE 10 MG/ML 1 ML INJ ONE (00:10)
[2018-12-19] MEDS ORDERED: KETOROLAC 30 MG INJ IV STA (00:14)
[2018-12-19] MEDS ORDERED: KETOROLAC 30 MG INJ ONE (00:19)
[2018-12-19] MEDS ORDERED: LORAZEPAM 2 MG INJ ONE (00:27)
[2018-12-19] MEDS ORDERED: LORAZEPAM 2 MG INJ IV ONE (00:30)
[2018-12-19] MEDS ORDERED: DEXAMETHASONE 10 MG/ML 1 ML INJ IV ONE (00:30)
--- NOTE | 2018-12-19 00:33 | EN ---
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 Patient complained of cp and then when he was going to get pain meds he was noted to be unresponsive. Jennifer villanueva was called and a chest compression was given. Patient immediately became responsive and started complaining of lower back pain. Patient also stated he was having a difficult time moving his right leg. he was able to slightly wiggle his toes but was in a lot of back pain. He refused assessment of rectal tone assessment due to pain. He was yelling and screaming of pain in his lower back. Was given Decadron 10mg iv x 1, and a total of diluadid 2mg IV, and a toradol 30mg Iv x 1. . During this episode patient was observed to be non responsive by me for about 10 seconds. During this time no asystole or arrhythmia noted on tele. His eyes rolled back, but he did not lose his pulse. He then became responsive again and immediately complained of pain again. Patient slowly started reporting improvement in pain. General: patient in excrutiating pain, reports not being able to feel his leg and reports diminished sensation down his right leg to palpation cvs: sinus tachy lungs: ctab neuro: alert and oriented, subjective decrease in sensation along right lower leg, is able to wiggle toes slightly, minimal movement of right lower leg. A/P: 1: Acute on chronic lumbar back pain: possibly secondary to trauma/movement after chest compression. concerning neuro deficits of decreased movement and sensation of right lower extremity. Will order stat CT lumbar spine. S/p decadron, dilaudid, and toradol. RN to contact primary doctor as well as orthopedic surgeon dr. alamo. 2. CP: ekg normal sinus, no acute st or t wave elevations concerning for acute ischemia. stat cardiac enzymes. Telemetry reviewed patient mainly in sinus tachy prior to caustic loader and during caustic loader. 3. Unresponsive episode: possible seizure, prn ativan. Patient on AED. greater than 40 minutes of critical care time was spent on the care and management of this patient. ANGELINA REID Dec 19, 2018 00:33
[2018-12-19] MEDS: BENAZEPRIL 40 MG TAB PO SCH ×2 (00:51→20:53)
[2018-12-19] MEDS ORDERED: LORAZEPAM 2 MG INJ IV PRN (01:00)
[2018-12-19] MEDS ORDERED: NALOXONE (0.4 MG/ML) INJ IV PRN (01:00)
[2018-12-19] MEDS ORDERED: FLUMAZENIL 0.5 MG INJ IV PRN (01:00)
[2018-12-19] MEDS: PANTOPRAZOLE (EC) 40 MG TAB PO SCH (06:22)
[2018-12-19] MEDS: morphine (ER) 30 MG TAB PO SCH ×3 (06:22→20:56)
[2018-12-19] MEDS: ATENOLOL 50 MG TAB PO SCH (08:32)
[2018-12-19] MEDS: AMLODIPINE 2.5 MG TAB PO SCH (08:33)
[2018-12-19] MEDS: MECLIZINE 12.5 MG TAB PO SCH (08:33)
--- NOTE | 2018-12-19 08:33 | PN ---
Date/Time of Note Date/Time of Note DATE: 12/19/18 TIME: 08:31 Assessment/Plan Lines/Catheters IV Catheter Type (from Nrsg): Mid Line Baker in Place (from Nrsg): No Assessment/Plan Assessment/Plan Patient complained of chest pain overnight. Nurse came to bedside and patient passed out. Nurse apparently could not feel pulse and chest compressions were started after 1 round of chest compressions the patient woke up. The monitoring strip at the front end technician did not show any evidence of asystole. The patient complained of increased back pain and underwent a CT scan of the lumbar spine which showed no structural injury. Plan remains the same to identify the cause of his repeated syncopal episodes. I will defer to Dr. Baron. Subjective 24 Hr Interval Summary Complains of increased back pain after overnight events Exam/Review of Systems Vital Signs Vitals Vital Signs Date Temp Pulse Resp B/P (MAP) Pulse Ox O2 O2 Flow FiO2 Time Delivery Rate 12/19/18 98.6 82 20 135/60 98 07:24 (85) 12/19/18 3.0 03:20 12/18/18 Nasal 23:15 Cannula 12/17/18 21 20:00 Intake and Output 12/18/18 12/18/18 12/19/18 1414:59 22:59 06:59 IntakeIntake Total 360 ml 1340 ml 900 ml OutputOutput Total 800 ml 1750 ml BalanceBalance 360 ml 540 ml -850 ml Exam Free Text/Dictation Exam remains unchanged. Neuro exam the same with good strength but pain Results Result Diagram: 12/19/18 0527 12/19/18 0527 FAVIOLA GREEN MD Dec 19, 2018 08:33
[2018-12-19] MEDS: HYDROCORTISONE 5 MG TAB PO SCH ×3 (08:34→20:52)
[2018-12-19] MEDS: LEVETIRACETAM 500 MG TAB PO SCH ×2 (08:34→20:52)
[2018-12-19] MEDS: GABAPENTIN 300 MG CAP PO SCH ×2 (08:35→13:13)
[2018-12-19] MEDS: TIZANIDINE 4 MG TAB PO SCH ×3 (08:35→20:52)
[2018-12-19] MEDS: DOCUSATE SODIUM 100 MG CAP PO SCH ×2 (08:36→20:51)
[2018-12-19] MEDS: POLYETHYLENE GLYCOL 17 GM PACKET PO SCH (08:36)
[2018-12-19] MEDS: NYSTATIN SUSP 5 ML CUP PO SCH ×4 (08:36→20:51)
[2018-12-19] MEDS: HYDROCODONE/APAP (10/325) TAB PO PRN ×2 (08:44→20:52)
[2018-12-19] MEDS: HYDROmorphONE 0.5 MG/0.5 ML SYG IV PRN (10:53)
[2018-12-19] MEDS ORDERED: MECLIZINE 12.5 MG TAB PO PRN ×2 (16:00→21:00)
--- NOTE | 2018-12-19 16:03 | PN ---
Date/Time of Note Date/Time of Note DATE: 12/19/18 TIME: 16:00 Assessment/Plan VTE Prophylaxis Risk score (from Ns)>0 risk: 8 SCD applied (from Ns): Yes Pharmacological prophylaxis: heparin Lines/Catheters IV Catheter Type (from Nrs): Mid Line Urinary Cath still in place: No Assessment/Plan Problems: (1) Syncope and collapse Status: Acute Comment: This is clearly not related to cardiac rhythm disturbance as we have the patient on monitor when these happen and is not from that. At them leaves either neurologic event, medication side effect, or factitious issue. I have again contacted neurology and asked him to help address this. She states this was not present prior to coming to the hospital and since the gabapentin is a new agent form to stop the gabapentin at this time. (2) Status post lumbar surgery Onset Date: ~ 11/21/2018 Status: Acute Comment: Progressing at a snails pace (3) Adrenal insufficiency due to corticosteroid withdrawal Status: Acute Comment: On replacement therapy. (4) Subependymoma Onset Date: ~ 11/26/2018 Status: Acute Comment: Noted. (5) Essential (primary) hypertension Status: Chronic Comment: Adequate control. Result Diagram: 12/19/1852612/19/18526 Results 24hrs Laboratory Tests Test 12/19/18 00:35 12/19/18 05:27 Creatine Kinase 85 78 Creatine Kinase Index 2.4 2.3 Creatinine Kinase MB (Mass) 2.05 1.79 Troponin I < 0.012 < 0.012 White Blood Count 7.7 # Red Blood Count 4.54 L Hemoglobin 13.2 L Hematocrit 39.9 L Mean Corpuscular Volume 87.9 Mean Corpuscular Hemoglobin 29.1 Mean Corpuscular Hemoglobin Concent 33.1 Red Cell Distribution Width 12.8 Platelet Count 162 # Mean Platelet Volume 9.9 Immature Granulocytes % 0.900 H Neutrophils % 89.0 H Lymphocytes % 8.9 L Monocytes % 0.8 Eosinophils % 0.3 Basophils % 0.1 Nucleated Red Blood Cells % 0.0 Immature Granulocytes # 0.070 H Neutrophils # 6.8 Lymphocytes # 0.7 L Monocytes # 0.1 L Eosinophils # 0.0 Basophils # 0.0 Nucleated Red Blood Cells # 0.0 Sodium Level 143 Potassium Level 4.8 Chloride Level 105 Carbon Dioxide Level 28 Anion Gap 10 Blood Urea Nitrogen 19 Creatinine 0.89 Est Glomerular Filtrat Rate mL/min > 60 Glucose Level 139 Calcium Level 9.9 Subjective 24 Hr Interval Summary Free Text/Dictation Patient had 1 of his drop attacks. Consistently these are in the presence of the nursing staff although occasionally with physical therapy. Nurse was not able to arouse him and although he had normal rhythm she called a code. With one single chest compression he spontaneously woke up and complained about his back hurting from having received a chest compression Constitutional: no complaints (No fevers chills or sweats) Respiratory: no complaints Cardiovascular: no complaints Gastrointestinal: no complaints Musculoskeletal: back pain Exam/Review of Systems Exam Vitals Vital Signs Date Temp Pulse Resp B/P (MAP) Pulse Ox O2 O2 Flow FiO2 Time Delivery Rate 12/19/18 98.6 72 20 115/61 96 15:30 (79) 12/19/18 3.0 03:20 12/18/18 Nasal 23:15 Cannula 12/17/18 21 20:00 Intake and Output 12/18/18 12/18/18 12/19/18 1414:59 22:59 06:59 IntakeIntake Total 360 ml 1340 ml 900 ml OutputOutput Total 800 ml 1750 ml BalanceBalance 360 ml 540 ml -850 ml Exam Please note during this visit and all other visits he has never had 1 of these drop attacks spells, with myself or any of the other medical office worker Constitutional: alert, oriented Respiratory: clear to auscultation, normal air movement Cardiovascular: regular rate and rhythm, nl pulses Gastrointestinal: soft, nl liver, spleen, non-tender Results Results 24hrs Laboratory Tests Test 12/19/18 00:35 12/19/18 05:27 Creatine Kinase 85 78 Creatine Kinase Index 2.4 2.3 Creatinine Kinase MB (Mass) 2.05 1.79 Troponin I < 0.012 < 0.012 White Blood Count 7.7 # Red Blood Count 4.54 L Hemoglobin 13.2 L Hematocrit 39.9 L Mean Corpuscular Volume 87.9 Mean Corpuscular Hemoglobin 29.1 Mean Corpuscular Hemoglobin Concent 33.1 Red Cell Distribution Width 12.8 Platelet Count 162 # Mean Platelet Volume 9.9 Immature Granulocytes % 0.900 H Neutrophils % 89.0 H Lymphocytes % 8.9 L Monocytes % 0.8 Eosinophils % 0.3 Basophils % 0.1 Nucleated Red Blood Cells % 0.0 Immature Granulocytes # 0.070 H Neutrophils # 6.8 Lymphocytes # 0.7 L Monocytes # 0.1 L Eosinophils # 0.0 Basophils # 0.0 Nucleated Red Blood Cells # 0.0 Sodium Level 143 Potassium Level 4.8 Chloride Level 105 Carbon Dioxide Level 28 Anion Gap 10 Blood Urea Nitrogen 19 Creatinine 0.89 Est Glomerular Filtrat Rate mL/min > 60 Glucose Level 139 Calcium Level 9.9 Medications Medication Current Medications Zolpidem Tartrate (Ambien) 5 mg HS PRN PO INSOMNIA Last administered on 12/15/18 22:13; Admin Dose 5 MG; Start 11/21/18 at 22:00 Acetaminophen/ Hydrocodone Bitart ([place] (10/325)) 1 tab Q4H PRN PO .PAIN 1-5 Last administered on 12/18/18 05:08; Admin Dose 1 TAB; Start 12/05/18 at 16:00 Acetaminophen/ Hydrocodone Bitart ([place] (10/325)) 2 tab Q4H PRN PO .PAIN 6-10 Last administered on 12/19/18 08:44; Admin Dose 2 TAB; Start 12/05/18 at 16:00 Hydromorphone HCl (Dilaudid) 0.2 mg Q1H PRN IV .BREAKTHROUGH PAIN Last administered on 12/19/18 10:53; Admin Dose 0.2 MG; Start 12/05/18 at 16:00 Ondansetron HCl (Zofran Inj) 4 mg Q6H PRN IV NAUSEA/VOMITING Last administered on 12/18/18 11:47; Admin Dose 4 MG; Start 12/05/18 at 16:00 Bisacodyl (Dulcolax Supp) 10 mg DAILY PRN [place] .CONSTIPATION Last administered on 12/16/18 22:19; Admin Dose 10 MG; Start 12/05/18 at 16:00 Docusate Sodium (Colace) 100 mg BID PO Last administered on 12/19/18 08:36; A dmin Dose 100 MG; Start 12/05/18 at 21:00 Al Hydrox/Mg Hydrox/Simethicone (Mag-Al Plus) 15 ml Q6H PRN PO .CONSTIPATION/DYSPEPSIA Last administered on 12/16/18 09:17; Admin Dose 15 ML; Start 12/05/18 at 16:00 Acetaminophen (Tylenol Tab) 650 mg Q4H PRN PO FARRIS OR TEMP GREATER THAN 101.3F; Start 12/05/18 at 16:00 Phenol (Cepastat Lozenge) 1 lozenge PRN PRN [place] .SORE THROAT Last administered on 12/12/18 03:27; Admin Dose 1 LOZENGE; Start 12/05/18 at 16:00 Diphenhydramine HCl (Benadryl) 25 mg Q6H PRN PO .ITCHING Last administered on 12/15/18 22:13; Admin Dose 25 MG; Start 12/05/18 at 16:00 Diphenhydramine HCl (Benadryl) 25 mg Q6H PRN IV .ITCHING Last administered on 12/09/18 01:55; Admin Dose 25 MG; Start 12/05/18 at 16:00 Naloxone HCl (Narcan) 0.2 mg Q2M PRN IV .RR 8 BREATHS/MIN OR LESS; Start 12/05/18 at 16:00 Lidocaine (Xylocaine 1% (Mpf)) 30 ml ONCE PRN INJ pain Last administered on 12/06/18 18:01; Admin Dose 30 ML; Start 12/06/18 at 17:30 Pantoprazole (Protonix Tab) 40 mg DAILY@06 PO Last administered on 12/19/18 06:22; Admin Dose 40 MG; Start 12/08/18 at 06:00 Polyethylene Glycol (Miralax) 17 gm DAILY PO Last administered on 12/19/18 08:36; Admin Dose 17 GM; Start 12/14/18 at 09:00 Benazepril HCl (Lotensin) 40 mg QPM PO Last administered on 12/17/18 21:28; Admin Dose 40 MG; Start 12/15/18 at 21:00 Levetiracetam (Keppra) 1,000 mg BID PO Last administered on 12/19/18 08:34; Admin Dose 1,000 MG; Start 12/15/18 at 21:00 Gabapentin (Neurontin) 600 mg TID PO Last administered on 12/19/18 13:13; Admin Dose 600 MG; Start 12/16/18 at 21:00 Atenolol (Tenormin) 50 mg DAILY PO Last administered on 12/19/18 08:32; Admin Dose 50 MG; Start 12/18/18 at 09:00 Meclizine HCl (Antivert) 12.5 mg BID PO Last administered on 12/19/18 08:33; Admin Dose 12.5 MG; Start 12/17/18 at 21:00 Tizanidine HCl (Zanaflex) 4 mg TID PO Last administered on 12/19/18 13:12; Admin Dose 4 MG; Start 12/17/18 at 21:00 Nystatin (Nystatin Susp) 5 ml QID PO Last administered on 12/19/18 13:11; Admin Dose 5 ML; Start 12/17/18 at 14:30 Morphine Sulfate (Ms Contin (Er)) 30 mg Q8 PO Last administered on 12/19/18 13:13; Admin Dose 30 MG; Start 12/17/18 at 22:00 Hydrocortisone (Cortef) 5 mg QHS PO Last administered on 12/18/18 20:40; Admin Dose 5 MG; Start 12/18/18 at 21:00 Hydrocortisone (Cortef) 15 mg QAM PO Last administered on 12/19/18 08:34; Admin Dose 15 MG; Start 12/19/18 at 09:00 Hydrocortisone (Cortef) 7.5 mg PC LUNCH PO Last administered on 12/19/18 13:12; Admin Dose 7.5 MG; Start 12/19/18 at 13:00 Amlodipine Besylate (Norvasc) 2.5 mg DAILY PO Last administered on 12/19/18 08:33; Admin Dose 2.5 MG; Start 12/19/18 at 09:00 Lorazepam (Ativan) 1 mg PRN PRN IV SEIZURES; Start 12/19/18 at 01:00 Naloxone HCl (Narcan) 0.4 mg PRN PRN IV opioid reversal; Start 12/19/18 at 01:00 Flumazenil (Romazicon) 0.2 mg PRN PRN IV BENZO REVERSAL; Start 12/19/18 at 01:00 DONNA TIDWELL MD Dec 19, 2018 16:03
--- NOTE | 2018-12-19 17:24 | RADRPT ---
Vent Rate: 85 bpm RR Interval: 0 msec NV Interval: 138 msec QRS Duration: 82 msec QT Interval: 344 msec QTC Interval: 409 msec P-R-T [place]: 73 - 81 - 71 degrees Normal sinus rhythm with sinus arrhythmia Normal ECG Electronically Signed By: Adolfo Montalvo
--- NOTE | 2018-12-19 17:25 | RADRPT ---
Vent Rate: 135 bpm RR Interval: 0 msec IN Interval: 118 msec QRS Duration: 66 msec QT Interval: 316 msec QTC Interval: 474 msec P-R-T [place]: 76 - 91 - 82 degrees Normal sinus rhythm Rightward axis Nonspecific ST abnormality Abnormal ECG Electronically Signed By: Adolfo Montalvo
[2018-12-20] VITALS (11 sets, daily range): BP systolic 112–132; BP diastolic 56–68; PULSE 64–90; RESP 18–20
[2018-12-20] MEDS: BISACODYL 10 MG SUPP PR PRN (01:10)
[2018-12-20] MEDS: HYDROCODONE/APAP (10/325) TAB PO PRN ×2 (02:16→09:57)
[2018-12-20] MEDS: PANTOPRAZOLE (EC) 40 MG TAB PO SCH (06:01)
[2018-12-20] MEDS: morphine (ER) 30 MG TAB PO SCH ×3 (06:01→21:42)
[2018-12-20] MEDS: POLYETHYLENE GLYCOL 17 GM PACKET PO SCH (09:00)
[2018-12-20] MEDS: DOCUSATE SODIUM 100 MG CAP PO SCH ×2 (09:45→20:57)
[2018-12-20] MEDS: HYDROCORTISONE 5 MG TAB PO SCH ×3 (09:46→20:56)
[2018-12-20] MEDS: TIZANIDINE 4 MG TAB PO SCH ×3 (09:46→20:56)
[2018-12-20] MEDS: LEVETIRACETAM 500 MG TAB PO SCH ×2 (09:47→20:57)
[2018-12-20] MEDS: AMLODIPINE 2.5 MG TAB PO SCH (09:47)
[2018-12-20] MEDS: ATENOLOL 50 MG TAB PO SCH (09:47)
[2018-12-20] MEDS: NYSTATIN SUSP 5 ML CUP PO SCH ×4 (09:48→20:56)
--- NOTE | 2018-12-20 12:07 | PN ---
Date/Time of Note Date/Time of Note DATE: 12/20/18 TIME: 12:04 Assessment/Plan Lines/Catheters IV Catheter Type (from Nrsg): Mid Line Baker in Place (from Nrsg): No Assessment/Plan Assessment/Plan Patient continues to complain of low back and bilateral leg pain however imaging studies do not indicate any need for surgical intervention at this time. I feel he will need prolonged rehabilitation. I appreciate the notes and treatment of Dr. Baron. I agree that this does not appear to be a cardiac event given no changes while on telemetry. Dr. Baron feels this could be a neurologic event for which she has contacted neurology to assist in addressing this. He states this could be a medication side effect and will stop gabapentin. Subjective 24 Hr Interval Summary cont to complain of low back and leg pain as well as syncopal episodes. Exam/Review of Systems Vital Signs Vitals Vital Signs Date Temp Pulse Resp B/P (MAP) Pulse Ox O2 O2 Flow FiO2 Time Delivery Rate 12/20/18 98.2 75 19 132/67 96 11:41 (88) 12/20/18 3.0 05:57 12/18/18 Nasal 23:15 Cannula 12/17/18 21 20:00 Intake and Output 12/19/18 12/19/18 12/20/18 1515:00 23:00 07:00 IntakeIntake Total 1500 ml 660 ml OutputOutput Total 800 ml 670 ml BalanceBalance 700 ml -10 ml Exam Free Text/Dictation exam remains unchanged Results Result Diagram: 12/19/18 0527 12/19/18 0527 FAVIOLA GREEN MD December 20, 2018 12:07
[2018-12-20] MEDS: ACETAMINOPHEN 325 MG TAB PO PRN ×2 (12:14→14:16)
--- NOTE | 2018-12-20 13:18 | PN ---
Date/Time of Note Date/Time of Note DATE: 12/20/18 TIME: 13:16 Assessment/Plan VTE Prophylaxis Risk score (from Ns)>0 risk: 8 SCD applied (from Ns): Yes Pharmacological prophylaxis: heparin Lines/Catheters IV [facility]from [facility] Mid Line Urinary Cath still in place: No Assessment/Plan Problems: (1) Dizziness Status: Acute Comment: Possibly starting to improve. If this is a medication side effect that we have managed to have an effect on with gabapentin they will be a happy circumstance as it will be somewhat straightforward to correct (2) Syncope and collapse Status: Acute Comment: Awaiting neurological consult follow-up (3) Adrenal insufficiency due to corticosteroid withdrawal Status: Acute Comment: On replacement therapy (4) Subependymoma Onset Date: ~ 11/26/2018 Status: Acute Comment: Noted. Paperwork in progress to get him insurance to manage this after discharge (5) Essential (primary) hypertension Status: Chronic Comment: Adequate control (6) Obstructive sleep apnea Status: Chronic Comment: Adequate control. (7) Status post lumbar surgery Onset Date: ~ 11/21/2018 Status: Acute Comment: Stable at this time Result Diagram: 12/19/1852612/19/18526 Subjective 24 Hr Interval Summary Free Text/Dictation Patient reports he still having surgical pain at the back and also muscle spasms. He reports however that the sensations of dizziness and losing consciousness are starting to [place]. He does report that his sleep is disordered due to being awoken by pain Constitutional: no complaints Respiratory: no complaints Cardiovascular: no complaints Gastrointestinal: no complaints Exam/Review of Systems Exam Vitals Vital Signs Date Temp Pulse Resp B/P (MAP) Pulse Ox O2 O2 Flow FiO2 Time Delivery Rate 12/20/18 90 12:38 12/20/18 98.2 19 132/67 96 11:41 (88) 12/20/18 3.0 05:57 12/18/18 Nasal 23:15 Cannula 12/17/18 21 20:00 Intake and Output 12/19/18 12/19/18 12/20/18 1515:00 23:00 07:00 IntakeIntake Total 1500 ml 660 ml OutputOutput Total 800 ml 670 ml BalanceBalance 700 ml -10 ml Constitutional: alert, oriented Neck: supple, non-tender Respiratory: clear to auscultation, normal air movement Cardiovascular: regular rate and rhythm, nl pulses Gastrointestinal: soft, nl liver, spleen, non-tender Medications Medication Current Medications Zolpidem Tartrate (Ambien) 5 mg HS PRN PO INSOMNIA Last administered on 12/15/18 22:13; Admin Dose 5 MG; Start 11/21/18 at 22:00 Acetaminophen/ Hydrocodone Bitart ([place] (10/325)) 1 tab Q4H PRN PO .PAIN 1-5 Last administered on 12/20/18 02:16; Admin Dose 1 TAB; Start 12/05/18 at 16:00 Acetaminophen/ Hydrocodone Bitart ([place] (10/325)) 2 tab Q4H PRN PO .PAIN 6-10 Last administered on 12/20/18 09:57; Admin Dose 2 TAB; Start 12/05/18 at 16:00 Ondansetron HCl (Zofran Inj) 4 mg Q6H PRN IV NAUSEA/VOMITING Last administered on 12/18/18 11:47; Admin Dose 4 MG; Start 12/05/18 at 16:00 Bisacodyl (Dulcolax Supp) 10 mg DAILY PRN [place] .CONSTIPATION Last administered on 12/20/18 01:10; Admin Dose 10 MG; Start 12/05/18 at 16:00 Docusate Sodium (Colace) 100 mg BID PO Last administered on 12/20/18 09:45; Admin Dose 100 MG; Start 12/05/18 at 21:00 Al Hydrox/Mg Hydrox/Simethicone (Mag-Al Plus) 15 ml Q6H PRN PO .CONSTIPATION/DYSPEPSIA Last administered on 12/16/18 09:17; Admin Dose 15 ML; Start 12/05/18 at 16:00 Acetaminophen (Tylenol Tab) 650 mg Q4H PRN PO FARRIS OR TEMP GREATER THAN 101.3F Last administered on 12/20/18 12:14; Admin Dose 650 MG; Start 12/05/18 at 16:00 Phenol (Cepastat Lozenge) 1 lozenge PRN PRN [place] .SORE THROAT Last administered on 12/12/18 03:27; Admin Dose 1 LOZENGE; Start 12/05/18 at 16:00 Diphenhydramine HCl (Benadryl) 25 mg Q6H PRN PO .ITCHING Last administered on 12/15/18 22:13; Admin Dose 25 MG; Start 12/05/18 at 16:00 Diphenhydramine HCl (Benadryl) 25 mg Q6H PRN IV .ITCHING Last administered on 12/09/18 01:55; Admin Dose 25 MG; Start 12/05/18 at 16:00 Naloxone HCl (Narcan) 0.2 mg Q2M PRN IV .RR 8 BREATHS/MIN OR LESS; Start 11/20 02/07 at 16:00 Lidocaine (Xylocaine 1% (Mpf)) 30 ml ONCE PRN INJ pain Last administered on 12/06/18 18:01; Admin Dose 30 ML; Start 12/06/18 at 17:30 Pantoprazole (Protonix Tab) 40 mg DAILY@06 PO Last administered on 12/20/18 06:01; Admin Dose 40 MG; Start 12/08/18 at 06:00 Polyethylene Glycol (Miralax) 17 gm DAILY PO Last administered on 12/19/18 08:36; Admin Dose 17 GM; Start 12/14/18 at 09:00 Benazepril HCl (Lotensin) 40 mg QPM PO Last administered on 12/19/18 20:53; Admin Dose 40 MG; Start 12/15/18 at 21:00 Levetiracetam (Keppra) 1,000 mg BID PO Last administered on 12/20/18 09:47; Ad min Dose 1,000 MG; Start 12/15/18 at 21:00 Atenolol (Tenormin) 50 mg DAILY PO Last administered on 12/20/18 09:47; Admin Dose 50 MG; Start 12/18/18 at 09:00 Tizanidine HCl (Zanaflex) 4 mg TID PO Last administered on 12/20/18 12:13; Admin Dose 4 MG; Start 12/17/18 at 21:00 Nystatin (Nystatin Susp) 5 ml QID PO Last administered on 12/20/18 12:13; Admin Dose 5 ML; Start 12/17/18 at 14:30; Stop 12/27/18 at 14:29 Morphine Sulfate (Ms Contin (Er)) 30 mg Q8 PO Last administered on 12/20/18 06:01; Admin Dose 30 MG; Start 12/17/18 at 22:00 Hydrocortisone (Cortef) 5 mg QHS PO Last administered on 12/19/18at 20:52; Admin Dose 5 MG; Start 12/18/18 at 21:00 Hydrocortisone (Cortef) 15 mg QAM PO Last administered on 12/20/18at 09:46; Admin Dose 15 MG; Start 12/19/18 at 09:00 Hydrocortisone (Cortef) 7.5 mg PC LUNCH PO Last administered on 12/20/18at 12:13; Admin Dose 7.5 MG; Start 12/19/18 at 13:00 Amlodipine Besylate (Norvasc) 2.5 mg DAILY PO Last administered on 12/20/18 09:47; Admin Dose 2.5 MG; Start 12/19/18 at 09:00 Lorazepam (Ativan) 1 mg PRN PRN IV SEIZURES; Start 12/19/18 at 01:00 Naloxone HCl (Narcan) 0.4 mg PRN PRN IV opioid reversal; Start 12/19/18 at 01:00 Flumazenil (Romazicon) 0.2 mg PRN PRN IV BENZO REVERSAL; Start 12/19/18 at 01:00 Hydromorphone HCl (Dilaudid) 0.2 mg Q3H PRN IV .BREAKTHROUGH PAIN; Start 12/19/18 at 16:00 Meclizine HCl (Antivert) 12.5 mg BID PRN PO DIZZY; Start 12/19/18 at 21:00 DONNA TIDWELL MD December 20, 2018 13:18
[2018-12-20] MEDS: BENAZEPRIL 40 MG TAB PO SCH (21:00)
[2018-12-20] MEDS: AL HYDROX/MG HYDROX/SIMETH 30 ML CUP PO PRN (22:28)
[2018-12-21] VITALS (10 sets, daily range): BP systolic 104–147; BP diastolic 53–77; PULSE 57–83; RESP 18–19
[2018-12-21] MEDS: BISACODYL 10 MG SUPP PR PRN (00:22)
[2018-12-21] MEDS: ONDANSETRON 4 MG INJ IV PRN (02:10)
[2018-12-21] MEDS: HYDROCODONE/APAP (10/325) TAB PO PRN ×3 (02:36→16:14)
[2018-12-21] MEDS: morphine (ER) 30 MG TAB PO SCH ×3 (06:57→21:23)
[2018-12-21] MEDS: PANTOPRAZOLE (EC) 40 MG TAB PO SCH (06:57)
[2018-12-21] MEDS: DOCUSATE SODIUM 100 MG CAP PO SCH ×2 (09:00→21:00)
[2018-12-21] MEDS: POLYETHYLENE GLYCOL 17 GM PACKET PO SCH (09:00)
[2018-12-21] MEDS: HYDROCORTISONE 5 MG TAB PO SCH ×3 (09:56→21:23)
[2018-12-21] MEDS: NYSTATIN SUSP 5 ML CUP PO SCH ×4 (09:56→21:22)
[2018-12-21] MEDS: AMLODIPINE 2.5 MG TAB PO SCH (09:57)
[2018-12-21] MEDS: ATENOLOL 50 MG TAB PO SCH (09:57)
[2018-12-21] MEDS: TIZANIDINE 4 MG TAB PO SCH ×3 (09:57→21:00)
[2018-12-21] MEDS: LEVETIRACETAM 500 MG TAB PO SCH ×2 (09:58→21:23)
--- NOTE | 2018-12-21 14:23 | PN ---
Date/Time of Note Date/Time of Note DATE: 12/21/18 TIME: 14:21 Assessment/Plan VTE Prophylaxis Risk score (from Ns)>0 risk: 7 SCD applied (from Ns): Yes Pharmacological prophylaxis: heparin Lines/Catheters IV Catheter Type (from Nrs): Mid Line Urinary Cath still in place: No Assessment/Plan Problems: (1) Syncope and collapse Status: Acute Comment: Patient is no longer having these episodes. Is still a bit early to tell for out of the [place] yet but this may have been a atypical unusual reaction to gabapentin or the combination gabapentin with pain medications i.e. narcotics and muscle relaxants. Regardless if he still doing well tomorrow can clear him for full on physical therapy (2) Dizziness Status: Acute Comment: As above (3) Adrenal insufficiency due to corticosteroid withdrawal Status: Acute Comment: Stable on replacement therapy (4) Subependymoma Onset Date: ~ 11/26/2018 Status: Acute Comment: Noted. For outpatient evaluation. Please note the paperwork is done to get him [employer] so that this can be pursued (5) Status post lumbar surgery Onset Date: ~ 11/21/2018 Status: Acute Comment: Stable at this time and hopefully will be able to start progressing (6) Essential (primary) hypertension Status: Chronic Comment: Adequate control (7) Obstructive sleep apnea Status: Chronic Comment: Patient is declining nocturnal BiPAP Result Diagram: 12/19/18 0527 12/19/18 05 Subjective 24 Hr Interval Summary Free Text/Dictation Patient reports no further syncopal episodes, no significant dizziness Constitutional: no complaints Respiratory: no complaints Cardiovascular: no complaints Gastrointestinal: no complaints Musculoskeletal: back pain Exam/Review of Systems Exam Vitals Vital Signs Date Temp Pulse Resp B/P (MAP) Pulse Ox O2 O2 Flow FiO2 Time Delivery Rate 12/21/18 63 14:08 12/21/18 98.7 19 122/55 97 11:20 (77) 12/21/18 2.0 27 04:07 12/18/18 Nasal 23:15 Cannula Intake and Output 12/20/18 12/20/18 12/21/18 1515:00 23:00 07:00 IntakeIntake Total 600 ml OutputOutput Total 1200 ml BalanceBalance -600 ml Constitutional: alert, oriented Respiratory: clear to auscultation, normal air movement Cardiovascular: regular rate and rhythm, nl pulses Gastrointestinal: soft, nl liver, spleen, non-tender Medications Medication Current Medications Zolpidem Tartrate (Ambien) 5 mg HS PRN PO INSOMNIA Last administered on 12/15/18 22:13; Admin Dose 5 MG; Start 11/21/18 at 22:00 Acetaminophen/ Hydrocodone Bitart ([place] (10/325)) 1 tab Q4H PRN PO .PAIN 1-5 Last administered on 12/21/18 09:56; Admin Dose 1 TAB; Start 12/05/18 at 16:00 Acetaminophen/ Hydrocodone Bitart ([place] (10/325)) 2 tab Q4H PRN PO .PAIN 6-10 Last administered on 12/20/18 09:57; Admin Dose 2 TAB; Start 12/05/18 at 16:00 Ondansetron HCl (Zofran Inj) 4 mg Q6H PRN IV NAUSEA/VOMITING Last administered on 12/21/18 02:10; Admin Dose 4 MG; Start 12/05/18 at 16:00 Bisacodyl (Dulcolax Supp) 10 mg DAILY PRN [place] .CONSTIPATION Last administered on 12/21/18 00:22; Admin Dose 10 MG; Start 12/05/18 at 16:00 Docusate Sodium (Colace) 100 mg BID PO Last administered on 12/20/18 20:57; Admin Dose 100 MG; Start 12/05/18 at 21:00 Al Hydrox/Mg Hydrox/Simethicone (Mag-Al Plus) 15 ml Q6H PRN PO .CONSTIPATION/DYSPEPSIA Last administered on 12/20/18 22:28; Admin Dose 15 ML; Start 12/05/18 at 16:00 Acetaminophen (Tylenol Tab) 650 mg Q4H PRN PO FARRIS OR TEMP GREATER THAN 101.3F Last administered on 12/20/18 12:14; Admin Dose 650 MG; Start 12/05/18 at 16:00 Phenol (Cepastat Lozenge) 1 lozenge PRN PRN [place] .SORE THROAT Last administered on 12/12/18 03:27; Admin Dose 1 LOZENGE; Start 12/05/18 at 16:00 Diphenhydramine HCl (Benadryl) 25 mg Q6H PRN PO .ITCHING Last administered on 12/15/18 22:13; Admin Dose 25 MG; Start 12/05/18 at 16:00 Diphenhydramine HCl (Benadryl) 25 mg Q6H PRN IV .ITCHING Last administered on 12/09/18 01:55; Admin Dose 25 MG; Start 12/05/18 at 16:00 Naloxone HCl (Narcan) 0.2 mg Q2M PRN IV .RR 8 BREATHS/MIN OR LESS; Start 12/05/18 at 16:00 Lidocaine (Xylocaine 1% (Mpf)) 30 ml ONCE PRN INJ pain Last administered on 12/06/18 18:01; Admin Dose 30 ML; Start 12/06/18 at 17:30 Pantoprazole (Protonix Tab) 40 mg DAILY@06 PO Last administered on 12/21/18 06:57; Admin Dose 40 MG; Start 12/08/18 at 06:00 Polyethylene Glycol (Miralax) 17 gm DAILY PO Last administered on 12/19/18 08:36; Admin Dose 17 GM; Start 12/14/18 at 09:00 Benazepril HCl (Lotensin) 40 mg QPM PO Last administered on 12/20/18 21:00; Admin Dose 40 MG; Start 12/15/18 at 21:00 Levetiracetam (Keppra) 1,000 mg BID PO Last administered on 12/21/18 09:58; Admin Dose 1,000 MG; Start 12/15/18 at 21:00 Atenolol (Tenormin) 50 mg DAILY PO Last administered on 12/21/18 09:57; Admin Dose 50 MG; Start 12/18/18 at 09:00 Tizanidine HCl (Zanaflex) 4 mg TID PO Last administered on 12/21/18 13:23; Admin Dose 4 MG; Start 12/17/18 at 21:00 Nystatin (Nystatin Susp) 5 ml QID PO Last administered on 12/21/18 13:23; Admin Dose 5 ML; Start 12/17/18 at 14:30; Stop 12/27/18 at 14:29 Morphine Sulfate (Ms Contin (Er)) 30 mg Q8 PO Last administered on 12/21/18 13:23; Admin Dose 30 MG; Start 12/17/18 at 22:00 Hydrocortisone (Cortef) 5 mg QHS PO Last administered on 12/20/18at 20:56; Admin Dose 5 MG; Start 12/18/18 at 21:00 Hydrocortisone (Cortef) 15 mg QAM PO Last administered on 12/21/18at 09:56; Admin Dose 15 MG; Start 12/19/18 at 09:00 Hydrocortisone (Cortef) 7.5 mg PC LUNCH PO Last administered on 12/21/18at 13:23; Admin Dose 7.5 MG; Start 12/19/18 at 13:00 Amlodipine Besylate (Norvasc) 2.5 mg DAILY PO Last administered on 12/21/18 09:57; Admin Dose 2.5 MG; Start 12/19/18 at 09:00 Lorazepam (Ativan) 1 mg PRN PRN IV SEIZURES; Start 12/19/18 at 01:00 Naloxone HCl (Narcan) 0.4 mg PRN PRN IV opioid reversal; Start 12/19/18 at 01:00 Flumazenil (Romazicon) 0.2 mg PRN PRN IV BENZO REVERSAL; Start 12/19/18 at 01:00 Hydromorphone HCl (Dilaudid) 0.2 mg Q3H PRN IV .BREAKTHROUGH PAIN; Start 12/19/18 at 16:00 Meclizine HCl (Antivert) 12.5 mg BID PRN PO DIZZY; Start 12/19/18 at 21:00 DONNA TIDWELL MD December 21, 2018 14:23
--- NOTE | 2018-12-21 20:15 | PN ---
Date/Time of Note Date/Time of Note DATE: 12/21/18 TIME: 20:14 Assessment/Plan Lines/Catheters IV Catheter Type (from Nrs): Mid Line Baker in Place (from Nrs): No Assessment/Plan Assessment/Plan The patient is no longer having syncopal episodes now that he has discontinued gabapentin. Will progress with physical therapy and work on discharge planning Subjective 24 Hr Interval Summary No longer having syncopal episodes Exam/Review of Systems Vital Signs Vitals Vital Signs Date Temp Pulse Resp B/P (MAP) Pulse Ox O2 O2 Flow FiO2 Time Delivery Rate 12/21/18 98.1 58 19 104/53 94 20:00 (70) 12/21/18 2.0 27 04:07 12/18/18 Nasal 23:15 Cannula Intake and Output 12/20/18 12/20/18 12/21/18 1515:00 23:00 07:00 IntakeIntake Total 600 ml OutputOutput Total 1200 ml BalanceBalance -600 ml Exam Free Text/Dictation Neurologically unchanged Results Result Diagram: 12/19/18 0527 12/19/18 0527 FAVIOLA GREEN MD December 21, 2018 20:15
[2018-12-21] MEDS: BENAZEPRIL 40 MG TAB PO SCH (21:24)
[2018-12-22] VITALS (9 sets, daily range): BP systolic 124–152; BP diastolic 68–80; PULSE 52–80; RESP 18–19
[2018-12-22] MEDS: HYDROCODONE/APAP (10/325) TAB PO PRN ×4 (02:06→23:26)
[2018-12-22] MEDS: PANTOPRAZOLE (EC) 40 MG TAB PO SCH (06:38)
[2018-12-22] MEDS: morphine (ER) 30 MG TAB PO SCH ×3 (06:38→21:30)
[2018-12-22] MEDS: DOCUSATE SODIUM 100 MG CAP PO SCH ×2 (09:00→21:29)
[2018-12-22] MEDS: POLYETHYLENE GLYCOL 17 GM PACKET PO SCH (09:00)
[2018-12-22] MEDS: TIZANIDINE 4 MG TAB PO SCH ×3 (09:58→21:29)
[2018-12-22] MEDS: NYSTATIN SUSP 5 ML CUP PO SCH ×4 (09:58→21:29)
[2018-12-22] MEDS: ATENOLOL 50 MG TAB PO SCH (09:59)
[2018-12-22] MEDS: LEVETIRACETAM 500 MG TAB PO SCH ×2 (10:00→21:29)
[2018-12-22] MEDS: AMLODIPINE 2.5 MG TAB PO SCH (10:00)
[2018-12-22] MEDS: HYDROCORTISONE 5 MG TAB PO SCH ×3 (11:06→21:29)
--- NOTE | 2018-12-22 13:01 | PN ---
Date/Time of Note Date/Time of Note DATE: 12/22/18 TIME: 12:59 Assessment/Plan Lines/Catheters IV Catheter Type (from Nrsg): Mid Line Baker in Place (from Nrsg): No Assessment/Plan Assessment/Plan s/p L4-S1 fusion stable for D/C to outside ARU from an orthopedic/surgical standpoint PT/ambulate - see if his dizziness and syncopal episodes improve now that he's o ff the gabapentin please check with Dr. Baron to see if patient is stable for D/C to ARU from his standpoint Subjective 24 Hr Interval Summary patient tired, hasn't been up walking yet since medication change Exam/Review of Systems Vital Signs Vitals Vital Signs Date Temp Pulse Resp B/P (MAP) Pulse Ox O2 O2 Flow FiO2 Time Delivery Rate 12/22/18 71 12:00 12/22/18 98.6 18 124/71 97 11:53 (88) 12/22/18 2.0 27 02:25 12/18/18 Nasal 23:15 Cannula Intake and Output 12/21/18 12/21/18 12/22/18 1515:00 23:00 07:00 IntakeIntake Total 700 ml 800 ml OutputOutput Total 900 ml 1000 ml BalanceBalance -200 ml -200 ml Exam Free Text/Dictation exam unchanged Results Result Diagram: 12/19/18 0527 12/19/18 0527 MAXI CHOUDHARY PA-C December 22, 2018 13:01
--- NOTE | 2018-12-22 15:02 | PN ---
Date/Time of Note Date/Time of Note DATE: 12/22/18 TIME: 14:57 Assessment/Plan VTE Prophylaxis Risk score (from Ns)>0 risk: 6 SCD applied (from Ns): Yes Pharmacological prophylaxis: heparin Lines/Catheters IV [facility] ([facility] Mid Line Urinary Cath still in place: No Assessment/Plan Problems: (1) Status post lumbar surgery Onset Date: ~ 11/21/2018 Status: Acute Comment: Progressing now starting to work with physical therapy. 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 Will need outpatient work-up and evaluation (3) Adrenal insufficiency due to corticosteroid withdrawal Status: Acute Comment: Continue the replacement dose steroids. Please note that he is at slightly higher level right now due to the stress situation he finds himself and this can be tapered (4) Syncope and collapse Status: Acute Comment: Continue with treatment. (5) Essential (primary) hypertension Status: Chronic Comment: Stable control. (6) Obstructive sleep apnea Status: Chronic Comment: Noted. Result Diagram: 12/19/1827 12/19/18526 Subjective 24 Hr Interval Summary Free Text/Dictation She reports he is tired and some pain after having just finished with physical therapy. Please note no drop attacks Constitutional: no complaints (No fevers chills or sweats) Respiratory: no complaints Cardiovascular: no complaints Gastrointestinal: no complaints Genitourinary: no complaints Musculoskeletal: back pain Exam/Review of Systems Exam Vitals Vital Signs Date Temp Pulse Resp B/P (MAP) Pulse Ox O2 O2 Flow FiO2 Time Delivery Rate 12/22/18 71 12:00 12/22/18 98.6 18 124/71 97 11:53 (88) 12/22/18 2.0 27 02:25 12/18/18 Nasal 23:15 Cannula Intake and Output 12/21/18 12/21/18 12/22/18 1515:00 23:00 07:00 IntakeIntake Total 700 ml 800 ml OutputOutput Total 900 ml 1000 ml BalanceBalance -200 ml -200 ml Exam male lying in bed who appears somewhat tired Constitutional: alert, oriented (Oriented to person place and time and situation) Head: normocephalic, atraumatic Eyes: nl conjunctiva, EOMI, nl lids, nl sclera, PERRL Neck: supple, non-tender Respiratory: clear to auscultation, normal air movement Cardiovascular: regular rate and rhythm, nl pulses Gastrointestinal: soft, nl liver, spleen, non-tender Extremities: normal pulses Medications Medication Current Medications Zolpidem Tartrate (Ambien) 5 mg HS PRN PO INSOMNIA Last administered on 12/15/18 22:13; Admin Dose 5 MG; Start 11/21/18 at 22:00 Acetaminophen/ Hydrocodone Bitart ([place] (10/325)) 1 tab Q4H PRN PO .PAIN 1-5 Last administered on 12/22/18 02:06; Admin Dose 1 TAB; Start 12/05/18 at 16:00 Acetaminophen/ Hydrocodone Bitart ([place] (10/325)) 2 tab Q4H PRN PO .PAIN 6-10 Last administered on 12/22/18 10:00; Admin Dose 2 TAB; Start 12/05/18 at 16:00 Ondansetron HCl (Zofran Inj) 4 mg Q6H PRN IV NAUSEA/VOMITING Last administered on 12/21/18 02:10; Admin Dose 4 MG; Start 12/05/18 at 16:00 Bisacodyl (Dulcolax Supp) 10 mg DAILY PRN [place] .CONSTIPATION Last administered on 12/21/18 00:22; Admin Dose 10 MG; Start 12/05/18 at 16:00 Docusate Sodium (Colace) 100 mg BID PO Last administered on 12/20/18 20:57; Admin Dose 100 MG; Start 12/05/18 at 21:00 Al Hydrox/Mg Hydrox/Simethicone (Mag-Al Plus) 15 ml Q6H PRN PO .CONSTIPATION/D YSPEPSIA Last administered on 12/20/18 22:28; Admin Dose 15 ML; Start 12/05/18 at 16:00 Acetaminophen (Tylenol Tab) 650 mg Q4H PRN PO FARRIS OR TEMP GREATER THAN 101.3F Last administered on 12/20/18 12:14; Admin Dose 650 MG; Start 12/05/18 at 16:00 Phenol (Cepastat Lozenge) 1 lozenge PRN PRN [place] .SORE THROAT Last administered on 12/12/18 03:27; Admin Dose 1 LOZENGE; Start 12/05/18 at 16:00 Diphenhydramine HCl (Benadryl) 25 mg Q6H PRN PO .ITCHING Last administered on 12/15/18 22:13; Admin Dose 25 MG; Start 12/05/18 at 16:00 Diphenhydramine HCl (Benadryl) 25 mg Q6H PRN IV .ITCHING Last administered on 12/09/18 01:55; Admin Dose 25 MG; Start 12/05/18 at 16:00 Naloxone HCl (Narcan) 0.2 mg Q2M PRN IV .RR 8 BREATHS/MIN OR LESS; Start 12/05/18 at 16:00 Lidocaine (Xylocaine 1% (Mpf)) 30 ml ONCE PRN INJ pain Last administered on 12/06/18 18:01; Admin Dose 30 ML; Start 12/06/18 at 17:30 Pantoprazole (Protonix Tab) 40 mg DAILY@06 PO Last administered on 12/22/18 06:38; Admin Dose 40 MG; Start 12/08/18 at 06:00 Polyethylene Glycol (Miralax) 17 gm DAILY PO Last administered on 12/19/18 08: 36; Admin Dose 17 GM; Start 12/14/18 at 09:00 Benazepril HCl (Lotensin) 40 mg QPM PO Last administered on 12/21/18 21:24; Admin Dose 40 MG; Start 12/15/18 at 21:00 Levetiracetam (Keppra) 1,000 mg BID PO Last administered on 12/22/18 10:00; Admin Dose 1,000 MG; Start 12/15/18 at 21:00 Atenolol (Tenormin) 50 mg DAILY PO Last administered on 12/22/18 09:59; Admin Dose 50 MG; Start 12/18/18 at 09:00 Tizanidine HCl (Zanaflex) 4 mg TID PO Last administered on 12/22/18 14:20; Admin Dose 4 MG; Start 12/17/18 at 21:00 Nystatin (Nystatin Susp) 5 ml QID PO Last administered on 12/22/18 14:20; Admin Dose 5 ML; Start 12/17/18 at 14:30; Stop 12/27/18 at 14:29 Morphine Sulfate (Ms Contin (Er)) 30 mg Q8 PO Last administered on 12/22/18 14:21; Admin Dose 30 MG; Start 12/17/18 at 22:00 Hydrocortisone (Cortef) 5 mg QHS PO Last administered on 12/21/18 21:23; Admin Dose 5 MG; Start 12/18/18 at 21:00 Hydrocortisone (Cortef) 15 mg QAM PO Last administered on 12/22/18 11:06; Admin Dose 15 MG; Start 12/19/18 at 09:00 Hydrocortisone (Cortef) 7.5 mg PC LUNCH PO Last administered on 12/22/18 14:20; Admin Dose 7.5 MG; Start 12/19/18 at 13:00 Amlodipine Besylate (Norvasc) 2.5 mg DAILY PO Last administered on 12/22/18 10:00; Admin Dose 2.5 MG; Start 12/19/18 at 09:00 Lorazepam (Ativan) 1 mg PRN PRN IV SEIZURES; Start 12/19/18 at 01:00 Naloxone HCl (Narcan) 0.4 mg PRN PRN IV opioid reversal; Start 12/19/18 at 01:00 Flumazenil (Romazicon) 0.2 mg PRN PRN IV BENZO REVERSAL; Start 12/19/18 at 01:0 0 Hydromorphone HCl (Dilaudid) 0.2 mg Q3H PRN IV .BREAKTHROUGH PAIN; Start 12/19/18 at 16:00 Meclizine HCl (Antivert) 12.5 mg BID PRN PO DIZZY; Start 12/19/18 at 21:00 Miscellaneous Information 1 ea NOTE XX ; Start 12/21/18 at 22:30 DONNA TIDWELL MD December 22, 2018 15:02
[2018-12-22] MEDS ORDERED: LACTATED RINGER'S 500 ML IV ONE (15:30)
[2018-12-22] MEDS: BENAZEPRIL 40 MG TAB PO SCH (21:31)
[2018-12-22] MEDS: AL HYDROX/MG HYDROX/SIMETH 30 ML CUP PO PRN (21:59)
[2018-12-23] VITALS (10 sets, daily range): BP systolic 98–140; BP diastolic 50–96; PULSE 57–79; RESP 18–20
[2018-12-23] MEDS: HYDROmorphONE 0.5 MG/0.5 ML SYG IV PRN ×2 (02:51→08:04)
[2018-12-23] MEDS: morphine (ER) 30 MG TAB PO SCH ×3 (06:01→21:48)
[2018-12-23] MEDS: PANTOPRAZOLE (EC) 40 MG TAB PO SCH (06:01)
--- NOTE | 2018-12-23 06:47 | PN ---
Date/Time of Note Date/Time of Note DATE: 12/23/18 TIME: 06:42 Assessment/Plan VTE Prophylaxis Risk score (from Ns)>0 risk: 9 SCD applied (from [facility]): Yes SCD contraindicated: low risk/ambulating Pharmacological prophylaxis: NA/contraindicated Pharm contraindication: low risk/ambulating Lines/Catheters IV C[facility] Type (from [facility] Mid Line Urinary Cath still in place: No Assessment/Plan Problems: (1) Obstructive sleep apnea Status: Chronic Comment: Cont. CPAP at night (2) Essential (primary) hypertension Status: Chronic Comment: BP in fair control. Will cont. benazepril but will d/c atenolol as this may be impairing his cardiac response enough to exacerbate postural syncope. (3) Adrenal insufficiency due to corticosteroid withdrawal Status: Acute Comment: On hydrocortisone replacement. Should be weaned in coming weeks. (4) Syncope and collapse Status: Acute Comment: Cont. PT despite vasovagal responses to pain. D/c atenolol and monitor. (5) Status post lumbar surgery Onset Date: ~ 11/21/2018 Status: Acute Comment: Will need prolonged outpt. rehab. Plan transfer next week. Result Diagram: 12/19/1852612/19/18526 Subjective 24 Hr Interval Summary Constitutional: no complaints, improved Respiratory: no complaints Cardiovascular: lightheadedness (brief syncope yesterday when he stood up for PT. No recurrent episodes of "passing out" while lying in bed since d/c'ing stanislaw apentin) Gastrointestinal: no complaints Genitourinary: no complaints Musculoskeletal: back pain (w/ tingling down R leg. Rolled over in bed onto box that exacerbated his injury last night) Neurologic: no complaints Exam/Review of Systems Exam Vitals VS - Last 72 Hours, by Label Date Temp Pulse Resp B/P (MAP) Pulse Ox O2 O2 Flow FiO2 Time Delivery Rate 12/23/18 65 04:00 12/23/18 2.0 27 03:56 12/23/18 98.7 79 18 140/70 98 03:53 (93) 12/23/18 79 00:00 12/23/18 98.9 67 19 124/60 94 00:00 (81) 12/22/18 98.6 77 19 142/80 98 20:00 (100) 12/22/18 68 20:00 12/22/18 21 18:48 12/22/18 60 16:00 12/22/18 98.7 80 18 131/68 98 15:54 (89) 12/22/18 71 12:00 12/22/18 98.6 71 18 124/71 97 11:53 (88) 12/22/18 52 08:00 12/22/18 98.6 73 18 140/70 95 07:22 (93) 12/22/18 98.5 75 18 152/75 94 04:00 (100) 12/22/18 75 04:00 12/22/18 2.0 27 02:25 12/22/18 77 00:00 12/22/18 98.4 76 19 138/76 93 00:00 (96) 12/21/18 2.0 27 21:59 12/21/18 57 20:00 12/21/18 98.1 58 19 104/53 94 20:00 (70) 12/21/18 68 16:58 12/21/18 98.7 67 19 120/68 97 15:41 (85) 12/21/18 63 14:08 12/21/18 98.7 60 19 122/55 97 11:20 (77) 12/21/18 65 08:24 12/21/18 98.2 61 19 141/73 97 07:47 (95) 12/21/18 2.0 27 04:07 12/21/18 70 04:00 12/21/18 98.2 73 18 147/71 95 04:00 (96) 12/21/18 83 01:35 12/21/18 98.4 82 18 147/77 98 00:00 (100) 12/20/18 98.5 68 18 131/68 97 20:00 (89) 12/20/18 86 20:00 12/20/18 97 2.0 27 19:45 12/20/18 79 16:38 12/20/18 98.1 72 19 119/56 98 15:29 (77) 12/20/18 90 12:38 12/20/18 98.2 75 19 132/67 96 11:41 (88) 12/20/18 79 08:45 12/20/18 97.8 64 19 112/58 97 07:22 (76) Vital Signs Date Temp Pulse Resp B/P (MAP) Pulse Ox O2 O2 Flow FiO2 Time Delivery Rate 12/23/18 65 04:00 12/23/18 2.0 27 03:56 12/23/18 98.7 18 140/70 98 03:53 (93) Constitutional: alert, oriented, obese Psych: no complaints, nl mood/affect Respiratory: clear to auscultation, normal air movement Cardiovascular: regular rate and rhythm, nl pulses; No edema, No murmurs/extra sounds, No rub Gastrointestinal: soft, nl liver, spleen, non-tender, bowel sounds; No mass, No rebound or guarding Musculoskeletal: nl extremities to inspection Extremities: normal pulses; No cyanosis, No clubbing, No edema Neurological: DISPLAY DIRECTOR II-XII intact, nl mental status, nl speech, nl strength Medications Medication Current Medications Zolpidem Tartrate (Ambien) 5 mg HS PRN PO INSOMNIA Last administered on 12/15/18 22:13; Admin Dose 5 MG; Start 11/21/18 at 22:00 Acetaminophen/ Hydrocodone Bitart ([place] (10/325)) 1 tab Q4H PRN PO .PAIN 1-5 Last administered on 12/22/18 23:26; Admin Dose 1 TAB; Start 12/05/18 at 16:00 Acetaminophen/ Hydrocodone Bitart ([place] (10/325)) 2 tab Q4H PRN PO .PAIN 6-10 Last administered on 12/22/18 10:00; Admin Dose 2 TAB; Start 12/05/18 at 16:00 Ondansetron HCl (Zofran Inj) 4 mg Q6H PRN IV NAUSEA/VOMITING Last administered on 12/21/18 02:10; Admin Dose 4 MG; Start 12/05/18 at 16:00 Bisacodyl (Dulcolax Supp) 10 mg DAILY PRN [place] .CONSTIPATION Last administered on 12/21/18 00:22; Admin Dose 10 MG; Start 12/05/18 at 16:00 Docusate Sodium (Colace) 100 mg BID PO Last administered on 12/22/18 21:29; Admin Dose 100 MG; Start 12/05/18 at 21:00 Al Hydrox/Mg Hydrox/Simethicone (Mag-Al Plus) 15 ml Q6H PRN PO .CONSTIPATION/DYSPEPSIA Last administered on 12/22/18 21:59; Admin Dose 15 ML; Start 12/05/18 at 16:00 Acetaminophen (Tylenol Tab) 650 mg Q4H PRN PO FARRIS OR TEMP GREATER THAN 101.3F Last administered on 12/20/18 12:14; Admin Dose 650 MG; Start 12/05/18 at 16:00 Phenol (Cepastat Lozenge) 1 lozenge PRN PRN [place] .SORE THROAT Last administered on 12/12/18 03:27; Admin Dose 1 LOZENGE; Start 12/05/18 at 16:00 Diphenhydramine HCl (Benadryl) 25 mg Q6H PRN PO .ITCHING Last administered on 12/15/18 22:13; Admin Dose 25 MG; Start 12/05/18 at 16:00 Diphenhydramine HCl (Benadryl) 25 mg Q6H PRN IV .ITCHING Last administered on 12/09/18 01:55; Admin Dose 25 MG; Start 12/05/18 at 16:00 Naloxone HCl (Narcan) 0.2 mg Q2M PRN IV .RR 8 BREATHS/MIN OR LESS; Start 11/20 02/07 at 16:00 Lidocaine (Xylocaine 1% (Mpf)) 30 ml ONCE PRN INJ pain Last administered on 12/06/18 18:01; Admin Dose 30 ML; Start 12/06/18 at 17:30 Pantoprazole (Protonix Tab) 40 mg DAILY@06 PO Last administered on 12/23/18 06:01; Admin Dose 40 MG; Start 12/08/18 at 06:00 Polyethylene Glycol (Miralax) 17 gm DAILY PO Last administered on 12/19/18 08:36; Admin Dose 17 GM; Start 12/14/18 at 09:00 Benazepril HCl (Lotensin) 40 mg QPM PO Last administered on 12/22/18 21:31; Admin Dose 40 MG; Start 12/15/18 at 21:00 Levetiracetam (Keppra) 1,000 mg BID PO Last administered on 12/22/18 21:29; Adm in Dose 1,000 MG; Start 12/15/18 at 21:00 Atenolol (Tenormin) 50 mg DAILY PO Last administered on 12/22/18 09:59; Admin Dose 50 MG; Start 12/18/18 at 09:00 Tizanidine HCl (Zanaflex) 4 mg TID PO Last administered on 12/22/18 21:29; Admin Dose 4 MG; Start 12/17/18 at 21:00 Nystatin (Nystatin Susp) 5 ml QID PO Last administered on 12/22/18 21:29; Admin Dose 5 ML; Start 12/17/18 at 14:30; Stop 12/27/18 at 14:29 Morphine Sulfate (Ms Contin (Er)) 30 mg Q8 PO Last administered on 12/23/18 06:01; Admin Dose 30 MG; Start 12/17/18 at 22:00 Hydrocortisone (Cortef) 5 mg QHS PO Last administered on 12/22/18 21:29; Admin Dose 5 MG; Start 12/18/18 at 21:00 Hydrocortisone (Cortef) 15 mg QAM PO Last administered on 12/22/18 11:06; Admin Dose 15 MG; Start 12/19/18 at 09:00 Hydrocortisone (Cortef) 7.5 mg PC LUNCH PO Last administered on 12/22/18 14:20; Admin Dose 7.5 MG; Start 12/19/18 at 13:00 Amlodipine Besylate (Norvasc) 2.5 mg DAILY PO Last administered on 12/22/18 10:00; Admin Dose 2.5 MG; Start 12/19/18 at 09:00 Lorazepam (Ativan) 1 mg PRN PRN IV SEIZURES; Start 12/19/18 at 01:00 Naloxone HCl (Narcan) 0.4 mg PRN PRN IV opioid reversal; Start 12/19/18 at 01:00 Flumazenil (Romazicon) 0.2 mg PRN PRN IV BENZO REVERSAL; Start 12/19/18 at 01:00 Hydromorphone HCl (Dilaudid) 0.2 mg Q3H PRN IV .BREAKTHROUGH PAIN Last administered on 12/23/18 02:51; Admin Dose 0.2 MG; Start 12/19/18 at 16:00 Meclizine HCl (Antivert) 12.5 mg BID PRN PO DIZZY; Start 12/19/18 at 21:00 Miscellaneous Information 1 ea NOTE XX ; Start 12/21/18 at 22:30 ELISA TOLEDO MD December 23, 2018 06:47
[2018-12-23] MEDS: TIZANIDINE 4 MG TAB PO SCH ×3 (08:13→21:47)
[2018-12-23] MEDS: POLYETHYLENE GLYCOL 17 GM PACKET PO SCH (08:13)
[2018-12-23] MEDS: HYDROCORTISONE 5 MG TAB PO SCH ×3 (08:13→21:47)
[2018-12-23] MEDS: LEVETIRACETAM 500 MG TAB PO SCH ×2 (08:15→21:46)
[2018-12-23] MEDS: DOCUSATE SODIUM 100 MG CAP PO SCH ×2 (08:21→21:47)
[2018-12-23] MEDS: NYSTATIN SUSP 5 ML CUP PO SCH ×4 (08:21→21:46)
[2018-12-23] MEDS: AMLODIPINE 2.5 MG TAB PO SCH (09:00)
--- NOTE | 2018-12-23 09:29 | PN ---
Date/Time of Note Date/Time of Note DATE: 12/23/18 TIME: 09:26 Assessment/Plan Lines/Catheters IV Catheter Type (from Nrsg): Mid Line Baker in Place (from Nrsg): No Assessment/Plan Assessment/Plan ortho note - s/p L4-S1 fusion management of BP and HR per primary team, Dr. Reza's notes plan to continue benazepril and d/c atenolol continue PT with fall precautions discharge planning for tuesday Subjective 24 Hr Interval Summary pt having difficulty sleeping overall notes improvement in back pain though has increased pain with shifting position and certain movements overall notes improvement in right leg pain though he has some intermittent nerve discomfort and tingling dizziness improving Exam/Review of Systems Vital Signs Vitals Vital Signs Date Temp Pulse Resp B/P (MAP) Pulse Ox O2 O2 Flow FiO2 Time Delivery Rate 12/23/18 64 08:01 12/23/18 98.4 19 98/50 (66) 98 07:43 12/23/18 2.0 27 03:56 Intake and Output 12/22/18 12/22/18 12/23/18 1515:00 23:00 07:00 IntakeIntake Total 800 ml OutputOutput Total 1100 ml BalanceBalance -300 ml Exam Free Text/Dictation AOx3 comfortable exam unchanged BP and HR low this morning Results Result Diagram: 12/19/18 0527 12/19/18 0527 MAXI CHOUDHARY PA-C December 23, 2018 09:29
[2018-12-23] MEDS: HYDROCODONE/APAP (10/325) TAB PO PRN ×3 (13:51→23:32)
[2018-12-23] MEDS: BENAZEPRIL 40 MG TAB PO SCH (21:47)
[2018-12-24] VITALS (12 sets, daily range): BP systolic 113–130; BP diastolic 57–72; PULSE 61–94; RESP 17–20
[2018-12-24] MEDS: HYDROmorphONE 0.5 MG/0.5 ML SYG IV PRN ×4 (02:59→23:29)
[2018-12-24] MEDS: PANTOPRAZOLE (EC) 40 MG TAB PO SCH (06:14)
[2018-12-24] MEDS: morphine (ER) 30 MG TAB PO SCH ×3 (06:14→21:12)
--- NOTE | 2018-12-24 06:52 | PN ---
Date/Time of Note Date/Time of Note DATE: 12/24/18 TIME: 06:48 Assessment/Plan VTE Prophylaxis Risk score (from Ns)>0 risk: 6 SCD applied (from Ns): Yes Pharmacological prophylaxis: NA/contraindicated Pharm contraindication: low risk/ambulating Lines/Catheters IV Catheter Type (from Nrsg): Mid Line Urinary Cath still in place: No Assessment/Plan Problems: (1) Obstructive sleep apnea Status: Chronic Comment: Cont. CPAP O/N (2) Essential (primary) hypertension Status: Chronic Comment: BP in fair control. Atenolol being d/c'ed today. Monitor BP and reeval tomorrow. (3) Vertigo Status: Acute Comment: Meclizine prn (4) Adrenal insufficiency due to corticosteroid withdrawal Status: Acute Comment: Wean steroids until off as pt. does not have baseline adrenal insufficiency. (5) Syncope and collapse Status: Acute Comment: Atenolol stopped. Monitor for vasovagal episodes. Hopefully will occur w/ less frequency. (6) Status post lumbar spinal fusion Status: Resolved Comment: Doing fair. Will need extended PT in outpt. rehab facility. To transfer this week. Subjective 24 Hr Interval Summary Constitutional: no complaints, improved Respiratory: no complaints Cardiovascular: no complaints Gastrointestinal: no complaints Genitourinary: no complaints Musculoskeletal: back pain (again rolling over onto tele box in his bed which hurts his back; continues to have back pain radiating down RLE; back hurts when PT sits him up. ) Neurologic: no complaints Exam/Review of Systems Exam Vitals VS - Last 72 Hours, by Label Date Temp Pulse Resp B/P (MAP) Pulse Ox O2 O2 Flow FiO2 Time Delivery Rate 12/24/18 98.6 77 20 130/72 97 04:15 (91) 12/24/18 74 04:00 12/24/18 98.6 72 20 122/58 98 00:09 (79) 12/24/18 79 00:00 12/23/18 79 20:00 12/23/18 98.4 73 20 113/57 98 20:00 (75) 12/23/18 2.0 18:26 12/23/18 63 16:01 12/23/18 97.7 69 19 112/96 98 15:24 (101) 12/23/18 65 12:01 12/23/18 98.4 66 19 127/57 98 11:43 (80) 12/23/18 96 2.0 09:50 12/23/18 64 08:01 12/23/18 98.4 57 19 98/50 (66) 98 07:43 12/23/18 65 04:00 12/23/18 2.0 27 03:56 12/23/18 98.7 79 18 140/70 98 03:53 (93) 12/23/18 79 00:00 12/23/18 98.9 67 19 124/60 94 00:00 (81) 12/22/18 98.6 77 19 142/80 98 20:00 (100) 12/22/18 68 20:00 12/22/18 21 18:48 12/22/18 60 16:00 12/22/18 98.7 80 18 131/68 98 15:54 (89) 12/22/18 71 12:00 12/22/18 98.6 71 18 124/71 97 11:53 (88) 12/22/18 52 08:00 12/22/18 98.6 73 18 140/70 95 07:22 (93) 12/22/18 98.5 75 18 152/75 94 04:00 (100) 12/22/18 75 04:00 12/22/18 2.0 27 02:25 12/22/18 77 00:00 12/22/18 98.4 76 19 138/76 93 00:00 (96) 12/21/18 2.0 27 21:59 12/21/18 57 20:00 12/21/18 98.1 58 19 104/53 94 20:00 (70) 12/21/18 68 16:58 12/21/18 98.7 67 19 120/68 97 15:41 (85) 12/21/18 63 14:08 12/21/18 98.7 60 19 122/55 97 11:20 (77) 12/21/18 65 08:24 12/21/18 98.2 61 19 141/73 97 07:47 (95) Vital Signs Date Temp Pulse Resp B/P (MAP) Pulse Ox O2 O2 Flow FiO2 Time Delivery Rate 12/24/18 98.6 77 20 130/72 97 04:15 (91) 12/23/18 2.0 18:26 12/23/18 27 03:56 Intake and Output 12/23/18 12/23/18 12/24/18 1515:00 23:00 07:00 IntakeIntake Total 600 ml 600 ml OutputOutput Total 800 ml 700 ml BalanceBalance -200 ml -100 ml Constitutional: alert, oriented, obese Psych: no complaints, nl mood/affect Respiratory: clear to auscultation, normal air movement Cardiovascular: regular rate and rhythm, nl pulses; No edema, No murmurs/extra sounds, No rub Gastrointestinal: soft, nl liver, spleen, non-tender, bowel sounds; No mass, No rebound or guarding Musculoskeletal: nl extremities to inspection Extremities: normal pulses; No cyanosis, No clubbing, No edema Neurological: PROVIDER RELATIONS SPECIALIST II-XII intact, nl mental status, nl speech, nl strength Medications Medication Current Medications Acetaminophen/ Hydrocodone Bitart ([place] (10/325)) 1 tab Q4H PRN PO .PAIN 1-5 Last administered on 12/23/18 23:32; Admin Dose 1 TAB; Start 12/05/18 at 16:00 Ondansetron HCl (Zofran Inj) 4 mg Q6H PRN IV NAUSEA/VOMITING Last administered on 12/21/18 02:10; Admin Dose 4 MG; Start 12/05/18 at 16:00 Bisacodyl (Dulcolax Supp) 10 mg DAILY PRN [place] .CONSTIPATION Last administered on 12/21/18 00:22; Admin Dose 10 MG; Start 12/05/18 at 16:00 Docusate Sodium (Colace) 100 mg BID PO Last administered on 12/23/18 21:47; Admin Dose 100 MG; Start 12/05/18 at 21:00 Al Hydrox/Mg Hydrox/Simethicone (Mag-Al Plus) 15 ml Q6H PRN PO .CONSTIPATION/DYSPEPSIA Last administered on 12/22/18 21:59; Admin Dose 15 ML; Start 12/05/18 at 16:00 Acetaminophen (Tylenol Tab) 650 mg Q4H PRN PO FARRIS OR TEMP GREATER THAN 101.3F Last administered on 12/20/18 12:14; Admin Dose 650 MG; Start 12/05/18 at 16:00 Phenol (Cepastat Lozenge) 1 lozenge PRN PRN [place] .SORE THROAT Last administered on 12/12/18 03:27; Admin Dose 1 LOZENGE; Start 12/05/18 at 16:00 Diphenhydramine HCl (Benadryl) 25 mg Q6H PRN PO .ITCHING Last administered on 12/15/18 22:13; Admin Dose 25 MG; Start 12/05/18 at 16:00 Diphenhydramine HCl (Benadryl) 25 mg Q6H PRN IV .ITCHING Last administered on 12/09/18 01:55; Admin Dose 25 MG; Start 12/05/18 at 16:00 Naloxone HCl (Narcan) 0.2 mg Q2M PRN IV .RR 8 BREATHS/MIN OR LESS; Start 12/05/18 at 16:00 Lidocaine (Xylocaine 1% (Mpf)) 30 ml ONCE PRN INJ pain Last administered on 12/06/18 18:01; Admin Dose 30 ML; Start 12/06/18 at 17:30 Pantoprazole (Protonix Tab) 40 mg DAILY@06 PO Last administered on 12/24/18 06:14; Admin Dose 40 MG; Start 12/08/18 at 06:00 Polyethylene Glycol (Miralax) 17 gm DAILY PO Last administered on 12/23/18 08:13; Admin Dose 17 GM; Start 12/14/18 at 09:00 Benazepril HCl (Lotensin) 40 mg QPM PO Last administered on 12/23/18 21:47; Admin Dose 40 MG; Start 12/15/18 at 21:00 Levetiracetam (Keppra) 1,000 mg BID PO Last administered on 12/23/18 21:46; Admin Dose 1,000 MG; Start 12/15/18 at 21:00 Tizanidine HCl (Zanaflex) 4 mg TID PO Last administered on 12/23/18 21:47; Admin Dose 4 MG; Start 12/17/18 at 21:00 Nystatin (Nystatin Susp) 5 ml QID PO Last administered on 12/23/18 21:46; Admin Dose 5 ML; Start 12/17/18 at 14:30; Stop 12/27/18 at 14:29 Morphine Sulfate (Ms Contin (Er)) 30 mg Q8 PO Last administered on 12/24/18 06:14; Admin Dose 30 MG; Start 12/17/18 at 22:00 Hydrocortisone (Cortef) 5 mg QHS PO Last administered on 12/23/18 21:47; Admin Dose 5 MG; Start 12/18/18 at 21:00 Hydrocortisone (Cortef) 15 mg QAM PO Last administered on 12/23/18 08:13; Admin Dose 15 MG; Start 12/19/18 at 09:00 Hydrocortisone (Cortef) 7.5 mg PC LUNCH PO Last administered on 12/23/18 13:48; Admin Dose 7.5 MG; Start 12/19/18 at 13:00 Amlodipine Besylate (Norvasc) 2.5 mg DAILY PO Last administered on 12/22/18 10:00; Admin Dose 2.5 MG; Start 12/19/18 at 09:00 Lorazepam (Ativan) 1 mg PRN PRN IV SEIZURES; Start 12/19/18 at 01:00 Naloxone HCl (Narcan) 0.4 mg PRN PRN IV opioid reversal; Start 12/19/18 at 01:00 Flumazenil (Romazicon) 0.2 mg PRN PRN IV BENZO REVERSAL; Start 12/19/18 at 0 1:00 Hydromorphone HCl (Dilaudid) 0.2 mg Q3H PRN IV .BREAKTHROUGH PAIN Last administered on 12/24/18 02:59; Admin Dose 0.2 MG; Start 12/19/18 at 16:00 Meclizine HCl (Antivert) 12.5 mg BID PRN PO DIZZY Last administered on 12/23/18 08:15; Admin Dose 12.5 MG; Start 12/19/18 at 21:00 Miscellaneous Information 1 ea NOTE XX ; Start 12/21/18 at 22:30 ELISA TOLEDO MD December 24, 2018 06:52
[2018-12-24] MEDS: AMLODIPINE 2.5 MG TAB PO SCH (09:12)
[2018-12-24] MEDS: HYDROCODONE/APAP (10/325) TAB PO PRN ×2 (09:13→13:14)
[2018-12-24] MEDS: HYDROCORTISONE 5 MG TAB PO SCH ×3 (09:13→20:00)
[2018-12-24] MEDS: LEVETIRACETAM 500 MG TAB PO SCH ×2 (09:14→20:00)
[2018-12-24] MEDS: DOCUSATE SODIUM 100 MG CAP PO SCH ×2 (09:14→20:01)
[2018-12-24] MEDS: TIZANIDINE 4 MG TAB PO SCH ×3 (09:14→20:00)
[2018-12-24] MEDS: POLYETHYLENE GLYCOL 17 GM PACKET PO SCH (09:15)
[2018-12-24] MEDS: NYSTATIN SUSP 5 ML CUP PO SCH ×4 (09:15→20:02)
--- NOTE | 2018-12-24 09:31 | PN ---
Date/Time of Note Date/Time of Note DATE: 12/24/18 TIME: 09:29 Assessment/Plan Lines/Catheters IV Catheter Type (from Nrsg): Mid Line Baker in Place (from Nrsg): No Assessment/Plan Assessment/Plan ortho note - s/p L4-S1 fusion ambulate with PT - w/fall precautions discharge planning per CM to d/c atenolol today, see if this helps with his dizziness Subjective 24 Hr Interval Summary despite his pain Rodrigo is making an effort to move around and engage more in PT continues with post-operative low back discomfort right leg is improved s/p hardware removal and replacement Exam/Review of Systems Vital Signs Vitals Vital Signs Date Temp Pulse Resp B/P (MAP) Pulse Ox O2 O2 Flow FiO2 Time Delivery Rate 12/24/18 97.6 81 17 127/63 99 08:04 (84) 12/23/18 2.0 18:26 12/23/18 27 03:56 Intake and Output 12/23/18 12/23/18 12/24/18 1515:00 23:00 07:00 IntakeIntake Total 600 ml 600 ml OutputOutput Total 800 ml 700 ml BalanceBalance -200 ml -100 ml Exam Free Text/Dictation AOx3 comfortable sitting up incision c/d/i exam unchanged MAXI CHOUDHARY PA-C December 24, 2018 09:31
[2018-12-24] MEDS: BENAZEPRIL 40 MG TAB PO SCH (20:03)
[2018-12-24] MEDS: AL HYDROX/MG HYDROX/SIMETH 30 ML CUP PO PRN (22:32)
[2018-12-25] VITALS (12 sets, daily range): BP systolic 115–138; BP diastolic 56–83; PULSE 63–97; RESP 20
[2018-12-25] MEDS: HYDROmorphONE 0.5 MG/0.5 ML SYG IV PRN (02:46)
[2018-12-25] MEDS: PANTOPRAZOLE (EC) 40 MG TAB PO SCH (06:59)
[2018-12-25] MEDS: morphine (ER) 30 MG TAB PO SCH ×3 (06:59→21:27)
[2018-12-25] MEDS: POLYETHYLENE GLYCOL 17 GM PACKET PO SCH (08:10)
[2018-12-25] MEDS: NYSTATIN SUSP 5 ML CUP PO SCH ×4 (08:11→21:27)
[2018-12-25] MEDS: DOCUSATE SODIUM 100 MG CAP PO SCH ×2 (08:11→21:22)
[2018-12-25] MEDS: LEVETIRACETAM 500 MG TAB PO SCH ×2 (08:11→21:25)
[2018-12-25] MEDS: HYDROCORTISONE 5 MG TAB PO SCH ×3 (08:11→21:21)
[2018-12-25] MEDS: AMLODIPINE 2.5 MG TAB PO SCH (08:12)
[2018-12-25] MEDS: TIZANIDINE 4 MG TAB PO SCH ×3 (08:12→21:22)
[2018-12-25] MEDS: HYDROCODONE/APAP (10/325) TAB PO PRN ×2 (11:11→18:07)
--- NOTE | 2018-12-25 13:28 | PN ---
Date/Time of Note Date/Time of Note DATE: 12/25/18 TIME: 13:25 Assessment/Plan VTE Prophylaxis Risk score (from Ns)>0 risk: 9 SCD applied (from Ns): Yes Pharmacological prophylaxis: heparin Lines/Catheters IV Catheter Type (from Nrsg): Mid Line Urinary Cath still in place: No Assessment/Plan Problems: (1) Status post lumbar surgery Onset Date: ~ 11/21/2018 Status: Acute Comment: Progressing now. He had an atypical reaction to the gabapentin which was used for pain control which apparently was inducing his drop attacks. He is off of that and with a long-acting opiate he is doing fair with pain. This will need to be continued and at his rehabilitation facility start tapering this initially in about 2 weeks. (2) Syncope and collapse Status: Acute Comment: Fortunately resolved. Physical therapy to work with him. Please note he is going to have some autonomic instability due to his not having been up for 1 month (3) Adrenal insufficiency due to corticosteroid withdrawal Status: Acute Comment: Stable on hormone replacement therapy (4) Subependymoma Onset Date: ~ 11/26/2018 Status: Acute Comment: Noted. Outpatient work-up when recovered (5) Essential (primary) hypertension Status: Chronic Comment: Adequate control (6) Obstructive sleep apnea Status: Chronic Comment: Nocturnal BiPAP Subjective 24 Hr Interval Summary Free Text/Dictation Patient acknowledges still with a significant amount of pain however he is feeling much more hopeful. He has been able to sit up to eat. Constitutional: no complaints Respiratory: no complaints Cardiovascular: no complaints Gastrointestinal: no complaints Genitourinary: no complaints Neurologic: other (No drop attacks) Exam/Review of Systems Exam Vitals Vital Signs Date Temp Pulse Resp B/P (MAP) Pulse Ox O2 O2 Flow FiO2 Time Delivery Rate 12/25/18 98.3 81 20 131/65 96 11:45 (87) 12/23/18 2.0 18:26 12/23/18 27 03:56 Intake and Output 12/24/18 12/24/18 12/25/18 1515:00 23:00 07:00 IntakeIntake Total 800 ml 600 ml OutputOutput Total 720 ml 900 ml BalanceBalance 80 ml -300 ml Constitutional: alert, oriented Respiratory: clear to auscultation, normal air movement Cardiovascular: regular rate and rhythm, nl pulses Gastrointestinal: soft, nl liver, spleen, non-tender Medications Medication Current Medications Acetaminophen/ Hydrocodone Bitart ([place] ()) 1 tab Q4H PRN PO .PAIN 1-5 Last administered on 12/25/18 11:11; Admin Dose 1 TAB; Start 12/05/18 at 16:00 Ondansetron HCl (Zofran Inj) 4 mg Q6H PRN IV NAUSEA/VOMITING Last administered on 12/21/18 02:10; Admin Dose 4 MG; Start 12/05/18 at 16:00 Bisacodyl (Dulcolax Supp) 10 mg DAILY PRN [place] .CONSTIPATION Last administered on 12/21/18 00:22; Admin Dose 10 MG; Start 12/05/18 at 16:00 Docusate Sodium (Colace) 100 mg BID PO Last administered on 12/25/18 08:11; Admin Dose 100 MG; Start 12/05/18 at 21:00 Al Hydrox/Mg Hydrox/Simethicone (Mag-Al Plus) 15 ml Q6H PRN PO .CONSTIPATION/DYSPEPSIA Last administered on 12/24/18 22:32; Admin Dose 15 ML; Start 12/05/18 at 16:00 Acetaminophen (Tylenol Tab) 650 mg Q4H PRN PO FARRIS OR TEMP GREATER THAN 101.3F Last administered on 12/20/18 12:14; Admin Dose 650 MG; Start 12/05/18 at 16:00 Phenol (Cepastat Lozenge) 1 lozenge PRN PRN [place] .SORE THROAT Last administered on 12/12/18 03:27; Admin Dose 1 LOZENGE; Start 12/05/18 at 16:00 Diphenhydramine HCl (Benadryl) 25 mg Q6H PRN PO .ITCHING Last administered on 12/15/18 22:13; Admin Dose 25 MG; Start 12/05/18 at 16:00 Diphenhydramine HCl (Benadryl) 25 mg Q6H PRN IV .ITCHING Last administered on 12/09/18 01:55; Admin Dose 25 MG; Start 12/05/18 at 16:00 Naloxone HCl (Narcan) 0.2 mg Q2M PRN IV .RR 8 BREATHS/MIN OR LESS; Start 12/05/18 at 16:00 Lidocaine (Xylocaine 1% (Mpf)) 30 ml ONCE PRN INJ pain Last administered on 12/06/18 18:01; Admin Dose 30 ML; Start 12/06/18 at 17:30 Pantoprazole (Protonix Tab) 40 mg DAILY@06 PO Last administered on 12/25/18 06:59; Admin Dose 40 MG; Start 12/08/18 at 06:00 Polyethylene Glycol (Miralax) 17 gm DAILY PO Last administered on 12/25/18 08:10; Admin Dose 17 GM; Start 12/14/18 at 09:00 Benazepril HCl (Lotensin) 40 mg QPM PO Last administered on 12/24/18 20:03; Admin Dose 40 MG; Start 12/15/18 at 21:00 Levetiracetam (Keppra) 1,000 mg BID PO Last administered on 12/25/18 08:11; Admin Dose 1,000 MG; Start 12/15/18 at 21:00 Tizanidine HCl (Zanaflex) 4 mg TID PO Last administered on 12/25/18 08:12; Admin Dose 4 MG; Start 12/17/18 at 21:00 Nystatin (Nystatin Susp) 5 ml QID PO Last administered on 12/25/18 08:11; Admin Dose 5 ML; Start 12/17/18 at 14:30; Stop 12/27/18 at 14:29 Morphine Sulfate (Ms Contin (Er)) 30 mg Q8 PO Last administered on 12/25/18 06:59; Admin Dose 30 MG; Start 12/17/18 at 22:00 Hydrocortisone (Cortef) 5 mg QHS PO Last administered on 12/24/18 20:00; Admin Dose 5 MG; Start 12/18/18 at 21:00 Hydrocortisone (Cortef) 15 mg QAM PO Last administered on 12/25/18 08:11; Admin Dose 15 MG; Start 12/19/18 at 09:00 Hydrocortisone (Cortef) 7.5 mg PC LUNCH PO Last administered on 12/24/18 13:08; Admin Dose 7.5 MG; Start 12/19/18 at 13:00 Amlodipine Besylate (Norvasc) 2.5 mg DAILY PO Last administered on 5/6/19at 08:12; Admin Dose 2.5 MG; Start 12/19/18 at 09:00 Lorazepam (Ativan) 1 mg PRN PRN IV SEIZURES; Start 12/19/18 at 01:00 Naloxone HCl (Narcan) 0.4 mg PRN PRN IV opioid reversal; Start 12/19/18 at 01:00 Flumazenil (Romazicon) 0.2 mg PRN PRN IV BENZO REVERSAL; Start 12/19/18 at 01:00 Hydromorphone HCl (Dilaudid) 0.2 mg Q3H PRN IV .BREAKTHROUGH PAIN Last administered on 12/25/18at 02:46; Admin Dose 0.2 MG; Start 12/19/18 at 16:00 Meclizine HCl (Antivert) 12.5 mg BID PRN PO DIZZY Last administered on 12/23/18at 08:15; Admin Dose 12.5 MG; Start 12/19/18 at 21:00 Miscellaneous Information 1 ea NOTE XX ; Start 12/21/18 at 22:30 DONNA TIDWELL MD December 25, 2018 13:28
[2018-12-25] MEDS: BISACODYL 10 MG SUPP PR PRN (16:24)
--- NOTE | 2018-12-25 16:48 | PN ---
Date/Time of Note Date/Time of Note DATE: 12/25/18 TIME: 16:46 Assessment/Plan Lines/Catheters IV Catheter Type (from Nrsg): Mid Line Baker in Place (from Nrsg): No Assessment/Plan Assessment/Plan ortho note - s/p L4-S1 fusion no new updates from director of casework department - D/C planning for outside rehab facility continue PT with fall precautions Subjective 24 Hr Interval Summary Rodrigo had more pain attacks with PT today but notes that they are decreasing in frequency dizziness improving slowly Exam/Review of Systems Vital Signs Vitals Vital Signs Date Temp Pulse Resp B/P (MAP) Pulse Ox O2 O2 Flow FiO2 Time Delivery Rate 12/25/18 98.3 67 20 119/56 96 16:00 (77) 12/23/18 2.0 18:26 12/23/18 27 03:56 Intake and Output 12/24/18 12/24/18 12/25/18 1515:00 23:00 07:00 IntakeIntake Total 800 ml 600 ml OutputOutput Total 720 ml 900 ml BalanceBalance 80 ml -300 ml Exam Free Text/Dictation exam unchanged incisions c/d/i vitals reviewed MAXI CHOUDHARY PA-C December 25, 2018 16:48
[2018-12-25] MEDS: BENAZEPRIL 40 MG TAB PO SCH (21:26)
[2018-12-26] VITALS (10 sets, daily range): BP systolic 99–138; BP diastolic 64–73; PULSE 65–105; RESP 20
[2018-12-26] MEDS: HYDROCODONE/APAP (10/325) TAB PO PRN ×2 (01:42→18:23)
[2018-12-26] MEDS: PANTOPRAZOLE (EC) 40 MG TAB PO SCH (05:48)
[2018-12-26] MEDS: morphine (ER) 30 MG TAB PO SCH ×3 (05:50→21:25)
[2018-12-26] MEDS: POLYETHYLENE GLYCOL 17 GM PACKET PO SCH (08:37)
[2018-12-26] MEDS: TIZANIDINE 4 MG TAB PO SCH ×3 (08:38→21:33)
[2018-12-26] MEDS: NYSTATIN SUSP 5 ML CUP PO SCH ×4 (08:38→21:25)
[2018-12-26] MEDS: AMLODIPINE 2.5 MG TAB PO SCH (08:38)
[2018-12-26] MEDS: LEVETIRACETAM 500 MG TAB PO SCH ×2 (08:38→21:24)
[2018-12-26] MEDS: HYDROCORTISONE 5 MG TAB PO SCH ×3 (08:38→21:24)
[2018-12-26] MEDS: DOCUSATE SODIUM 100 MG CAP PO SCH ×2 (08:38→21:24)
--- NOTE | 2018-12-26 11:25 | PN ---
Date/Time of Note Date/Time of Note DATE: 12/26/18 TIME: 11:24 Assessment/Plan Lines/Catheters IV Catheter Type (from Nrsg): Mid Line Baker in Place (from Nrsg): No Assessment/Plan Assessment/Plan Patient stated that he was doing therapy and had right low back pain and became dizzy. He did not pass out. Possibly his dizziness is due to pain. Once cleared by internal medicine we will try to get him over to acute rehab. Subjective 24 Hr Interval Summary Complained of right low back pain with therapy Exam/Review of Systems Vital Signs Vitals Vital Signs Date Temp Pulse Resp B/P (MAP) Pulse Ox O2 O2 Flow FiO2 Time Delivery Rate 12/26/18 98.3 105 20 138/67 98 07:29 (90) 12/26/18 Nasal 2.0 04:00 Cannula 12/23/18 27 03:56 Intake and Output 12/25/18 12/25/18 12/26/18 1515:00 23:00 07:00 IntakeIntake Total 1100 ml 800 ml OutputOutput Total 800 ml 750 ml BalanceBalance 300 ml 50 ml Exam Free Text/Dictation Exam unchanged. Neuro intact. FAVIOLA GREEN MD December 26, 2018 11:25
--- NOTE | 2018-12-26 13:08 | PN ---
Date/Time of Note Date/Time of Note DATE: 12/26/18 TIME: 13:06 Assessment/Plan VTE Prophylaxis Risk score (from Ns)>0 risk: 8 SCD applied (from Ns): Yes Pharmacological prophylaxis: heparin Lines/Catheters IV Catheter Type (from Nrsg): Mid Line Urinary Cath still in place: No Assessment/Plan Problems: (1) Status post lumbar surgery Onset Date: ~ 11/21/2018 Status: Acute Comment: Progressing very slowly but at the point we should be considering a rehabilitation. At this time and waiting response from case management regarding placement (2) Syncope and collapse Status: Acute Comment: Curious side effect to gabapentin (3) Dizziness Status: Acute Comment: Resolving (4) Adrenal insufficiency due to corticosteroid withdrawal Status: Acute Comment: On replacement dose therapy (5) Obstructive sleep apnea Status: Chronic Comment: Nocturnal BiPAP (6) Essential (primary) hypertension Status: Chronic Comment: Adequate control Subjective 24 Hr Interval Summary Free Text/Dictation Patient reports he is still having issues with pain. He is spending a little bit more time up. When he gets the pain he tends to feel more lightheaded. Constitutional: no complaints Respiratory: no complaints Cardiovascular: no complaints Gastrointestinal: no complaints Genitourinary: no complaints Exam/Review of Systems Exam Vitals Vital Signs Date Temp Pulse Resp B/P (MAP) Pulse Ox O2 O2 Flow FiO2 Time Delivery Rate 12/26/18 93 08:01 12/26/18 98.3 20 138/67 98 07:29 (90) 12/26/18 Nasal 2.0 04:00 Cannula 12/23/18 27 03:56 Intake and Output 12/25/18 12/25/18 12/26/18 1515:00 23:00 07:00 IntakeIntake Total 1100 ml 800 ml OutputOutput Total 800 ml 750 ml BalanceBalance 300 ml 50 ml Constitutional: alert, oriented Respiratory: clear to auscultation, normal air movement Cardiovascular: regular rate and rhythm, nl pulses Medications Medication Current Medications Acetaminophen/ Hydrocodone Bitart ([place] (10/325)) 1 tab Q4H PRN PO .PAIN 1-5 Last administered on 12/26/18at 01:42; Admin Dose 1 TAB; Start 12/05/18 at 16:00 Ondansetron HCl (Zofran Inj) 4 mg Q6H PRN IV NAUSEA/VOMITING Last administered on 12/21/18 02:10; Admin Dose 4 MG; Start 12/05/18 at 16:00 Bisacodyl (Dulcolax Supp) 10 mg DAILY PRN [place] .CONSTIPATION Last administered on 12/25/18 16:24; Admin Dose 10 MG; Start 12/05/18 at 16:00 Docusate Sodium (Colace) 100 mg BID PO Last administered on 12/26/18 08:38; Admin Dose 100 MG; Start 12/05/18 at 21:00 Al Hydrox/Mg Hydrox/Simethicone (Mag-Al Plus) 15 ml Q6H PRN PO .CONSTIPATION/DYSPEPSIA Last administered on 12/24/18 22:32; Admin Dose 15 ML; Start 12/05/18 at 16:00 Acetaminophen (Tylenol Tab) 650 mg Q4H PRN PO FARRIS OR TEMP GREATER THAN 101.3F Last administered on 12/20/18 12:14; Admin Dose 650 MG; Start 12/05/18 at 16:00 Phenol (Cepastat Lozenge) 1 lozenge PRN PRN [place] .SORE THROAT Last administered on 12/12/18 03:27; Admin Dose 1 LOZENGE; Start 12/05/18 at 16:00 Diphenhydramine HCl (Benadryl) 25 mg Q6H PRN PO .ITCHING Last administered on 12/15/18 22:13; Admin Dose 25 MG; Start 12/05/18 at 16:00 Diphenhydramine HCl (Benadryl) 25 mg Q6H PRN IV .ITCHING Last administered on 12/09/18 01:55; Admin Dose 25 MG; Start 12/05/18 at 16:00 Naloxone HCl (Narcan) 0.2 mg Q2M PRN IV .RR 8 BREATHS/MIN OR LESS; Start 12/05/18 at 16:00 Lidocaine (Xylocaine 1% (Mpf)) 30 ml ONCE PRN INJ pain Last administered on 12/06/18 18:01; Admin Dose 30 ML; Start 12/06/18 at 17:30 Pantoprazole (Protonix Tab) 40 mg DAILY@06 PO Last administered on 12/26/18 05:48; Admin Dose 40 MG; Start 12/08/18 at 06:00 Polyethylene Glycol (Miralax) 17 gm DAILY PO Last administered on 12/26/18 08:37; Admin Dose 17 GM; Start 12/14/18 at 09:00 Benazepril HCl (Lotensin) 40 mg QPM PO Last administered on 12/25/18 21:26; Admin Dose 40 MG; Start 12/15/18 at 21:00 Levetiracetam (Keppra) 1,000 mg BID PO Last administered on 12/26/18 08:38; Admin Dose 1,000 MG; Start 12/15/18 at 21:00 Tizanidine HCl (Zanaflex) 4 mg TID PO Last administered on 12/26/18 08:38; Admin Dose 4 MG; Start 12/17/18 at 21:00 Nystatin (Nystatin Susp) 5 ml QID PO Last administered on 12/26/18 08:38; Admin Dose 5 ML; Start 12/17/18 at 14:30; Stop 12/27/18 at 14:29 Morphine Sulfate (Ms Contin (Er)) 30 mg Q8 PO Last administered on 12/26/18 05:50; Admin Dose 30 MG; Start 12/17/18 at 22:00 Hydrocortisone (Cortef) 5 mg QHS PO Last administered on 12/25/18 21:21; Admin Dose 5 MG; Start 12/18/18 at 21:00 Hydrocortisone (Cortef) 15 mg QAM PO Last administered on 12/26/18 08:38; Admin Dose 15 MG; Start 12/19/18 at 09:00 Hydrocortisone (Cortef) 7.5 mg PC LUNCH PO Last administered on 12/25/18 13:58; Admin Dose 7.5 MG; Start 12/19/18 at 13:00 Amlodipine Besylate (Norvasc) 2.5 mg DAILY PO Last administered on 12/26/18 08:38; Admin Dose 2.5 MG; Start 12/19/18 at 09:00 Lorazepam (Ativan) 1 mg PRN PRN IV SEIZURES; Start 12/19/18 at 01:00 Naloxone HCl (Narcan) 0.4 mg PRN PRN IV opioid reversal; Start 12/19/18 at 01:00 Flumazenil (Romazicon) 0.2 mg PRN PRN IV BENZO REVERSAL; Start 12/19/18 at 01:00 Hydromorphone HCl (Dilaudid) 0.2 mg Q3H PRN IV .BREAKTHROUGH PAIN Last administered on 12/25/18at 02:46; Admin Dose 0.2 MG; Start 12/19/18 at 16:00 Meclizine HCl (Antivert) 12.5 mg BID PRN PO DIZZY Last administered on 12/23/18at 08:15; Admin Dose 12.5 MG; Start 12/19/18 at 21:00 Miscellaneous Information 1 ea NOTE XX ; Start 12/21/18 at 22:30 DONNA TIDWELL MD December 26, 2018 13:08
[2018-12-26] MEDS: HYDROmorphONE 0.5 MG/0.5 ML SYG IV PRN (15:28)
[2018-12-26] MEDS: BENAZEPRIL 40 MG TAB PO SCH (21:25)
[2018-12-27] VITALS (9 sets, daily range): BP systolic 114–134; BP diastolic 52–72; PULSE 70–97; RESP 18–20
[2018-12-27] MEDS: HYDROmorphONE 0.5 MG/0.5 ML SYG IV PRN ×4 (00:48→23:48)
[2018-12-27] MEDS: morphine (ER) 30 MG TAB PO SCH ×3 (06:38→21:05)
[2018-12-27] MEDS: PANTOPRAZOLE (EC) 40 MG TAB PO SCH (06:38)
[2018-12-27] MEDS: DOCUSATE SODIUM 100 MG CAP PO SCH ×2 (08:23→21:06)
[2018-12-27] MEDS: HYDROCORTISONE 5 MG TAB PO SCH ×3 (08:23→21:06)
[2018-12-27] MEDS: LEVETIRACETAM 500 MG TAB PO SCH ×2 (08:23→21:06)
[2018-12-27] MEDS: POLYETHYLENE GLYCOL 17 GM PACKET PO SCH (08:24)
[2018-12-27] MEDS: TIZANIDINE 4 MG TAB PO SCH ×3 (08:24→21:07)
[2018-12-27] MEDS: AMLODIPINE 2.5 MG TAB PO SCH (08:24)
[2018-12-27] MEDS: NYSTATIN SUSP 5 ML CUP PO SCH ×2 (08:24→12:44)
--- NOTE | 2018-12-27 12:44 | PN ---
Date/Time of Note Date/Time of Note DATE: 12/27/18 TIME: 12:43 Assessment/Plan Lines/Catheters IV Catheter Type (from Nrsg): Mid Line Baker in Place (from Nrsg): No Assessment/Plan Assessment/Plan Continue physical therapy and DC planning Subjective 24 Hr Interval Summary Patient continues to have low back pain Exam/Review of Systems Vital Signs Vitals Vital Signs Date Temp Pulse Resp B/P (MAP) Pulse Ox O2 O2 Flow FiO2 Time Delivery Rate 12/27/18 70 12:14 12/27/18 98.2 20 114/52 98 Nasal 11:27 (72) Cannula 12/27/18 2.0 04:00 Intake and Output 12/26/18 12/26/18 12/27/18 1515:00 23:00 07:00 IntakeIntake Total 800 ml 500 ml OutputOutput Total 900 ml 400 ml BalanceBalance -100 ml 100 ml Exam Free Text/Dictation Exam unchanged FAVIOLA GREEN MD December 27, 2018 12:44
--- NOTE | 2018-12-27 13:22 | PN ---
Date/Time of Note Date/Time of Note DATE: 12/27/18 TIME: 13:19 Assessment/Plan VTE Prophylaxis Risk score (from Ns)>0 risk: 8 SCD applied (from Ns): Yes Pharmacological prophylaxis: LMWH Lines/Catheters IV Catheter Type (from Nrsg): Mid Line Urinary Cath still in place: No Assessment/Plan Problems: (1) Status post lumbar surgery Onset Date: ~ 11/21/2018 Status: Acute Comment: He still has a decent amount of pain. Please note that his pain threshold or ability to comment on it is not the same as other patients. Regardless he is progressing forward. Need to get him used to sitting and then we can get him moving with his lower extremities. Our major issue here is placement. See notes from case management (2) Syncope and collapse Status: Acute Comment: Side effect of gabapentin, resolved with discontinuation (3) Adrenal insufficiency due to corticosteroid withdrawal Status: Acute Comment: Stable on treatment. Need 6 months titration off (4) Essential (primary) hypertension Status: Chronic Comment: Adequate control (5) Obstructive sleep apnea Status: Chronic Comment: Nocturnal BiPAP (6) Subependymoma Onset Date: ~ 11/26/2018 Status: Acute Comment: Outpatient evaluation. Subjective 24 Hr Interval Summary Free Text/Dictation Patient reports continued pain however no more of the syncope or near syncope. He has interested in trying to proceed forward slowly with physical therapy Constitutional: no complaints Respiratory: no complaints Cardiovascular: no complaints Gastrointestinal: no complaints Genitourinary: no complaints Exam/Review of Systems Exam Vitals Vital Signs Date Temp Pulse Resp B/P (MAP) Pulse Ox O2 O2 Flow FiO2 Time Delivery Rate 12/27/18 70 12:14 12/27/18 98.2 20 114/52 98 Nasal 11:27 (72) Cannula 12/27/18 2.0 04:00 Intake and Output 12/26/18 12/26/18 12/27/18 1515:00 23:00 07:00 IntakeIntake Total 800 ml 500 ml OutputOutput Total 900 ml 400 ml BalanceBalance -100 ml 100 ml Constitutional: alert, oriented Neck: supple, non-tender Respiratory: clear to auscultation, normal air movement Cardiovascular: regular rate and rhythm, nl pulses Medications Medication Current Medications Acetaminophen/ Hydrocodone Bitart ([place] (10/325)) 1 tab Q4H PRN PO .PAIN 1-5 Last administered on 12/26/18 18:23; Admin Dose 1 TAB; Start 12/05/18 at 16:00 Ondansetron HCl (Zofran Inj) 4 mg Q6H PRN IV NAUSEA/VOMITING Last administered on 12/21/18 02:10; Admin Dose 4 MG; Start 12/05/18 at 16:00 Bisacodyl (Dulcolax Supp) 10 mg DAILY PRN [place] .CONSTIPATION Last administered on 12/25/18 16:24; Admin Dose 10 MG; Start 12/05/18 at 16:00 Docusate Sodium (Colace) 100 mg BID PO Last administered on 12/27/18 08:23; Admin Dose 100 MG; Start 12/05/18 at 21:00 Al Hydrox/Mg Hydrox/Simethicone (Mag-Al Plus) 15 ml Q6H PRN PO .CONSTIPATION/DYSPEPSIA Last administered on 12/24/18 22:32; Admin Dose 15 ML; Start 12/05/18 at 16:00 Acetaminophen (Tylenol Tab) 650 mg Q4H PRN PO FARRIS OR TEMP GREATER THAN 101.3F Last administered on 12/20/18 12:14; Admin Dose 650 MG; Start 12/05/18 at 16:00 Phenol (Cepastat Lozenge) 1 lozenge PRN PRN [place] .SORE THROAT Last administered on 12/12/18 03:27; Admin Dose 1 LOZENGE; Start 12/05/18 at 16:00 Diphenhydramine HCl (Benadryl) 25 mg Q6H PRN PO .ITCHING Last administered on 12/15/18 22:13; Admin Dose 25 MG; Start 12/05/18 at 16:00 Diphenhydramine HCl (Benadryl) 25 mg Q6H PRN IV .ITCHING Last administered on 12/09/18 01:55; Admin Dose 25 MG; Start 12/05/18 at 16:00 Naloxone HCl (Narcan) 0.2 mg Q2M PRN IV .RR 8 BREATHS/MIN OR LESS; Start 12/05/18 at 16:00 Lidocaine (Xylocaine 1% (Mpf)) 30 ml ONCE PRN INJ pain Last administered on 12/06/18 18:01; Admin Dose 30 ML; Start 12/06/18 at 17:30 Pantoprazole (Protonix Tab) 40 mg DAILY@06 PO Last administered on 12/27/18 06:38; Admin Dose 40 MG; Start 12/08/18 at 06:00 Polyethylene Glycol (Miralax) 17 gm DAILY PO Last administered on 12/27/18 08:24; Admin Dose 17 GM; Start 12/14/18 at 09:00 Benazepril HCl (Lotensin) 40 mg QPM PO Last administered on 12/26/18 21:25; Admin Dose 40 MG; Start 12/15/18 at 21:00 Levetiracetam (Keppra) 1,000 mg BID PO Last administered on 12/27/18 08:23; Admin Dose 1,000 MG; Start 12/15/18 at 21:00 Tizanidine HCl (Zanaflex) 4 mg TID PO Last administered on 12/27/18 12:44; Admin Dose 4 MG; Start 12/17/18 at 21:00 Nystatin (Nystatin Susp) 5 ml QID PO Last administered on 12/27/18 12:44; Admin Dose 5 ML; Start 12/17/18 at 14:30; Stop 12/27/18 at 14:29 Morphine Sulfate (Ms Contin (Er)) 30 mg Q8 PO Last administered on 12/27/18 06:38; Admin Dose 30 MG; Start 12/17/18 at 22:00 Hydrocortisone (Cortef) 5 mg QHS PO Last administered on 12/26/18 21:24; Admin Dose 5 MG; Start 12/18/18 at 21:00 Hydrocortisone (Cortef) 15 mg QAM PO Last administered on 12/27/18 08:23; Admin Dose 15 MG; Start 12/19/18 at 09:00 Hydrocortisone (Cortef) 7.5 mg PC LUNCH PO Last administered on 12/27/18 12:44; Admin Dose 7.5 MG; Start 12/19/18 at 13:00 Amlodipine Besylate (Norvasc) 2.5 mg DAILY PO Last administered on 12/27/18 08:24; Admin Dose 2.5 MG; Start 12/19/18 at 09:00 Lorazepam (Ativan) 1 mg PRN PRN IV SEIZURES; Start 12/19/18 at 01:00 Naloxone HCl (Narcan) 0.4 mg PRN PRN IV opioid reversal; Start 12/19/18 at 01:00 Flumazenil (Romazicon) 0.2 mg PRN PRN IV BENZO REVERSAL; Start 12/19/18 at 01:00 Hydromorphone HCl (Dilaudid) 0.2 mg Q3H PRN IV .BREAKTHROUGH PAIN Last administered on 12/27/18at 11:06; Admin Dose 0.2 MG; Start 12/19/18 at 16:00 Meclizine HCl (Antivert) 12.5 mg BID PRN PO DIZZY Last administered on 12/23/18at 08:15; Admin Dose 12.5 MG; Start 12/19/18 at 21:00 Miscellaneous Information 1 ea NOTE XX ; Start 12/21/18 at 22:30 DONNA TIDWELL MD December 27, 2018 13:22
[2018-12-27] MEDS: BENAZEPRIL 40 MG TAB PO SCH (21:06)
[2018-12-27] MEDS: BISACODYL 10 MG SUPP PR PRN (22:33)
[2018-12-28] VITALS (13 sets, daily range): BP systolic 87–140; BP diastolic 47–78; PULSE 67–94; RESP 15–20
[2018-12-28] MEDS: HYDROmorphONE 0.5 MG/0.5 ML SYG IV PRN ×3 (03:12→15:39)
[2018-12-28] MEDS: PANTOPRAZOLE (EC) 40 MG TAB PO SCH (05:05)
[2018-12-28] MEDS: morphine (ER) 30 MG TAB PO SCH ×3 (05:15→21:33)
--- NOTE | 2018-12-28 07:55 | PN ---
Date/Time of Note Date/Time of Note DATE: 12/28/18 TIME: 07:53 Assessment/Plan Lines/Catheters IV Catheter Type (from Nrsg): Mid Line Baker in Place (from Nrsg): No Assessment/Plan Assessment/Plan s/p L4-S1 fusion notes say CM is working on acute rehab placement for d/c planning Subjective 24 Hr Interval Summary continues to have syncopal episodes during PT continues with LBP and right leg complaints, although improving slowly Exam/Review of Systems Vital Signs Vitals Vital Signs Date Temp Pulse Resp B/P (MAP) Pulse Ox O2 O2 Flow FiO2 Time Delivery Rate 12/28/18 98.3 84 19 126/61 99 Nasal 2.0 07:47 (82) Cannula 12/27/18 21 23:00 Intake and Output 12/27/18 12/27/18 12/28/18 1414:59 22:59 06:59 IntakeIntake Total 600 ml OutputOutput Total 750 ml BalanceBalance -150 ml Exam Free Text/Dictation AOx3 comfortable incisions c/d/i vitals reviewed exam unchanged Results Result Diagram: 12/28/18 0514 12/28/18 0514 MAXI CHOUDHARY PA-C December 28, 2018 07:55
[2018-12-28] MEDS: POLYETHYLENE GLYCOL 17 GM PACKET PO SCH ×2 (08:31→09:00)
[2018-12-28] MEDS: HYDROCORTISONE 5 MG TAB PO SCH ×3 (08:32→21:33)
[2018-12-28] MEDS: TIZANIDINE 4 MG TAB PO SCH ×3 (08:32→21:32)
[2018-12-28] MEDS: DOCUSATE SODIUM 100 MG CAP PO SCH ×2 (08:32→21:32)
[2018-12-28] MEDS: LEVETIRACETAM 500 MG TAB PO SCH ×2 (08:32→21:33)
[2018-12-28] MEDS: AMLODIPINE 2.5 MG TAB PO SCH (08:33)
[2018-12-28] MEDS: ENOXAPARIN 30 MG/0.3 ML SYG SC SCH (08:38)
--- NOTE | 2018-12-28 13:20 | PN ---
Date/Time of Note Date/Time of Note DATE: 12/28/18 TIME: 13:13 Assessment/Plan VTE Prophylaxis Risk score (from Ns)>0 risk: 11 SCD applied (from Ns): Yes Pharmacological prophylaxis: LMWH Lines/Catheters IV Catheter Type (from Nrs): Mid Line Urinary Cath still in place: No Assessment/Plan Problems: (1) Status post lumbar surgery Onset Date: ~ 11/21/2018 Status: Acute Comment: Progressing with real hesitancy. And then try using a Lidoderm patch to see if we can calm down the area that he gives him this sensation of a lightening bolts of pain (2) Adrenal insufficiency due to corticosteroid withdrawal Status: Acute Comment: Continue with replacement therapy (3) Syncope and collapse Status: Acute Comment: As above (4) Subependymoma Onset Date: ~ 11/26/2018 Status: Acute Comment: Noted. (5) Essential (primary) hypertension Status: Chronic Comment: Adequate control (6) Obstructive sleep apnea Status: Chronic Comment: Stable Result Diagram: 12/28/18 0514 12/28/18 0514 Results 24hrs Laboratory Tests Test 12/28/18 05:14 White Blood Count 7.3 Red Blood Count 4.24 L Hemoglobin 12.1 L Hematocrit 37.4 L Mean Corpuscular Volume 88.2 Mean Corpuscular Hemoglobin 28.5 L Mean Corpuscular Hemoglobin Concent 32.4 Red Cell Distribution Width 12.3 Platelet Count 217 # Mean Platelet Volume 9.8 Immature Granulocytes % 0.400 Neutrophils % 58.2 Lymphocytes % 29.7 Monocytes % 9.4 Eosinophils % 1.9 Basophils % 0.4 Nucleated Red Blood Cells % 0.0 Immature Granulocytes # 0.030 Neutrophils # 4.3 Lymphocytes # 2.2 Monocytes # 0.7 Eosinophils # 0.1 Basophils # 0.0 Nucleated Red Blood Cells # 0.0 Sodium Level 142 Potassium Level 3.8 Chloride Level 105 Carbon Dioxide Level 30 Anion Gap 7 Blood Urea Nitrogen 13 Creatinine 0.85 Est Glomerular Filtrat Rate mL/min > 60 Glucose Level 100 Calcium Level 9.2 Magnesium Level 2.1 Total Bilirubin 0.6 Direct Bilirubin 0.00 Indirect Bilirubin 0.6 Aspartate Amino Transf (AST/SGOT) 17 Alanine Aminotransferase (ALT/SGPT) 16 Alkaline Phosphatase 86 Total Protein 6.9 Albumin 3.7 Globulin 3.20 Albumin/Globulin Ratio 1.15 CC: ARMANIOUS,DOT MD; FAVIOLA GREEN MD ; Subjective 24 Hr Interval Summary Free Text/Dictation Patient reports yesterday while trying to work with physical therapy he got 1 of his "lightening bolts of pain" which caused him to collapse. He remembers the sequence of events. Constitutional: no complaints Respiratory: no complaints Cardiovascular: no complaints Gastrointestinal: no complaints Genitourinary: no complaints Musculoskeletal: no complaints Skin: no complaints Neurologic: no complaints Exam/Review of Systems Exam Vitals Vital Signs Date Temp Pulse Resp B/P (MAP) Pulse Ox O2 O2 Flow FiO2 Time Delivery Rate 12/28/18 97.9 67 19 87/47 (60) 97 Nasal 2.0 12:03 Cannula 12/27/18 21 23:00 Intake and Output 12/27/18 12/27/18 12/28/18 1515:00 23:00 07:00 IntakeIntake Total 600 ml OutputOutput Total 750 ml BalanceBalance -150 ml Constitutional: alert, oriented Respiratory: clear to auscultation, normal air movement Cardiovascular: regular rate and rhythm, nl pulses Results Results 24hrs Laboratory Tests Test 12/28/18 05:14 White Blood Count 7.3 Red Blood Count 4.24 L Hemoglobin 12.1 L Hematocrit 37.4 L Mean Corpuscular Volume 88.2 Mean Corpuscular Hemoglobin 28.5 L Mean Corpuscular Hemoglobin Concent 32.4 Red Cell Distribution Width 12.3 Platelet Count 217 # Mean Platelet Volume 9.8 Immature Granulocytes % 0.400 Neutrophils % 58.2 Lymphocytes % 29.7 Monocytes % 9.4 Eosinophils % 1.9 Basophils % 0.4 Nucleated Red Blood Cells % 0.0 Immature Granulocytes # 0.030 Neutrophils # 4.3 Lymphocytes # 2.2 Monocytes # 0.7 Eosinophils # 0.1 Basophils # 0.0 Nucleated Red Blood Cells # 0.0 Sodium Level 142 Potassium Level 3.8 Chloride Level 105 Carbon Dioxide Level 30 Anion Gap 7 Blood Urea Nitrogen 13 Creatinine 0.85 Est Glomerular Filtrat Rate mL/min > 60 Glucose Level 100 Calcium Level 9.2 Magnesium Level 2.1 Total Bilirubin 0.6 Direct Bilirubin 0.00 Indirect Bilirubin 0.6 Aspartate Amino Transf (AST/SGOT) 17 Alanine Aminotransferase (ALT/SGPT) 16 Alkaline Phosphatase 86 Total Protein 6.9 Albumin 3.7 Globulin 3.20 Albumin/Globulin Ratio 1.15 Medications Medication Current Medications Acetaminophen/ Hydrocodone Bitart ([place] (10/325)) 1 tab Q4H PRN PO .PAIN 1-5 Last administered on 12/26/18 18:23; Admin Dose 1 TAB; Start 12/05/18 at 16:00 Ondansetron HCl (Zofran Inj) 4 mg Q6H PRN IV NAUSEA/VOMITING Last administered on 12/21/18 02:10; Admin Dose 4 MG; Start 12/05/18 at 16:00 Bisacodyl (Dulcolax Supp) 10 mg DAILY PRN ID .CONSTIPATION Last administered on 12/27/18 22:33; Admin Dose 10 MG; Start 12/05/18 at 16:00 Docusate Sodium (Colace) 100 mg BID PO Last administered on 12/28/18 08:32; Admin Dose 100 MG; Start 12/05/18 at 21:00 Al Hydrox/Mg Hydrox/Simethicone (Mag-Al Plus) 15 ml Q6H PRN PO .CONSTIPATION/DYSPEPSIA Last administered on 12/24/18 22:32; Admin Dose 15 ML; Start 12/05/18 at 16:00 Acetaminophen (Tylenol Tab) 650 mg Q4H PRN PO FARRIS OR TEMP GREATER THAN 101.3F Last administered on 12/20/18 12:14; Admin Dose 650 MG; Start 12/05/18 at 16:00 Phenol (Cepastat Lozenge) 1 lozenge PRN PRN MT .SORE THROAT Last administered on 12/12/18 03:27; Admin Dose 1 LOZENGE; Start 12/05/18 at 16:00 Diphenhydramine HCl (Benadryl) 25 mg Q6H PRN PO .ITCHING Last administered on 12/15/18 22:13; Admin Dose 25 MG; Start 12/05/18 at 16:00 Diphenhydramine HCl (Benadryl) 25 mg Q6H PRN IV .ITCHING Last administered on 12/09/18 01:55; Admin Dose 25 MG; Start 12/05/18 at 16:00 Naloxone HCl (Narcan) 0.2 mg Q2M PRN IV .RR 8 BREATHS/MIN OR LESS; Start 12/05/18 at 16:00 Lidocaine (Xylocaine 1% (Mpf)) 30 ml ONCE PRN INJ pain Last administered on 12/06/18 18:01; Admin Dose 30 ML; Start 12/06/18 at 17:30 Pantoprazole (Protonix Tab) 40 mg DAILY@06 PO Last administered on 12/28/18 05:05; Admin Dose 40 MG; Start 12/08/18 at 06:00 Polyethylene Glycol (Miralax) 17 gm DAILY PO Last administered on 12/27/18 08:24; Admin Dose 17 GM; Start 12/14/18 at 09:00 Benazepril HCl (Lotensin) 40 mg QPM PO Last administered on 12/27/18 21:06; Admin Dose 40 MG; Start 12/15/18 at 21:00 Levetiracetam (Keppra) 1,000 mg BID PO Last administered on 12/28/18 08:32; Admin Dose 1,000 MG; Start 12/15/18 at 21:00 Tizanidine HCl (Zanaflex) 4 mg TID PO Last administered on 12/28/18 13:01; Admin Dose 4 MG; Start 12/17/18 at 21:00 Morphine Sulfate (Ms Contin (Er)) 30 mg Q8 PO Last administered on 12/28/18 13:01; Admin Dose 30 MG; Start 12/17/18 at 22:00 Hydrocortisone (Cortef) 5 mg QHS PO Last administered on 12/27/18 21:06; Admin Dose 5 MG; Start 12/18/18 at 21:00 Hydrocortisone (Cortef) 15 mg QAM PO Last administered on 12/28/18 08:32; Admin Dose 15 MG; Start 12/19/18 at 09:00 Hydrocortisone (Cortef) 7.5 mg PC LUNCH PO Last administered on 12/28/18 13:01; Admin Dose 7.5 MG; Start 12/19/18 at 13:00 Amlodipine Besylate (Norvasc) 2.5 mg DAILY PO Last administered on 12/28/18 08:33; Admin Dose 2.5 MG; Start 12/19/18 at 09:00 Lorazepam (Ativan) 1 mg PRN PRN IV SEIZURES; Start 12/19/18 at 01:00 Naloxone HCl (Narcan) 0.4 mg PRN PRN IV opioid reversal; Start 12/19/18 at 01:00 Flumazenil (Romazicon) 0.2 mg PRN PRN IV BENZO REVERSAL; Start 12/19/18 at 01:00 Hydromorphone HCl (Dilaudid) 0.2 mg Q3H PRN IV .BREAKTHROUGH PAIN Last administered on 12/28/18at 10:40; Admin Dose 0.2 MG; Start 12/19/18 at 16:00 Meclizine HCl (Antivert) 12.5 mg BID PRN PO DIZZY Last administered on 12/23/18at 08:15; Admin Dose 12.5 MG; Start 12/19/18 at 21:00 Miscellaneous Information 1 ea NOTE XX ; Start 12/21/18 at 22:30 Enoxaparin Sodium (Lovenox) 30 mg DAILY SC Last administered on 12/28/18at 08:38; Admin Dose 30 MG; Start 12/28/18 at 09:00 DONNA TIDWELL MD December 28, 2018 13:20
[2018-12-28] MEDS: BENAZEPRIL 40 MG TAB PO SCH (21:32)
[2018-12-29] VITALS (12 sets, daily range): BP systolic 112–138; BP diastolic 53–74; PULSE 73–103; RESP 16–20
[2018-12-29] MEDS: HYDROmorphONE 0.5 MG/0.5 ML SYG IV PRN (00:51)
[2018-12-29] MEDS: HYDROCODONE/APAP (10/325) TAB PO PRN (03:44)
[2018-12-29] MEDS: PANTOPRAZOLE (EC) 40 MG TAB PO SCH (05:56)
[2018-12-29] MEDS: morphine (ER) 30 MG TAB PO SCH ×3 (05:56→21:11)
--- NOTE | 2018-12-29 07:56 | PN ---
Date/Time of Note Date/Time of Note DATE: 12/29/18 TIME: 07:55 Assessment/Plan Lines/Catheters IV Catheter Type (from Nrsg): Saline Lock Baker in Place (from Nrsg): No Assessment/Plan Assessment/Plan Continue with physical therapy. Patient is getting deconditioned while being in bed so much. Needs aggressive physical therapy and rehab. This should help with his back discomfort as well. DC planning Subjective 24 Hr Interval Summary Continues to complain of back pain Exam/Review of Systems Vital Signs Vitals Vital Signs Date Temp Pulse Resp B/P (MAP) Pulse Ox O2 O2 Flow FiO2 Time Delivery Rate 12/29/18 98.5 74 18 112/53 94 07:53 (72) 12/28/18 Nasal 2.0 14:56 Cannula 12/27/18 21 23:00 Intake and Output 12/28/18 12/28/18 12/29/18 1515:00 23:00 07:00 IntakeIntake Total 600 ml 3500 ml 400 ml OutputOutput Total 750 ml 200 ml 600 ml BalanceBalance -150 ml 3300 ml -200 ml Exam Free Text/Dictation Neuro unchanged Results Result Diagram: 12/28/18 0514 12/28/18 0514 FAVIOLA GREEN MD December 29, 2018 07:56
[2018-12-29] MEDS: HYDROCORTISONE 5 MG TAB PO SCH ×3 (08:38→21:12)
[2018-12-29] MEDS: LEVETIRACETAM 500 MG TAB PO SCH ×2 (08:39→21:11)
[2018-12-29] MEDS: DOCUSATE SODIUM 100 MG CAP PO SCH ×2 (08:39→21:11)
[2018-12-29] MEDS: LIDOCAINE 5% PATCH TD SCH (08:40)
[2018-12-29] MEDS: POLYETHYLENE GLYCOL 17 GM PACKET PO SCH (08:40)
[2018-12-29] MEDS: ENOXAPARIN 30 MG/0.3 ML SYG SC SCH (08:42)
[2018-12-29] MEDS: TIZANIDINE 4 MG TAB PO SCH ×3 (08:46→21:11)
[2018-12-29] MEDS: BISACODYL 10 MG SUPP PR SCH (08:52)
--- NOTE | 2018-12-29 18:51 | PN ---
Date/Time of Note Date/Time of Note DATE: 12/29/18 TIME: 18:49 Assessment/Plan VTE Prophylaxis Risk score (from Ns)>0 risk: 6 SCD applied (from [facility] [place] No SCD contraindicated: patient refusal Pharmacological prophylaxis: heparin Lines/Catheters IV [facility]from [facility] Saline Lock Urinary Cath still in place: No Assessment/Plan Problems: (1) Status post lumbar surgery Onset Date: ~ 11/21/2018 Status: Acute Comment: Progressing now. By good fortune the usage of the Lidoderm patch is afforded him a great deal of improvement and allowing in progress forward without risk of the pain getting the point that it causes him to syncopized. (2) Syncope and collapse Status: Acute Comment: Improving now. Ready for placement (3) Subependymoma Onset Date: ~ 11/26/2018 Status: Acute Comment: Outpatient follow-up and evaluation (4) Essential (primary) hypertension Status: Chronic Comment: Adequate control (5) Obstructive sleep apnea Status: Chronic Comment: Stable at this time (6) Adrenal insufficiency due to corticosteroid withdrawal Status: Acute Comment: Continue with replacement therapy Result Diagram: 12/28/18 0514 12/28/18 0514 Subjective 24 Hr Interval Summary Free Text/Dictation Patient reports progress in control of his pain and no further spells Constitutional: no complaints Respiratory: no complaints Cardiovascular: no complaints Gastrointestinal: no complaints Genitourinary: no complaints Musculoskeletal: back pain Exam/Review of Systems Exam Vitals Vital Signs Date Temp Pulse Resp B/P (MAP) Pulse Ox O2 O2 Flow FiO2 Time Delivery Rate 12/29/18 76 16:27 12/29/18 98.6 18 128/58 94 15:15 (81) 12/28/18 Nasal 2.0 14:56 Cannula 12/27/18 21 23:00 Intake and Output 12/28/18 12/28/18 12/29/18 1515:00 23:00 07:00 IntakeIntake Total 600 ml 3500 ml 400 ml OutputOutput Total 750 ml 200 ml 600 ml BalanceBalance -150 ml 3300 ml -200 ml Constitutional: alert, oriented Respiratory: clear to auscultation, normal air movement Cardiovascular: regular rate and rhythm, nl pulses Gastrointestinal: soft, nl liver, spleen, non-tender Medications Medication Current Medications Acetaminophen/ Hydrocodone Bitart ([place] (10/325)) 1 tab Q4H PRN PO .PAIN 1-5 Last administered on 12/29/18 03:44; Admin Dose 1 TAB; Start 12/05/18 at 16:00 Ondansetron HCl (Zofran Inj) 4 mg Q6H PRN IV NAUSEA/VOMITING Last administered on 12/21/18 02:10; Admin Dose 4 MG; Start 12/05/18 at 16:00 Docusate Sodium (Colace) 100 mg BID PO Last administered on 12/29/18 08:39; Admin Dose 100 MG; Start 12/05/18 at 21:00 Al Hydrox/Mg Hydrox/Simethicone (Mag-Al Plus) 15 ml Q6H PRN PO .CONSTIPATION /DYSPEPSIA Last administered on 12/24/18 22:32; Admin Dose 15 ML; Start 12/05/18 at 16:00 Acetaminophen (Tylenol Tab) 650 mg Q4H PRN PO FARRIS OR TEMP GREATER THAN 101.3F Last administered on 12/20/18 12:14; Admin Dose 650 MG; Start 12/05/18 at 16:00 Phenol (Cepastat Lozenge) 1 lozenge PRN PRN MT .SORE THROAT Last administered on 12/12/18 03:27; Admin Dose 1 LOZENGE; Start 12/05/18 at 16:00 Diphenhydramine HCl (Benadryl) 25 mg Q6H PRN PO .ITCHING Last administered on 12/15/18 22:13; Admin Dose 25 MG; Start 12/05/18 at 16:00 Naloxone HCl (Narcan) 0.2 mg Q2M PRN IV .RR 8 BREATHS/MIN OR LESS; Start 12/05/18 at 16:00 Lidocaine (Xylocaine 1% (Mpf)) 30 ml ONCE PRN INJ pain Last administered on 18:01; Admin Dose 30 ML; Start 12/06/18 at 17:30 Pantoprazole (Protonix Tab) 40 mg DAILY@06 PO Last administered on 12/29/18 05:56; Admin Dose 40 MG; Start 12/08/18 at 06:00 Polyethylene Glycol (Miralax) 17 gm DAILY PO Last administered on 12/29/18 08:40; Admin Dose 17 GM; Start 12/14/18 at 09:00 Benazepril HCl (Lotensin) 40 mg QPM PO Last administered on 12/28/18 21:32; Admin Dose 40 MG; Start 12/15/18 at 21:00 Levetiracetam (Keppra) 1,000 mg BID PO Last administered on 12/29/18 08:39; Admin Dose 1,000 MG; Start 12/15/18 at 21:00 Tizanidine HCl (Zanaflex) 4 mg TID PO Last administered on 12/29/18 13:18; Admin Dose 4 MG; Start 12/17/18 at 21:00 Morphine Sulfate (Ms Contin (Er)) 30 mg Q8 PO Last administered on 12/29/18 13:22; Admin Dose 30 MG; Start 12/17/18 at 22:00 Hydrocortisone (Cortef) 5 mg QHS PO Last administered on 12/28/18 21:33; Admin Dose 5 MG; Start 12/18/18 at 21:00 Hydrocortisone (Cortef) 15 mg QAM PO Last administered on 12/29/18 08:38; Admin Dose 15 MG; Start 12/19/18 at 09:00 Hydrocortisone (Cortef) 7.5 mg PC LUNCH PO Last administered on 12/29/18 13:18; Admin Dose 7.5 MG; Start 12/19/18 at 13:00 Lorazepam (Ativan) 1 mg PRN PRN IV SEIZURES; Start 12/19/18 at 01:00 Naloxone HCl (Narcan) 0.4 mg PRN PRN IV opioid reversal; Start 12/19/18 at 01:00 Flumazenil (Romazicon) 0.2 mg PRN PRN IV BENZO REVERSAL; Start 12/19/18 at 01:00 Hydromorphone HCl (Dilaudid) 0.2 mg Q3H PRN IV .BREAKTHROUGH PAIN Last administered on 12/29/18 00:51; Admin Dose 0.2 MG; Start 12/19/18 at 16:00 Meclizine HCl (Antivert) 12.5 mg BID PRN PO DIZZY Last administered on 12/23/18 08:15; Admin Dose 12.5 MG; Start 12/19/18 at 21:00 Miscellaneous Information 1 ea NOTE XX ; Start 12/21/18 at 22:30 Enoxaparin Sodium (Lovenox) 30 mg DAILY SC Last administered on 12/29/18at 08:42; Admin Dose 30 MG; Start 12/28/18 at 09:00 Bisacodyl (Dulcolax Supp) 10 mg DAILY [place] ; Start 12/29/18 at 09:00 Lidocaine (Lidoderm) 1 patch DAILY TD Last administered on 12/29/18at 08:40; Admin Dose 1 PATCH; Start 12/29/18 at 09:00 DONNA TIDWELL MD December 29, 2018 18:51
[2018-12-29] MEDS: BENAZEPRIL 40 MG TAB PO SCH (21:11)
[2018-12-30] VITALS (10 sets, daily range): BP systolic 107–131; BP diastolic 57–84; PULSE 59–86; RESP 17–20
[2018-12-30] MEDS: HYDROCODONE/APAP (10/325) TAB PO PRN ×3 (00:38→18:04)
[2018-12-30] MEDS: morphine (ER) 30 MG TAB PO SCH ×3 (06:22→21:10)
[2018-12-30] MEDS: PANTOPRAZOLE (EC) 40 MG TAB PO SCH (06:22)
[2018-12-30] MEDS: POLYETHYLENE GLYCOL 17 GM PACKET PO SCH (08:08)
[2018-12-30] MEDS: BISACODYL 10 MG SUPP PR SCH ×3 (08:08→23:02)
[2018-12-30] MEDS: LEVETIRACETAM 500 MG TAB PO SCH ×2 (08:09→21:10)
[2018-12-30] MEDS: DOCUSATE SODIUM 100 MG CAP PO SCH ×2 (08:09→21:10)
[2018-12-30] MEDS: HYDROCORTISONE 5 MG TAB PO SCH ×3 (08:09→21:09)
[2018-12-30] MEDS: TIZANIDINE 4 MG TAB PO SCH ×3 (08:09→21:10)
[2018-12-30] MEDS: ENOXAPARIN 30 MG/0.3 ML SYG SC SCH (08:16)
[2018-12-30] MEDS: LIDOCAINE 5% PATCH TD SCH (11:01)
--- NOTE | 2018-12-30 18:48 | CONS ---
Assessment/Plan Assessment/Plan Hospital Course (Demo Recall) Essential Hypertension -BP is in normal range -continue benazepril -monitor BP Adrenal insufficiency -continue hydrocortisone 12.5mg/5mg/2.5mg TID respectively Seizure disorder -continue Keppra Obstructive sleep apnea -continue CPAP at night s/p lumbar spinal fusion -continue PT as tolerated -continue pain control Consultation Date/Type/Reason Admit Date/Time Nov 21, 2018 at 05:24 Initial Consult Date Requesting Provider: FAVIOLA GREEN MD Date/Time of Note DATE: 12/30/18 TIME: 18:45 24 HR Interval Summary Free Text/Dictation Patient seen and examined at bedside. He is complaining of pain around midline access Exam/Review of Systems Exam Vitals Vital Signs Date Temp Pulse Resp B/P (MAP) Pulse Ox O2 O2 Flow FiO2 Time Delivery Rate 12/30/18 63 16:00 12/30/18 98.2 17 107/57 99 15:30 (74) 12/30/18 Nasal 2.0 04:06 Cannula 12/27/18 21 23:00 Intake and Output 12/29/18 12/29/18 12/30/18 1515:00 23:00 07:00 IntakeIntake Total 360 ml 540 ml OutputOutput Total 150 ml 600 ml BalanceBalance 210 ml -60 ml Exam General: Comfortable in appearance, not in acute distress. Skin appropriate for ethnicity Eye: Extraocular movements are intact, Normal conjunctiva. HENT: Normocephalic, atraumatic. Respiratory: Respirations are non-labored, Breath sounds are equal, Symmetrical chest wall expansion. Cardiovascular: S1, S2. No murmur. Gastrointestinal: Soft, Non-tender, Non-distended, Normal bowel sounds. Integumentary: Warm to touch. Neurologic: Alert, Oriented. Cognition and Speech: Speech clear and coherent, Functional cognition intact. Psychiatric: Cooperative, Appropriate mood & affect. Results Result Diagram: 12/28/1851312/28/18513 Medications Medication Current Medications Acetaminophen/ Hydrocodone Bitart ([place] (10/325)) 1 tab Q4H PRN PO .PAIN 1-5 Last administered on 12/30/18at 18:04; Admin Dose 1 TAB; Start 12/05/18 at 16:00 Ondansetron HCl (Zofran Inj) 4 mg Q6H PRN IV NAUSEA/VOMITING Last administered on 12/21/18 02:10; Admin Dose 4 MG; Start 12/05/18 at 16:00 Docusate Sodium (Colace) 100 mg BID PO Last administered on 12/30/18 08:09; Admin Dose 100 MG; Start 12/05/18 at 21:00 Al Hydrox/Mg Hydrox/Simethicone (Mag-Al Plus) 15 ml Q6H PRN PO .CONSTIPATION/DYSPEPSIA Last administered on 12/24/18 22:32; Admin Dose 15 ML; Start 12/05/18 at 16:00 Acetaminophen (Tylenol Tab) 650 mg Q4H PRN PO FARRIS OR TEMP GREATER THAN 101.3F Last administered on 12/20/18 12:14; Admin Dose 650 MG; Start 12/05/18 at 16:00 Phenol (Cepastat Lozenge) 1 lozenge PRN PRN MT .SORE THROAT Last administered on 12/12/18 03:27; Admin Dose 1 LOZENGE; Start 12/05/18 at 16:00 Diphenhydramine HCl (Benadryl) 25 mg Q6H PRN PO .ITCHING Last administered on 12/15/18 22:13; Admin Dose 25 MG; Start 12/05/18 at 16:00 Naloxone HCl (Narcan) 0.2 mg Q2M PRN IV .RR 8 BREATHS/MIN OR LESS; Start 12/05/18 at 16:00 Lidocaine (Xylocaine 1% (Mpf)) 30 ml ONCE PRN INJ pain Last administered on 12/06/18 18:01; Admin Dose 30 ML; Start 12/06/18 at 17:30 Pantoprazole (Protonix Tab) 40 mg DAILY@06 PO Last administered on 12/30/18 06:22; Admin Dose 40 MG; Start 12/08/18 at 06:00 Polyethylene Glycol (Miralax) 17 gm DAILY PO Last administered on 12/29/18 08:40; Admin Dose 17 GM; Start 12/14/18 at 09:00 Benazepril HCl (Lotensin) 40 mg QPM PO Last administered on 12/29/18 21:11; Admin Dose 40 MG; Start 12/15/18 at 21:00 Levetiracetam (Keppra) 1,000 mg BID PO Last administered on 12/30/18 08:09; Admin Dose 1,000 MG; Start 12/15/18 at 21:00 Tizanidine HCl (Zanaflex) 4 mg TID PO Last administered on 12/30/18 14:09; Admin Dose 4 MG; Start 12/17/18 at 21:00 Morphine Sulfate (Ms Contin (Er)) 30 mg Q8 PO Last administered on 12/30/18 14:09; Admin Dose 30 MG; Start 12/17/18 at 22:00 Lorazepam (Ativan) 1 mg PRN PRN IV SEIZURES; Start 12/19/18 at 01:00 Naloxone HCl (Narcan) 0.4 mg PRN PRN IV opioid reversal; Start 12/19/18 at 01:00 Flumazenil (Romazicon) 0.2 mg PRN PRN IV BENZO REVERSAL; Start 12/19/18 at 01:0 0 Hydromorphone HCl (Dilaudid) 0.2 mg Q3H PRN IV .BREAKTHROUGH PAIN Last administered on 12/29/18 00:51; Admin Dose 0.2 MG; Start 12/19/18 at 16:00 Meclizine HCl (Antivert) 12.5 mg BID PRN PO DIZZY Last administered on 12/23/18 08:15; Admin Dose 12.5 MG; Start 12/19/18 at 21:00 Miscellaneous Information 1 ea NOTE XX ; Start 12/21/18 at 22:30 Enoxaparin Sodium (Lovenox) 30 mg DAILY SC Last administered on 12/30/18 08:16; Admin Dose 30 MG; Start 12/28/18 at 09:00 Bisacodyl (Dulcolax Supp) 10 mg DAILY [place] ; Start 12/29/18 at 09:00 Lidocaine (Lidoderm) 1 patch DAILY TD Last administered on 12/30/18 11:01; Admin Dose 1 PATCH; Start 12/29/18 at 09:00 Hydrocortisone (Cortef) 2.5 mg QHS PO Last administered on 12/29/18 21:12; Admin Dose 2.5 MG; Start 12/29/18 at 21:00 Hydrocortisone (Cortef) 12.5 mg QAM PO Last administered on 5/11/19at 08:09; Admin Dose 12.5 MG; Start 12/30/18 at 09:00 Hydrocortisone (Cortef) 5 mg PC LUNCH PO Last administered on 12/30/18at 14:09; Admin Dose 5 MG; Start 12/30/18 at 13:00 MAYI PAL MD December 30, 2018 18:48
[2018-12-30] MEDS: BENAZEPRIL 40 MG TAB PO SCH (21:09)
[2018-12-31] VITALS (10 sets, daily range): BP systolic 108–133; BP diastolic 56–72; PULSE 58–88; RESP 18–20
[2018-12-31] MEDS: HYDROCODONE/APAP (10/325) TAB PO PRN ×2 (00:01→18:57)
[2018-12-31] MEDS: morphine (ER) 30 MG TAB PO SCH ×3 (06:21→20:33)
[2018-12-31] MEDS: PANTOPRAZOLE (EC) 40 MG TAB PO SCH (06:21)
[2018-12-31] MEDS: HYDROCORTISONE 5 MG TAB PO SCH ×3 (07:48→20:25)
[2018-12-31] MEDS: DOCUSATE SODIUM 100 MG CAP PO SCH ×2 (07:48→20:25)
[2018-12-31] MEDS: POLYETHYLENE GLYCOL 17 GM PACKET PO SCH (07:49)
[2018-12-31] MEDS: TIZANIDINE 4 MG TAB PO SCH ×3 (07:49→20:25)
[2018-12-31] MEDS: LEVETIRACETAM 500 MG TAB PO SCH ×2 (07:49→20:26)
[2018-12-31] MEDS: ENOXAPARIN 30 MG/0.3 ML SYG SC SCH (07:54)
[2018-12-31] MEDS: LIDOCAINE 5% PATCH TD SCH (11:31)
--- NOTE | 2018-12-31 16:55 | CONS ---
Assessment/Plan Assessment/Plan Hospital Course (Demo Recall) Essential Hypertension -BP is in normal range -continue benazepril -monitor BP Adrenal insufficiency -continue hydrocortisone 12.5mg/5mg/2.5mg TID respectively Seizure disorder -continue Keppra Obstructive sleep apnea -continue CPAP at night s/p lumbar spinal fusion -continue PT as tolerated -continue pain control Consultation Date/Type/Reason Admit Date/Time Nov 21, 2018 at 05:24 Initial Consult Date Requesting Provider: FAVIOLA GREEN MD Date/Time of Note DATE: 12/31/18 TIME: 16:53 24 HR Interval Summary Free Text/Dictation Patient seen and examined at bedside. No acute events noted overnight. He feels well and offers no complaints. Exam/Review of Systems Exam Vitals Vital Signs Date Temp Pulse Resp B/P (MAP) Pulse Ox O2 O2 Flow FiO2 Time Delivery Rate 12/31/18 98.0 58 18 108/56 99 15:39 (73) 12/31/18 2.0 14:53 12/31/18 Nasal 04:00 Cannula 12/27/18 21 23:00 Intake and Output 12/30/18 12/30/18 12/31/18 1515:00 23:00 07:00 IntakeIntake Total 500 ml 960 ml OutputOutput Total 600 ml 500 ml BalanceBalance -100 ml 460 ml Exam General: Comfortable in appearance, not in acute distress. Skin appropriate for ethnicity, freckles on face Eye: Extraocular movements are intact, Normal conjunctiva. HENT: Normocephalic, atraumatic. Respiratory: Respirations are non-labored, Breath sounds are equal, Symmetrical chest wall expansion. Cardiovascular: S1, S2. No lower extremity edema Gastrointestinal: Soft, Non-tender, Non-distended, Normal bowel sounds. Integumentary: Warm to touch. Neurologic: Alert, Oriented. Cognition and Speech: Speech clear and coherent, Functional cognition intact. Psychiatric: Cooperative, Appropriate mood & affect. Results Result Diagram: 12/28/1851312/28/18513 Medications Medication Current Medications Acetaminophen/ Hydrocodone Bitart ([place] (10/325)) 1 tab Q4H PRN PO .PAIN 1-5 Last administered on 12/31/18at 00:01; Admin Dose 1 TAB; Start 12/05/18 at 16:00 Ondansetron HCl (Zofran Inj) 4 mg Q6H PRN IV NAUSEA/VOMITING Last administered on 12/21/18 02:10; Admin Dose 4 MG; Start 12/05/18 at 16:00 Docusate Sodium (Colace) 100 mg BID PO Last administered on 12/31/18 07:48; Admin Dose 100 MG; Start 12/05/18 at 21:00 Al Hydrox/Mg Hydrox/Simethicone (Mag-Al Plus) 15 ml Q6H PRN PO .CONSTIPATION/DYSPEPSIA Last administered on 12/24/18 22:32; Admin Dose 15 ML; Start 12/05/18 at 16:00 Acetaminophen (Tylenol Tab) 650 mg Q4H PRN PO FARRIS OR TEMP GREATER THAN 101.3F Last administered on 12/20/18 12:14; Admin Dose 650 MG; Start 12/05/18 at 16:00 Phenol (Cepastat Lozenge) 1 lozenge PRN PRN MT .SORE THROAT Last administered on 12/12/18 03:27; Admin Dose 1 LOZENGE; Start 12/05/18 at 16:00 Diphenhydramine HCl (Benadryl) 25 mg Q6H PRN PO .ITCHING Last administered on 12/15/18 22:13; Admin Dose 25 MG; Start 12/05/18 at 16:00 Naloxone HCl (Narcan) 0.2 mg Q2M PRN IV .RR 8 BREATHS/MIN OR LESS; Start 12/05/18 at 16:00 Lidocaine (Xylocaine 1% (Mpf)) 30 ml ONCE PRN INJ pain Last administered on 12/06/18 18:01; Admin Dose 30 ML; Start 12/06/18 at 17:30 Pantoprazole (Protonix Tab) 40 mg DAILY@06 PO Last administered on 12/31/18 06:21; Admin Dose 40 MG; Start 12/08/18 at 06:00 Polyethylene Glycol (Miralax) 17 gm DAILY PO Last administered on 12/29/18 08:40; Admin Dose 17 GM; Start 12/14/18 at 09:00 Benazepril HCl (Lotensin) 40 mg QPM PO Last administered on 12/30/18 21:09; Admin Dose 40 MG; Start 12/15/18 at 21:00 Levetiracetam (Keppra) 1,000 mg BID PO Last administered on 12/31/18 07:49; Admin Dose 1,000 MG; Start 12/15/18 at 21:00 Tizanidine HCl (Zanaflex) 4 mg TID PO Last administered on 12/31/18 14:04; Admin Dose 4 MG; Start 12/17/18 at 21:00 Morphine Sulfate (Ms Contin (Er)) 30 mg Q8 PO Last administered on 12/31/18 14:04; Admin Dose 30 MG; Start 12/17/18 at 22:00 Lorazepam (Ativan) 1 mg PRN PRN IV SEIZURES; Start 12/19/18 at 01:00 Naloxone HCl (Narcan) 0.4 mg PRN PRN IV opioid reversal; Start 12/19/18 at 01:00 Flumazenil (Romazicon) 0.2 mg PRN PRN IV BENZO REVERSAL; Start 12/19/18 at 01:00 Hydromorphone HCl (Dilaudid) 0.2 mg Q3H PRN IV .BREAKTHROUGH PAIN Last administered on 12/29/18 00:51; Admin Dose 0.2 MG; Start 12/19/18 at 16:00 Meclizine HCl (Antivert) 12.5 mg BID PRN PO DIZZY Last administered on 12/23/18 08:15; Admin Dose 12.5 MG; Start 12/19/18 at 21:00 Miscellaneous Information 1 ea NOTE XX ; Start 12/21/18 at 22:30 Enoxaparin Sodium (Lovenox) 30 mg DAILY SC Last administered on 12/31/18 07:54; Admin Dose 30 MG; Start 12/28/18 at 09:00 Bisacodyl (Dulcolax Supp) 10 mg DAILY W[place] Last administered on 12/30/18 23:02; Admin Dose 10 MG; Start 12/29/18 at 09:00 Lidocaine (Lidoderm) 1 patch DAILY TD Last administered on 12/31/18 11:31; Admin Dose 1 PATCH; Start 12/29/18 at 09:00 Hydrocortisone (Cortef) 2.5 mg QHS PO Last administered on 12/30/18 21:09; Admin Dose 2.5 MG; Start 12/29/18 at 21:00 Hydrocortisone (Cortef) 12.5 mg QAM PO Last administered on 12/31/18at 07:48; Admin Dose 12.5 MG; Start 12/30/18 at 09:00 Hydrocortisone (Cortef) 5 mg PC LUNCH PO Last administered on 12/31/18at 14:04; Admin Dose 5 MG; Start 12/30/18 at 13:00 MAYI PAL MD December 31, 2018 16:54
[2018-12-31] MEDS: BENAZEPRIL 40 MG TAB PO SCH (20:27)
[2019-01-01] VITALS (12 sets, daily range): BP systolic 95–137; BP diastolic 53–79; PULSE 58–151; RESP 18–20
[2019-01-01] MEDS: HYDROCODONE/APAP (10/325) TAB PO PRN ×2 (02:25→22:12)
[2019-01-01] MEDS: ONDANSETRON 4 MG INJ IV PRN (04:46)
[2019-01-01] MEDS: morphine (ER) 30 MG TAB PO SCH ×3 (04:48→22:07)
[2019-01-01] MEDS: PANTOPRAZOLE (EC) 40 MG TAB PO SCH (04:48)
--- NOTE | 2019-01-01 07:52 | PN ---
Date/Time of Note Date/Time of Note DATE: 01/01/19 TIME: 07:51 Assessment/Plan Lines/Catheters IV Catheter Type (from Nrsg): Saline Lock Baker in Place (from Nrsg): No Assessment/Plan Assessment/Plan continue current treatment. d/c planning for rehab as patient not stable to go home Subjective 24 Hr Interval Summary c/o pain, improved dizziness Exam/Review of Systems Vital Signs Vitals Vital Signs Date Temp Pulse Resp B/P (MAP) Pulse Ox O2 O2 Flow FiO2 Time Delivery Rate 01/01/19 98.1 87 20 120/64 99 07:17 (82) 01/01/19 Nasal 04:00 Cannula 12/31/18 2.0 14:53 Intake and Output 12/31/18 12/31/18 01/01/19 1515:00 23:00 07:00 IntakeIntake Total 1680 ml 450 ml OutputOutput Total 650 ml 800 ml BalanceBalance 1030 ml -350 ml Exam Free Text/Dictation nvi Results Result Diagram: 12/28/18 0514 12/28/18 0514 FAVIOLA GREEN MD January 01, 2019 07:52
[2019-01-01] MEDS: TIZANIDINE 4 MG TAB PO SCH ×3 (08:45→22:08)
[2019-01-01] MEDS: POLYETHYLENE GLYCOL 17 GM PACKET PO SCH (08:45)
[2019-01-01] MEDS: HYDROCORTISONE 5 MG TAB PO SCH ×3 (08:45→22:06)
[2019-01-01] MEDS: DOCUSATE SODIUM 100 MG CAP PO SCH ×2 (08:46→22:07)
[2019-01-01] MEDS: LEVETIRACETAM 500 MG TAB PO SCH ×2 (08:46→22:05)
[2019-01-01] MEDS: ENOXAPARIN 30 MG/0.3 ML SYG SC SCH (08:50)
[2019-01-01] MEDS: BISACODYL 10 MG SUPP PR SCH (08:51)
[2019-01-01] MEDS: HYDROmorphONE 0.5 MG/0.5 ML SYG IV PRN ×2 (09:03→14:46)
[2019-01-01] MEDS: LIDOCAINE 5% PATCH TD SCH (11:05)
--- NOTE | 2019-01-01 17:23 | PN ---
Date/Time of Note Date/Time of Note DATE: 01/01/19 TIME: 17:18 Assessment/Plan VTE Prophylaxis Risk score (from [facility] [place]0 risk: 1 SCD applied (from [facility] [place] No SCD contraindicated: patient refusal Pharmacological prophylaxis: heparin Lines/Catheters IV [facility] Type [facility]from [facility]): Saline Lock Urinary Cath still in place: No Assessment/Plan Problems: (1) Status post lumbar surgery Onset Date: ~ 11/21/2018 Status: Acute Comment: Progressing with physical therapy very slowly. Case management is at tempting to work with his insurance company please see their note from today. 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 (4) Adrenal insufficiency due to corticosteroid withdrawal Status: Acute Comment: Stable on replacement therapy (5) Syncope and collapse Status: Acute Comment: Improved as control of his pain has improved. (6) Essential (primary) hypertension Status: Chronic Comment: Adequate control (7) Obstructive sleep apnea Status: Chronic Comment: Adequate control Result Diagram: 12/28/18 0514 12/28/18 0514 Subjective 24 Hr Interval Summary Free Text/Dictation Patient reports pain control is better and not having any more of his syncopal events. He has had a couple of "lightening bolt pain" Constitutional: no complaints Cardiovascular: no complaints Gastrointestinal: no complaints Genitourinary: no complaints Musculoskeletal: back pain Exam/Review of Systems Exam Vitals Vital Signs Date Temp Pulse Resp B/P (MAP) Pulse Ox O2 O2 Flow FiO2 Time Delivery Rate 01/01/19 81 17:00 01/01/19 98.3 20 137/79 99 15:10 (98) 01/01/19 2.0 14:39 01/01/19 Nasal 04:00 Cannula Intake and Output 12/31/18 12/31/18 01/01/19 1515:00 23:00 07:00 IntakeIntake Total 1680 ml 450 ml OutputOutput Total 650 ml 800 ml BalanceBalance 1030 ml -350 ml Constitutional: alert, oriented Respiratory: clear to auscultation, normal air movement Cardiovascular: regular rate and rhythm, nl pulses Gastrointestinal: soft, nl liver, spleen, non-tender Medications Medication Current Medications Acetaminophen/ Hydrocodone Bitart ([place] (10/325)) 1 tab Q4H PRN PO .PAIN 1-5 Last administered on 01/01/19 02:25; Admin Dose 1 TAB; Start 12/05/18 at 16:00 Ondansetron HCl (Zofran Inj) 4 mg Q6H PRN IV NAUSEA/VOMITING Last administered on 01/01/19 04:46; Admin Dose 4 MG; Start 12/05/18 at 16:00 Docusate Sodium (Colace) 100 mg BID PO Last administered on 01/01/19 08:46; Admin Dose 100 MG; Start 12/05/18 at 21:00 Al Hydrox/Mg Hydrox/Simethicone (Mag-Al Plus) 15 ml Q6H PRN PO .CONSTIPATION/DYSPEPSIA Last administered on 12/24/18 22:32; Admin Dose 15 ML; Start 12/05/18 at 16:00 Acetaminophen (Tylenol Tab) 650 mg Q4H PRN PO FARRIS OR TEMP GREATER THAN 101.3F Last administered on 12/20/18 12:14; Admin Dose 650 MG; Start 12/05/18 at 16:00 Phenol (Cepastat Lozenge) 1 lozenge PRN PRN MT .SORE THROAT Last administered on 12/12/18 03:27; Admin Dose 1 LOZENGE; Start 12/05/18 at 16:00 Diphenhydramine HCl (Benadryl) 25 mg Q6H PRN PO .ITCHING Last administered on 12/15/18 22:13; Admin Dose 25 MG; Start 12/05/18 at 16:00 Naloxone HCl (Narcan) 0.2 mg Q2M PRN IV .RR 8 BREATHS/MIN OR LESS; Start 12/05/18 at 16:00 Lidocaine (Xylocaine 1% (Mpf)) 30 ml ONCE PRN INJ pain Last administered on 12/06/18 18:01; Admin Dose 30 ML; Start 12/06/18 at 17:30 Pantoprazole (Protonix Tab) 40 mg DAILY@06 PO Last administered on 01/01/19 04:48; Admin Dose 40 MG; Start 12/08/18 at 06:00 Polyethylene Glycol (Miralax) 17 gm DAILY PO Last administered on 01/01/19 08:45; Admin Dose 17 GM; Start 12/14/18 at 09:00 Benazepril HCl (Lotensin) 40 mg QPM PO Last administered on 12/31/18 20:27; Admin Dose 40 MG; Start 12/15/18 at 21:00 Levetiracetam (Keppra) 1,000 mg BID PO Last administered on 01/01/19 08:46; Admin Dose 1,000 MG; Start 12/15/18 at 21:00 Tizanidine HCl (Zanaflex) 4 mg TID PO Last administered on 01/01/19 13:47; Admin Dose 4 MG; Start 12/17/18 at 21:00 Morphine Sulfate (Ms Contin (Er)) 30 mg Q8 PO Last administered on 01/01/19 13:47; Admin Dose 30 MG; Start 12/17/18 at 22:00 Lorazepam (Ativan) 1 mg PRN PRN IV SEIZURES; Start 12/19/18 at 01:00 Naloxone HCl (Narcan) 0.4 mg PRN PRN IV opioid reversal; Start 12/19/18 at 01:00 Flumazenil (Romazicon) 0.2 mg PRN PRN IV BENZO REVERSAL; Start 12/19/18 at 01:00 Hydromorphone HCl (Dilaudid) 0.2 mg Q3H PRN IV .BREAKTHROUGH PAIN Last administered on 01/01/19 14:46; Admin Dose 0.2 MG; Start 12/19/18 at 16:00 Meclizine HCl (Antivert) 12.5 mg BID PRN PO DIZZY Last administered on 12/23/18 08:15; Admin Dose 12.5 MG; Start 12/19/18 at 21:00 Miscellaneous Information 1 ea NOTE XX ; Start 12/21/18 at 22:30 Enoxaparin Sodium (Lovenox) 30 mg DAILY SC Last administered on 01/01/19 08:50; Admin Dose 30 MG; Start 12/28/18 at 09:00 Bisacodyl (Dulcolax Supp) 10 mg DAILY MA Last administered on 01/01/19 08:51; Admin Dose 10 MG; Start 12/29/18 at 09:00 Lidocaine (Lidoderm) 1 patch DAILY TD Last administered on 01/01/19 11:05; Admin Dose 1 PATCH; Start 12/29/18 at 09:00 Hydrocortisone (Cortef) 2.5 mg QHS PO Last administered on 12/31/18at 20:25; Admin Dose 2.5 MG; Start 12/29/18 at 21:00 Hydrocortisone (Cortef) 12.5 mg QAM PO Last administered on 01/01/19at 08:45; Admin Dose 12.5 MG; Start 12/30/18 at 09:00 Hydrocortisone (Cortef) 5 mg PC LUNCH PO Last administered on 01/01/19at 13:47; Admin Dose 5 MG; Start 12/30/18 at 13:00 DONNA TIDWELL MD January 01, 2019 17:23
[2019-01-01] MEDS: BENAZEPRIL 40 MG TAB PO SCH (22:07)
[2019-01-02] VITALS (12 sets, daily range): BP systolic 105–154; BP diastolic 62–81; PULSE 15–86; RESP 18–20
[2019-01-02] MEDS: morphine (ER) 30 MG TAB PO SCH ×3 (06:31→21:03)
[2019-01-02] MEDS: PANTOPRAZOLE (EC) 40 MG TAB PO SCH (06:31)
[2019-01-02] MEDS: HYDROmorphONE 0.5 MG/0.5 ML SYG IV PRN ×2 (06:38→15:20)
[2019-01-02] MEDS ORDERED: CELECOXIB 200 MG CAP PO ONE (08:00)
[2019-01-02] MEDS: HYDROCORTISONE 5 MG TAB PO SCH ×3 (08:20→21:04)
[2019-01-02] MEDS: LEVETIRACETAM 500 MG TAB PO SCH ×2 (08:20→21:04)
[2019-01-02] MEDS: TIZANIDINE 4 MG TAB PO SCH ×3 (08:20→21:04)
[2019-01-02] MEDS: DOCUSATE SODIUM 100 MG CAP PO SCH ×2 (08:20→21:04)
[2019-01-02] MEDS: POLYETHYLENE GLYCOL 17 GM PACKET PO SCH (08:21)
[2019-01-02] MEDS: BISACODYL 10 MG SUPP PR SCH ×2 (09:00→22:27)
[2019-01-02] MEDS: ENOXAPARIN 30 MG/0.3 ML SYG SC SCH (09:30)
--- NOTE | 2019-01-02 11:00 | PN ---
Date/Time of Note Date/Time of Note DATE: 01/02/19 TIME: 10:59 Assessment/Plan Lines/Catheters IV Catheter Type (from [facility]): Saline Lock Baker in Place (from [facility]): No Assessment/Plan Assessment/Plan Continue with discharge planning Subjective 24 Hr Interval Summary No events overnight Exam/Review of Systems Vital Signs Vitals Vital Signs Date Temp Pulse Resp B/P (MAP) Pulse Ox O2 O2 Flow FiO2 Time Delivery Rate 01/02/19 15 08:53 01/02/19 98.4 20 131/74 98 07:16 (93) 01/02/19 2.0 03:18 01/01/19 Nasal 04:00 Cannula Intake and Output 01/01/19 01/01/19 01/02/19 1515:00 23:00 07:00 IntakeIntake Total 750 ml 440 ml OutputOutput Total 1100 ml 600 ml BalanceBalance -350 ml -160 ml Exam Free Text/Dictation Unchanged FAVIOLA GREEN MD January 02, 2019 11:00
[2019-01-02] MEDS: LIDOCAINE 5% PATCH TD SCH (13:50)
--- NOTE | 2019-01-02 17:44 | PN ---
Date/Time of Note Date/Time of Note DATE: 01/02/19 TIME: 17:41 Assessment/Plan VTE Prophylaxis Risk score (from [facility])>0 risk: 2 [place] [facility] [place]CD contraindicated: patient refusal Pharmacological prophylaxis: heparin Lines/Catheters IV Catheter Type (from [facility]): Saline Lock Urinary Cath still in place: No Assessment/Plan Problems: (1) Status post lumbar surgery Onset Date: ~ 11/21/2018 Status: Acute Comment: Progressing with physical therapy now that we have a somewhat medium handle on pain control. Case management is working on trying to get this into rehabilitation unit. Continuing to try to be patient (2) Subependymoma Onset Date: ~ 11/26/2018 Status: Acute Comment: Outpatient evaluation of this. (3) Essential (primary) hypertension Status: Chronic Comment: Adequate control (4) Obstructive sleep apnea Status: Chronic Comment: Noted and stable (5) Adrenal insufficiency due to corticosteroid withdrawal Status: Acute Comment: On replacement therapy and stable. Please note that this can take 6 months to wean off of (6) Syncope and collapse Status: Acute Comment: Controlled CC: FAVIOLA GREEN MD ; Subjective 24 Hr Interval Summary Free Text/Dictation Patient reports with the addition of Celebrex in the morning to the other cocktail of medications he had significantly better pain control today did not have any "lightning bolts" of pain and no syncope or near syncope. Constitutional: no complaints Respiratory: no complaints Cardiovascular: no complaints Gastrointestinal: no complaints Musculoskeletal: back pain Exam/Review of Systems Exam Vitals Vital Signs Date Temp Pulse Resp B/P (MAP) Pulse Ox O2 O2 Flow FiO2 Time Delivery Rate 01/02/19 59 17:03 01/02/19 98.2 20 105/62 95 15:10 (76) 01/02/19 2.0 03:18 01/01/19 Nasal 04:00 Cannula Intake and Output 01/01/19 01/01/19 01/02/19 1515:00 23:00 07:00 IntakeIntake Total 750 ml 440 ml OutputOutput Total 1100 ml 600 ml BalanceBalance -350 ml -160 ml Constitutional: alert, oriented Cardiovascular: regular rate and rhythm, nl pulses Gastrointestinal: soft, nl liver, spleen, non-tender Extremities: normal pulses Medications Medication Current Medications Acetaminophen/ Hydrocodone Bitart ([place] (10/325)) 1 tab Q4H PRN PO .PAIN 1-5 Last administered on 01/01/19 22:12; Admin Dose 1 TAB; Start 12/05/18 at 16:00 Ondansetron HCl (Zofran Inj) 4 mg Q6H PRN IV NAUSEA/VOMITING Last administered on 01/01/19 04:46; Admin Dose 4 MG; Start 12/05/18 at 16:00 Docusate Sodium (Colace) 100 mg BID PO Last administered on 01/02/19 08:20; Admin Dose 100 MG; Start 12/05/18 at 21:00 Al Hydrox/Mg Hydrox/Simethicone (Mag-Al Plus) 15 ml Q6H PRN PO .CONSTIPATION/DYSPEPSIA Last administered on 12/24/18 22:32; Admin Dose 15 ML; Start 12/05/18 at 16:00 Acetaminophen (Tylenol Tab) 650 mg Q4H PRN PO FARRIS OR TEMP GREATER THAN 101.3F Last administered on 12/20/18 12:14; Admin Dose 650 MG; Start 12/05/18 at 16:00 Phenol (Cepastat Lozenge) 1 lozenge PRN PRN MT .SORE THROAT Last administered on 12/12/18 03:27; Admin Dose 1 LOZENGE; Start 12/05/18 at 16:00 Diphenhydramine HCl (Benadryl) 25 mg Q6H PRN PO .ITCHING Last administered on 12/15/18 22:13; Admin Dose 25 MG; Start 12/05/18 at 16:00 Naloxone HCl (Narcan) 0.2 mg Q2M PRN IV .RR 8 BREATHS/MIN OR LESS; Start 12/05/18 at 16:00 Lidocaine (Xylocaine 1% (Mpf)) 30 ml ONCE PRN INJ pain Last administered on 12/06/18 18:01; Admin Dose 30 ML; Start 12/06/18 at 17:30 Pantoprazole (Protonix Tab) 40 mg DAILY@06 PO Last administered on 01/02/19 06:31; Admin Dose 40 MG; Start 12/08/18 at 06:00 Polyethylene Glycol (Miralax) 17 gm DAILY PO Last administered on 01/02/19 08:21; Admin Dose 17 GM; Start 12/14/18 at 09:00 Benazepril HCl (Lotensin) 40 mg QPM PO Last administered on 01/01/19 22:07; Admin Dose 40 MG; Start 12/15/18 at 21:00 Levetiracetam (Keppra) 1,000 mg BID PO Last administered on 01/02/19 08:20; Admin Dose 1,000 MG; Start 12/15/18 at 21:00 Tizanidine HCl (Zanaflex) 4 mg TID PO Last administered on 01/02/19 13:21; Admin Dose 4 MG; Start 12/17/18 at 21:00 Morphine Sulfate (Ms Contin (Er)) 30 mg Q8 PO Last administered on 01/02/19 13:22; Admin Dose 30 MG; Start 12/17/18 at 22:00 Naloxone HCl (Narcan) 0.4 mg PRN PRN IV opioid reversal; Start 12/19/18 at 01:00 Flumazenil (Romazicon) 0.2 mg PRN PRN IV BENZO REVERSAL; Start 12/19/18 at 01:00 Hydromorphone HCl (Dilaudid) 0.2 mg Q3H PRN IV .BREAKTHROUGH PAIN Last admi nistered on 01/02/19 15:20; Admin Dose 0.2 MG; Start 12/19/18 at 16:00 Meclizine HCl (Antivert) 12.5 mg BID PRN PO DIZZY Last administered on 12/23/18 08:15; Admin Dose 12.5 MG; Start 12/19/18 at 21:00 Miscellaneous Information 1 ea NOTE XX ; Start 12/21/18 at 22:30 Enoxaparin Sodium (Lovenox) 30 mg DAILY SC Last administered on 01/02/19 09:30; Admin Dose 30 MG; Start 12/28/18 at 09:00 Bisacodyl (Dulcolax Supp) 10 mg DAILY AL Last administered on 01/01/19 08:51; Admin Dose 10 MG; Start 12/29/18 at 09:00 Lidocaine (Lidoderm) 1 patch DAILY TD Last administered on 01/02/19 13:50; Admin Dose 1 PATCH; Start 12/29/18 at 09:00 Hydrocortisone (Cortef) 2.5 mg QHS PO Last administered on 01/01/19at 22:06; Admin Dose 2.5 MG; Start 12/29/18 at 21:00 Hydrocortisone (Cortef) 12.5 mg QAM PO Last administered on 01/02/19at 08:20; Admin Dose 12.5 MG; Start 12/30/18 at 09:00 Hydrocortisone (Cortef) 5 mg PC LUNCH PO Last administered on 01/02/19at 13:21; Admin Dose 5 MG; Start 12/30/18 at 13:00 DONNA TIDWELL MD January 02, 2019 17:44
[2019-01-02] MEDS: BENAZEPRIL 40 MG TAB PO SCH (21:04)
[2019-01-02] MEDS: HYDROCODONE/APAP (10/325) TAB PO PRN (21:05)
[2019-01-03] VITALS (11 sets, daily range): BP systolic 111–133; BP diastolic 64–79; PULSE 55–91; RESP 18–19
[2019-01-03] MEDS: morphine (ER) 30 MG TAB PO SCH ×3 (05:47→22:11)
[2019-01-03] MEDS: PANTOPRAZOLE (EC) 40 MG TAB PO SCH (05:47)
[2019-01-03] MEDS ORDERED: CELECOXIB 200 MG CAP PO ONE (08:00)
[2019-01-03] MEDS: TIZANIDINE 4 MG TAB PO SCH ×3 (09:15→21:18)
[2019-01-03] MEDS: LEVETIRACETAM 500 MG TAB PO SCH ×2 (09:16→21:17)
[2019-01-03] MEDS: POLYETHYLENE GLYCOL 17 GM PACKET PO SCH (09:16)
[2019-01-03] MEDS: DOCUSATE SODIUM 100 MG CAP PO SCH ×2 (09:16→21:18)
[2019-01-03] MEDS: HYDROCORTISONE 5 MG TAB PO SCH ×3 (09:17→21:17)
[2019-01-03] MEDS: HYDROmorphONE 0.5 MG/0.5 ML SYG IV PRN (09:24)
[2019-01-03] MEDS: ENOXAPARIN 30 MG/0.3 ML SYG SC SCH (09:42)
--- NOTE | 2019-01-03 09:50 | PN ---
Date/Time of Note Date/Time of Note DATE: 01/03/19 TIME: 09:49 Assessment/Plan Lines/Catheters IV Catheter Type (from Nrs): Saline Lock Baker in Place (from Nrs): No Assessment/Plan Assessment/Plan Continue with current treatment plan. Discharge planning per case management Subjective 24 Hr Interval Summary No changes. Continues to have discomfort improved with lidocaine patch Exam/Review of Systems Vital Signs Vitals Vital Signs Date Temp Pulse Resp B/P (MAP) Pulse Ox O2 O2 Flow FiO2 Time Delivery Rate 01/03/19 91 08:12 01/03/19 97.7 19 133/79 95 07:57 (97) 01/02/19 2.0 03:18 01/01/19 Nasal 04:00 Cannula Intake and Output 01/02/19 01/02/19 01/03/19 1414:59 22:59 06:59 IntakeIntake Total 1100 ml 500 ml OutputOutput Total 350 ml 200 ml 900 ml BalanceBalance -350 ml 900 ml -400 ml Exam Free Text/Dictation Exam unchanged FAVIOLA GREEN MD January 03, 2019 09:50
[2019-01-03] MEDS: LIDOCAINE 5% PATCH TD SCH (11:10)
--- NOTE | 2019-01-03 17:43 | DS ---
Date/Time of Note Date/Time of Note DATE: 01/03/19 TIME: 17:29 Discharge Summary Admission/Discharge Info Admit Date/Time Nov 21, 2018 at 05:24 Discharge Date/Time January 04, 2019 Discharge Diagnosis Status post lumbar surgery, brain subpendymoma; iatrogenic adrenal insufficiency; intolerance to gabapentin; chronic pain syndrome; obstructive sleep apnea; essential hypertension; Patient Condition: Fair Consults Internal medicine-Dr. Lara; neurology-Dr. Pina; oncology-Dr. Tesfaye; neurosurgery Dr. Abdalla Procedures Back surgery November 21, 2018 PROCEDURES: 1. Right L4 to L5 and L5 to S1 decompression with decompression of L4, L5, S1 nerve roots for stenosis. 2. Pedicle screw placement at L4, L5 and S1 bilaterally. 3. Neurolysis of right L5 and S1 nerve roots with use of microscope. 4. Transforaminal lumbar interbody fusion at L4 to L5 and L5 to S1. 5. Placement of intervertebral mechanical device at L4 to L5 and L5 to S1. 6. Posterolateral fusion at L4 to L5 and L5 to S1. 7. Use of autograft. 8. Use of allograft. 9. Use of C-arm fluoroscopy with interpretation without radiologist present. 10. Intraoperative neuromonitoring. 11. Use of operative microscope. IMPLANTS: 1. Nexxt Matrixx 10 x 10 x 30 mm cage at L4 to L5 and 8 x 10 x 30 mm cage at L5 to S1. 2. NeuroStructures Palladian pedicle screw 6.5 x 45 mm at L4 and L5 bilaterally and 7.5 x 45 mm S1 bilaterally. 3. Biosphere. Second surgery hardware removal Operative Report Preoperative Diagnosis RETAINED PAINFUL HARDWARE ON THE RIGHT Postoperative Diagnosis RETAINED PAINFUL HARDWARE ON THE RIGHT Operation/Procedure Performed REMOVAL AND RE-INSTRUMENTATION L4-S1 ON THE RIGHT Lumbar spine CT; lumbar spine MRI scan; MRI scan brain times 3; CT scan brain; chest thorax CT angiography; cervical spine MRI scan; thoracic spine MRI scan; Hx of Present Illness HISTORY OF PRESENT ILLNESS: The patient is a 38-year-old gentleman, issues with his back is currently being admitted for correction of the above. The patient had a prior surgery at L5-S1 and currently will be admitted for recurrent L5-S1 as well as L4-L5 with probable fusion. In terms of his past medical and surgical history, he had one prior surgery on his back as mentioned above. Other surgeries have included left shoulder surgery done for torn biceps and also had surgery on his left great toe for a fracture, which required pinning. He has had no medical hospitalizations, has had no other surgeries, has not broken any bones and he has been relatively healthy. Thank you, Dr. Reza for asking me to see the patient with you. CHIEF COMPLAINT: Low back ache in which the patient has spine fusion at L4-5 and L5-S1. The patient mentioned to me in August 2018 he had a fall and he is back at his work followed by 2 surgeries of diskectomy in his lower back which was re- herniated again required fusion which he came here for Dr. Green. He did for him the surgery in which the patient has acute onset of dizzy spell today in which he said his eye with to his left side with visual difficulty. He mentioned it happened after urinary catheter. The patient mentioned that he did not have this feeling before and it was new to him. Hospital Course (Demo Recall) pleasant 38 yo who was s/p lumbar fusion surgery, became dizzy and w/u shows what looks like a localized ependymoma most of these types of tumors appear in young individuals prior to age 40 treatment is surgical resection adjuvant tx may consist of radiation at this point need tissue diagnosis to make definitive tx recommendation will cont to follow and await neurosurgery recs Consultation Date/Type/Reason Admit Date/Time Nov 21, 2018 at 05:24 Date/Time of Note DATE: 12/01/18 TIME: 15:28 38 yo admitted for lumbar spinal fusion. He was to be discharged but was having dizziness so MRI brain done: MRI brain showed: 17.6 x 3.3 mm dependable/some dependable mass posterior left lateral ventricle. 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 Other intraventricular lesions such as ependymoma, meningioma and choroid plexus lesion considered less likely. He has also had MRI Cervical and thoracic and lumbar spine showing no obvious leptomeningeal disease Hospital Course 30-year-old gentleman with history of multiple spinal surgeries. He was admitted for spinal surgery and underwent this on November 21. He under went a second procedure for removal of hardware roughly 2 weeks later. In the course of his evaluation he was having what was initially described as dizziness and work-up incidentally found a lesion which is possibly a subependymoma myoma. He was seen by neurosurgery, oncology and neurology. Neurosurgery recommended following "Assessment/Plan Assessment/Plan Assessment/Plan MRI brain spectroscopy as out patient. RTC 2 weeks. Lower back management is deferred to Dr. Davis." He was having episodes of spells which were essentially vasovagal if he was getting too much pain he would collapse. He is now improved nicely to the point where he is stable for evaluation acute rehabilitation unit. Please see the notes from physical therapy, and orthopedic spinal surgery. In addition to the above he had been receiving steroid treatments as an outpatient before coming to the hospital and this induced to state of an adrenal insufficiency which contributed to his drop attacks, and was having atypical reaction to gabapentin which was also aggravating that. At this time he is doing better and is stable for discharge to rehabilitation facility which took quite some time to arrange. Home Meds Reported Medications Acetaminophen with Codeine (Acetaminophen-Cod #3 Tablet) 1 Each Tablet, 1 TAB PO Q6H, #7 TAB 11/16/18 Gabapentin* (Gabapentin*) 300 Mg Capsule, 300 MG PO BID, #60 CAP 11/16/18 Baclofen* (Baclofen*) 20 Mg Tablet, 20 MG PO TID, TAB 11/16/18 Benazepril Hcl* (Benazepril Hcl*) 40 Mg Tablet, 40 MG PO DAILY, #30 TAB 03/14/18 Amlodipine Besylate* (Amlodipine Besylate*) 10 Mg Tablet, 10 MG PO DAILY, #30 TAB 03/14/18 Follow-up Plan Acute rehabilitation unit; outpatient chronic pain clinic; Primary Care Provider Keara Lara MD Time spent on discharge: > 30 minutes Copies To: CC: DOT PINA MD; FAVIOLA GREEN MD; SAVI ABDALLA MD; KEARA LARA MD; FAYE TESFAYE JOSHUA A MD January 03, 2019 17:40
[2019-01-03] MEDS ORDERED: LIDO700A45 TD (17:48)
[2019-01-03] MEDS ORDERED: BEN25 PO (17:48)
[2019-01-03] MEDS ORDERED: DOCU-144 PO (17:48)
[2019-01-03] MEDS ORDERED: HYDR-3609 PO (17:48)
[2019-01-03] MEDS ORDERED: POLY17PO6 PO (17:48)
[2019-01-03] MEDS ORDERED: MORP30TA3 PO (17:48)
[2019-01-03] MEDS ORDERED: LEVE-5 PO (17:48)
[2019-01-03] MEDS ORDERED: TIZA4TAB PO (17:48)
[2019-01-03] MEDS ORDERED: ACET325T33 PO (17:48)
[2019-01-03] MEDS ORDERED: BENA40TA56 PO (17:48)
[2019-01-03] MEDS ORDERED: HYDR5TAB7 PO ×3 (17:48)
[2019-01-03] MEDS ORDERED: PANT40TA4 PO (17:48)
[2019-01-03] MEDS: HYDROCODONE/APAP (10/325) TAB PO PRN (20:16)
[2019-01-03] MEDS: BISACODYL 10 MG SUPP PR SCH (21:00)
[2019-01-03] MEDS: BENAZEPRIL 40 MG TAB PO SCH (21:18)
[2019-01-04] VITALS (12 sets, daily range): BP systolic 126–195; BP diastolic 76–84; PULSE 59–117; RESP 18–19
[2019-01-04] MEDS: PANTOPRAZOLE (EC) 40 MG TAB PO SCH (06:07)
[2019-01-04] MEDS: morphine (ER) 30 MG TAB PO SCH ×3 (06:08→22:05)
[2019-01-04] MEDS: HYDROCODONE/APAP (10/325) TAB PO PRN ×2 (07:36→20:07)
--- NOTE | 2019-01-04 08:04 | PN ---
Date/Time of Note Date/Time of Note DATE: 01/04/19 TIME: 08:04 Assessment/Plan Lines/Catheters IV Catheter Type (from [facility]): Saline Lock Baker in Place (from [facility]): No Assessment/Plan Assessment/Plan d/c planning Subjective 24 Hr Interval Summary no new events Exam/Review of Systems Vital Signs Vitals Vital Signs Date Temp Pulse Resp B/P (MAP) Pulse Ox O2 O2 Flow FiO2 Time Delivery Rate 01/04/19 98.2 83 19 138/84 95 07:49 (102) 01/02/19 2.0 03:18 01/01/19 Nasal 04:00 Cannula Intake and Output 01/03/19 01/03/19 01/04/19 1515:00 23:00 07:00 IntakeIntake Total 1500 ml 400 ml OutputOutput Total 1300 ml 1200 ml BalanceBalance 200 ml -800 ml Exam Free Text/Dictation exam unchanged FAVIOLA GREEN MD January 04, 2019 08:04
[2019-01-04] MEDS: DOCUSATE SODIUM 100 MG CAP PO SCH ×2 (08:06→20:42)
[2019-01-04] MEDS: LEVETIRACETAM 500 MG TAB PO SCH ×2 (08:06→20:42)
[2019-01-04] MEDS: TIZANIDINE 4 MG TAB PO SCH ×3 (08:06→20:42)
[2019-01-04] MEDS: BISACODYL 10 MG SUPP PR SCH ×2 (08:06→23:37)
[2019-01-04] MEDS: HYDROCORTISONE 5 MG TAB PO SCH ×3 (08:07→20:42)
[2019-01-04] MEDS: POLYETHYLENE GLYCOL 17 GM PACKET PO SCH (08:07)
[2019-01-04] MEDS: ENOXAPARIN 30 MG/0.3 ML SYG SC SCH (08:12)
[2019-01-04] MEDS: LIDOCAINE 5% PATCH TD SCH (12:24)
[2019-01-04] MEDS: (Nursing Note) XX SCH ×2 (16:30→21:00)
--- NOTE | 2019-01-04 17:17 | PN ---
Date/Time of Note Date/Time of Note DATE: 01/04/19 TIME: 17:14 Assessment/Plan VTE Prophylaxis Risk score (from Ns)>0 risk: 7 SCD applied (from [facility] [place]): No SCD contraindicated: patient refusal Pharmacological prophylaxis: heparin Lines/Catheters IV Catheter Type (from [facility]): Saline Lock Urinary Cath still in place: No Assessment/Plan Hospital Course 30-year-old gentleman with history of multiple spinal surgeries. He was admitted for spinal surgery and underwent this on November 21. He under went a second procedure for removal of hardware roughly 2 weeks later. In the course of his evaluation he was having what was initially described as dizziness and work-up incidentally found a lesion which is possibly a subependymoma myoma. He was seen by neurosurgery, oncology and neurology. Neurosurgery recommended following "Assessment/Plan Assessment/Plan Assessment/Plan MRI brain spectroscopy as out patient. RTC 2 weeks. Lower back management is deferred to Dr. Davis." He was having episodes of spells which were essentially vasovagal if he was getting too much pain he would collapse. He is now improved nicely to the point where he is stable for evaluation acute rehabilitation unit. Please see the notes from physical therapy, and orthopedic spinal surgery. In addition to the above he had been receiving steroid treatments as an outpatient before coming to the hospital and this induced to state of an adrenal insufficiency which contributed to his drop attacks, and was having atypical reaction to gabapentin which was also aggravating that. At this time he is doing better and is stable for discharge to rehabilitation f acility which took quite some time to arrange. Problems: (1) Chronic pain syndrome Status: Chronic Comment: He is doing better with combinations of therapy. The addition of the Reyez 2 selective medication celecoxib has been of benefit. I am in place him on this on a regular morning time basis to help get him through his physical therapy. (2) Status post lumbar surgery Onset Date: ~ 11/21/2018 Status: Acute Comment: He is making minimal progress with physical therapy but is making progress note his pain is under control and is no longer having drop attacks. Is reported to me by our casework manager that they have contacted the casework manager for the insurance company who states that they now need to start the process to get authorization for the acute rehabilitation unit. Please note that this rehabilitation unit is in [place] which is not geographically desirable for this patient's family per report. Regardless since we do not have on agreement from the insurance company to cover the acute rehabilitation unit he remains here under our care by by circumstance (3) Subependymoma Onset Date: ~ 11/26/2018 Status: Acute Comment: Noted. For follow-up postop. (4) Essential (primary) hypertension Status: Chronic Comment: Adequate control (5) Adrenal insufficiency due to corticosteroid withdrawal Status: Acute Comment: Stable on replacement therapy and doing well Subjective 24 Hr Interval Summary Free Text/Dictation Patient reports he had slightly more pain today on a day when he did not have the Celebrex. Constitutional: no complaints Respiratory: no complaints Cardiovascular: no complaints Gastrointestinal: no complaints Genitourinary: no complaints Exam/Review of Systems Exam Vitals Vital Signs Date Temp Pulse Resp B/P (MAP) Pulse Ox O2 O2 Flow FiO2 Time Delivery Rate 01/04/19 98.1 69 18 132/81 95 15:57 (98) 01/02/19 2.0 03:18 01/01/19 Nasal 04:00 Cannula Intake and Output 01/03/19 01/03/19 01/04/19 1515:00 23:00 07:00 IntakeIntake Total 1500 ml 400 ml OutputOutput Total 1300 ml 1200 ml BalanceBalance 200 ml -800 ml Constitutional: alert, oriented Neck: supple, non-tender Respiratory: clear to auscultation, normal air movement Cardiovascular: regular rate and rhythm, nl pulses Gastrointestinal: soft, nl liver, spleen, non-tender Medications Medication Current Medications Acetaminophen/ Hydrocodone Bitart ([place] (10/325)) 1 tab Q4H PRN PO .PAIN 1-5 Last administered on 01/04/19at 07:36; Admin Dose 1 TAB; Start 12/05/18 at 16:00 Ondansetron HCl (Zofran Inj) 4 mg Q6H PRN IV NAUSEA/VOMITING Last administered on 01/01/19at 04:46; Admin Dose 4 MG; Start 12/05/18 at 16:00 Docusate Sodium (Colace) 100 mg BID PO Last administered on 01/04/19at 08:06; Admin Dose 100 MG; Start 12/05/18 at 21:00 Al Hydrox/Mg Hydrox/Simethicone (Mag-Al Plus) 15 ml Q6H PRN PO .CONSTIPATION/DYSPEPSIA Last administered on 12/24/18 22:32; Admin Dose 15 ML; Start 12/05/18 at 16:00 Acetaminophen (Tylenol Tab) 650 mg Q4H PRN PO FARRIS OR TEMP GREATER THAN 101.3F Last administered on 12/20/18 12:14; Admin Dose 650 MG; Start 12/05/18 at 16:00 Phenol (Cepastat Lozenge) 1 lozenge PRN PRN MT .SORE THROAT Last administered on 12/12/18 03:27; Admin Dose 1 LOZENGE; Start 12/05/18 at 16:00 Diphenhydramine HCl (Benadryl) 25 mg Q6H PRN PO .ITCHING Last administered on 12/15/18 22:13; Admin Dose 25 MG; Start 12/05/18 at 16:00 Naloxone HCl (Narcan) 0.2 mg Q2M PRN IV .RR 8 BREATHS/MIN OR LESS; Start 12/05/18 at 16:00 Lidocaine (Xylocaine 1% (Mpf)) 30 ml ONCE PRN INJ pain Last administered on 12/06/18 18:01; Admin Dose 30 ML; Start 12/06/18 at 17:30 Pantoprazole (Protonix Tab) 40 mg DAILY@06 PO Last administered on 01/04/19 06:07; Admin Dose 40 MG; Start 12/08/18 at 06:00 Polyethylene Glycol (Miralax) 17 gm DAILY PO Last administered on 01/04/19 08:07; Admin Dose 17 GM; Start 12/14/18 at 09:00 Benazepril HCl (Lotensin) 40 mg QPM PO Last administered on 01/03/19 21:18; Admin Dose 40 MG; Start 12/15/18 at 21:00 Levetiracetam (Keppra) 1,000 mg BID PO Last administered on 01/04/19 08:06; Admin Dose 1,000 MG; Start 12/15/18 at 21:00 Tizanidine HCl (Zanaflex) 4 mg TID PO Last administered on 01/04/19 12:23; Admin Dose 4 MG; Start 12/17/18 at 21:00 Morphine Sulfate (Ms Contin (Er)) 30 mg Q8 PO Last administered on 01/04/19 13:53; Admin Dose 30 MG; Start 12/17/18 at 22:00 Naloxone HCl (Narcan) 0.4 mg PRN PRN IV opioid reversal; Start 12/19/18 at 01:00 Flumazenil (Romazicon) 0.2 mg PRN PRN IV BENZO REVERSAL; Start 12/19/18 at 01:00 Hydromorphone HCl (Dilaudid) 0.2 mg Q3H PRN IV .BREAKTHROUGH PAIN Last admini stered on 01/03/19 09:24; Admin Dose 0.2 MG; Start 12/19/18 at 16:00 Meclizine HCl (Antivert) 12.5 mg BID PRN PO DIZZY Last administered on 12/23/18 08:15; Admin Dose 12.5 MG; Start 12/19/18 at 21:00 Miscellaneous Information 1 ea NOTE XX ; Start 12/21/18 at 22:30 Enoxaparin Sodium (Lovenox) 30 mg DAILY SC Last administered on 01/04/19 08:12; Admin Dose 30 MG; Start 12/28/18 at 09:00 Lidocaine (Lidoderm) 1 patch DAILY TD Last administered on 01/04/19 12:24; Admin Dose 1 PATCH; Start 12/29/18 at 09:00 Hydrocortisone (Cortef) 2.5 mg QHS PO Last administered on 01/03/19 21:17; Admin Dose 2.5 MG; Start 12/29/18 at 21:00 Hydrocortisone (Cortef) 12.5 mg QAM PO Last administered on 01/04/19 08:07; Admin Dose 12.5 MG; Start 12/30/18 at 09:00 Hydrocortisone (Cortef) 5 mg PC LUNCH PO Last administered on 01/04/19 12:23; Admin Dose 5 MG; Start 12/30/18 at 13:00 Bisacodyl (Dulcolax Supp) 10 mg DAILY MI ; Start 01/03/19 at 21:00 Miscellaneous Information 1 ea BID XX ; Start 01/04/19 at 16:30 DONNA TIDWELL MD January 04, 2019 17:17
[2019-01-04] MEDS: BENAZEPRIL 40 MG TAB PO SCH (20:42)
[2019-01-05] VITALS (9 sets, daily range): BP systolic 119–156; BP diastolic 61–89; PULSE 73–117; RESP 16–21
[2019-01-05] MEDS: ONDANSETRON 4 MG INJ IV PRN (00:18)
[2019-01-05] MEDS: HYDROmorphONE 0.5 MG/0.5 ML SYG IV PRN ×4 (00:18→19:03)
[2019-01-05] MEDS: PANTOPRAZOLE (EC) 40 MG TAB PO SCH (06:25)
[2019-01-05] MEDS: morphine (ER) 30 MG TAB PO SCH ×2 (06:26→14:07)
--- NOTE | 2019-01-05 08:11 | PN ---
Date/Time of Note Date/Time of Note DATE: 01/05/19 TIME: 08:10 Assessment/Plan Lines/Catheters IV Catheter Type (from Nrsg): Saline Lock Baker in Place (from Nrsg): No Assessment/Plan Assessment/Plan Continue current treatment while waiting for DC to acute rehab Subjective 24 Hr Interval Summary Complains of back pain Exam/Review of Systems Vital Signs Vitals Vital Signs Date Temp Pulse Resp B/P (MAP) Pulse Ox O2 O2 Flow FiO2 Time Delivery Rate 01/05/19 98.6 100 18 156/89 95 Room Air 07:42 (111) 01/04/19 2.0 18:55 Intake and Output 01/04/19 01/04/19 01/05/19 1515:00 23:00 07:00 IntakeIntake Total 700 ml 800 ml OutputOutput Total 900 ml 1000 ml BalanceBalance -200 ml -200 ml Exam Free Text/Dictation Unchanged FAVIOLA GREEN MD January 05, 2019 08:11
[2019-01-05] MEDS: LIDOCAINE 5% PATCH TD SCH (08:40)
[2019-01-05] MEDS: DOCUSATE SODIUM 100 MG CAP PO SCH (08:40)
[2019-01-05] MEDS: POLYETHYLENE GLYCOL 17 GM PACKET PO SCH (08:41)
[2019-01-05] MEDS: LEVETIRACETAM 500 MG TAB PO SCH (08:41)
[2019-01-05] MEDS: HYDROCODONE/APAP (10/325) TAB PO PRN ×2 (08:42→17:03)
[2019-01-05] MEDS: TIZANIDINE 4 MG TAB PO SCH ×2 (08:42→13:07)
[2019-01-05] MEDS: HYDROCORTISONE 5 MG TAB PO SCH ×2 (08:43→13:07)
[2019-01-05] MEDS: ENOXAPARIN 30 MG/0.3 ML SYG SC SCH (08:55)
[2019-01-05] MEDS: (Nursing Note) XX SCH (08:56)
[2019-01-05] MEDS ORDERED: CELECOXIB 200 MG CAP PO SCH (09:00)
[2019-01-05] MEDS ORDERED: CELE200C PO (13:25)
== END 2019-01-05 19:23 | DRG 454 ==
LOC: REC 05:24 → EDSTATUS 07:00 → MS1 14:28 → 6WM 12-13 16:44
PROVIDERS: ADMIT Specialist; ATTEND Specialist
PROC: 0SG0071 Fusion of Lumbar Vertebral Joint with Autologous Tissue Substitute, Posterior Approach, Posterior Column, Open Approach (ICD-10-PCS; 2018-11-21)
PROC: 0SG30AJ Fusion of Lumbosacral Joint with Interbody Fusion Device, Posterior Approach, Anterior Column, Open Approach (ICD-10-PCS; 2018-11-21)
PROC: 0ST40ZZ Resection of Lumbosacral Disc, Open Approach (ICD-10-PCS; 2018-11-21)
PROC: 0SG3071 Fusion of Lumbosacral Joint with Autologous Tissue Substitute, Posterior Approach, Posterior Column, Open Approach (ICD-10-PCS; 2018-11-21)
PROC: 4A11X4G Monitoring of Peripheral Nervous Electrical Activity, Intraoperative, External Approach (ICD-10-PCS; 2018-11-21)
PROC: 0SG00AJ Fusion of Lumbar Vertebral Joint with Interbody Fusion Device, Posterior Approach, Anterior Column, Open Approach (ICD-10-PCS; principal; 2018-11-21 07:00)
PROC: 0SP004Z Removal of Internal Fixation Device from Lumbar Vertebral Joint, Open Approach (ICD-10-PCS; 2018-12-05)
PROC: 0SP304Z Removal of Internal Fixation Device from Lumbosacral Joint, Open Approach (ICD-10-PCS; 2018-12-05)
PROC: 0SH004Z Insertion of Internal Fixation Device into Lumbar Vertebral Joint, Open Approach (ICD-10-PCS; 2018-12-05)
PROC: 0SH304Z Insertion of Internal Fixation Device into Lumbosacral Joint, Open Approach (ICD-10-PCS; 2018-12-05)
PROC: 4A11X4G Monitoring of Peripheral Nervous Electrical Activity, Intraoperative, External Approach (ICD-10-PCS; 2018-12-05)
PROC: 0HDRXZZ Extraction of Toe Nail, External Approach (ICD-10-PCS; 2018-12-06)
DX: M51.16 Intervertebral disc disorders with radiculopathy, lumbar region (principal); E27.3 Drug-induced adrenocortical insufficiency; M51.17 Intervertebral disc disorders with radiculopathy, lumbosacral region; M48.07 Spinal stenosis, lumbosacral region; M48.061 Spinal stenosis, lumbar region without neurogenic claudication; T85.848A Pain due to other internal prosthetic devices, implants and grafts, initial encounter; R42 Dizziness and giddiness; I10 Essential (primary) hypertension; E66.9 Obesity, unspecified; R55 Syncope and collapse; G47.33 Obstructive sleep apnea (adult) (pediatric); D43.0 Neoplasm of uncertain behavior of brain, supratentorial; M62.838 Other muscle spasm; L60.0 Ingrowing nail; G47.00 Insomnia, unspecified; M79.661 Pain in right lower leg; T38.0X5A Adverse effect of glucocorticoids and synthetic analogues, initial encounter; T42.6X5A Adverse effect of other antiepileptic and sedative-hypnotic drugs, initial encounter; Z68.31 Body mass index [BMI] 31.0-31.9, adult
CPT/HCPCS: 36600; 70551; 70553; 71045; 71250; 71275; 72110; 72114; 72131; 72156; 72157; 72158; 80048; 80053; 81001; 82533; 82550; 82553; 82803; 82962; 83735; 84403; 84439; 84443; 84481; 84484; 85025; 85378; 86480; 86706; 86708; 86803; 86850; 86900; 86901; 86999; 87086; 87340; 88300; 88304; 93005; 93970; 94660; 94664; 95819; 97110; 97116; 97162; 97164; 97530; C1713; C9113; J0690; J0833; J1100; J1170; J1200; J1644; J1650; J1885; J2060; J2250; J2270; J2310; J2370; J2405; J2710; J2765; J2920; J3010; J3480; J7120; Q9967